=== PATIENT | female | born 1955 | race Caucasian/White ===

== ENCOUNTER 2016-10-16 10:01 | Inpatient (IN) | payer BC ==
[~2016-10-16] VITALS: Ht 162.6 cm; Wt 141.5 kg
[~2016-10-16 10:01] MED LIST changes: -ALBU2.5V4 NEB; -CARV25TA PO; -FENO145T20 PO; -LEVO150T6 PO; -LORA10TA7 PO; -MONT10TA24 PO; -ONDN4T PO; -PANT40TA3 PO; -PIOG1TAB34 PO; -RT-ALBUINH INH; -TIOT18CA2 INH; -VALS160T28 PO
[2016-10-16] MEDS ORDERED: ONDANSETRON 4 MG/2 ML (SDV) Z0FRAN IVP PRN (10:45)
[2016-10-16] MEDS ORDERED: PATIENT MAY USE OWN MEDS, ALL PO SCH (10:45)
[2016-10-16] MEDS ORDERED: fentaNYL INJECTION 100 MCG/2 ML AMP IVP PRN (11:00)
--- OUTSIDE RECORDS SUMMARY | 2016-10-16 13:06 | XMS REPORT | Continuity of Care Document ---
Author Author [facility] Organization [facility] Address Unknown Phone Unavailable Allergies Active Description Code Type Severity Reaction Onset Reported/Identified Relationship to Patient Clinical Status Yes azithromycin [id number] Drug Allergy Unknown N/A 11/05/2014 Yes Cephalosporins [id number] Drug Allergy Unknown N/A 11/05/2014 Yes codeine [id number] Drug Allergy Unknown N/A 11/05/2014 Medications Problems Date Dx Coded Attending Type Code Diagnosis Diagnosed By 05/14/2011 Ot 562.11 DIVERTICULITIS COLON (W/O MENT OF HEMORR 05/14/2011 Ot 565.0 ANAL FISSURE 05/14/2011 Ot 569.3 RECTAL ANAL HEMORRHAGE 05/14/2011 Ot 578.9 GASTROINTEST HEMORR NOS 06/23/2011 Ot 455.0 INT HEMORRHOID W/O COMPL 06/23/2011 Ot 562.10 DIVERTICULOSIS COLON (W/O MENT OF HEMORR 08/25/2011 Ot 472.1 CHRONIC PHARYNGITIS 08/25/2011 Ot 530.11 REFLUX ESOPHAGITIS 08/25/2011 Ot 535.50 UNSP GASTRITIS GASTRODUODENITIS W/O ME 08/25/2011 Ot 553.3 DIAPHRAGMATIC HERNIA 10/29/2011 Ot 244.9 HYPOTHYROIDISM NOS 10/29/2011 Ot 250.00 DIAB JAYLEN WO COMPL, TYPE II OR UNSPEC TY 10/29/2011 Ot 278.01 MORBID OBESITY 10/29/2011 Ot 401.9 HYPERTENSION NOS 10/29/2011 Ot 493.90 ASTHMA, UNSPECIFIED 10/29/2011 Ot 530.81 ESOPHAGEAL REFLUX 10/29/2011 Ot 733.6 TIETZE'S DISEASE 10/29/2011 Ot V17.49 FAMILY HISTORY OF OTHER CARDIOVASCULAR D 10/29/2011 Ot V58.69 OTH MED,LT,CURRENT USE 10/29/2011 Ot V85.43 BODY MASS INDEX 50.0-59.9, ADULT 12/28/2011 Ot 244.9 HYPOTHYROIDISM NOS 12/28/2011 Ot 250.00 DIAB JAYLEN WO COMPL, TYPE II OR UNSPEC TY 12/28/2011 Ot 272.4 HYPERLIPIDEMIA NEC/NOS 12/28/2011 Ot 278.01 MORBID OBESITY 12/28/2011 Ot 403.90 HYPTNSV CHR KID DIS, UNSPEC, W CHR KD ST 12/28/2011 Ot 493.00 EXTRINSIC ASTHMA, NOS 12/28/2011 Ot 530.81 ESOPHAGEAL REFLUX 12/28/2011 Ot 562.11 DIVERTICULITIS COLON (W/O MENT OF HEMORR 12/28/2011 Ot 585.9 CHRONIC KIDNEY DISEASE, UNSPECIFIED 12/28/2011 Ot 780.52 INSOMNIA, UNSPECIFIED 12/28/2011 Ot 788.1 DYSURIA 12/28/2011 Ot V85.43 BODY MASS INDEX 50.0-59.9, ADULT 01/01/2012 Ot 596.89 OTHER SPECIFIED DISORDERS OF BLADDER 01/01/2012 Ot 789.00 ABDOMINAL PAIN, UNSPECIFIED SITE 01/13/2012 Ot 625.9 FEM GENITAL SYMPTOMS NOS 01/13/2012 Ot 789.00 ABDOMINAL PAIN, UNSPECIFIED SITE 05/24/2013 BROWN ORDONEZ DO Ot 327.23 OBSTRUCTIVE SLEEP APNEA (ADULT) ( PEDIATR 05/24/2013 BROWN ORDONEZ DO Ot 327.51 PERIODIC LIMB MOVEMENT DISORDER 09/30/2014 Ot 429.3 09/30/2014 Ot 786.09 09/30/2014 Ot 715.36 09/30/2014 Ot 625.9 09/30/2014 Ot 789.01 09/30/2014 Ot 789.00 09/30/2014 Ot 789.00 09/30/2014 Ot V12.79 03/28/2016 Ot 715.36 LOC OSTEOARTH NOS-L/LEG 03/28/2016 Ot 625.9 FEM GENITAL SYMPTOMS NOS 03/28/2016 Ot 789.01 ABDOMINAL PAIN, RIGHT UPPER QUADRANT 03/28/2016 Ot 789.00 ABDOMINAL PAIN, UNSPECIFIED SITE 03/28/2016 Ot 789.00 ABDOMINAL PAIN, UNSPECIFIED SITE 03/28/2016 Ot V12.79 PERSONAL HISTORY OTH SPEC DIGESTIVE SYST 03/29/2016 LAURA PERLA RAILCAR BRAKE OPERATOR Ot R06.02 SHORTNESS OF BREATH 03/29/2016 LAURA PERLA APRN Ot R07.89 OTHER CHEST PAIN 03/31/2016 LAURA PERLA RAILCAR BRAKE OPERATOR Ot R06.02 SHORTNESS OF BREATH 04/03/2016 LAURA PERLA RAILCAR BRAKE OPERATOR Ot R00.0 TACHYCARDIA, UNSPECIFIED 04/03/2016 LAURA PERLA RAILCAR BRAKE OPERATOR Ot R06.02 SHORTNESS OF BREATH 04/03/2016 LAURA PERLA RAILCAR BRAKE OPERATOR Ot R53.83 OTHER FATIGUE 04/03/2016 LAURA PERLA Ken RAILCAR BRAKE OPERATOR Ot R60.9 EDEMA, UNSPECIFIED 04/04/2016 LAURA PERLA RAILCAR BRAKE OPERATOR Ot R00.0 TACHYCARDIA, UNSPECIFIED 04/04/2016 LAURA PERLA RAILCAR BRAKE OPERATOR Ot R06.02 SHORTNESS OF BREATH 04/04/2016 LAURA PERLA Ken RAILCAR BRAKE OPERATOR Ot R53.83 OTHER FATIGUE 04/04/2016 LAURA PERLA RAILCAR BRAKE OPERATOR Ot R60.9 EDEMA, UNSPECIFIED 04/06/2016 LAURA PERLA RAILCAR BRAKE OPERATOR Ot R00.0 TACHYCARDIA, UNSPECIFIED 04/06/2016 ALURA PERLA RAILCAR BRAKE OPERATOR Ot R06.02 SHORTNESS OF BREATH 04/06/2016 LAURA PERLA Ken RAILCAR BRAKE OPERATOR Ot R53.83 OTHER FATIGUE 04/06/2016 LAURA PERLA RAILCAR BRAKE OPERATOR Ot R60.9 EDEMA, UNSPECIFIED 04/12/2016 LAURA PERLA RAILCAR BRAKE OPERATOR Ot R06.02 SHORTNESS OF BREATH 04/12/2016 LAURA PERLA RAILCAR BRAKE OPERATOR Ot R07.89 OTHER CHEST PAIN 04/12/2016 LAURA PERLA RAILCAR BRAKE OPERATOR Ot R06.02 SHORTNESS OF BREATH 04/12/2016 LAURA PERLA RAILCAR BRAKE OPERATOR Ot R00.0 TACHYCARDIA, UNSPECIFIED 04/12/2016 LAURA PERLA RAILCAR BRAKE OPERATOR Ot R06.02 SHORTNESS OF BREATH 04/12/2016 LAURA PERLA N RAILCAR BRAKE OPERATOR Ot R53.83 OTHER FATIGUE 04/12/2016 LAURA PERLA RAILCAR BRAKE OPERATOR Ot R60.9 EDEMA, UNSPECIFIED 05/11/2016 RIANA BOYLE, KOFI Samayoa Ot I51.7 CARDIOMEGALY 05/11/2016 KOFI MAYERS MD Ot J45.909 UNSPECIFIED ASTHMA, UNCOMPLICATED 05/11/2016 KOFI MAYERS MD Ot K57.30 DVRTCLOS OF LG INT W/O PERFORATION OR AB 05/11/2016 RIANA BOYLE, KOFI Samayoa Ot R07.9 CHEST PAIN, UNSPECIFIED 05/17/2016 Ot 715.36 LOC OSTEOARTH NOS-L/LEG 05/17/2016 Ot 625.9 FEM GENITAL SYMPTOMS NOS 05/17/2016 Ot 789.01 ABDOMINAL PAIN, RIGHT UPPER QUADRANT 05/17/2016 Ot 789.00 ABDOMINAL PAIN, UNSPECIFIED SITE 05/17/2016 Ot 789.00 ABDOMINAL PAIN, UNSPECIFIED SITE 05/17/2016 Ot V12.79 PERSONAL HISTORY OTH SPEC DIGESTIVE SYST 05/17/2016 LAURA PERLA RAILCAR BRAKE OPERATOR Ot R06.02 SHORTNESS OF BREATH 05/17/2016 LAURA PERLA RAILCAR BRAKE OPERATOR Ot R07.89 OTHER CHEST PAIN 05/17/2016 LAURA PERLA RAILCAR BRAKE OPERATOR Ot R06.02 SHORTNESS OF BREATH 05/17/2016 LAURA PERLA RAILCAR BRAKE OPERATOR Ot R00.0 TACHYCARDIA, UNSPECIFIED 05/17/2016 LAURA PERLA RAILCAR BRAKE OPERATOR Ot R06.02 SHORTNESS OF BREATH 05/17/2016 LAURA PERLA RAILCAR BRAKE OPERATOR Ot R53.83 OTHER FATIGUE 05/17/2016 PAN LAURA N RAILCAR BRAKE OPERATOR Ot R60.9 EDEMA, UNSPECIFIED 05/18/2016 KOFI MAYERS MD Ot I51.7 CARDIOMEGALY 05/18/2016 KOFI MAYERS MD Ot J45.909 UNSPECIFIED ASTHMA, UNCOMPLICATED 05/18/2016 KOFI MAYERS MD Ot K57.30 DVRTCLOS OF LG INT W/O PERFORATION OR AB 05/18/2016 KOFI MAYERS MD Ot R07.9 CHEST PAIN, UNSPECIFIED 05/26/2016 Ot 715.36 LOC OSTEOARTH NOS-L/LEG 05/26/2016 Ot 625.9 FEM GENITAL SYMPTOMS NOS 05/26/2016 Ot 789.01 ABDOMINAL PAIN, RIGHT UPPER QUADRANT 05/26/2016 Ot 789.00 ABDOMINAL PAIN, UNSPECIFIED SITE 05/26/2016 Ot 789.00 ABDOMINAL PAIN, UNSPECIFIED SITE 05/26/2016 Ot V12.79 PERSONAL HISTORY OTH SPEC DIGESTIVE SYST 05/26/2016 PAN LAURA N RAILCAR BRAKE OPERATOR Ot R06.02 SHORTNESS OF BREATH 05/26/2016 LUARA PERLA RAILCAR BRAKE OPERATOR Ot R07.89 OTHER CHEST PAIN 05/26/2016 LAURA PERLA RAILCAR BRAKE OPERATOR Ot R06.02 SHORTNESS OF BREATH 05/26/2016 LAURA PERLA RAILCAR BRAKE OPERATOR Ot R00.0 TACHYCARDIA, UNSPECIFIED 05/26/2016 LAURA PERLA RAILCAR BRAKE OPERATOR Ot R06.02 SHORTNESS OF BREATH 05/26/2016 LAURA PERLA RAILCAR BRAKE OPERATOR Ot R53.83 OTHER FATIGUE 05/26/2016 LAURA PERLA RAILCAR BRAKE OPERATOR Ot R60.9 EDEMA, UNSPECIFIED 05/26/2016 KOFI MAYERS MD Ot E03.9 HYPOTHYROIDISM, UNSPECIFIED 05/26/2016 KOFI MAYERS MD Ot E11.9 TYPE 2 DIABETES MELLITUS WITHOUT COMPLIC 05/26/2016 KOFI MAYERS MD, Ot I10 ESSENTIAL (PRIMARY) HYPERTENSION 05/26/2016 KOFI MAYERS MD Ot I97.610 POSTPROC HEMOR/HEMTOM OF A CIRC SYS ORG 05/26/2016 KOFI MAYERS MD Ot J45.909 UNSPECIFIED ASTHMA, UNCOMPLICATED 05/26/2016 KOFI MAYERS MD Ot K57.30 DVRTCLOS OF LG INT W/O PERFORATION OR AB 05/26/2016 KOFI MAYERS MD Ot R10.31 RIGHT LOWER QUADRANT PAIN 05/26/2016 KOFI MAYERS MD Ot Z79.899 OTHER INTERMEDIATE (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 THERAPY Procedures Results Test Result Range Complete blood count (CBC) with automated white blood cell (WBC) differential - 05/11/16 13:40 Blood leukocytes automated count (number/volume) 6.0 10*3/ uL 4.3-11.0 Blood erythrocytes automated count (number/volume) 3.93 10*6 /uL 4.35-5.85 Venous blood hemoglobin measurement (mass/volume) 10.2 g/dL 11.5-16.0 Blood hematocrit (volume fraction) 32 % 35-52 Automated erythrocyte mean corpuscular volume 82 [foz_us] 80-99 Automated erythrocyte mean corpuscular hemoglobin (mass per erythrocyte) 26 pg 25-34 Automated erythrocyte mean corpuscular hemoglobin concentration measurement ( mass/volume) 32 g/dL 32-36 Automated erythrocyte distribution width ratio 17.5 % 10.0-14.5 Automated blood platelet count (count/volume) 303 10*3/uL 130-400 Automated blood platelet mean volume measurement 10.3 [foz_ us] 7.4-10.4 Automated blood neutrophils/100 leukocytes 57 % 42-75 Automated blood lymphocytes/100 leukocytes 25 % 12-44 Blood monocytes/100 leukocytes 8 % 0-12 Automated blood eosinophils/100 leukocytes 9 % 0-10 Automated blood basophils/100 leukocytes 1 % 0-10 Blood neutrophils automated count (number/volume) 3.4 10*3 1.8-7.8 Blood lymphocytes automated count (number/volume) 1.5 10*3 1.0-4.0 Blood monocytes automated count (number/volume) 0.5 10*3 0.0-1.0 Automated eosinophil count 0.5 10*3/uL 0.0-0.3 Automated blood basophil count (count/volume) 0.1 10*3/uL 0.0-0.1 PT panel in platelet poor plasma by coagulation assay - 05/11/16 13:40 Prothrombin time (PT) in platelet poor plasma by coagulation assay 13.7 s 12.2-14.7 INR in platelet poor plasma or blood by coagulation assay 1.1 0.8-1.4 Activated partial thromboplastin time (aPTT) in platelet poor plasma bycoagulation assay - 05/11/16 13:40 Activated partial thromboplastin time (aPTT) in platelet poor plasma bycoagulation assay 28 s 24-35 Comprehensive metabolic panel - 05/11/16 13:40 Serum or plasma sodium measurement (moles/volume) 140 mmol/ L 135-145 Serum or plasma potassium measurement (moles/volume) 4.5 mmol/L 3.6-5.0 Serum or plasma chloride measurement (moles/volume) 109 mmol /L 98-107 Carbon dioxide 22 mmol/L 21-32 Serum or plasma anion gap determination (moles/volume) 9 mmol/L 5-14 Serum or plasma urea nitrogen measurement (mass/volume) 25 mg/dL 7-18 Serum or plasma creatinine measurement (mass/volume) 1.19 mg /dL 0.60-1.30 Serum or plasma urea nitrogen/creatinine mass ratio 21 NRG Serum or plasma creatinine measurement with calculation of estimated glomerular filtration rate 46 NRG Serum or plasma glucose measurement (mass/volume) 97 mg/dL 70-105 Serum or plasma calcium measurement (mass/volume) 9.2 mg/dL 8.5-10.1 Serum or plasma total bilirubin measurement (mass/volume) 0.4 mg/dL 0.1-1.0 Serum or plasma alkaline phosphatase measurement (enzymatic activity/volume) 68 U/L 40-136 Serum or plasma aspartate aminotransferase measurement (enzymatic activity/ volume) 27 U/L 5-34 Serum or plasma alanine aminotransferase measurement (enzymatic activity/volume ) 20 U/L 0-55 Serum or plasma protein measurement (mass/volume) 7.2 g/dL 6.4-8.2 Serum or plasma albumin measurement (mass/volume) 4.0 g/dL 3.2-4.5 Magnesium - 05/11/16 13:40 Magnesium 2.0 mg/dL 1.8-2.4 Serum or plasma troponin i.cardiac measurement (mass/volume) - 05/11/16 13:40 Serum or plasma troponin i.cardiac measurement (mass/volume) < ng/mL <0.30 Myoglobin, serum - 05/11/16 13:40 Myoglobin, serum 33.9 ng/mL 10.0-92.0 Complete blood count (CBC) with automated white blood cell (WBC) differential - 05/26/16 22:34 Blood leukocytes automated count (number/volume) 8.8 10*3/ uL 4.3-11.0 Blood erythrocytes automated count (number/volume) 3.93 10*6 /uL 4.35-5.85 Venous blood hemoglobin measurement (mass/volume) 10.1 g/dL 11.5-16.0 Blood hematocrit (volume fraction) 33 % 35-52 Automated erythrocyte mean corpuscular volume 83 [foz_us] 80-99 Automated erythrocyte mean corpuscular hemoglobin (mass per erythrocyte) 26 pg 25-34 Automated erythrocyte mean corpuscular hemoglobin concentration measurement ( mass/volume) 31 g/dL 32-36 Automated erythrocyte distribution width ratio 17.9 % 10.0-14.5 Automated blood platelet count (count/volume) 230 10*3/uL 130-400 Automated blood platelet mean volume measurement 10.8 [foz_ us] 7.4-10.4 Automated blood neutrophils/100 leukocytes 62 % 42-75 Automated blood lymphocytes/100 leukocytes 22 % 12-44 Blood monocytes/100 leukocytes 9 % 0-12 Automated blood eosinophils/100 leukocytes 6 % 0-10 Automated blood basophils/100 leukocytes 1 % 0-10 Blood neutrophils automated count (number/volume) 5.4 10*3 1.8-7.8 Blood lymphocytes automated count (number/volume) 2.0 10*3 1.0-4.0 Blood monocytes automated count (number/volume) 0.8 10*3 0.0-1.0 Automated eosinophil count 0.6 10*3/uL 0.0-0.3 Automated blood basophil count (count/volume) 0.1 10*3/uL 0.0-0.1 Encounters ACCT No. Visit Date/Time Discharge Status Pt. Type Provider Facility Loc./Unit Complaint [id number] 05/26/2016 22:15:00 2015 23:05:00 DIS Emergency KOFI MAYERS MD [facility] ER R GROIN SWELLING [id number] 05/11/2016 13:25:00 2015 16:13:00 DIS Emergency KOFI MAYERS MD [facility] ER SOA/CHEST PAIN [id number] 05/23/2013 20:00:00 2012 06:55:00 DIS Outpatient BROWN ORDONEZ DO [facility] SLEEP BERNARDO,SNORING,ABN LIMB MOVEMENT,HTN,ESCESSIVE DAYTIM [id number] 05/02/2013 08:37:00 2012 23:59:59 CLS Outpatient [id number] 03/31/2016 12:28:00 ACT Outpatient LAURA PERLA APRN [facility] CARD ELEVATED BHP,FATIGUE,PEDAL EDEMA,SOB,TACHYCARDIA [id number] 03/30/2016 11:50:00 ACT Outpatient LAURA PERLA APRN [facility] CARD SHORNESS OF BREATH,ELEVATED D-DIMER [id number] 03/28/2016 12:17:00 ACT Outpatient LAURA PERLA APRN [facility] RAD CHEST TIGHTNESS,SOB [id number] 09/30/2014 18:49:00 Document Registration [id number] 09/30/2014 18:49:00 Document Registration [id number] 01/13/2012 18:51:00 Document Registration [id number] 01/01/2012 20:24:00 Document Registration [id number] 12/25/2011 17:50:00 Document Registration [id number] 12/25/2011 08:44:00 Document Registration [id number] 10/27/2011 19:25:00 Document Registration [id number] 08/25/2011 09:24:00 Document Registration [id number] 06/23/2011 08:50:00 Document Registration [id number] 05/14/2011 15:08:00 Document Registration [id number] 05/10/2011 08:50:00 Document Registration [id number] 05/09/2011 14:27:00 Document Registration [id number] 12/19/2010 15:52:00 Document Registration [id number] 12/17/2009 13:26:00 Document Registration
[2016-10-16] MEDS ORDERED: PIOG1TAB34 PO (14:02)
[2016-10-16] MEDS ORDERED: CARV25TA PO (14:02)
[2016-10-16] MEDS ORDERED: FENO145T20 PO (14:02)
[2016-10-16] MEDS ORDERED: PANT40TA3 PO (14:02)
[2016-10-16] MEDS ORDERED: LEVO150T6 PO (14:02)
[2016-10-16] MEDS ORDERED: VALS160T28 PO (14:02)
[2016-10-16] MEDS ORDERED: ALBU2.5V4 NEB (14:02)
[2016-10-16] MEDS ORDERED: RT-ALBUINH INH (14:02)
[2016-10-16] MEDS ORDERED: MONT10TA24 PO (14:02)
[2016-10-16] MEDS ORDERED: FURO40TA4 PO (14:02)
[2016-10-16] MEDS ORDERED: TIOT18CA2 INH (14:10)
[2016-10-16] MEDS ORDERED: LORA10TA7 PO (14:10)
[2016-10-16] MEDS: NS IV 1000 ML 1,000 ML IV SCH ×3 (14:30→22:35)
[2016-10-16 15:38] LABS: BASOPHILS % (AUTO) 1 % (0-10); EOSINOPHILS # (AUTO) 0.3 10^3/uL (0.0-0.3); EOSINOPHILS % (AUTO) 4 % (0-10); LYMPHOCYTES # (AUTO) 1.3 X 10^3 (1.0-4.0); LYMPHOCYTES % (AUTO) 20 % (12-44); MEAN CORPUSCULAR HEMOGLOBIN 26 PG (25-34); MEAN CORPUSCULAR HGB CONC 32 G/DL (32-36); MEAN CORPUSCULAR VOLUME 83 FL (80-99); MEAN PLATELET VOLUME 10.2 FL (7.4-10.4); MONOCYTES # (AUTO) 0.6 X 10^3 (0.0-1.0); MONOCYTES % (AUTO) 9 % (0-12); NEUTROPHILS # (AUTO) 4.3 X 10^3 (1.8-7.8); NEUTROPHILS % (AUTO) 66 % (42-75); PLATELET COUNT 244 10^3/uL (130-400); RED BLOOD COUNT 4.09 10^6/uL (4.35-5.85); RED CELL DISTRIBUTION WIDTH 17.5 % (10.0-14.5); WHITE BLOOD COUNT 6.5 10^3/uL (4.3-11.0)
[2016-10-16 16:03] LABS: ALBUMIN 3.8 G/DL (3.2-4.5); BILIRUBIN,TOTAL 0.9 MG/DL (0.1-1.0); CALCIUM 9.4 MG/DL (8.5-10.1); CREATININE SERUM 0.99 MG/DL (0.60-1.30); POTASSIUM 3.7 MMOL/L (3.6-5.0); hs C REACTIVE PROTEIN 4.73 MG/DL (0.00-0.50)
[2016-10-16 16:55] VITALS: BP 175/92
--- NOTE | 2016-10-16 20:10 | History & Physicial ---
History of Present Illness History of Present Illness Reason for visit/HPI This is a 61 year old female with a history of recurrent UTIs who was having worsening abdominal pain and diarrhea. She had been treated for a urinary tract infection but due to ongoing pain, a CT scan of the abdomen and pelvis was ordered which showed sigmoid diverticulitis with concern for possible fistula to the bladder. It was decided to admit her for IV antibiotics and surgical evaluation. Date of Admission Oct 16, 2016 at 13:00 I consulted on this patient on 10/16/16 20:04 Attending Physician Belkis Araujo DO Admitting Physician Belkis Araujo DO Consult Allergies and Home Medications Allergies Coded Allergies: Cephalosporins (Unverified Allergy, Unknown, 11/05/14) azithromycin (Unverified Allergy, Unknown, 11/05/14) codeine (Unverified Allergy, Unknown, 11/05/14) Home Medications Albuterol Sulfate 8.5 Gm Hfa.aer.ad 2 PUFF INH Q4H PRN PRN SHORTNESS OF BREATH ( Reported) Albuterol Sulfate 2.5 Mg/3 Ml Vial.neb 2.5 MG NEB QID PRN PRN SHORTNESS OF BREATH (Reported) Carvedilol 25 Mg Tablet 25 MG PO BID (Reported) Fenofibrate Nanocrystallized 145 Mg Tablet 145 MG PO HS (Reported) Furosemide 40 Mg Tablet 40 MG PO DAILY PRN PRN SHORTNESS OF BREATH (Reported) Levothyroxine Sodium 150 Mcg Tablet 150 MCG PO DAILY (Reported) Loratadine 10 Mg Tablet 10 MG PO DAILY (Reported) Montelukast Sodium 10 Mg Tablet 10 MG PO HS (Reported) Pantoprazole Sodium 40 Mg Tablet.dr 40 MG PO HS (Reported) Pioglitazone HCl/Metformin HCl 1 Each Tablet 1 TAB PO DAILY (Reported) Tiotropium [place] 1 Inh Aerp 1 CAP INH DAILY (Reported) Valsartan 160 Mg Tablet 160 MG PO BID (Reported) Past Zidqbjg-Oqysvk-Zkqtab Hx Patient Social History Alcohol Use: Denies Use Recreational Drug Use: No Smoking Status: Never a Smoker Physical Abuse Screen: No Sexual Abuse: No Recent Foreign Travel: No Contact w/other who traveled: No Recent Hopitalizations: Yes Recent Infectious Disease Expo: No Immunizations Up To Date Date of Pneumonia Vaccine: Jun 10, 2015 Date of Influenza Vaccine: Jul 11, 2016 Seasonal Allergies Seasonal Allergies: No Surgeries HX Surgeries: Yes (TONSILECTOMY, BACK-DISK REPAIR, X2, GANGLION CYST REMOVED) Respiratory Hx Respiratory Disorders: Yes Cardiovascular Hx Cardiovascular Disorders: Yes (abnormal stress test 06/09/16) Cardiac Disorders: Chronic Edema/Swelling, High Cholesterol, Hypertension Neurological Hx Neurological Disorders: No Reproductive System Hx Reproductive Disorders: No Genitourinary Hx Genitourinary Disorders: Yes (renal insuff) Gastrointestinal Hx Gastrointestinal Disorders: Yes Gastrointestinal Disorders: Gastroesophageal Reflux, Diverticulosis Musculoskeletal Hx Musculoskeletal Disorders: Yes Endocrine Hx Endocrine Disorders: Yes Endocrine Disorders: Hypothyroidsim, Diabetes, Non-Insulin dep HEENT HX ENT Disorders: No Psychosocial Hx Psychiatric Problems: No Blood Transfusions Hx Blood Disorders: No Constitutional: weakness EENTM: No blurred vision, No dental problems, No double vision, No ear discharge, No ear pain, No epistaxis, No eye pain, No hearing loss, No hoarseness, No mouth pain, No mouth swelling, No no symptoms reported, No nose congestion, No nose pain, No other, No see HPI, No tearing, No throat pain, No throat swelling, No vision loss Respiratory: No no symptoms reported, No see HPI, No cough, No dyspnea on exertion, No hemoptysis, No orthopnea, No phlegm, No short of breath, No stridor , No wheezing, No other Cardiovascular: No no symptoms reported, No see HPI, No chest pain, No edema, No Hx of Intervention, No palpitations, No syncope, No vascular heart diseas, No other Gastrointestinal: abdominal pain diarrhea Genitourinary: dysuria frequency Musculoskeletal: No no symptoms reported, No see HPI, No back pain, No gout, No joint pain, No joint swelling, No muscle pain, No muscle stiffness, No muscle cramps, No muscle twitching, No muscle weakness, No neck pain, No other Skin: No no symptoms reported, No see HPI, No change in color, No change in hair/nails, No dryness, No hx of skin cancer, No lesions, No lumps, No pruritus , No rash, No other Psychiatric/Neurological: Weakness Physical Exam Vital Signs Vital Sign - Last 12Hours 10/16/16 10/16/16 13:45 16:55 Temp 99.7 Pulse 71 Resp 22 B/P 175/92 Pulse Ox 95 O2 Delivery Room Air Capillary Refill : General Appearance: No Apparent Distress HEENT: Normal ENT Inspection Neck: Supple Respiratory: Lungs Clear Cardiovascular: Regular Rate, Rhythm Gallop/S3 Gastrointestinal: Normal Bowel Sounds Non Tender Soft Back: No CVA Tenderness Extremity: Non Tender No Calf Tenderness No Pedal Edema Neurologic/Psychiatric: Alert Oriented x3 Skin: Normal Color Warm/Dry Comments Laboratory Tests 10/16/16 15:24: Alanine Aminotransferase (ALT/SGPT) 11, Albumin 3.8, Alkaline Phosphatase 59, Anion Gap 11, Aspartate Amino Transf (AST/SGOT) 17, BUN/Creatinine Ratio 17, Basophils # (Auto) 0.0, Basophils (%) (Auto) 1, Blood Urea Nitrogen 17, C- Reactive Protein High Sensitivity 4.73H, Calcium Level 9.4, Carbon Dioxide Level 24, Chloride Level 104, Creatinine 0.99, Eosinophils # (Auto) 0.3, Eosinophils (%) (Auto) 4, Estimat Glomerular Filtration Rate 57, Glucose Level 79, Hematocrit 34L, Hemoglobin 10.7L, Lymphocytes # (Auto) 1.3, Lymphocytes (%) (Auto) 20, Mean Corpuscular Hemoglobin 26, Mean Corpuscular Hemoglobin Concent 32, Mean Corpuscular Volume 83, Mean Platelet Volume 10.2, Monocytes # (Auto) 0.6, Monocytes (%) (Auto) 9, Neutrophils # (Auto) 4.3, Neutrophils (%) (Auto) 66 , Platelet Count 244, Potassium Level 3.7, Red Blood Count 4.09L, Red Cell Distribution Width 17.5H, Sodium Level 139, Total Bilirubin 0.9, Total Protein 7.0, White Blood Count 6.5 Assessment/Plan Assessment and Plan 1. Acute Sigmoid Diverticulitis--due to patients numerous allergies and concern for possible microperforation or possible bladder fistula will cover with meropenem and consult surgery, keep NPO except for meds with sips of water 2. Hypertension--resume home meds 3. Diabetes mellitus--start accuchecks with SSI 4. BERNARDO--resume home CPAP 5. Asthma--start SVNs prn Clinical Quality Measures DVT/VTE Risk/Contraindication: Risk Factor Score Per Nursin RFS Level Per Nursing on Admit: 3=High BELKIS ARAUJO DO Oct 16, 2016 20:10
[2016-10-16] MEDS ORDERED: RT-ALBUTEROL SULF 2.5 MG/3 ML PRE-MIX VIAL IH PRN (20:15)
[2016-10-16 20:41] VITALS: BP 163/84
[2016-10-16] MEDS: CARVEDILOL 12.5 MG (COREG) TABLET PO SCH (20:50)
[2016-10-16] MEDS: VALSARTAN 80 MG (DIOVAN) TAB PO SCH (20:50)
[2016-10-16] MEDS: inSUlin (REGULAR) HUMAN 1 UNIT/0.01 ML (CHARGE PER UNIT) SC SCH (20:52)
[2016-10-16] MEDS: MEROPENEM 500 MG in NS (IVPB) 100 ML IV SCH ×2 (22:00→22:35)
[2016-10-17 00:15] VITALS: BP 146/83
[2016-10-17 04:28] VITALS: BP 155/72
[2016-10-17] MEDS: LEVOTHYROXINE 150 MCG (LEVOTHROID) TAB PO SCH (05:37)
[2016-10-17] MEDS: MEROPENEM 500 MG in NS (IVPB) 100 ML IV SCH ×4 (05:37→23:23)
[2016-10-17] MEDS: inSUlin (REGULAR) HUMAN 1 UNIT/0.01 ML (CHARGE PER UNIT) SC SCH ×4 (05:39→20:10)
[2016-10-17] MEDS: UMECLIDINIUM BROMIDE (INCRUSE ELLIPTA) 7'S IH SCH (07:47)
[2016-10-17] MEDS: VALSARTAN 80 MG (DIOVAN) TAB PO SCH ×2 (07:55→20:09)
[2016-10-17] MEDS: CARVEDILOL 12.5 MG (COREG) TABLET PO SCH ×2 (07:55→20:09)
[2016-10-17] MEDS: NS IV 1000 ML 1,000 ML IV SCH (08:42)
[2016-10-17] MEDS ORDERED: FUROSEMIDE 40 MG/4 ML INJ (LASIX) IVP ONE (08:45)
[2016-10-17] MEDS ORDERED: KCL 20 MEQ TAB (K-DUR) PO ONE ×2 (08:45→11:51)
[2016-10-17 09:02] VITALS: BP 165/77
[2016-10-17] MEDS ORDERED: CATHETER FLUSH 10 ML SYR IV PRN (09:30)
[2016-10-17] MEDS ORDERED: FUROSEMIDE 40 MG/4 ML INJ (LASIX) ONE (11:51)
[2016-10-17] MEDS: PANTOPRAZOLE 40 MG/10 ML (PROTONIX) VIAL IV SCH (11:55)
[2016-10-17 12:47] VITALS: BP 144/74
--- NOTE | 2016-10-17 13:01 | Progress Note (SOAP) ---
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 Some abdominal discomfort this am but is in upper abdomen. No diarrhea since admit. Objective Exam Vital Signs Date Time Temp Pulse Resp B/P Pulse Ox O2 Delivery O2 Flow Rate FiO2 10/17/16 12:47 98.1 69 20 144/74 95 Nasal Cannula 2.00 2.00 10/17/16 09:02 98.6 77 18 165/77 89 Nasal Cannula 2.00 10/17/16 09:00 NIV/CPAP 10/17/16 07:43 98 10/17/16 04:28 97.6 68 18 155/72 90 NIV/CPAP 10/17/16 00:15 99.5 74 18 146/83 94 Room Air 10/16/16 21:00 NIV/CPAP 10/16/16 20:41 100.1 71 18 163/84 93 Room Air 10/16/16 16:55 99.7 71 22 175/92 95 Room Air 10/16/16 13:45 Room Air I & O 10/17/16 07:00 Intake Total 1200 ml Output Total 450 ml Balance 750 ml Capillary Refill : General Appearance: No Apparent Distress Neck: Supple Respiratory: Lungs Clear Cardiovascular: Regular Rate, Rhythm Gastrointestinal: normal bowel sounds soft tenderness (mild epigastric and LUQ ) Extremity: No Calf Tenderness No Pedal Edema Neurologic/Psychiatric: Alert Oriented x3 Results Lab Laboratory Tests 10/16/16 15:24: Alanine Aminotransferase (ALT/SGPT) 11, Albumin 3.8, Alkaline Phosphatase 59, Anion Gap 11, Aspartate Amino Transf (AST/SGOT) 17, BUN/Creatinine Ratio 17, Basophils # (Auto) 0.0, Basophils (%) (Auto) 1, Blood Urea Nitrogen 17, C- Reactive Protein High Sensitivity 4.73H, Calcium Level 9.4, Carbon Dioxide Level 24, Chloride Level 104, Creatinine 0.99, Eosinophils # (Auto) 0.3, Eosinophils (%) (Auto) 4, Estimat Glomerular Filtration Rate 57, Glucose Level 79, Hematocrit 34L, Hemoglobin 10.7L, Lymphocytes # (Auto) 1.3, Lymphocytes (%) (Auto) 20, Mean Corpuscular Hemoglobin 26, Mean Corpuscular Hemoglobin Concent 32, Mean Corpuscular Volume 83, Mean Platelet Volume 10.2, Monocytes # (Auto) 0.6, Monocytes (%) (Auto) 9, Neutrophils # (Auto) 4.3, Neutrophils (%) (Auto) 66 , Platelet Count 244, Potassium Level 3.7, Red Blood Count 4.09L, Red Cell Distribution Width 17.5H, Sodium Level 139, Total Bilirubin 0.9, Total Protein 7.0, White Blood Count 6.5 10/16/16 20:52: Glucometer 81 10/17/16 05:26: Glucometer 79 10/17/16 11:45: Glucometer 73 Assessment/Plan Assessment/Plan Assess & Plan/Chief Complaint 1. 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 Hypertension--home meds restarted 3. Diabetes mellitus, II--on accuchecks with SSI 4. Asthma--resume home inhalers Diagnosis/Problems: Clinical Quality Measures DVT/VTE Risk/Contraindication: Risk Factor Score Per Nursin RFS Level Per Nursing on Admit: 3=High BROWN ORDONEZ DO Oct 17, 2016 1:01 pm
--- NOTE | 2016-10-17 13:20 | CONSULTATION REPORT ---
DATE OF ADMISSION: 10/16/2016 DATE OF CONSULTATION: 10/17/2016 ATTENDING PHYSICIAN: Belkis Villaseñor. Zhane Matson is a 61-year-old female who we have seen before in the past. We have seen her approximately in June 2011 for pain in the left lower abdominal quadrant. She underwent a colonoscopy and was found to have mild internal and external hemorrhoids as well as mild sigmoid diverticulosis at the time. She reports that she has had an issue with chronic sinusitis and has exacerbation of this on a regular basis and did take antibiotics approximately one month ago. She reports that after taking antibiotics, she has had worsening issues with diarrhea. She also does have irritable bowel syndrome, diarrhea type and states that she has usually loose bowel movements on a daily basis; however, this was much worse. She then reports that yesterday she did develop pain in the left lower abdominal quadrant as well. A CT scan was performed, which did show sigmoid diverticulitis as well as a small bubble of gas in the jen sigmoidal mesentery which may represent a chronic contained perforation. Since being admitted, and placed on meropenem she states that she has felt better. She reports much less pain in the left lower abdominal quadrant. Her vital signs are also stable with no fevers and a normal white count is 6.5 indicating likely more chronic disease. PAST MEDICAL HISTORY: 1. Hypertension. 2. Adult-onset diabetes. 3. Asthma. 4. Chronic sinusitis. 5. Frequent urinary tract infections. 6. IBS-D obstructive sleep apnea. 7. Hypercholesterolemia. 8. Hypothyroid. PAST SURGERIES: 1. section x2. 2. Tubal ligation. 3. Tonsillectomy. 4. Lumbar discectomy. ALLERGIES: 1. SULFA. 2. CELEBREX. 3. ZITHROMAX. 4. CODEINE. MEDICATIONS: 1. Albuterol 2 puffs q.4 hours p.r.n. 2. Carvedilol 25 mg b.i.d. 3. Fenofibrate 145 mg daily. 4. Furosemide 40 mg daily. 5. Levothyroxine 150 mcg daily. 6. Loratadine 10 mg daily. 7. Montelukast 10 mg daily. 8. Protonix 40 mg daily. 9. Pioglitazone/metformin 15/950 mg daily. 10. Spiriva daily. 11. Valsartan 160 mg b.i.d. SOCIAL HISTORY: Negative smoke. Negative alcohol. FAMILY HISTORY: Father diabetes, history of transient ischemic attack., And maternal grandfather severe diverticulitis. VITAL SIGNS: Temperature 98.6, blood pressure 165/77, pulse 77, respirations 18, pulse oximetry 89% on 2 liters nasal cannula. REVIEW OF SYSTEMS: This well nourished female currently in no acute distress. She is not experiencing any shortness of breath or difficulty breathing. No chest pain, palpitations, diaphoresis. No nausea, vomiting, with intermittent episodes of loose stools which is common for her. No red blood per rectum. No dark tarry stools. No fever, chills, no recent inadvertent weight loss. PHYSICAL EXAMINATION: CHEST: Clear. HEART: Regular. EXTREMITIES: +1/3 bilateral lower extremity edema. Negative Homans sign. ABDOMEN: Soft. There is mild left lower and suprapubic pain upon deep palpation. There are no peritoneal signs. ASSESSMENT AND PLAN: 61-year-old female with sigmoid diverticulitis as well as possible chronic contained perforation. She did have colonoscopy by us in 2010. However, she had an EGD and colonoscopy done more recently in the summer of 2015 at [place]. She states that 2 polyps were identified, benign. At this time, we will recommend continued conservative management with bowel rest and IV antibiotics. This appears to be her first complicated episodes of diverticulitis. If she does have continued episodes despite maximal medical therapy, the indication for sigmoid colon resection, may be warranted. At this time she does have an episode of diverticulitis and the recommendations for follow-up colonoscopy in approximately 6 to 8 weeks. However, she did have one recently. We will give her the option of a follow-up colonoscopy in the next 6 months to one year. Job ID: [id number] Dictated Date: 10/17/2016 11:28:29 Aquaculture Director Date: 10/17/2016 13:05:25/susan
[2016-10-17 15:35] VITALS: BP 175/81
[2016-10-17 19:36] VITALS: BP 159/70
[2016-10-18] VITALS (7 sets, daily range): BP systolic 121–170; BP diastolic 69–85
[2016-10-18] MEDS: NS IV 1000 ML 1,000 ML IV SCH (05:01)
[2016-10-18] MEDS: MEROPENEM 500 MG in NS (IVPB) 100 ML IV SCH ×4 (05:01→23:30)
[2016-10-18] MEDS: LEVOTHYROXINE 150 MCG (LEVOTHROID) TAB PO SCH (05:43)
[2016-10-18] MEDS: inSUlin (REGULAR) HUMAN 1 UNIT/0.01 ML (CHARGE PER UNIT) SC SCH ×4 (05:44→20:38)
[2016-10-18] MEDS: UMECLIDINIUM BROMIDE (INCRUSE ELLIPTA) 7'S IH SCH (08:09)
[2016-10-18] MEDS: VALSARTAN 80 MG (DIOVAN) TAB PO SCH ×2 (09:41→20:38)
[2016-10-18] MEDS: CARVEDILOL 12.5 MG (COREG) TABLET PO SCH ×2 (09:41→20:38)
[2016-10-18] MEDS: PANTOPRAZOLE 40 MG/10 ML (PROTONIX) VIAL IV SCH (09:41)
--- NOTE | 2016-10-18 13:20 | Diagnostic Imaging Report ---
INDICATION: Sigmoid diverticulitis. FINDINGS: There is no evidence for bowel obstruction. No extraluminal gas collections or free intraperitoneal air. IMPRESSION: Unremarkable abdominal radiographs. Dictated by: Dictated on workstation # [id number]
--- NOTE | 2016-10-18 13:37 | Progress Note (SOAP) ---
Subjective Subjective/Events-last exam doing better today. minimal abdominal pain. had large loose BM today. tolerating liquids. no fever/chills. Objective Exam Vital Signs Date Time Temp Pulse Resp B/P Pulse Ox O2 Delivery O2 Flow Rate FiO2 10/18/16 08:20 99.4 65 18 170/69 95 Room Air 10/18/16 08:09 97 10/18/16 04:15 99.6 68 18 159/78 92 NIV/CPAP 1.00 10/18/16 00:36 99.8 70 18 122/70 94 NIV/CPAP 1.00 10/17/16 22:06 97 10/17/16 20:10 NIV/CPAP 10/17/16 19:36 99.8 65 20 159/70 93 Room Air 10/17/16 15:35 99.0 67 18 175/81 94 Room Air I & O 10/18/16 07:00 Intake Total 4170 ml Output Total 2900 ml Balance 1270 ml Capillary Refill : General Appearance: No Apparent Distress HEENT: PERRL/EOMI Neck: Full Range of Motion Respiratory: Chest Non Tender Lungs Clear Normal Breath Sounds Cardiovascular: Regular Rate, Rhythm Gastrointestinal: normal bowel sounds non tender soft Extremity: Normal Capillary Refill Neurologic/Psychiatric: Alert Oriented x3 Skin: Normal Color Lymphatic: No Adenopathy Results Lab Laboratory Tests 10/17/16 16:44: Glucometer 87 10/17/16 19:46: Glucometer 80 10/18/16 05:22: Glucometer 75 10/18/16 10:37: Glucometer 76 Assessment/Plan Assessment/Plan Assess & Plan/Chief Complaint sigmoid diverticulitis. advance diet. trial bentyl. check stool for C. diff and O&P. Diagnosis/Problems: Clinical Quality Measures DVT/VTE Risk/Contraindication: Risk Factor Score Per Nursin RFS Level Per Nursing on Admit: 3=High GIBSON DELAROSA MD Oct 18, 2016 1:37 pm
[2016-10-18] MEDS ORDERED: DICYCLOMINE 10 MG (BENTYL) CAP PO SCH (16:00)
[2016-10-18] MEDS ORDERED: DICYCLOMINE 10 MG (BENTYL) CAP PO PRN (18:15)
--- NOTE | 2016-10-18 18:15 | Progress Note (SOAP) ---
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 One episode of diarrhea last night after clear liquids. Minimal abdominal discomfort. Objective Exam Vital Signs Date Time Temp Pulse Resp B/P Pulse Ox O2 Delivery O2 Flow Rate FiO2 10/18/16 16:00 98.6 74 18 121/73 95 Room Air 10/18/16 12:20 98.9 69 18 158/72 96 Room Air 10/18/16 08:20 99.4 65 18 170/69 95 Room Air 10/18/16 08:09 97 10/18/16 04:15 99.6 68 18 159/78 92 NIV/CPAP 1.00 10/18/16 00:36 99.8 70 18 122/70 94 NIV/CPAP 1.00 10/17/16 22:06 97 10/17/16 20:10 NIV/CPAP 10/17/16 19:36 99.8 65 20 159/70 93 Room Air I & O 10/18/16 07:00 Intake Total 4170 ml Output Total 2900 ml Balance 1270 ml Capillary Refill : General Appearance: No Apparent Distress Neck: Supple Respiratory: Lungs Clear Decreased Breath Sounds (bases) Cardiovascular: Regular Rate, Rhythm Gallop/S3 Gastrointestinal: non tender soft abnormal bowel sounds (hyperactive) Extremity: Non Tender No Calf Tenderness No Pedal Edema Neurologic/Psychiatric: Alert Oriented x3 Results Lab Laboratory Tests 10/17/16 19:46: Glucometer 80 10/18/16 05:22: Glucometer 75 10/18/16 10:37: Glucometer 76 10/18/16 16:30: Glucometer 118H Assessment/Plan Assessment/Plan Assess & Plan/Chief Complaint 1. 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 Hypertension--home meds restarted 3. Diabetes mellitus, II--on accuchecks with SSI 4. Asthma--on home inhalers Diagnosis/Problems: Clinical Quality Measures DVT/VTE Risk/Contraindication: Risk Factor Score Per Nursin RFS Level Per Nursing on Admit: 3=High BROWN ORDONEZ DO Oct 18, 2016 18:15
[2016-10-19 04:05] VITALS: BP 145/85
[2016-10-19] MEDS: MEROPENEM 500 MG in NS (IVPB) 100 ML IV SCH (05:23)
[2016-10-19] MEDS: NS IV 1000 ML 1,000 ML IV SCH (05:23)
[2016-10-19] MEDS: LEVOTHYROXINE 150 MCG (LEVOTHROID) TAB PO SCH (05:46)
[2016-10-19] MEDS: inSUlin (REGULAR) HUMAN 1 UNIT/0.01 ML (CHARGE PER UNIT) SC SCH ×4 (06:00→21:00)
[2016-10-19 07:42] LABS: BASOPHILS % (AUTO) 1 % (0-10); EOSINOPHILS # (AUTO) 0.4 10^3/uL (0.0-0.3); EOSINOPHILS % (AUTO) 6 % (0-10); LYMPHOCYTES # (AUTO) 1.2 X 10^3 (1.0-4.0); LYMPHOCYTES % (AUTO) 20 % (12-44); MEAN CORPUSCULAR HEMOGLOBIN 26 PG (25-34); MEAN CORPUSCULAR HGB CONC 32 G/DL (32-36); MEAN CORPUSCULAR VOLUME 82 FL (80-99); MEAN PLATELET VOLUME 10.1 FL (7.4-10.4); MONOCYTES # (AUTO) 0.5 X 10^3 (0.0-1.0); MONOCYTES % (AUTO) 9 % (0-12); NEUTROPHILS # (AUTO) 3.7 X 10^3 (1.8-7.8); NEUTROPHILS % (AUTO) 64 % (42-75); PLATELET COUNT 263 10^3/uL (130-400); RED BLOOD COUNT 3.88 10^6/uL (4.35-5.85); RED CELL DISTRIBUTION WIDTH 17.2 % (10.0-14.5); WHITE BLOOD COUNT 5.9 10^3/uL (4.3-11.0)
[2016-10-19] MEDS: UMECLIDINIUM BROMIDE (INCRUSE ELLIPTA) 7'S IH SCH (07:43)
[2016-10-19 08:02] LABS: ALANINE AMINOTRANSFERASE 15 U/L (0-55); ALBUMIN 3.5 G/DL (3.2-4.5); ANION GAP 10 MMOL/L (5-14); ASPARTATE AMINO TRANSFERASE 19 U/L (5-34); BILIRUBIN,TOTAL 0.7 MG/DL (0.1-1.0); BLOOD UREA NITROGEN 14 MG/DL (7-18); BUN/CREATININE RATIO 17; CARBON DIOXIDE 24 MMOL/L (21-32); CHLORIDE 107 MMOL/L (98-107); CREATININE SERUM 0.83 MG/DL (0.60-1.30); GFR ESTIMATED > 60; GLUCOSE 100 MG/DL (70-105); POTASSIUM 3.3 MMOL/L (3.6-5.0); SODIUM 141 MMOL/L (135-145); TOTAL PROTEIN 6.3 G/DL (6.4-8.2)
[2016-10-19 08:05] VITALS: BP 106/51
[2016-10-19] MEDS: PANTOPRAZOLE 40 MG/10 ML (PROTONIX) VIAL IV SCH (09:50)
[2016-10-19] MEDS: CARVEDILOL 12.5 MG (COREG) TABLET PO SCH ×2 (09:50→20:24)
[2016-10-19] MEDS: VALSARTAN 80 MG (DIOVAN) TAB PO SCH ×2 (09:50→20:24)
[2016-10-19 09:51] VITALS: BP 148/86
[2016-10-19] MEDS: metroNIDAZOLE 500 MG (FLAGYL) TAB PO SCH ×2 (13:36→20:24)
--- NOTE | 2016-10-19 14:54 | Progress Note (SOAP) ---
Subjective Subjective/Events-last exam Patient see with Dr. Chawla. Patient reports that today she doesn't feel quite as good as yesterday. She reports that she is having crampy abdominal pain as well as diarrhea. Denies blood in stool. No N/V. Reports that she felt a little warm this morning like she was running a temp. Tolerating diet. Review of Systems Gastrointestinal: : Abdominal Pain (Crampy): DiarrheaNo: Nausea, Vomiting Objective Exam Vital Signs Date Time Temp Pulse Resp B/P Pulse Ox O2 Delivery O2 Flow Rate FiO2 10/19/16 09:51 99.0 148/86 10/19/16 08:05 100.0 81 20 106/51 Room Air 10/19/16 07:44 96 10/19/16 04:05 98.8 64 18 145/85 94 Room Air 10/18/16 23:55 99.5 72 18 138/69 93 Room Air 10/18/16 20:50 99.3 71 18 156/85 94 Room Air 10/18/16 20:30 Room Air 10/18/16 16:00 98.6 74 18 121/73 95 Room Air I & O 10/19/16 06:59 Intake Total 3060 ml Output Total 1800 ml Balance 1260 ml Capillary Refill : General Appearance: No Apparent Distress WD/WN HEENT: PERRL/EOMI Neck: Full Range of Motion Normal Inspection Supple Respiratory: No Accessory Muscle Use No Respiratory Distress Cardiovascular: Regular Rate, Rhythm Gastrointestinal: normal bowel sounds non tender soft Extremity: Normal Capillary Refill Normal Inspection Normal Range of Motion Neurologic/Psychiatric: Alert Oriented x3 Skin: Normal Color Warm/Dry Results Lab Laboratory Tests 10/18/16 16:30: Glucometer 118H 10/18/16 20:36: Glucometer 114H 10/19/16 06:14: Glucometer 86 10/19/16 07:31: Alanine Aminotransferase (ALT/SGPT) 15, Albumin 3.5, Alkaline Phosphatase 52, Anion Gap 10, Aspartate Amino Transf (AST/SGOT) 19, BUN/Creatinine Ratio 17, Basophils # (Auto) 0.0, Basophils (%) (Auto) 1, Blood Urea Nitrogen 14, C- Reactive Protein High Sensitivity 3.40H, Calcium Level 9.0, Carbon Dioxide Level 24, Chloride Level 107, Creatinine 0.83, Eosinophils # (Auto) 0.4H, Eosinophils (%) (Auto) 6, Estimat Glomerular Filtration Rate > 60, Glucose Level 100, Hematocrit 32L, Hemoglobin 10.1L, Lymphocytes # (Auto) 1.2, Lymphocytes (%) (Auto) 20, Mean Corpuscular Hemoglobin 26, Mean Corpuscular Hemoglobin Concent 32, Mean Corpuscular Volume 82, Mean Platelet Volume 10.1, Monocytes # (Auto) 0.5, Monocytes (%) (Auto) 9, Neutrophils # (Auto) 3.7, Neutrophils (%) (Auto) 64, Platelet Count 263, Potassium Level 3.3L, Red Blood Count 3.88L, Red Cell Distribution Width 17.2H, Sodium Level 141, Total Bilirubin 0.7, Total Protein 6.3L, White Blood Count 5.9 10/19/16 11:29: Glucometer 98 Microbiology 10/18/16 C. difficile DNA Amplification - Final, Complete 10/18/16 C. difficile GDH Antigen & Toxins - Final, Complete Assessment/Plan Assessment/Plan Assess & Plan/Chief Complaint A 61 year old female with Sigmoid Diverticulitis. Labs normal. C-diff positive. IV fluids. Pain and nausea medication. Abx. Diagnosis/Problems: Clinical Quality Measures DVT/VTE Risk/Contraindication: Risk Factor Score Per Nursin RFS Level Per Nursing on Admit: 3=High JESSE HART APRN Oct 19, 2016 2:54 pm
[2016-10-19 16:47] VITALS: BP 157/71
--- NOTE | 2016-10-19 19:18 | Progress Note (SOAP) ---
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 Has advanced diet and only minimal abdominal discomfort and one episode of diarrhea. Objective Exam Vital Signs Date Time Temp Pulse Resp B/P Pulse Ox O2 Delivery O2 Flow Rate FiO2 10/19/16 16:47 98.9 63 18 157/71 95 Room Air 10/19/16 09:51 99.0 148/86 10/19/16 08:05 100.0 81 20 106/51 Room Air 10/19/16 07:44 96 10/19/16 04:05 98.8 64 18 145/85 94 Room Air 10/18/16 23:55 99.5 72 18 138/69 93 Room Air 10/18/16 20:50 99.3 71 18 156/85 94 Room Air 10/18/16 20:30 Room Air I & O 10/19/16 07:00 Intake Total 3060 ml Output Total 1800 ml Balance 1260 ml Capillary Refill : General Appearance: No Apparent Distress Neck: Supple Respiratory: Lungs Clear Cardiovascular: Regular Rate, Rhythm Gastrointestinal: normal bowel sounds soft tenderness (mild epigastric and LLQ ) Results Lab Laboratory Tests 10/18/16 20:36: Glucometer 114H 10/19/16 06:14: Glucometer 86 10/19/16 07:31: Alanine Aminotransferase (ALT/SGPT) 15, Albumin 3.5, Alkaline Phosphatase 52, Anion Gap 10, Aspartate Amino Transf (AST/SGOT) 19, BUN/Creatinine Ratio 17, Basophils # (Auto) 0.0, Basophils (%) (Auto) 1, Blood Urea Nitrogen 14, C- Reactive Protein High Sensitivity 3.40H, Calcium Level 9.0, Carbon Dioxide Level 24, Chloride Level 107, Creatinine 0.83, Eosinophils # (Auto) 0.4H, Eosinophils (%) (Auto) 6, Estimat Glomerular Filtration Rate > 60, Glucose Level 100, Hematocrit 32L, Hemoglobin 10.1L, Lymphocytes # (Auto) 1.2, Lymphocytes (%) (Auto) 20, Mean Corpuscular Hemoglobin 26, Mean Corpuscular Hemoglobin Concent 32, Mean Corpuscular Volume 82, Mean Platelet Volume 10.1, Monocytes # (Auto) 0.5, Monocytes (%) (Auto) 9, Neutrophils # (Auto) 3.7, Neutrophils (%) (Auto) 64, Platelet Count 263, Potassium Level 3.3L, Red Blood Count 3.88L, Red Cell Distribution Width 17.2H, Sodium Level 141, Total Bilirubin 0.7, Total Protein 6.3L, White Blood Count 5.9 10/19/16 11:29: Glucometer 98 10/19/16 16:00: Glucometer 99 Microbiology 10/18/16 C. difficile DNA Amplification - Final, Complete 10/18/16 C. difficile GDH Antigen & Toxins - Final, Complete Assessment/Plan Assessment/Plan Assess & Plan/Chief Complaint 1. 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 Hypertension--home meds restarted 3. Diabetes mellitus, II--on accuchecks with SSI 4. Asthma--on home inhalers Diagnosis/Problems: Clinical Quality Measures DVT/VTE Risk/Contraindication: Risk Factor Score Per Nursin RFS Level Per Nursing on Admit: 3=High BROWN ORDONEZ DO Oct 19, 2016 7:18 pm
[2016-10-19] MEDS ORDERED: METR500T PO (19:20)
[2016-10-19 20:00] VITALS: BP 146/67
[2016-10-20] VITALS: BP 142/74
[2016-10-20] MEDS: NS IV 1000 ML 1,000 ML IV SCH (02:40)
[2016-10-20] MEDS ORDERED: ONDN4T PO (05:45)
--- NOTE | 2016-10-20 05:47 | Discharge Inst-Simple/Standard ---
Discharge Inst-Standard Discharge Medications New, Converted or Re-Newed RX: Transmitted to Pharmacy Patient Instructions/Follow Up Plan of Care/Instructions/FU: Fwup with me Sunday or Activity as Tolerated: Yes Discharge Diet: Soft Diet, Low Residue BROWN ORDONEZ DO Oct 20, 2016 05:47
[2016-10-20] MEDS: inSUlin (REGULAR) HUMAN 1 UNIT/0.01 ML (CHARGE PER UNIT) SC SCH ×2 (05:56→11:00)
[2016-10-20] MEDS: LEVOTHYROXINE 150 MCG (LEVOTHROID) TAB PO SCH (05:56)
[2016-10-20 08:00] VITALS: BP 157/87
[2016-10-20] MEDS: CARVEDILOL 12.5 MG (COREG) TABLET PO SCH (08:57)
[2016-10-20] MEDS: metroNIDAZOLE 500 MG (FLAGYL) TAB PO SCH ×2 (08:58→16:00)
[2016-10-20] MEDS: VALSARTAN 80 MG (DIOVAN) TAB PO SCH (08:58)
[2016-10-20] MEDS: PANTOPRAZOLE 40 MG/10 ML (PROTONIX) VIAL IV SCH (08:58)
[2016-10-20 12:00] VITALS: BP 163/87
[2016-10-20 16:00] VITALS: BP 182/96
[2016-10-20 17:00] VITALS: BP 158/88
[2016-10-21] MEDS ORDERED: PANTOPRAZOLE 40 MG (PROTONIX) TAB PO SCH (07:00)
== END 2016-10-20 17:00 | disposition home or self-care (01) | DRG 392 ==
LOC: 4TH 13:00
PROVIDERS: ADMIT Family Medicine; ATTEND Family Medicine
DX: K57.20 Diverticulitis of large intestine with perforation and abscess without bleeding (principal); N32.2 Vesical fistula, not elsewhere classified; I10 Essential (primary) hypertension; E11.9 Type 2 diabetes mellitus without complications; J45.909 Unspecified asthma, uncomplicated; K21.9 Gastro-esophageal reflux disease without esophagitis; E03.9 Hypothyroidism, unspecified; G47.33 Obstructive sleep apnea (adult) (pediatric); K64.8 Other hemorrhoids; K64.4 Residual hemorrhoidal skin tags
CPT/HCPCS: 36415; 74020; 74176; 76937; 80053; 82962; 85025; 86141; 87177; 87324; 87449; 87493; 94640; 94760

== ENCOUNTER → 2016-10-16 | Outpatient (CLI) | payer BC ==
[~2016-10-16] MED LIST: ALBU2.5V4 NEB; ALBU8.5H2 IH; B-12 PO; CALCIUM PO; CARV25TA PO; CETI1TAB53 PO; CPR500T PO; DIAZ10TA PO; FENO145T2 PO; FENO145T20 PO; FERR-57 PO; FLC100T1 PO; FLUT1DIS26 IH; FURO20TA4 PO; FURO40TA4 PO; HYDR1TAB66 PO; HYOS0.3710 PO; KCL10CCR PO; LEVO125T6 PO; LEVO150T6 PO; LORA10TA7 PO; LOSA100T16 PO; METO100T5 PO; METOPROLOL PO; METR500T PO; MMT17NA NS; MNTL10T PO; MONT10TA24 PO; MULT-608 PO; NAPR220C11 PO; NASONEX 50 MCG; NF-ESOM40C PO; NITR0.4T39 SL; ONDN4T PO; OPTH OP; PANT40TA3 PO; PATANOL 0.1% OP; PHEN200T27 PO; PIOG1TAB PO; PIOG1TAB34 PO; PROBIOTIC1 EACH PO; RT-ALBUINH INH; SITA100T PO; TIOT18CA2 INH; TRM50T PO; VALS160T28 PO; VITA1CAP59 PO; ZLP10T PO; ZOLP5TAB6 PO; [UNRECOGNIZED DRUG - CODE] PO; [UNRECOGNIZED DRUG - OTHER] PO; hycosamine PO
--- NOTE | 2016-10-16 09:39 | Diagnostic Imaging Report ---
PROCEDURE: CT abdomen and pelvis without contrast. TECHNIQUE: Multiple contiguous axial images were obtained through the abdomen and pelvis without the use of intravenous contrast. INDICATION: Pain radiating to the back, diarrhea. COMPARISON: Compared 01/13/2012. FINDINGS: The appendix is visualized and felt to be unremarkable. There is diverticular disease of the sigmoid colon with perisigmoidal and peridiverticular edema at the midline, suspicious for acute diverticulitis. This abuts the thickened urinary bladder wall with small amount of air within the bladder lumen. This could be gas from a fistula or reflect a sequelae of any recent intervention such as catheterization, correlate clinically and with urinalysis. There is mild dilatation of the right ureter and right renal calyces. Ureteral dilatation extends to the level of the pelvic inflammatory changes and below that level appeared nondilated. The lumen contains no identifiable stone. This may be partial obstruction owing to the suspected diverticulitis. Uterus itself appeared unremarkable. On axial image 62, a pocket of gas measuring 1.7 cm in diameter may reflect air within a contained perforation. No drainable fluid collection or abscess. No nonloculated anti-dependent free air beneath the abdominal wall is found. Liver, gallbladder, spleen, adrenals and pancreas unremarkable. The aorta is nonaneurysmal. IMPRESSION: Findings most suggestive of sigmoid diverticulitis. Air within the lumen of the urinary bladder and its wall thickening is such that fistula to that structure could not be excluded, correlate with urinalysis. A bubble of gas 17 mm within the perisigmoidal mesentery is suspicious for small contained perforation. No abscess or drainable fluid collection and no free anti-dependent air deep to the abdominal wall. No bowel obstruction. The appendix is felt normal. Slight right caliectasis and ureteral dilatation to the level of the pelvic inflammatory process, probably partially obstructed. No opaque urinary tract stone. Results discussed with the ordering physician. Dictated by: Dictated on workstation # [id number]
--- NOTE | 2016-10-17 14:25 | Physician Query-Final Dx ---
JAROCHO ALVAREZ 10/17/16 1425: Clinic Account Progress/Dx Physician Query: Please give diagnosis Please specify the location of the patients abd pain (ruq, luq, ect...) thank you Date of Service Oct 16, 2016 at 08:57 BROWN ORDONEZ DO 10/18/16 1817: Clinic Account Progress/Dx DIAGNOSIS: Diagnosis Diffuse/Generalized JAROCHO ALVAREZ Oct 17, 2016 14:25 BROWN ORDONEZ DO Oct 18, 2016 18:17
== END ==
LOC: RAD 08:57
PROVIDERS: ATTEND Family Medicine
DX: R10.84 Generalized abdominal pain (principal)
CPT/HCPCS: 74176

== ENCOUNTER → 2016-11-27 | Outpatient (CLI) | payer BC ==
[~2016-11-27] MED LIST changes: +ALBU2.5V4 NEB; +CARV25TA PO; +FENO145T20 PO; +LEVO150T6 PO; +LORA10TA7 PO; +MONT10TA24 PO; +ONDN4T PO; +PANT40TA3 PO; +PIOG1TAB34 PO; +RT-ALBUINH INH; +RT-ALBUTEROL SULF 2.5 MG/3 ML PRE-MIX VIAL INH ONE; +TIOT18CA2 INH; +VALS160T28 PO
--- OUTSIDE RECORDS SUMMARY | 2016-11-27 12:38 | XMS REPORT | Continuity of Care Document ---
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 Name Role Phone BROWN ORDONEZ DO PCP Insurance Providers Payer Name Policy Number Subscriber Name [id number] Jasmin Matson 16 Self / Same As Patient Advance Directives Directive Response Recorded Date/Time Advance Directives Yes 10/16/16 1:42pm Health Care Power of Car Construction Superintendent Yes 10/16/16 1:42pm Organ Donor No 10/16/16 1:42pm Resuscitation Status Full Code 10/16/16 1:42pm Chief Complaint and Reason for Visit Chief Complaint ACUTE SIGMOID DIVERTICULITIS Reason for Visit Sigmoid diverticulitis Problems Active Problems Medical Problem Onset Date Status Sigmoid diverticulitis Unknown Acute Medications Current Home Medications Medication Dose Units Route Directions Days/Qty Instructions Start Date Pioglitazone Hcl/Metformin Hcl 1 Each 1 Tab Oral Daily 10/16/16 Valsartan 160 Mg 160 Mg Oral Twice A Day 10/16/16 Pantoprazole Sodium 40 Mg 40 Mg Oral Bedtime 10/16/16 Carvedilol 25 Mg 25 Mg Oral Twice A Day 10/16/16 Albuterol Sulfate 8.5 Gm 2 Puff Inhalation Every 4HRS as needed for Shortness Of Breath 10/16/16 Albuterol Sulfate 2.5 Mg/3 Ml 2.5 Mg Nebullizer Four Times Daily as needed for Shortness Of Breath 10/16/16 Levothyroxine Sodium 150 Mcg 150 Mcg Oral Daily 10/16/16 Montelukast Sodium 10 Mg 10 Mg Oral Bedtime 10/16/16 Fenofibrate Nanocrystallized 145 Mg 145 Mg Oral Bedtime 10/16/16 Loratadine 10 Mg 10 Mg Oral Daily 10/16/16 Tiotropium Milo 1 Inh 1 Cap Inhalation Daily 10/16/16 Metronidazole 500 Mg 500 Mg Oral Three Times A Day 30 10/19/16 Ondansetron Hcl 4 Mg 4 Mg Oral Every 4HRS as needed for Nausea 30 06/26 Past Home Medications Medication Directions Ordered Status Albuterol 8.5 Gm Hfa.aer.ad, 8.5 Gm Inhalation Every 4HRS as needed 08/25/11 Discontinued Levothyroxine Sodium (Levothroid) 125 Mcg Tablet, 125 Mcg Oral Daily Discontinued Fenofibrate 145 Mg Tablet, 145 Mg Oral Bedtime 08/25/11 Discontinued Zolpidem Tartrate 5 Mg Tablet, 1 - 2 Tab Oral Bedtime 08/25/11 Discontinued [Cetirizine D 12 Hour] , 1 Tab Oral Twice A Day 08/25/11 Discontinued Sitagliptin Phosphate 100 Mg Tablet, 100 Mg Oral Bedtime 08/25/11 Discontinued Montelukast Sodium 10 Mg Tablet, 10 Mg Oral Bedtime 08/25/11 Discontinued Potassium Chloride 10 Meq Tablet.sa, 10 Meq Oral Daily 08/25/11 Discontinued Esomeprazole Magnesium 40 Mg Capsule.dr, 40 Mg Oral Bedtime 08/25/11 Discontinued Hyoscyamine Sulfate (Levbid) 0.375 Mg Tab.sr.12h, 1 Each Oral Twice A Day 26/07 Discontinued Furosemide (Lasix) 40 Mg Tablet, 2 Tab Oral Daily 08/25/11 Discontinued [Metoprolol Er Suc] , 100 Mg Oral Daily 08/25/11 Discontinued Pioglitazone Hcl/Metformin Hcl 1 Each Tablet, 1 Each Oral Daily 08/25/11 Discontinued [Patanol 0.1% Opth] , 1 Drop Ophthalmic Twice A Day as needed 08/25/11 Discontinued [Nasonex 50 Mcg] , 1 [place] Nasal Twice A Day as needed 08/25/11 Discontinued [Calcium] , 1200 Mg Oral Daily 08/25/11 Discontinued Multivitamins 1 Tab Tablet, 1 Tab Oral Daily 08/25/11 Discontinued Vitamin B Complex 1 Cap Capsule, 1 Cap Oral Daily 08/25/11 Discontinued [B-12] , 1 Cap Oral Daily 08/25/11 Discontinued Ferrous Sulfate 325 Mg Tablet, 325 Mg Oral Daily 08/25/11 Discontinued Metoprolol Succinate 100 Mg Tab.sr.24h, 100 Mg Oral Twice A Day 10/27/11 Discontinued Furosemide (Lasix) 20 Mg Tablet, 20 Mg Oral Daily 10/27/11 Discontinued Cetirizine Hcl/Pseudoephedrine 1 Each Tab.sr.12h, 1 Each Oral Twice A Day 26/08 Discontinued Zolpidem Tartrate 10 Mg Tab, 10 Mg Oral Bedtime 10/27/11 Discontinued [Hycosamine] , 0.375 Mg Oral Twice A Day 10/28/11 Discontinued Salmeterol Xinafoate/Fluticasone 1 Disk Inhp, 1 Puff Inhalation Twice A Day 10/29/11 Discontinued Mometasone Furoate 17 Gm [place], 1 [place] Nasal Daily as needed 12/25/11 Discontinued Naproxen Sodium 220 Mg Capsule, 440 Mg Oral Twice A Day 12/25/11 Discontinued Metronidazole (Flagyl) 500 Mg Tablet, 1 Each Oral Three Times A Day 12/25/11 Discontinued Ciprofloxacin 500 Mg Tablet, 1 Tab Oral Twice A Day 12/25/11 Discontinued Lactobacillus Rhamnosus Gg 1 Each Capsule, 1 Each Oral Twice A Day 12/25/11 Discontinued Tramadol Hcl 50 Mg Tab, 50 Mg Oral Twice A Day 12/26/11 Discontinued Losartan Potassium 100 Mg Tablet, 1 Each Oral Daily 12/28/11 Discontinued Fluconazole 100 Mg Tablet, 200 Mg Oral Daily 12/28/11 Discontinued Phenazopyridine Hcl 200 Mg Tablet, 1 Each Oral Three Times A Day 12/28/11 Discontinued Tramadol Hcl 50 Mg Tablet, 50 Mg Oral Twice A Day 01/01/12 Discontinued Phenazopyridine Hcl 200 Mg Tablet, 1 Each Oral Three Times A Day And Prn 01/09 Discontinued Flavoxate Hcl 100 Mg Tablet, 1 Tab Oral Three Times A Day 01/01/12 Discontinued Diazepam 10 Mg Tablet, 10 Mg Oral Four Times Daily 01/13/12 Discontinued Hydrocodone Bit/Acetaminophen 1 Each Tablet, 5 - 500 Mg Oral As Needed Discontinued Nitroglycerin 0.4 Mg Tab.subl, 0.4 Mg Sublingual As Needed for Chest Pain 09/25 Discontinued Furosemide 40 Mg Tablet, 40 Mg Oral Daily as needed for Shortness Of Breath 10/16/16 Discontinued Social History Social History Problem Response Recorded Date/Time Alcohol Use Denies Use 10/16/2016 1:42pm Recreational Drug Use No 10/16/2016 1:42pm Recent Foreign Travel No 10/16/2016 3:22pm Recent Infectious Disease Exposure No 10/16/2016 3:22pm Hospitalization with Isolation Denies 10/20/2016 6:43pm Smoking Status Never a Smoker 10/16/2016 1:42pm Recent Hopitalizations Yes 10/16/2016 1:42pm Hospitalization with Isolation Denies 10/20/2016 6:43pm Query Response Start Date Stop Date Smoking Status Never a Smoker Hospital Discharge Instructions Patient Instructions Physician Instructions New, Converted or Re-Newed RX: Transmitted to Pharmacy Plan of Care/Instructions/FU: Fwup with me Sunday or Activity as Tolerated: Yes Discharge Diet: Soft Diet, Low Residue Care Plan Patient Instructions:: Fwup with me Sunday or Plan of Care Discharge Date 10/20/16 5:00pm Disposition 01 HOME, SELF-CARE Instructions/Education Provided Diverticulitis Clostridium difficile (DC) Prescriptions See Medication Section Care Plan and Goals See Discharge Instructions Section Functional Status Query Response Date Recorded Patient Orientation Person Place Time Situation October 20, 2016 6:43pm Comprehension Ability Understands Concepts October 19, 2016 9:00am Allergies, Adverse Reactions, Alerts Allergen Type Severity Reaction Status Last Updated Cephalosporins ([id number]) Allergy Unknown Active 11/05/14 Codeine Allergy Unknown Active 11/05/14 azithromycin ([id number]) Allergy Unknown Active 11/05/14 Immunizations No immunization records. Vital Signs Acute Vital Signs Vital Response Date/Time Temperature (Fahrenheit) 99.2 degrees F (97.6 - 99.5) 10/20/2016 5:00pm Temperature (Calculated Celsius) 37.23803 degrees C (36.4 - 37.5) 10/20/2016 4:00pm Temperature Source Tympanic 10/20/2016 5:00pm Pulse Rate (adult) 68 bpm (60 - 90) 10/20/2016 5:00pm Respiratory Rate 20 bpm (12 - 24) 10/20/2016 5:00pm O2 Sat by Pulse Oximetry 94 % (88 - 100) 10/20/2016 5:00pm Blood Pressure 158/88 mm Hg 10/20/2016 5:00pm Blood Pressure Mean 124 mm Hg 10/20/2016 4:00pm Pain Numeric Pain Scale 0-No Pain 10/20/2016 5:00pm Height (Feet) 5 feet 10/16/2016 3:21pm Height (Inches) 4.00 inches 10/16/2016 3:21pm Height (Calculated Centimeters) 162.305940 cm 10/16/2016 3:21pm Weight (Pounds) 312 pounds 10/20/2016 5:56am Weight (Ounces) 0.0 oz 10/20/2016 5:56am Weight (Calculated Grams) 879670.821 gm 10/20/2016 5:56am Weight (Calculated Kilograms) 141.922153 kilograms 10/20/2016 5:56am Calculated BMI 46.3 10/16/2016 3:21pm Results Pending Laboratory Results Test Name Collection Date/Time Procedures No known history of procedures. Encounters Encounter Location Arrival/Admit Date Discharge/Depart Date Attending Provider Discharged Inpatient [facility] 10/16/16 1:00pm 5:00pm BROWN ORDONEZ DO Registered Clinic [facility] 10/16/16 8:57am BROWN ORDONEZ DO Recent Diagnosis Sigmoid diverticulitis
== END ==
LOC: RT 12:35
PROVIDERS: ATTEND Family Medicine
DX: J45.909 Unspecified asthma, uncomplicated (principal); R06.00 Dyspnea, unspecified
CPT/HCPCS: 94060; 94640; 94726; 94729

== ENCOUNTER → 2016-12-26 | Outpatient (CLI) | payer BC ==
[~2016-12-26] MED LIST changes: -RT-ALBUTEROL SULF 2.5 MG/3 ML PRE-MIX VIAL INH ONE
--- NOTE | 2016-12-26 12:08 | Diagnostic Imaging Report ---
PROCEDURE: CT abdomen and pelvis without contrast. TECHNIQUE: Multiple contiguous axial images were obtained through the abdomen and pelvis without the use of intravenous contrast. INDICATION: Followup diverticulitis. FINDINGS: The lung bases demonstrate minimal left basilar atelectasis. The liver, the gallbladder, the spleen, and the adrenals and the pancreas appear unremarkable. The kidneys demonstrate no hydronephrosis and no stones. The abdominal aorta is normal in caliber. No para-aortic significantly enlarged lymph node is seen. When compared to 10/16/2016 exam, there is still an extraluminal air pocket seen above the sigmoid colon with surrounding fatty stranding that could relate to inflammatory changes or scarring and without significant fluid collection or mature abscess formation. This is perhaps related to chronic sinus tract complicating prior diverticulitis. There is no definitive active diverticulitis seen at this time. No significant free fluid. There is tiny amount of air seen within the urinary bladder and the sigmoid colon is inseparable from the superior left side aspect of the urinary bladder concerning for a fistula. The uterus and adnexa appear grossly unremarkable. The left adnexa is adjacent to the above-mentioned suggested sinus tract. There is diastasis of the recti with no discrete hernia. Advanced degenerative changes in the lumbar spine are noted. 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 No definite evidence of active diverticulitis at this time. No abscess. Followup study with intravesical contrast (CT cystogram) would be helpful. Dictated by: Dictated on workstation # [id number]
== END ==
LOC: RAD 08:37
PROVIDERS: ATTEND Family Medicine
DX: N32.1 Vesicointestinal fistula (principal); M47.816 Spondylosis without myelopathy or radiculopathy, lumbar region; K57.30 Diverticulosis of large intestine without perforation or abscess without bleeding
CPT/HCPCS: 74176

== ENCOUNTER → 2016-12-26 | Outpatient (CLI) | payer BC ==
[~2016-12-26] MED LIST changes: +CATHETER FLUSH 10 ML SYR IV PRN; +IOHEXOL 350 MG/ML 100 ML (OMNIPAQUE 350) VIAL IV ONE; +NS 100 ML (IVPB) BAG IV ONE
[2016-12-26 09:15] LABS: CREATININE SERUM 1.27 MG/DL (0.60-1.30)
--- NOTE | 2016-12-26 13:52 | Diagnostic Imaging Report ---
PROCEDURE: CT chest with contrast only. TECHNIQUE: Multiple contiguous axial images were obtained through the chest after administration of intravenous contrast. INDICATION: Asthma. 6 mL of Omnipaque 350 is administered intravenously. FINDINGS: The lungs demonstrate no significant consolidation or mass. No suspicious nodule. There is mild atelectasis or scarring in the left lung base. The heart size is mildly enlarged. No pericardial effusion. No pleural effusion. The thoracic aorta is normal in caliber. No significantly enlarged mediastinal or hilar lymph node mass. Moderate degenerative changes of the thoracic spine seen. IMPRESSION: Subsegmental scarring and atelectasis in the left lung base. Cardiomegaly. Dictated by: Dictated on workstation # [id number]
== END ==
LOC: RAD 08:32
PROVIDERS: ATTEND Nurse Practitioner Family
DX: J98.11 Atelectasis (principal); I51.7 Cardiomegaly; M47.814 Spondylosis without myelopathy or radiculopathy, thoracic region; J45.909 Unspecified asthma, uncomplicated
CPT/HCPCS: 36415; 71260; 82565; 84520

== ENCOUNTER → 2017-01-01 | Outpatient (CLI) | payer BC ==
[~2017-01-01] MED LIST changes: -CATHETER FLUSH 10 ML SYR IV PRN
--- NOTE | 2017-01-01 19:10 | Diagnostic Imaging Report ---
PROCEDURE: CT pelvis with and without intravesical contrast. TECHNIQUE: After oral contrast administration, imaging was obtained from the iliac crest to the lesser trochanters. Repeat imaging was performed after intravesical contrast administration. INDICATION: Suggestion of colovesical fistula based on CT of 12/26/16. 75 mL of Omnipaque 300 is administered into the urinary bladder via a Lay catheter introduced during the exam. FINDINGS: The initial CT scan before introducing the Lay catheter into the bladder, air is seen in the bladder lumen and abutting the bladder wall on the left side suggestive of an underlying fistula. The contrast administered into the urinary bladder demonstrates moderate distention with no extravasation seen into the adjacent bowel loops. The adjacent sigmoid colon demonstrates multiple diverticula with suggestion of a sinus tract. The sigmoid colon has a portion that is inseparable from the urinary bladder and the fistula is not entirely excluded. There is no discrete free fluid or fluid collection in the pelvis. IMPRESSION: There is suspicion for a colovesical fistula. There is, however, no filling of the fistula seen on this exam which could be related to the small fistula size or a one-way valve mechanism in the communication preventing reflux from the urinary bladder. There is also suggestion of a sinus tract from the sigmoid colon into the adjacent upper abdominal and mesenteric fat. Dictated by: Dictated on workstation # [id number]
== END ==
LOC: RAD 12:52
PROVIDERS: ATTEND Family Medicine
DX: N32.1 Vesicointestinal fistula (principal)
CPT/HCPCS: 72194

== ENCOUNTER 2017-03-01 14:30 | Outpatient (RCR) | payer BC ==
[~2017-03-01 14:30] MED LIST changes: -IOHEXOL 350 MG/ML 100 ML (OMNIPAQUE 350) VIAL IV ONE; -NS 100 ML (IVPB) BAG IV ONE
== END 2017-03-04 | disposition home or self-care (01) ==
LOC: PULM 14:30
PROVIDERS: ATTEND Nurse Practitioner Family
DX: J45.909 Unspecified asthma, uncomplicated (principal); R06.00 Dyspnea, unspecified
CPT/HCPCS: 99211

== ENCOUNTER 2017-03-08 15:00 | Outpatient (RCR) | payer BC | END 2017-06-04 | disposition home or self-care (01) | LOC: PULM 15:00 | PROVIDERS: ATTEND Nurse Practitioner Family | DX: J45.909 Unspecified asthma, uncomplicated (principal); R06.00 Dyspnea, unspecified ==

== ENCOUNTER → 2017-04-24 | Outpatient (CLI) | payer BC ==
--- NOTE | 2017-04-24 15:02 | Diagnostic Imaging Report ---
EXAMINATION: PA and lateral chest at 02:43 p.m. INDICATION: Shortness of breath. FINDINGS: The cardiomegaly noted on the prior exam of 05/11/2016 is again evident and does not seem to have changed significantly. The lungs are generally clear. There is no sign of failure, pneumonia or pleural effusion to suggest an acute abnormality. The mediastinum is not widened. The osseous structures are intact. There is mild anterior wedging of two of the lower thoracic vertebrae. IMPRESSION: There is cardiomegaly, but there is no evidence for an acute cardiopulmonary abnormality. Dictated by: Dictated on workstation # [id number]
== END ==
LOC: RAD 14:16
PROVIDERS: ATTEND Nurse Practitioner Family
DX: I51.7 Cardiomegaly (principal); R06.00 Dyspnea, unspecified; J45.909 Unspecified asthma, uncomplicated
CPT/HCPCS: 71020

== ENCOUNTER → 2017-05-30 | Outpatient (CLI) | payer BC ==
--- NOTE | 2017-05-30 17:16 | Diagnostic Imaging Report ---
EXAMINATION: CT cystogram performed without and with intravenous contrast. TECHNIQUE: After initial scanning without contrast, and utilizing a Lay catheter in the urinary bladder, 225 mL of diluted contrast is administered into the bladder. INDICATION: Bladder injury. FINDINGS: There is contrast filling the urinary bladder without evidence of filling of a fistula tract. Surgical sutures are seen along the sigmoid colon region. Adjacent to the sigmoid, there is a curvilinear structure seen with air bubbles along the left side of the sigmoid colon and extending superiorly into the right side suggestive of a sinus tract from the sigmoid colon which appears to originate near the area of the anastomosis. There is stranding in the vicinity of this region probably secondary to chronic inflammation and element of scarring. No significant change in the appearance compared to 01/01/2017. The uterus and adnexa appear grossly unremarkable. IMPRESSION: 1. Normal opacification and distention of the urinary bladder with no evidence of a colovesical fistula. 2. Curvilinear abnormality around the sigmoid colon is suggestive of a sinus tract unchanged from December 2016. No significant free fluid or evidence of abscess seen. Dictated by: Dictated on workstation # [id number]
== END ==
LOC: RAD 12:38
PROVIDERS: ATTEND Colon & Rectal Surgery
DX: Z96.0 Presence of urogenital implants; K63.9 Disease of intestine, unspecified; Z98.890 Other specified postprocedural states
CPT/HCPCS: 72192

== ENCOUNTER 2017-08-09 12:13 | Outpatient (CLI) | payer BC ==
[2017-08-09] VITALS (7 sets, daily range): BP systolic 115–147; BP diastolic 55–69
[~2017-08-09] VITALS: Ht 162.6 cm; Wt 141.5 kg
[2017-08-09] MEDS ORDERED: ACETAMINOPHEN 325 MG TABLET/CAPLET (TYLENOL) PO NR (12:42)
[2017-08-09] MEDS ORDERED: diphenhydrAMINE 50 MG/ML INJ (BENADRYL) IV NR (12:42)
[2017-08-09] MEDS ORDERED: NS IV 1000 ML 1,000 ML IV SCH (12:45)
[2017-08-09] MEDS: FUROSEMIDE 40 MG/4 ML INJ (LASIX) IV SCH ×2 (15:37→18:27)
== END 2017-08-09 18:35 | disposition home or self-care (01) ==
LOC: SDC 12:13 → 4TH 16:54 → SDC 18:35
PROVIDERS: ATTEND Family Medicine
DX: D64.9 Anemia, unspecified (principal)
CPT/HCPCS: 36430; 86850; 86900; 86901; 86920; 96375; 96376

== ENCOUNTER → 2017-08-16 | Outpatient (CLI) | payer BC ==
[2017-08-16 09:44] LABS: BASOPHILS % (AUTO) 1 % (0-10); EOSINOPHILS # (AUTO) 0.3 10^3/uL (0.0-0.3); EOSINOPHILS % (AUTO) 6 % (0-10); LYMPHOCYTES # (AUTO) 1.4 X 10^3 (1.0-4.0); LYMPHOCYTES % (AUTO) 25 % (12-44); MEAN CORPUSCULAR HEMOGLOBIN 24 PG (25-34); MEAN CORPUSCULAR HGB CONC 30 G/DL (32-36); MEAN CORPUSCULAR VOLUME 81 FL (80-99); MEAN PLATELET VOLUME 9.6 FL (7.4-10.4); MONOCYTES # (AUTO) 0.4 X 10^3 (0.0-1.0); MONOCYTES % (AUTO) 8 % (0-12); NEUTROPHILS # (AUTO) 3.4 X 10^3 (1.8-7.8); NEUTROPHILS % (AUTO) 61 % (42-75); PLATELET COUNT 283 10^3/uL (130-400); RED CELL DISTRIBUTION WIDTH 18.7 % (10.0-14.5); WHITE BLOOD COUNT 5.6 10^3/uL (4.3-11.0)
== END ==
LOC: LAB 09:21
PROVIDERS: ATTEND Family Medicine
DX: D64.9 Anemia, unspecified (principal)
CPT/HCPCS: 36415; 82607; 82728; 83540; 85025

== ENCOUNTER → 2018-01-21 | Outpatient (CLI) | payer BC ==
[~2018-01-21] MED LIST changes: -FENO145T20 PO; +FENO145T37 PO; +LACT1CAP74 PO; +LEVO500T2 PO; +METR500T21 PO
--- NOTE | 2018-01-21 10:58 | Diagnostic Imaging Report ---
PROCEDURE: CT abdomen and pelvis without contrast. TECHNIQUE: Multiple contiguous axial images were obtained through the abdomen and pelvis without the use of intravenous contrast. INDICATION: Epigastric pain and nausea. COMPARISON: Comparison is made with prior CT from 12/26/2016. FINDINGS: The lung bases are clear. The liver and gallbladder are unremarkable. Pancreas and spleen are unremarkable. No adrenal mass is identified. The left kidney is unremarkable. There appears to be hydroureteronephrosis of the right kidney. The dilated right ureter is traced into the pelvis to the proximal mid right pelvis where there is soft tissue density which may represent patient's ovary. There are postsurgical changes that have occurred since prior CT. There is now an ostomy in the left lower quadrant with parastomal hernia present. No bowel obstruction is seen. There appears to be a suture line at the rectosigmoid junction. Bladder is decompressed. No gas within the bladder is seen on today's study. Uterus is grossly unremarkable. There is no ascites or loculated fluid collection. IMPRESSION: 1. Postsurgical changes, now with left lower quadrant ostomy present with parastomal hernia. No bowel obstruction is seen. 2. Development of moderate right hydroureteronephrosis. Dilated right ureter is traced to the pelvis. Definite cause for the dilatation cannot be determined. Dilated ureter is traced to approximately the level of the surgery near the rectosigmoid junction. No other significant abnormality is detected. Dictated by: Dictated on workstation # [id number]
== END ==
LOC: RAD 08:11
PROVIDERS: ATTEND Family Medicine
DX: K43.5 Parastomal hernia without obstruction or gangrene (principal); N13.30 Unspecified hydronephrosis; Z98.890 Other specified postprocedural states; Z87.448 Personal history of other diseases of urinary system
CPT/HCPCS: 74176

== ENCOUNTER 2018-02-22 15:20 | Emergency (ER) | payer BC ==
[~2018-02-22] VITALS: Ht 165.1 cm; Wt 147.4 kg
[~2018-02-22 15:20] MED LIST changes: -LACT1CAP74 PO; -LEVO500T2 PO; -METR500T21 PO
--- OUTSIDE RECORDS SUMMARY | 2018-02-22 15:40 | XMS REPORT | Continuity of Care Document ---
Author Author [facility] Organization [facility] Address Unknown Phone Unavailable Allergies Active Description Code Type Severity Reaction Onset Reported/Identified Relationship to Patient Clinical Status Yes azithromycin [id number] Drug Allergy Unknown N/A 11/05/2014 Yes Cephalosporins [id number] Drug Allergy Unknown N/A 11/05/2014 Yes codeine [id number] Drug Allergy Unknown N/A 11/05/2014 Medications There is no data. Problems Date Dx Coded Attending Type Code [...] OTHER CARDIOVASCULAR D 10/29/2011 Ot V58.69 OTH MED,LT, CURRENT USE 10/29/2011 Ot V85.43 BODY MASS INDEX [...] Ot 789.00 ABDOMINAL PAIN, UNSPECIFIED SITE 05/24/2013 BELKIS ARAUJO DO Ot 327.23 OBSTRUCTIVE SLEEP APNEA (ADULT) (PEDIATR 05/24/2013 BELKIS ARAUJO DO Ot 327.51 PERIODIC LIMB MOVEMENT DISORDER [...] OTH SPEC DIGESTIVE SYST 03/29/2016 LAURA PERLA HEAD NECK SURGEON Ot R06.02 SHORTNESS OF BREATH 03/29/2016 LAURA PERLA HEAD NECK SURGEON Ot R07.89 OTHER CHEST PAIN 03/31/2016 LAURA PERLA HEAD NECK SURGEON Ot R06.02 SHORTNESS OF BREATH 04/03/2016 LAURA PERLA HEAD NECK SURGEON Ot R00.0 TACHYCARDIA, UNSPECIFIED 04/03/2016 LAURA PERLA HEAD NECK SURGEON Ot R06.02 SHORTNESS OF BREATH 04/03/2016 LAURA PERLA HEAD NECK SURGEON Ot R53.83 OTHER FATIGUE 04/03/2016 LAURA PERLA HEAD NECK SURGEON Ot R60.9 EDEMA, UNSPECIFIED 04/04/2016 LAURA PERLA HEAD NECK SURGEON Ot R00.0 TACHYCARDIA, UNSPECIFIED 04/04/2016 LAURA PERLA HEAD NECK SURGEON Ot R06.02 SHORTNESS OF BREATH 04/04/2016 LAURA PERLA Ken HEAD NECK SURGEON Ot R53.83 OTHER FATIGUE 04/04/2016 LAURA PERLA HEAD NECK SURGEON Ot R60.9 EDEMA, UNSPECIFIED 04/06/2016 LAURA PERLA HEAD NECK SURGEON Ot R00.0 TACHYCARDIA, UNSPECIFIED 04/06/2016 LAURA PERLA HEAD NECK SURGEON Ot R06.02 SHORTNESS OF BREATH 04/06/2016 LAURA PERLA N HEAD NECK SURGEON Ot R53.83 OTHER FATIGUE 04/06/2016 LAURA PERLA HEAD NECK SURGEON Ot R60.9 EDEMA, UNSPECIFIED 04/12/2016 LAURA PERLA HEAD NECK SURGEON Ot R06.02 SHORTNESS OF BREATH 04/12/2016 LAURA PERLA HEAD NECK SURGEON Ot R07.89 OTHER CHEST PAIN 04/12/2016 LAURA PERLA HEAD NECK SURGEON Ot R06.02 SHORTNESS OF BREATH 04/12/2016 LAURA PERLA HEAD NECK SURGEON Ot R00.0 TACHYCARDIA, UNSPECIFIED 04/12/2016 LAURA PERLA N HEAD NECK SURGEON Ot R06.02 SHORTNESS OF BREATH 04/12/2016 LAURA PERLA N HEAD NECK SURGEON Ot R53.83 OTHER FATIGUE 04/12/2016 LAURA PERLA N HEAD NECK SURGEON Ot R60.9 EDEMA, UNSPECIFIED 05/11/2016 KOFI MAYERS MD Ot I51.7 CARDIOMEGALY 05/11/2016 KOFI MAYERS MD Ot J45.909 UNSPECIFIED ASTHMA, UNCOMPLICATED 05/11/2016 KOFI MAYERS MD Ot K57.30 DVRTCLOS OF LG INT W/O PERFORATION OR AB 05/11/2016 KOFI MAYERS MD Ot R07.9 CHEST PAIN, UNSPECIFIED 05/17/2016 Ot 715.36 LOC OSTEOARTH NOS-L/LEG 05/17/2016 Ot 625.9 FEM GENITAL SYMPTOMS NOS 05/17/2016 Ot 789.01 ABDOMINAL PAIN, RIGHT UPPER QUADRANT 05/17/2016 Ot 789.00 ABDOMINAL PAIN, UNSPECIFIED SITE 05/17/2016 Ot 789.00 ABDOMINAL PAIN, UNSPECIFIED SITE 05/17/2016 Ot V12.79 PERSONAL HISTORY OTH SPEC DIGESTIVE SYST 05/17/2016 LAURA PERLA HEAD NECK SURGEON Ot R06.02 SHORTNESS OF BREATH 05/17/2016 LAURA PERLA HEAD NECK SURGEON Ot R07.89 OTHER CHEST PAIN 05/17/2016 LAURA PERLA HEAD NECK SURGEON Ot R06.02 SHORTNESS OF BREATH 05/17/2016 LAURA PERLA HEAD NECK SURGEON Ot R00.0 TACHYCARDIA, UNSPECIFIED 05/17/2016 LAURA PERLA HEAD NECK SURGEON Ot R06.02 SHORTNESS OF BREATH 05/17/2016 LAURA PERLA HEAD NECK SURGEON Ot R53.83 OTHER FATIGUE 05/17/2016 LAURA PERLA HEAD NECK SURGEON Ot R60.9 EDEMA, UNSPECIFIED 05/18/2016 KOFI MAYERS [...] PERSONAL HISTORY OTH SPEC DIGESTIVE SYST 05/26/2016 LAURA PERLA HEAD NECK SURGEON Ot R06.02 SHORTNESS OF BREATH 05/26/2016 LAURA PERLA HEAD NECK SURGEON Ot R07.89 OTHER CHEST PAIN 05/26/2016 LAURA PERLA HEAD NECK SURGEON Ot R06.02 SHORTNESS OF BREATH 05/26/2016 LAURA PERLA HEAD NECK SURGEON Ot R00.0 TACHYCARDIA, UNSPECIFIED 05/26/2016 LAURA PERLA HEAD NECK SURGEON Ot R06.02 SHORTNESS OF BREATH 05/26/2016 LAURA PERLA HEAD NECK SURGEON Ot R53.83 OTHER FATIGUE 05/26/2016 LAURA PERLA HEAD NECK SURGEON Ot R60.9 EDEMA, UNSPECIFIED 05/26/2016 KOFI MAYERS MD Ot E03.9 HYPOTHYROIDISM, UNSPECIFIED 05/26/2016 KOFI MAYERS MD Ot E11.9 TYPE 2 DIABETES MELLITUS WITHOUT COMPLIC 05/26/2016 KOFI MAYERS MD Ot I10 ESSENTIAL (PRIMARY) HYPERTENSION 05/26/2016 KOFI MAYERS MD Ot I97.610 POSTPROC HEMOR/HEMTOM OF A CIRC SYS ORG 05/26/2016 KOFI MAYERS MD Ot J45.909 UNSPECIFIED ASTHMA, UNCOMPLICATED 05/26/2016 KOFI MAYERS MD Ot K57.30 DVRTCLOS OF LG INT W/O PERFORATION OR AB 05/26/2016 KOFI MAYERS MD Ot R10.31 RIGHT LOWER QUADRANT PAIN 05/26/2016 KOFI MAYERS MD Ot Z79.899 OTHER PRISON (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 THERAPY 10/20/2016 STEPHENNDMANASA KENDRICK, BELKIS S Ot E03.9 HYPOTHYROIDISM, UNSPECIFIED 10/20/2016 STEPHENNDMANASA KENDRICK, BELKIS S Ot E11.9 TYPE 2 DIABETES MELLITUS WITHOUT COMPLIC 10/20/2016 STEPHENNDER , BELKIS S Ot G47.33 OBSTRUCTIVE SLEEP APNEA (ADULT) (PEDIATR 10/20/2016 ORENDER DO, BELKIS S Ot I10 ESSENTIAL (PRIMARY) HYPERTENSION 10/20/2016 STEPHENNDER , BELKIS S Ot J45.909 UNSPECIFIED ASTHMA, UNCOMPLICATED 10/20/2016 STEPHENNDER DO, BELKIS S Ot K21.9 GASTRO-ESOPHAGEAL REFLUX DISEASE WITHOUT 10/20/2016 ORENDER DO, BELKIS S Ot 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 10/20/2016 STEPHENNDER DO, BELKIS S Ot K64.4 RESIDUAL HEMORRHOIDAL SKIN TAGS 10/20/2016 STEPHENNDER DO, BELKIS S Ot K64.8 OTHER HEMORRHOIDS 10/20/2016 STEPHENNDER DO, BELKIS S Ot N32.2 VESICAL FISTULA, NOT ELSEWHERE CLASSIFIE 10/20/2016 STEPHENNDER DO, BELKIS S Ot E03.9 HYPOTHYROIDISM, UNSPECIFIED 10/20/2016 STEPHENNDER DO, BELKIS S Ot E11.9 TYPE 2 DIABETES MELLITUS WITHOUT COMPLIC 10/20/2016 STEPHENNDER DO, BELKIS S Ot G47.33 OBSTRUCTIVE SLEEP APNEA (ADULT) (PEDIATR 10/20/2016 STEPHENNDER DO, BELKIS S Ot I10 ESSENTIAL (PRIMARY) HYPERTENSION 10/20/2016 STEPHENNDER DO, BLEKIS S Ot J45.909 UNSPECIFIED ASTHMA, UNCOMPLICATED 10/20/2016 STEPHENNDER DO, BELKIS S Ot K21.9 GASTRO-ESOPHAGEAL REFLUX DISEASE WITHOUT 10/20/2016 ORENDER DO, BELKIS S Ot 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 10/20/2016 STEPHENNDER DO, BELKIS S Ot K64.4 RESIDUAL HEMORRHOIDAL SKIN TAGS 10/20/2016 STEPHENNDER DO, BELKIS S Ot K64.8 OTHER HEMORRHOIDS 10/20/2016 STEPHENNDER DO, BELKIS S Ot N32.2 VESICAL FISTULA, NOT ELSEWHERE CLASSIFIE 11/02/2016 STEPHENNDER DO, BELKIS S Ot R10.84 GENERALIZED ABDOMINAL PAIN 11/18/2016 STEPHENNDER DO, BELKIS S Ot R10.84 GENERALIZED ABDOMINAL PAIN 11/29/2016 STEPHENNDER DO, BELKIS S Ot J45.909 UNSPECIFIED ASTHMA, UNCOMPLICATED 11/29/2016 STEPHENNDER , BELKIS S Ot R06.00 DYSPNEA, UNSPECIFIED 12/05/2016 MAIKEL RAM APRN Ot J45.909 UNSPECIFIED ASTHMA, UNCOMPLICATED 12/05/2016 MAIKEL RAM APRN Ot R06.00 DYSPNEA, UNSPECIFIED 12/06/2016 STEPHENNDER , BELKIS S Ot J45.909 UNSPECIFIED ASTHMA, UNCOMPLICATED 12/06/2016 STEPHENNDER DO, BELKIS S Ot R06.00 DYSPNEA, UNSPECIFIED 12/29/2016 MAIKEL RAM HEAD NECK SURGEON Ot J45.909 UNSPECIFIED ASTHMA, UNCOMPLICATED 12/29/2016 MAIKEL RAM HEAD NECK SURGEON Ot R06.00 DYSPNEA, UNSPECIFIED 01/07/2017 STEPHENNDER , BELKIS S Ot 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 01/10/2017 MERY KENDRICK, BELKIS S Ot 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 01/17/2017 MAIKEL RAM HEAD NECK SURGEON Ot I51.7 CARDIOMEGALY 01/17/2017 MAIKEL RAM HEAD NECK SURGEON Ot J45.909 UNSPECIFIED ASTHMA, UNCOMPLICATED 01/17/2017 MAIKEL RAM HEAD NECK SURGEON Ot J98.11 ATELECTASIS 01/17/2017 MAIKEL RAM HEAD NECK SURGEON Ot M47.814 SPONDYLOSIS W/O MYELOPATHY OR RADICULOPA 01/17/2017 MERY KENDRICK BELKIS S Ot K57.30 DVRTCLOS OF LG INT W/O PERFORATION OR AB 01/17/2017 STEPHENNDER DO BELKIS S Ot M47.816 SPONDYLOSIS W/O MYELOPATHY OR RADICULOPA 01/17/2017 ANNER , BELKIS S Ot 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 03/04/2017 MAIKEL RAM HEAD NECK SURGEON Ot J45.909 UNSPECIFIED ASTHMA, UNCOMPLICATED 03/04/2017 MAIKEL RAM HEAD NECK SURGEON Ot R06.00 DYSPNEA, UNSPECIFIED 03/06/2017 MAIKEL RAM HEAD NECK SURGEON Ot J45.909 UNSPECIFIED ASTHMA, UNCOMPLICATED 03/06/2017 MAIKEL RAM HEAD NECK SURGEON Ot R06.00 DYSPNEA, UNSPECIFIED 03/07/2017 MAIKEL RAM HEAD NECK SURGEON Ot J45.909 UNSPECIFIED ASTHMA, UNCOMPLICATED 03/07/2017 MAIKEL RAM HEAD NECK SURGEON Ot R06.00 DYSPNEA, UNSPECIFIED 03/07/2017 MAIKEL RAM HEAD NECK SURGEON Ot J45.909 UNSPECIFIED ASTHMA, UNCOMPLICATED 03/07/2017 MAIKEL RAM HEAD NECK SURGEON Ot R06.00 DYSPNEA, UNSPECIFIED 03/23/2017 MAIKEL RAM HEAD NECK SURGEON Ot J45.909 UNSPECIFIED ASTHMA, UNCOMPLICATED 03/23/2017 MAIKEL RAM HEAD NECK SURGEON Ot R06.00 DYSPNEA, UNSPECIFIED 05/07/2017 MAIKEL RAM HEAD NECK SURGEON Ot I51.7 CARDIOMEGALY 05/07/2017 YOMAIKEL HEAD NECK SURGEON Ot J45.909 UNSPECIFIED ASTHMA, UNCOMPLICATED 05/07/2017 MAIKEL RAM HEAD NECK SURGEON Ot R06.00 DYSPNEA, UNSPECIFIED 06/04/2017 MAIKEL RAM HEAD NECK SURGEON Ot J45.909 UNSPECIFIED ASTHMA, UNCOMPLICATED 06/04/2017 YO MAIKEL Sunny HEAD NECK SURGEON Ot R06.00 DYSPNEA, UNSPECIFIED 06/13/2017 BIRGIT BOYLE, RUDY Lopez Ot K63.9 DISEASE OF INTESTINE, UNSPECIFIED 06/13/2017 BIRGIT BOYLE, RUDY Lopez Ot Z96.0 PRESENCE OF UROGENITAL IMPLANTS 06/13/2017 BIRGIT BOYLE, RUDY Lopez Ot Z98.890 OTHER SPECIFIED POSTPROCEDURAL STATES 08/09/2017 ORENDER DO, BELKIS S Ot D64.9 ANEMIA, UNSPECIFIED 08/29/2017 ORENDER DO, BELKIS S Ot D64.9 ANEMIA, UNSPECIFIED 01/22/2018 ORENDER DO, BELKIS S Ot K43.5 PARASTOMAL HERNIA WITHOUT OBSTRUCTION OR 01/22/2018 ORENDER DO, BELKIS S Ot N13.30 UNSPECIFIED HYDRONEPHROSIS 01/22/2018 ORENDER DO, BELKIS S Ot Z87.448 PERSONAL HISTORY OF OTHER DISEASES OF UR 01/22/2018 ORENDER DO, BELKIS S Ot Z98.890 OTHER SPECIFIED POSTPROCEDURAL STATES 01/22/2018 ORENDER DO, BELKIS S Ot K43.5 PARASTOMAL HERNIA WITHOUT OBSTRUCTION OR 01/22/2018 ORENDER DO, BELKIS S Ot N13.30 UNSPECIFIED HYDRONEPHROSIS 01/22/2018 ORENDER DO, BELKIS S Ot Z87.448 PERSONAL HISTORY OF OTHER DISEASES OF UR 01/22/2018 ORENDER DO, BELKIS S Ot Z98.890 OTHER SPECIFIED POSTPROCEDURAL STATES Procedures There is no data. Results Test Result Range Complete blood count (CBC) with automated white blood cell (WBC) differential - 05/11/16 13:40 Blood leukocytes automated count (number/volume) 6.0 10*3/uL 4.3-11.0 Blood erythrocytes automated count (number/volume) 3.93 10*6/uL 4.35-5.85 Venous blood hemoglobin measurement (mass/volume) 10.2 [...] Automated blood platelet mean volume measurement 10.3 [foz_us] 7.4-10.4 Automated blood neutrophils/100 leukocytes 57 % [...] Serum or plasma sodium measurement (moles/volume) 140 mmol/L 135-145 Serum or plasma potassium measurement (moles/volume) 4.5 mmol/L 3.6-5.0 Serum or plasma chloride measurement (moles/volume) 109 mmol/L 98-107 Carbon dioxide 22 mmol/L 21-32 Serum or plasma anion gap determination (moles/volume) 9 mmol/L 5-14 Serum or plasma urea nitrogen measurement (mass/volume) 25 mg/dL 7-18 Serum or plasma creatinine measurement (mass/volume) 1.19 mg/dL 0.60-1.30 Serum or plasma urea nitrogen/creatinine mass [...] or plasma troponin i.cardiac measurement (mass/volume) < ng/ mL <0.30 Myoglobin, serum - 05/11/16 13:40 Myoglobin, serum 33.9 ng/mL 10.0-92.0 Complete blood count (CBC) with automated white blood cell (WBC) differential - 05/26/16 22:34 Blood leukocytes automated count (number/volume) 8.8 10*3/uL 4.3-11.0 Blood erythrocytes automated count (number/volume) 3.93 10*6/uL 4.35-5.85 Venous blood hemoglobin measurement (mass/volume) 10.1 [...] Automated blood platelet mean volume measurement 10.8 [foz_us] 7.4-10.4 Automated blood neutrophils/100 leukocytes 62 % [...] blood basophil count (count/volume) 0.1 10*3/uL 0.0-0.1 Complete blood count (CBC) with automated white blood cell (WBC) differential - 10/16/16 15:24 Blood leukocytes automated count (number/volume) 6.5 10*3/uL 4.3-11.0 Blood erythrocytes automated count (number/volume) 4.09 10*6/uL 4.35-5.85 Venous blood hemoglobin measurement (mass/volume) 10.7 g/dL 11.5-16.0 Blood hematocrit (volume fraction) 34 % 35-52 Automated erythrocyte mean corpuscular volume 83 [foz_us] 80-99 Automated erythrocyte mean corpuscular hemoglobin (mass per erythrocyte) 26 pg 25-34 Automated erythrocyte mean corpuscular hemoglobin concentration measurement ( mass/volume) 32 g/dL 32-36 Automated erythrocyte distribution width ratio 17.5 % 10.0-14.5 Automated blood platelet count (count/volume) 244 10*3/uL 130-400 Automated blood platelet mean volume measurement 10.2 [foz_us] 7.4-10.4 Automated blood neutrophils/100 leukocytes 66 % 42-75 Automated blood lymphocytes/100 leukocytes 20 % 12-44 Blood monocytes/100 leukocytes 9 % 0-12 Automated blood eosinophils/100 leukocytes 4 % 0-10 Automated blood basophils/100 leukocytes 1 % 0-10 Blood neutrophils automated count (number/volume) 4.3 10*3 1.8-7.8 Blood lymphocytes automated count (number/volume) 1.3 10*3 1.0-4.0 Blood monocytes automated count (number/volume) 0.6 10*3 0.0-1.0 Automated eosinophil count 0.3 10*3/uL 0.0-0.3 Automated blood basophil count (count/volume) 0.0 10*3/uL 0.0-0.1 Comprehensive metabolic panel - 10/16/16 15:24 Serum or plasma sodium measurement (moles/volume) 139 mmol/L 135-145 Serum or plasma potassium measurement (moles/volume) 3.7 mmol/L 3.6-5.0 Serum or plasma chloride measurement (moles/volume) 104 mmol/L 98-107 Carbon dioxide 24 mmol/L 21-32 Serum or plasma anion gap determination (moles/volume) 11 mmol/L 5-14 Serum or plasma urea nitrogen measurement (mass/volume) 17 mg/dL 7-18 Serum or plasma creatinine measurement (mass/volume) 0.99 mg/dL 0.60-1.30 Serum or plasma urea nitrogen/creatinine mass ratio 17 NRG Serum or plasma creatinine measurement with calculation of estimated glomerular filtration rate 57 NRG Serum or plasma glucose measurement (mass/volume) 79 mg/dL 70-105 Serum or plasma calcium measurement (mass/volume) 9.4 mg/dL 8.5-10.1 Serum or plasma total bilirubin measurement (mass/volume) 0.9 mg/dL 0.1-1.0 Serum or plasma alkaline phosphatase measurement (enzymatic activity/volume) 59 U/L 40-136 Serum or plasma aspartate aminotransferase measurement (enzymatic activity/ volume) 17 U/L 5-34 Serum or plasma alanine aminotransferase measurement (enzymatic activity/volume ) 11 U/L 0-55 Serum or plasma protein measurement (mass/volume) 7.0 g/dL 6.4-8.2 Serum or plasma albumin measurement (mass/volume) 3.8 g/dL 3.2-4.5 Serum or plasma C reactive protein measurement (mass/volume) - 10/16/16 15:24 Serum or plasma C reactive protein measurement (mass/volume) 4.73 mg /dL 0.00-0.50 Capillary blood glucose measurement by glucometer (mass/volume) - 10/16/16 20: 52 Capillary blood glucose measurement by glucometer (mass/volume) 81 mg/dL 70-110 Capillary blood glucose measurement by glucometer (mass/volume) - 10/17/16 05: 26 Capillary blood glucose measurement by glucometer (mass/volume) 79 mg/dL 70-110 Capillary blood glucose measurement by glucometer (mass/volume) - 10/17/16 11: 45 Capillary blood glucose measurement by glucometer (mass/volume) 73 mg/dL 70-110 Capillary blood glucose measurement by glucometer (mass/volume) - 10/17/16 16: 44 Capillary blood glucose measurement by glucometer (mass/volume) 87 mg/dL 70-110 Capillary blood glucose measurement by glucometer (mass/volume) - 10/17/16 19: 46 Capillary blood glucose measurement by glucometer (mass/volume) 80 mg/dL 70-110 Capillary blood glucose measurement by glucometer (mass/volume) - 10/18/16 05: 22 Capillary blood glucose measurement by glucometer (mass/volume) 75 mg/dL 70-110 Capillary blood glucose measurement by glucometer (mass/volume) - 10/18/16 10: 37 Capillary blood glucose measurement by glucometer (mass/volume) 76 mg/dL 70-110 Capillary blood glucose measurement by glucometer (mass/volume) - 10/18/16 16: 30 Capillary blood glucose measurement by glucometer (mass/volume) 118 mg/dL 70-110 Clostridium difficile detection - 10/18/16 19:45 C DIFF MOLECULAR RESULT Positive for toxigenic C diff by DNA amplification [facility] CALL POSITIVES (F1 HELP) CALLED TO EDI/NURSE AT 1117, 10/19/16/KD [facility] C DIFFICILE AG + TOXIN A/B. - 10/18/16 19:45 RESULTS INDETERMINANT; MOLECULAR TEST TO FOLLOW [facility] Ova and parasites - 10/18/16 19:45 DATE OF REF LAB REPORT 10/24/[address] [facility] OTP NEGATIVE RESULT PARASITES NOT FOUND [facility] Capillary blood glucose measurement by glucometer (mass/volume) - 10/18/16 20: 36 Capillary blood glucose measurement by glucometer (mass/volume) 114 mg/dL 70-110 Capillary blood glucose measurement by glucometer (mass/volume) - 10/19/16 06: 14 Capillary blood glucose measurement by glucometer (mass/volume) 86 mg/dL 70-110 Complete blood count (CBC) with automated white blood cell (WBC) differential - 10/19/16 07:31 Blood leukocytes automated count (number/volume) 5.9 10*3/uL 4.3-11.0 Blood erythrocytes automated count (number/volume) 3.88 10*6/uL 4.35-5.85 Venous blood hemoglobin measurement (mass/volume) 10.1 g/dL 11.5-16.0 Blood hematocrit (volume fraction) 32 % 35-52 Automated erythrocyte mean corpuscular volume 82 [foz_us] 80-99 Automated erythrocyte mean corpuscular hemoglobin (mass per erythrocyte) 26 pg 25-34 Automated erythrocyte mean corpuscular hemoglobin concentration measurement ( mass/volume) 32 g/dL 32-36 Automated erythrocyte distribution width ratio 17.2 % 10.0-14.5 Automated blood platelet count (count/volume) 263 10*3/uL 130-400 Automated blood platelet mean volume measurement 10.1 [foz_us] 7.4-10.4 Automated blood neutrophils/100 leukocytes 64 % 42-75 Automated blood lymphocytes/100 leukocytes 20 % 12-44 Blood monocytes/100 leukocytes 9 % 0-12 Automated blood eosinophils/100 leukocytes 6 % 0-10 Automated blood basophils/100 leukocytes 1 % 0-10 Blood neutrophils automated count (number/volume) 3.7 10*3 1.8-7.8 Blood lymphocytes automated count (number/volume) 1.2 10*3 1.0-4.0 Blood monocytes automated count (number/volume) 0.5 10*3 0.0-1.0 Automated eosinophil count 0.4 10*3/uL 0.0-0.3 Automated blood basophil count (count/volume) 0.0 10*3/uL 0.0-0.1 Comprehensive metabolic panel - 10/19/16 07:31 Serum or plasma sodium measurement (moles/volume) 141 mmol/L 135-145 Serum or plasma potassium measurement (moles/volume) 3.3 mmol/L 3.6-5.0 Serum or plasma chloride measurement (moles/volume) 107 mmol/L 98-107 Carbon dioxide 24 mmol/L 21-32 Serum or plasma anion gap determination (moles/volume) 10 mmol/L 5-14 Serum or plasma urea nitrogen measurement (mass/volume) 14 mg/dL 7-18 Serum or plasma creatinine measurement (mass/volume) 0.83 mg/dL 0.60-1.30 Serum or plasma urea nitrogen/creatinine mass ratio 17 NRG Serum or plasma creatinine measurement with calculation of estimated glomerular filtration rate > NRG Serum or plasma glucose measurement (mass/volume) 100 mg/dL 70-105 Serum or plasma calcium measurement (mass/volume) 9.0 mg/dL 8.5-10.1 Serum or plasma total bilirubin measurement (mass/volume) 0.7 mg/dL 0.1-1.0 Serum or plasma alkaline phosphatase measurement (enzymatic activity/volume) 52 U/L 40-136 Serum or plasma aspartate aminotransferase measurement (enzymatic activity/ volume) 19 U/L 5-34 Serum or plasma alanine aminotransferase measurement (enzymatic activity/volume ) 15 U/L 0-55 Serum or plasma protein measurement (mass/volume) 6.3 g/dL 6.4-8.2 Serum or plasma albumin measurement (mass/volume) 3.5 g/dL 3.2-4.5 Serum or plasma C reactive protein measurement (mass/volume) - 10/19/16 07:31 Serum or plasma C reactive protein measurement (mass/volume) 3.40 mg /dL 0.00-0.50 Capillary blood glucose measurement by glucometer (mass/volume) - 10/19/16 11: 29 Capillary blood glucose measurement by glucometer (mass/volume) 98 mg/dL 70-110 Capillary blood glucose measurement by glucometer (mass/volume) - 10/19/16 16: 00 Capillary blood glucose measurement by glucometer (mass/volume) 99 mg/dL 70-110 Capillary blood glucose measurement by glucometer (mass/volume) - 10/19/16 20: 55 Capillary blood glucose measurement by glucometer (mass/volume) 140 mg/dL 70-110 Capillary blood glucose measurement by glucometer (mass/volume) - 10/20/16 05: 54 Capillary blood glucose measurement by glucometer (mass/volume) 92 mg/dL 70-110 Capillary blood glucose measurement by glucometer (mass/volume) - 10/20/16 11: 28 Capillary blood glucose measurement by glucometer (mass/volume) 98 mg/dL 70-110 RED CELLS LEUKO REDUCED AS1 - 08/09/17 12:40 RED CELLS LEUKO REDUCED AS1 TRANSFUSED 08/09/17 1542 NR Blood type T Indirect antibody screen panel - 08/09/17 12:40 ABO+Rh group OP NRG Transfusion band number [id number] NRG Blood group antibody screen NEGATIVE NRG Complete blood count (CBC) with automated white blood cell (WBC) differential - 08/16/17 09:34 Blood leukocytes automated count (number/volume) 5.6 10*3/uL 4.3-11.0 Blood erythrocytes automated count (number/volume) 3.90 10*6/uL 4.35-5.85 Venous blood hemoglobin measurement (mass/volume) 9.4 g/dL 11.5-16.0 Blood hematocrit (volume fraction) 32 % 35-52 Automated erythrocyte mean corpuscular volume 81 [foz_us] 80-99 Automated erythrocyte mean corpuscular hemoglobin (mass per erythrocyte) 24 pg 25-34 Automated erythrocyte mean corpuscular hemoglobin concentration measurement ( mass/volume) 30 g/dL 32-36 Automated erythrocyte distribution width ratio 18.7 % 10.0-14.5 Automated blood platelet count (count/volume) 283 10*3/uL 130-400 Automated blood platelet mean volume measurement 9.6 [foz_us] 7.4-10.4 Automated blood neutrophils/100 leukocytes 61 % 42-75 Automated blood lymphocytes/100 leukocytes 25 % 12-44 Blood monocytes/100 leukocytes 8 % 0-12 Automated blood eosinophils/100 leukocytes 6 % 0-10 Automated blood basophils/100 leukocytes 1 % 0-10 Blood neutrophils automated count (number/volume) 3.4 10*3 1.8-7.8 Blood lymphocytes automated count (number/volume) 1.4 10*3 1.0-4.0 Blood monocytes automated count (number/volume) 0.4 10*3 0.0-1.0 Automated eosinophil count 0.3 10*3/uL 0.0-0.3 Automated blood basophil count (count/volume) 0.0 10*3/uL 0.0-0.1 Serum iron and total iron binding capacity panel - 08/16/17 09:34 Serum or plasma iron measurement (mass/volume) 28 % 35- 180 Total iron binding capacity and transferrin saturation measurement 6 % 15-50 Iron binding capacity [mass/volume] in serum or plasma 444 % 280-380 UIBC (unsaturated iron binding capacity) 416 % 55-450 Serum or plasma ferritin measurement (mass/volume) 30.0 % 15.0-150.0 Cyanocobalamin measurement - 08/16/17 09:34 Vitamin B12 488 pg/mL 200-1000 Encounters ACCT No. Visit Date/Time Discharge Status Pt. Type Provider Facility Loc./Unit Complaint [id number] 01/21/2018 08:11:00 01/21/2018 23:59:59 CLS Outpatient BELKIS ARAUJO DO [facility] RAD EPIGASTRIC PAIN [id number] 08/16/2017 09:21:00 08/16/2017 23:59:59 CLS Outpatient BELKIS ARAUJO DO [facility] LAB ANEMIA-ACUTE,ON CHRONIC [id number] 08/09/2017 12:13:00 08/09/2017 18:35:00 DIS Outpatient BELKIS ARAUJO DO [facility] SDC ACUTE ON CHRONIC ANEMIA [id number] 06/05/2017 13:00:00 06/05/2017 23:59:59 CLS Preadmit MAIKEL RAM APRN [facility] PULM ASTHMA [id number] 03/08/2017 15:00:00 06/04/2017 00:01:00 DIS Outpatient MAIKEL RAM HEAD NECK SURGEON [facility] PULM ASTHMA [id number] 05/30/2017 12:38:00 05/30/2017 23:59:59 CLS Outpatient RUDY GENAO MD [facility] RAD BLACKWOOD IN PLACE POST BLADDER REPAIR [id number] 04/24/2017 14:16:00 04/24/2017 23:59:59 CLS Outpatient MAIKEL RAM APRN [facility] RAD J45.909,R06.00 [id number] 03/01/2017 14:30:00 03/04/2017 00:01:00 DIS Outpatient MAIKEL RAM HEAD NECK SURGEON [facility] PULM ASTHMA [id number] 01/01/2017 12:52:00 01/01/2017 23:59:59 CLS Outpatient ABRAHAM ARAUJO DOLINE S [facility] RAD N32.1 [id number] 12/26/2016 08:37:00 12/26/2016 23:59:59 CLS Outpatient ABRAHAM ARAUJO DOLINE S [facility] RAD SIGMOID DIVERTICULITIS W/MICROPERFORATION [id number] 12/26/2016 08:32:00 12/26/2016 23:59:59 CLS Outpatient MAIKEL RAM HEAD NECK SURGEON [facility] RAD ASTHMA [id number] 11/27/2016 12:35:00 11/27/2016 23:59:59 CLS Outpatient BELKIS ARAUJO DO S [facility] RT ASTHMA,DYSPNEA [id number] 10/16/2016 13:00:00 10/20/2016 17:00:00 DIS Inpatient ABRAHAM ARAUJO DOLINE S [facility] 4TH ACUTE SIGMOID DIVERTICULITIS [id number] 10/16/2016 08:57:00 10/16/2016 23:59:59 CLS Outpatient ABRAHAM ARAUJO DOLINE S [facility] RAD ABD PAIN [id number] 05/26/2016 22:15:00 05/26/2016 23:05:00 DIS Emergency KOFI MAYERS MD [facility] ER R GROIN SWELLING [id number] 05/11/2016 13:25:00 05/11/2016 16:13:00 DIS Emergency KOFI MAYERS MD [facility] ER SOA/CHEST PAIN [id number] 03/31/2016 12:28:00 03/31/2016 23:59:59 CLS Outpatient LAURA PERLA HEAD NECK SURGEON [facility] CARD ELEVATED BHP,FATIGUE ,PEDAL EDEMA,SOB,TACHYCARDIA [id number] 03/30/2016 11:50:00 03/30/2016 23:59:59 CLS Outpatient LAURA PERLA HEAD NECK SURGEON [facility] CARD SHORNESS OF BREATH, ELEVATED D-DIMER [id number] 03/28/2016 12:17:00 03/28/2016 23:59:59 CLS Outpatient LAURA PERLA HEAD NECK SURGEON [facility] RAD CHEST TIGHTNESS,SOB [id number] 05/23/2013 20:00:00 05/24/2013 06:55:00 DIS Outpatient BELKIS ARAUJO DO [facility] SLEEP BERNARDO,SNORING,ABN LIMB MOVEMENT,HTN,ESCESSIVE DAYTIM [id number] 05/02/2013 08:37:00 05/02/2013 23:59:59 CLS Outpatient [id number] 09/30/2014 18:49:00 Document Registration [id number] 09/30/2014 18:49:00 Document Registration [id number] 01/13/2012 18:51:00 Document Registration [id number] 01/01/2012 20:24:00 Document Registration [id number] 12/25/2011 17:50:00 Document Registration [id number] 12/25/2011 08:44:00 Document Registration [id number] 10/27/2011 19:25:00 Document Registration [id number] 08/25/2011 09:24:00 Document Registration [id number] 06/23/2011 08:50:00 Document Registration [id number] 05/14/2011 15:08:00 Document Registration [id number] 05/10/2011 08:50:00 Document Registration [id number] 05/09/2011 14:27:00 Document Registration [id number] 12/19/2010 15:52:00 Document Registration [id number] 12/17/2009 13:26:00 Document Registration 11/201701/15/2018 16:20:35 01/15/2018 23:59:59 CLS Outpatient Belkis Araujo
--- NOTE | 2018-02-22 15:43 | ED Respiratory ---
General Chief Complaint: Respiratory Problems Stated Complaint: POSSIBLE PNEUMONIA Source: patient, family Exam Limitations: no limitations (YASMANY PICHARDO STUDENT) History of Present Illness Date Seen by Provider: Feb 22, 2018 Time Seen by Provider: 15:38 Initial Comments Patient is a 62-year-old female who presented to the emergency room with reports of pneumonia. She states that she had a CT of her abdomen today at [facility] and they said that she had pneumonia in her lung bases. She drove straight from the urology clinic to Dr. Araujo's office but her office was closed she came to the emergency room. Associated Symptoms: denies symptoms (YASMANY PICHARDO STUDENT) Allergies and Home Medications Allergies Coded Allergies: Cephalosporins (Unverified Allergy, Unknown, 11/05/14) azithromycin (Unverified Allergy, Unknown, 11/05/14) codeine (Unverified Allergy, Unknown, 11/05/14) Home Medications Albuterol Sulfate 8.5 Gm Hfa.aer.ad, 2 PUFF INH Q4H PRN for SHORTNESS OF BREATH, (Reported) Albuterol Sulfate 2.5 Mg/3 Ml Vial.neb, 2.5 MG NEB QID PRN for SHORTNESS OF BREATH, (Reported) Carvedilol 25 Mg Tablet, 25 MG PO BID, (Reported) Fenofibrate Nanocrystallized 145 Mg Tablet, 145 MG PO HS, (Reported) Lactobacillus Combination No.4 1 Each Capsule, 1 EACH PO TID Prescribed by: SHEA YUSUF on 02/22/18 172 Levofloxacin 500 Mg Tablet, 500 MG PO DAILY Prescribed by: SHEA YUSUF on 02/22/18 172 Levothyroxine Sodium 150 Mcg Tablet, 150 MCG PO DAILY, (Reported) Loratadine 10 Mg Tablet, 10 MG PO DAILY, (Reported) Metronidazole 500 Mg Tablet, 500 MG PO TID Prescribed by: BROWN ARAUJO on 10/19/16 192 Metronidazole 500 Mg Tablet, 500 MG PO TID Prescribed by: SHEA YUSUF on 02/22/18 172 Montelukast Sodium 10 Mg Tablet, 10 MG PO HS, (Reported) Ondansetron HCl 4 Mg Tab, 4 MG PO Q4H PRN for NAUSEA Prescribed by: BROWN ARAUJO on 10/20/16 0545 Pantoprazole Sodium 40 Mg Tablet.dr, 40 MG PO HS, (Reported) Pioglitazone HCl/Metformin HCl 1 Each Tablet, 1 TAB PO DAILY, (Reported) Tiotropium Anthon 1 Inh Aerp, 1 CAP INH DAILY, (Reported) Valsartan 160 Mg Tablet, 160 MG PO BID, (Reported) Patient Home Medication List Home Medication List Reviewed: Yes (YASMANY PICHARDO) Review of Systems Constitutional: see HPI; No chills, No diaphoresis, No fever EENTM: see HPI; No ear discharge, No hearing loss Respiratory: see HPI; No cough, No dyspnea on exertion, No hemoptysis Cardiovascular: see HPI; No chest pain Gastrointestinal: see HPI; No abdominal pain Genitourinary: see HPI; No decreased output Musculoskeletal: see HPI; No back pain Skin: see HPI; No change in color Psychiatric/Neurological: See HPI; Denies Anxiety Hematologic/Lymphatic: See HPI; Denies Anemia Immunological/Allergic: see HPI; denies food allergy (YASMANY PICHARDO) All Other Systems Reviewed Negative Unless Noted: Yes (YASMANY PICHARDO) Past Yxiynyv-Syjuvs-Ghwwur Hx Past Med/Social Hx: Reviewed Nursing Past Med/Soc Hx (YASMANY PICHARDO) Patient Social History Recent Foreign Travel: No Contact w/Someone Who Travel: No Recent Hopitalizations: Yes (YASMANY PICHARDO) Immunizations Up To Date Date of Pneumonia Vaccine: Jun 10, 2015 Date of Influenza Vaccine: Jul 11, 2016 (YASMANY PICHARDO) Seasonal Allergies Seasonal Allergies: No (YASMANY PICHARDO) Past Medical History Surgeries: Yes (TONSILECTOMY, BACK-DISK REPAIR, X2, GANGLION CYST REMOVED) Respiratory: Yes Asthma Cardiac: Yes (abnormal stress test 06/09/16) Chronic Edema/Swelling, High Cholesterol, Hypertension Neurological: No Reproductive Disorders: No Gastrointestinal: Yes Gastroesophageal Reflux, Diverticulosis Musculoskeletal: Yes (DISK REPAIR ) Endocrine: Yes Hypothyroidsim, Diabetes, Non-Insulin dep Psychosocial: No Blood Disorders: No (YASMANY PICHARDO) Family Medical History Reviewed Nursing Family Hx (YASMANY PICHARDO) Physical Exam Vital Signs Vital Signs - First Documented 02/22/18 15:29 Temp 97.4 Pulse 69 Resp 18 B/P (MAP) 138/90 (106) Pulse Ox 94 (SHEA YUSUF APRN) Vital Signs Capillary Refill : (YASMANY PICHARDO STUDENT) General Appearance: WD/WN, no apparent distress HEENT: normal ENT inspection, TMs normal Neck: non-tender, full range of motion Respiratory: chest non-tender, lungs clear, normal breath sounds, no respiratory distress, no accessory muscle use Cardiovascular: regular rate, rhythm, no edema, no gallop Gastrointestinal: normal bowel sounds, non tender, soft, other (patient does have a him him him colostomy) Extremities: normal range of motion, non-tender, normal inspection, no pedal edema Neurologic/Psychiatric: alert, normal mood/affect, oriented x 3 Skin: normal color, warm/dry Lymphatic: no adenopathy (YASMANY PICHARDO STUDENT) Focused Exam Lactate Level 02/22/18 16:00: Lactic Acid Level 1.04 (SHEA YUSUF APRN) Lactic Acid Level Laboratory Tests Test 02/22/18 16:00 Lactic Acid Level 1.04 MMOL/L (0.50-2.00) (SHEA YUSUF APRN) Progress/Results/Core Measures Suspected Sepsis SIRS Temperature: Pulse: Respiratory Rate: Laboratory Tests 02/22/18 16:00: White Blood Count 13.5H Blood Pressure / Mean: 02/22/18 16:00: Lactic Acid Level 1.04 Laboratory Tests 02/22/18 16:00: Creatinine 1.37H, INR Comment 1.4, Platelet Count 261, Total Bilirubin 1.0 (YASMANY PICHARDO STUDENT) Results/Orders Lab Results Laboratory Tests Test 02/22/18 16:00 Range/Units White Blood Count 13.5 H 4.3-11.0 10^3/uL Red Blood Count 3.76 L 4.35-5.85 10^6/uL Hemoglobin 10.0 L 11.5-16.0 G/DL Hematocrit 31 L 35-52 % Mean Corpuscular Volume 83 80-99 FL Mean Corpuscular Hemoglobin 27 25-34 PG Mean Corpuscular Hemoglobin Concent 32 32-36 G/DL Red Cell Distribution Width 16.6 H 10.0-14.5 % Platelet Count 261 130-400 10^3/uL Mean Platelet Volume 10.1 7.4-10.4 FL Neutrophils (%) (Auto) 83 H 42-75 % Lymphocytes (%) (Auto) 8 L 12-44 % Monocytes (%) (Auto) 7 0-12 % Eosinophils (%) (Auto) 2 0-10 % Basophils (%) (Auto) 0 0-10 % Neutrophils # (Auto) 11.1 H 1.8-7.8 X 10^3 Lymphocytes # (Auto) 1.1 1.0-4.0 X 10^3 Monocytes # (Auto) 0.9 0.0-1.0 X 10^3 Eosinophils # (Auto) 0.3 0.0-0.3 10^3/uL Basophils # (Auto) 0.0 0.0-0.1 10^3/uL Prothrombin Time 17.2 H 12.2-14.7 SEC INR Comment 1.4 0.8-1.4 Activated Partial Thromboplast Time 36 H 24-35 SEC Sodium Level 140 135-145 MMOL/L Potassium Level 4.0 3.6-5.0 MMOL/L Chloride Level 108 H 98-107 MMOL/L Carbon Dioxide Level 23 21-32 MMOL/L Anion Gap 9 5-14 MMOL/L Blood Urea Nitrogen 30 H 7-18 MG/DL Creatinine 1.37 H 0.60-1.30 MG/DL Estimat Glomerular Filtration Rate 39 BUN/Creatinine Ratio 22 Glucose Level 139 H 70-105 MG/DL Lactic Acid Level 1.04 0.50-2.00 MMOL/L Calcium Level 9.2 8.5-10.1 MG/DL Total Bilirubin 1.0 0.1-1.0 MG/DL Aspartate Amino Transf (AST/SGOT) 28 5-34 U/L Alanine Aminotransferase (ALT/SGPT) 17 0-55 U/L Alkaline Phosphatase 87 40-136 U/L Total Protein 6.2 L 6.4-8.2 GM/DL Albumin 3.2 3.2-4.5 GM/DL (SHEA YUSUF APRN) Vital Signs/I&O 02/22/18 15:29 Temp 97.4 Pulse 69 Resp 18 B/P (MAP) 138/90 (106) Pulse Ox 94 (SHEA YUSUF APRN) Vital Signs/I&O Capillary Refill : (YASMANY PICHARDO STUDENT) Progress Note : Time: 16:50 Progress Note The patients CURB65 score was a 1 and the patient agrees with the plan of outpatient antibiotic therapy. Antibiotic choices were discussed with the pharmacist and he agrees with Levaquin with the patient's history and comorbidities, the patient agrees with the antibiotic Levaquin as well. The patient was also given a prescription for Flagyl and a probiotic with her history of C. difficile to use if needed. The patient is leaving for a trip to [place] tomorrow so this was taken into account for a antibiotic choices and the use of Flagyl and a probiotic for history of C-Diff. Plans for discharge were discussed and the patient. (YASMANY PICHARDO STUDENT) Progress Note : Time: 17:40 Progress Note I evaluated the patient in the emergency department. Her history was consistent with a pneumonia that was discovered while seen her urologist at [facility] today. The patient's lungs demonstrated some diminished breath sounds. The heart demonstrated regular rhythm. Laboratory evaluation was consistent with pneumonia. Treatment course consisted of Levaquin after consultation with the pharmacy. Patient received a gram of Rocephin prior to discharge. With her history of C. difficile the patient was given a course of Flagyl and asked use probiotics. She was asked follow up with her primary care physician upon returning from [place]. Yayo Espinal M.D. (YAYO ESPINAL MD) Departure Impression Primary Impression: Community acquired pneumonia Qualified Codes: J18.9 - Pneumonia, unspecified organism Disposition: HOME, SELF-CARE Condition: Stable/Unchanged Departure-Patient Inst. Decision time for Depature: 17:23 (YASMANY PICHARDO STUDENT) Referrals: BROWN ARAUJO DO (PCP/Family) Primary Care Physician Patient Instructions: Pneumonia, Adult (DC) Add. Discharge Instructions: Take medications as directed. If you start to have symptoms of C-Diff start the Flagyl antibiotic. Return to the nearest emergency room if your should have worsening symptoms such as shortness of breath, fever, body aches, or any other concerns as needed on you trip. All discharge instructions reviewed with patient and/or family. Voiced understanding. Scripts Lactobacillus Combination No.4 (Probiotic) 1 Each Capsule 1 EACH PO TID, #30 CAP Prov: SHEA YUSUF APRN 02/22/18 Metronidazole (Metronidazole) 500 Mg Tablet 500 MG PO TID, #30 TAB Prov: SHEA YUSUF APRN 02/22/18 Levofloxacin (Levaquin) 500 Mg Tablet 500 MG PO DAILY, #10 TAB Prov: SHEA YUSUF APRN 02/22/18 YASMANY PICHARDO STUDENT Feb 22, 2018 15:43 SHEA YUSUF APRN Feb 22, 2018 17:29 YAYO ESPINAL MD Feb 22, 2018 17:43
[2018-02-22 16:17] LABS: BASOPHILS % (AUTO) 0 % (0-10); EOSINOPHILS # (AUTO) 0.3 10^3/uL (0.0-0.3); EOSINOPHILS % (AUTO) 2 % (0-10); HEMATOCRIT 31 % (35-52); LYMPHOCYTES # (AUTO) 1.1 X 10^3 (1.0-4.0); LYMPHOCYTES % (AUTO) 8 % (12-44); MEAN CORPUSCULAR HEMOGLOBIN 27 PG (25-34); MEAN CORPUSCULAR HGB CONC 32 G/DL (32-36); MEAN CORPUSCULAR VOLUME 83 FL (80-99); MEAN PLATELET VOLUME 10.1 FL (7.4-10.4); MONOCYTES # (AUTO) 0.9 X 10^3 (0.0-1.0); MONOCYTES % (AUTO) 7 % (0-12); NEUTROPHILS # (AUTO) 11.1 X 10^3 (1.8-7.8); NEUTROPHILS % (AUTO) 83 % (42-75); PLATELET COUNT 261 10^3/uL (130-400); RED BLOOD COUNT 3.76 10^6/uL (4.35-5.85); RED CELL DISTRIBUTION WIDTH 16.6 % (10.0-14.5); WHITE BLOOD COUNT 13.5 10^3/uL (4.3-11.0)
[2018-02-22 16:28] LABS: INR 1.4 (0.8-1.4); PROTHROMBIN TIME PATIENT 17.2 SEC (12.2-14.7)
--- NOTE | 2018-02-22 16:34 | Diagnostic Imaging Report ---
INDICATION: Cough and congestion. TECHNIQUE: PA and lateral views of the chest were obtained at 4:45 PM. COMPARISON: 04/24/2017. FINDINGS: There is cardiomegaly with central vascular congestion again noted. There are new alveolar infiltrates in both lung bases, suspicious for pneumonia. There is no pneumothorax or pleural fluid. IMPRESSION: Cardiomegaly. New bibasilar alveolar infiltrate, suspicious for pneumonia. Followup is recommended. Dictated by: Dictated on workstation # [id number]
[2018-02-22 16:36] LABS: ALBUMIN 3.2 GM/DL (3.2-4.5); CALCIUM 9.2 MG/DL (8.5-10.1); CREATININE SERUM 1.37 MG/DL (0.60-1.30); TOTAL PROTEIN 6.2 GM/DL (6.4-8.2)
[2018-02-22] MEDS ORDERED: LACT1CAP74 PO (17:29)
[2018-02-22] MEDS ORDERED: LEVO500T2 PO (17:29)
[2018-02-22] MEDS ORDERED: METR500T21 PO (17:29)
[2018-02-22 17:40] VITALS: BP 138/90
== END 2018-02-22 17:40 | disposition home or self-care (01) ==
LOC: EDUNIT# 15:20 → ER 15:22
DX: J18.9 Pneumonia, unspecified organism (principal); J45.909 Unspecified asthma, uncomplicated; E78.00 Pure hypercholesterolemia, unspecified; I10 Essential (primary) hypertension; K21.9 Gastro-esophageal reflux disease without esophagitis; E03.9 Hypothyroidism, unspecified; E11.9 Type 2 diabetes mellitus without complications; Z90.89 Acquired absence of other organs; Z87.59 Personal history of other complications of pregnancy, childbirth and the puerperium; Z98.890 Other specified postprocedural states; Z88.1 Allergy status to other antibiotic agents; Z88.6 Allergy status to analgesic agent
CPT/HCPCS: 36415; 71046; 80053; 83605; 85025; 85610; 85730; 87040

== ENCOUNTER 2018-06-24 12:12 | Outpatient (CLI) | payer BC ==
[~2018-06-24] VITALS: Ht 165.1 cm; Wt 136.1 kg
[~2018-06-24 12:12] MED LIST changes: +LACT1CAP74 PO; +LEVO500T2 PO; +METR500T21 PO; +PIOG1TAB18 PO; -PIOG1TAB34 PO; -VALS160T28 PO; +VALS160T29 PO
[2018-06-24] MEDS ORDERED: OLME40TA18 PO (12:24)
[2018-06-24] MEDS ORDERED: MMT17NA NS (12:24)
[2018-06-24] MEDS ORDERED: MULT-39 PO (12:24)
[2018-06-24] MEDS ORDERED: FLUT1BLS IH (12:24)
[2018-06-24] MEDS ORDERED: LOPE-134 PO (12:24)
== END 2018-06-24 12:25 | disposition home or self-care (01) ==
LOC: PREOP 12:12
PROVIDERS: ATTEND Surgery
DX: Z01.818 Encounter for other preprocedural examination (principal)

== ENCOUNTER 2018-06-26 09:56 | Day surgery (SDC) | payer BC, MEDICARE ==
[~2018-06-26] VITALS: Ht 165.1 cm; Wt 136.1 kg
[~2018-06-26 09:56] MED LIST changes: +FLUT1BLS IH; +LOPE-134 PO; +MULT-39 PO; +OLME40TA18 PO
--- NOTE | 2018-06-26 10:15 | Conscious Sedation/ASA ---
Conscious Sedation Pre-Proced Time 10:00 ASA Score 2 For ASA 3 and 4: Consider anesthesia and medical clearance. Also, for patients with a history of failed moderate sedation consider anesthesia. Airway Lungs Heart ASA score ASA 1: a normal healthy patient ASA 2: a patient with a mild systemic disease (mid diabetes, controlled hypertension, obesity ASA 3: a patient with a severe systemic disease that limits activity (angina , COPD, prior Myocardial infarction) ASA 4: a patient with an incapacitating disease that is a constant threat to life (CHF, renal failure) ASA 5: a moribund patient not expected to survive 24 hrs. (ruptured aneurysm) ASA 6: a declared brain patient whose organs are being harvested. For emergent operations, add the letter E after the classification Mallampati Classification Grade 2 Sedation Plan Analgesia, Amnesia, Plan communicated to team members, Discussed options with patient/fam, Discussed risks with patient/fam The patient is an appropriate candidate to undergo the planned procedure, sedation, and anesthesia. The patient immediately re-assessed prior to indication. GIBSON DELAROSA MD Jun 26, 2018 10:15 am
--- NOTE | 2018-06-26 10:16 | Progress Note-Pre Operative ---
Pre-Operative Progress Note H&P Reviewed The H&P was reviewed, patient examined and no changes noted. Date Seen by Provider: Jun 26, 2018 Time Seen by Provider: 10:00 Date H&P Reviewed: Jun 26, 2018 Time H&P Reviewed: 10:00 Pre-Operative Diagnosis: nausea/vomiting GIBSON DELAROSA MD Jun 26, 2018 10:16 am
[2018-06-26] MEDS ORDERED: NS IV 500 ML 500 ML ONE (10:17)
[2018-06-26] MEDS ORDERED: ACETAMINOPHEN 325 MG TABLET PO PRN (10:30)
[2018-06-26] MEDS ORDERED: morphine INJ 10 MG/ML 1ML (SYR OR VIAL) IV PRN (10:30)
[2018-06-26] MEDS ORDERED: ONDANSETRON 4 MG/2 ML (SDV) Z0FRAN IV PRN (10:30)
[2018-06-26] MEDS ORDERED: HYDROcodone/APAP 5 MG/325 MG (LORTAB) TAB PO PRN (10:30)
[2018-06-26] MEDS ORDERED: NS IV 500 ML 500 ML IV PRN (10:33)
[2018-06-26 10:43] VITALS: BP 135/76
[2018-06-26] MEDS ORDERED: LIDOCAINE JELLY 2% 6 ML SYRINGE MM PRN (10:45)
[2018-06-26] MEDS ORDERED: HURRICAINE EXT TUBE (BENZOCAINE) XX PRN (10:45)
[2018-06-26] MEDS ORDERED: FLUMAZENIL (ROMAZICON) 0.1 MG/ML 5 ML VIAL INJ PRN (10:45)
[2018-06-26] MEDS ORDERED: MIDAZOLAM 2 MG/2 ML (VERSED) VIAL IVP ONE (10:45)
[2018-06-26] MEDS ORDERED: NALOXONE 0.4 MG/ML 1 ML (NARCAN) VIAL IVP PRN (10:45)
[2018-06-26] MEDS ORDERED: fentaNYL INJECTION 100 MCG/2 ML AMP IVP ONE (10:45)
--- OUTSIDE RECORDS SUMMARY | 2018-06-26 10:52 | XMS REPORT | Continuity of Care Document ---
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 Family History History Response Recorded Date/Time Hx Family Cancer N 12/25/11 5:55pm Hx Family Cardiac Disorders Y 12/25/11 5: 55pm Hx Family Hypertension Y pathernal grandmother 12/25/11 5:55pm Allergies, Adverse Reactions, Alerts Allergen Type Severity Reaction Last Updated Cephalosporins Allergy 05/14/11 Codeine Allergy 05/14/11 azithromycin Allergy 05/14/11 Medications Medication Dose Units Route Sig Qty Days Hydrocodone Bit/Acetaminophen (Hydrocodon-Acetaminophen 5-500) 5 - 500 Mg PO NEEDED Diazepam (Valium) 10 Mg PO QID Flavoxate HCl (Urispas) 1 Tab PO TID 15 Phenazopyridine HCl (Pyridium) 1 Each PO TID PRN 10 Tramadol HCl (Ultram) 50 Mg PO BID Phenazopyridine HCl (Pyridium) 1 Each PO TID 9 Fluconazole (Diflucan 100 Mg) 200 Mg PO DAILY Losartan Potassium (Cozaar) 1 Each PO DAILY Tramadol HCl (Ultram) 50 Mg PO BID 15 Lactobacillus Rhamnosus Gg (Probiotic) 1 Each PO BID Ciprofloxacin (Cipro) 1 Tab PO BID Metronidazole (Metronidazole 500 Mg) 1 Each PO TID Mometasone Furoate (Nasonex) 1 [place] NS DAILY PRN 1 Salmeterol Xinafoate/Fluticasone (Advair 250 Mcg/50 Mcg 60's) 1 Puff IH BID Zolpidem Tartrate (Ambien 10 Mg) 10 Mg PO HS Metoprolol Succinate 100 Mg PO BID Multivitamins (Multiple Vitamin) 1 Tab PO DAILY Pioglitazone Hcl/Metformin Hcl (Actoplus Met 15 Mg-850 Mg Tab) 1 Each PO DAILY Esomeprazole Magnesium (Nexium) 40 Mg PO HS 30 Montelukast Sodium (Singulair 10 Mg) 10 Mg PO HS 30 Sitagliptin Phosphate (Januvia) 100 Mg PO HS Fenofibrate (Tricor) 145 Mg PO HS Levothyroxine Sodium (Levothyroxine 125 Mcg Tab) 125 Mcg PO DAILY Albuterol (Proair Hfa) 8.5 Gm IH Q4H PRN Naproxen Sodium (Aleve) 440 Mg PO BID [hycosamine] 0.375 Mg PO BID Cetirizine Hcl/Pseudoephedrine (Aller-Kika D 5-120 Mg Tablet) 1 Each PO BID Furosemide 20 Mg PO DAILY Potassium Chloride (Klor-Con 10) 10 Meq PO DAILY Ferrous Sulfate 325 Mg PO DAILY [B-12] 1 Cap PO DAILY Vitamin B Complex (B Complex) 1 Cap PO DAILY [Calcium] 1200 Mg PO DAILY [Nasonex 50 Mcg] 1 [place] NA BID PRN [Patanol 0.1% Opth] 1 Drop OP BID PRN [Metoprolol Er Suc] 100 Mg PO DAILY Hyoscyamine Sulfate (Hyoscyamine Er 0.375 Mg) 1 Each PO BID [Cetirizine D 12 Hour] 1 Tab PO BID Immunizations Name Given Type Date of Influenza Vaccine 06/29/11 H Response Recorded Date/Time Status not known Unknown Results Test Date Result Interp. Ref. Range Activated Partial Thromboplast Time October 29, 2011 5: 50am 28 SEC N 24-35 Alanine Aminotransferase (ALT/SGPT) January 13, 2012 8:38pm 36 U/L N 30-65 Albumin January 13, 2012 8:38pm 3.4 G/DL N 3.4-5.0 Alkaline Phosphatase January 13, 2012 8:38pm 88 U/L N 50-136 Amylase Level January 01, 2012 9:45pm 38 U /L N 25-115 Aspartate Amino Transf (AST/SGOT) January 13, 2012 8:38pm 23 U/L N 15-37 BUN/Creatinine Ratio January 13, 2012 8:38pm 15 - Basophils # (Auto) January 13, 2012 8:38pm 0.0 10^3/uL N 0.0-0.1 Basophils (%) (Auto) January 13, 2012 8:38pm 1 % N 0-10 Blood Urea Nitrogen January 13, 2012 8:38pm 19 MG/DL H 7-18 C-Reactive Protein January 01, 2012 9:45pm 1.4 MG/DL H 0.2-0.9 Calcium Level January 13, 2012 8:38pm 9.4 MG /DL N 8.5-10.1 Carbon Dioxide Level January 13, 2012 8:38pm 31 MMOL/L N 21-32 Chloride Level January 13, 2012 8:38pm 103 MMOL/L N 101-110 Cholesterol Level October 28, 2011 5:50am 132 MG/DL N -200 Creatinine January 13, 2012 8:38pm 1.3 MG/ DL N 0.6-1.3 Cytomegalovirus IgG Antibody December 17, 2009 1:50pm 8.84 H INDEX - Cytomegalovirus IgM Antibody December 17, 2009 1:50pm 0.57 INDEX - Eosinophils # (Auto) January 13, 2012 8:38pm 0.3 10^3/uL N 0.0-0.3 Eosinophils (%) (Auto) January 13, 2012 8:38pm 5 % N 0-10 Marcella-Hinson Virus DNA (PCR) December 17, 2009 1:50pm <200 COPIE/ML - Erythrocyte Sedimentation Rate December 25, 2011 9:04am 37 MM/HR H 0-30 Free Thyroxine December 25, 2011 9:04am 1.10 NG/DL N 0.59-1.17 Glucose Level January 13, 2012 8:38pm 112 MG /DL H 74-106 HDL Cholesterol October 28, 2011 5:50am 34 MG/DL L 35-60 Hematocrit January 13, 2012 8:38pm 36 % N 35-52 Hemoglobin January 13, 2012 8:38pm 11.5 G/ DL N 11.5-16.0 Hemoglobin A1c October 28, 2011 5:50am 6.2 % N 4.5-6.2 LDL Cholesterol October 28, 2011 5:50am 80 MG/DL N 0-129 Lipase January 01, 2012 9:45pm 105 U/L N 73-393 Lymphocytes # (Auto) January 13, 2012 8:38pm 1.3 X 10^3 N 1.0-4.0 Lymphocytes (%) (Auto) January 13, 2012 8:38pm 20 % N 12-44 Magnesium Level October 27, 2011 5:20pm 1.8 MG/DL N 1.8-2.4 Mean Corpuscular Hemoglobin January 13, 2012 8:38pm 27 PG N 25-34 Mean Corpuscular Hemoglobin Concent January 13, 2012 8:38pm 32 G/DL N 32-36 Mean Corpuscular Volume January 13, 2012 8:38pm 83 FL N 80-99 Mean Platelet Volume January 13, 2012 8:38pm 9.4 FL N 7.4-10.4 Monocytes # (Auto) January 13, 2012 8:38pm 0.7 X 10^3 N 0.0-1.0 Monocytes (%) (Auto) January 13, 2012 8:38pm 10 % N 0-12 Myoglobin October 27, 2011 5:20pm 45 UG /L N 10-92 Neutrophils # (Auto) January 13, 2012 8:38pm 4.1 X 10^3 N 1.8-7.8 Neutrophils (%) (Auto) January 13, 2012 8:38pm 64 % N 42-75 Platelet Count January 13, 2012 8:38pm 352 10^3/uL N 130-400 Potassium Level January 13, 2012 8:38pm 4.4 MMOL/L N 3.6-5.0 Prothromb Time International Ratio October 29, 2011 5:50am 1.0 N 0.8-1.4 Prothrombin Time October 29, 2011 5:50am 13.6 SEC N 12.2-14.7 Red Blood Count January 13, 2012 8:38pm 4.29 10^6/uL L 4.35-5.85 Red Cell Distribution Width January 13, 2012 8:38pm 16.4 % H 10.0-14.5 Sodium Level January 13, 2012 8:38pm 138 MMOL/L N 135-145 Thyroid Stimulating Hormone (TSH) December 25, 2011 9:04am 2.52 UIU/ML N 0.34-5.60 Total Bilirubin January 13, 2012 8:38pm 0.3 MG/DL N 0.0-1.0 Total Protein January 13, 2012 8:38pm 8.0 G/ DL N 6.4-8.2 Triglycerides Level October 28, 2011 5:50am 89 MG/DL N 30.0-150.0 Troponin I October 28, 2011 5:50am < 0.10 MG/ML 0.00-0.10 Urine Bacteria January 13, 2012 8:30pm NEGATIVE - Urine Bilirubin January 13, 2012 8:30pm NEGATIVE - Urine Casts January 13, 2012 8:30pm NONE - Urine Clarity January 13, 2012 8:30pm CLEAR - Urine Color January 13, 2012 8:30pm YELLOW - Urine Crystals January 13, 2012 8:30pm NONE - Urine Culture Indicated January 13, 2012 8:30pm NO - Urine Glucose (UA) January 13, 2012 8:30pm NEGATIVE - Urine Ketones January 13, 2012 8:30pm NEGATIVE - Urine Leukocyte Esterase January 13, 2012 8:30pm NEGATIVE - Urine Mucus January 13, 2012 8:30pm NEGATIVE - Urine Nitrite January 13, 2012 8:30pm NEGATIVE - Urine Protein January 13, 2012 8:30pm NEGATIVE - Urine RBC January 13, 2012 8:30pm NONE /HPF - Urine Specific [place] January 13, 2012 8:30pm 1.020 - Urine Squamous Epithelial Cells January 13, 2012 8:30pm 0-2 - Urine Urobilinogen January 13, 2012 8:30pm NORMAL MG/DL - Urine WBC January 13, 2012 8:30pm RARE /HPF - Urine pH January 13, 2012 8:30pm 6.5 - VLDL Cholesterol October 28, 2011 5:50am 18 MG/DL N 5-40 White Blood Count January 13, 2012 8:38pm 6.5 10^3/uL N 4.3-11.0 Glucometer December 28, 2011 10:48am 106 MG /DL N 70-110 Lab Scanned Report October 27, 2011 7:25pm LAB Reports [id number] - Estimat Glomerular Filtration Rate January 13, 2012 8:38pm 42 - Creatine Kinase October 28, 2011 5:50am 49 U/L N 1-159 Cardiac Panel Pathologist Review October 27, 2011 5:20pm SEE CARDIAC PATH REV - Urine RBC (Auto) January 13, 2012 8:30pm NEGATIVE - Procedures Procedure Code Date DIAGNOSTIC COLONOSCOPY [id number] 06/23/11 UPPER GI ENDOSCOPY BIOPSY [id number] 12/16/11 Blood Culture 12/17/09 Urine Culture 01/01/12 Encounters Encounter Location Date/Time Departed Emergency Room [facility] 01/19 6:51pm Discharged Inpatient [facility] 5:50pm
--- OUTSIDE RECORDS SUMMARY | 2018-06-26 10:53 | XMS REPORT | Continuity of Care Document ---
Author Author [facility] Organization [facility] Address Unknown Phone Unavailable Allergies Active Description Code Type Severity Reaction Onset Reported/Identified Relationship to Patient Clinical Status Yes azithromycin [id number] Drug Allergy Unknown N/A 11/05/2014 Yes Cephalosporins [id number] Drug Allergy Unknown N/A 11/05/2014 Yes codeine [id number] Drug Allergy Unknown N/A 11/05/2014 Medications There [...] PERSONAL HISTORY OTH SPEC DIGESTIVE SYST 03/29/2016 LUARA PERLA BIRTH ATTENDANT Ot R06.02 SHORTNESS OF BREATH 03/29/2016 LAURA PERLA BIRTH ATTENDANT Ot R07.89 OTHER CHEST PAIN 03/31/2016 LAURA PERLA BIRTH ATTENDANT Ot R06.02 SHORTNESS OF BREATH 04/03/2016 LAURA PERLA BIRTH ATTENDANT Ot R00.0 TACHYCARDIA, UNSPECIFIED 04/03/2016 LAURA PERLA BIRTH ATTENDANT Ot R06.02 SHORTNESS OF BREATH 04/03/2016 LAURA PERLA BIRTH ATTENDANT Ot R53.83 OTHER FATIGUE 04/03/2016 LAURA PERLA BIRTH ATTENDANT Ot R60.9 EDEMA, UNSPECIFIED 04/04/2016 LAURA PERLA BIRTH ATTENDANT Ot R00.0 TACHYCARDIA, UNSPECIFIED 04/04/2016 LAURA PERLA BIRTH ATTENDANT Ot R06.02 SHORTNESS OF BREATH 04/04/2016 LAURA PERLA Ken BIRTH ATTENDANT Ot R53.83 OTHER FATIGUE 04/04/2016 LAURA PERLA BIRTH ATTENDANT Ot R60.9 EDEMA, UNSPECIFIED 04/06/2016 LAURA PERLA BIRTH ATTENDANT Ot R00.0 TACHYCARDIA, UNSPECIFIED 04/06/2016 LAURA PERLA BIRTH ATTENDANT Ot R06.02 SHORTNESS OF BREATH 04/06/2016 LAURA PERLA N BIRTH ATTENDANT Ot R53.83 OTHER FATIGUE 04/06/2016 LAURA PERLA BIRTH ATTENDANT Ot R60.9 EDEMA, UNSPECIFIED 04/12/2016 LAURA PERLA BIRTH ATTENDANT Ot R06.02 SHORTNESS OF BREATH 04/12/2016 LAURA PERLA BIRTH ATTENDANT Ot R07.89 OTHER CHEST PAIN 04/12/2016 LAURA PERLA BIRTH ATTENDANT Ot R06.02 SHORTNESS OF BREATH 04/12/2016 LAURA PERLA BIRTH ATTENDANT Ot R00.0 TACHYCARDIA, UNSPECIFIED 04/12/2016 LAURA PERLA N BIRTH ATTENDANT Ot R06.02 SHORTNESS OF BREATH 04/12/2016 LAURA PERLA N BIRTH ATTENDANT Ot R53.83 OTHER FATIGUE 04/12/2016 LAURA PERLA N BIRTH ATTENDANT Ot R60.9 EDEMA, UNSPECIFIED 05/11/2016 KOFI MAYERS [...] OTH SPEC DIGESTIVE SYST 05/17/2016 LAURA PERLA BIRTH ATTENDANT Ot R06.02 SHORTNESS OF BREATH 05/17/2016 LAURA PERLA BIRTH ATTENDANT Ot R07.89 OTHER CHEST PAIN 05/17/2016 LAURA PERLA BIRTH ATTENDANT Ot R06.02 SHORTNESS OF BREATH 05/17/2016 LAURA PERLA BIRTH ATTENDANT Ot R00.0 TACHYCARDIA, UNSPECIFIED 05/17/2016 LAURA PERLA BIRTH ATTENDANT Ot R06.02 SHORTNESS OF BREATH 05/17/2016 LAURA PERLA BIRTH ATTENDANT Ot R53.83 OTHER FATIGUE 05/17/2016 LAURA PERLA BIRTH ATTENDANT Ot R60.9 EDEMA, UNSPECIFIED 05/18/2016 KOFI MAYERS [...] OTH SPEC DIGESTIVE SYST 05/26/2016 LAURA PERLA BIRTH ATTENDANT Ot R06.02 SHORTNESS OF BREATH 05/26/2016 LAURA PERLA BIRTH ATTENDANT Ot R07.89 OTHER CHEST PAIN 05/26/2016 LAURA PERLA BIRTH ATTENDANT Ot R06.02 SHORTNESS OF BREATH 05/26/2016 LAURA PERLA BIRTH ATTENDANT Ot R00.0 TACHYCARDIA, UNSPECIFIED 05/26/2016 LAURA PERLA BIRTH ATTENDANT Ot R06.02 SHORTNESS OF BREATH 05/26/2016 LAURA PERLA BIRTH ATTENDANT Ot R53.83 OTHER FATIGUE 05/26/2016 LAURA PERLA BIRTH ATTENDANT Ot R60.9 EDEMA, UNSPECIFIED 05/26/2016 KOFI MAYERS [...] 05/26/2016 KOFI MAYERS MD Ot Z79.899 OTHER [facility] (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 THERAPY 10/20/2016 STEPHENNDMANASA KENDRICK, BELKIS [...] I10 ESSENTIAL (PRIMARY) HYPERTENSION 10/20/2016 STEPHENNDER DO, BELKIS S Ot J45.909 UNSPECIFIED [...] Ot R06.00 DYSPNEA, UNSPECIFIED 12/29/2016 MAIKEL RAM BIRTH ATTENDANT Ot J45.909 UNSPECIFIED ASTHMA, UNCOMPLICATED 12/29/2016 MAIKEL RAM BIRTH ATTENDANT Ot R06.00 DYSPNEA, UNSPECIFIED 01/07/2017 STEPHENNDER , BELKIS S Ot 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 01/10/2017 MERY KENDRICK, BELKIS S Ot 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 01/17/2017 MAIKEL RAM BIRTH ATTENDANT Ot I51.7 CARDIOMEGALY 01/17/2017 MAIKEL RAM BIRTH ATTENDANT Ot J45.909 UNSPECIFIED ASTHMA, UNCOMPLICATED 01/17/2017 MAIKEL RAM BIRTH ATTENDANT Ot J98.11 ATELECTASIS 01/17/2017 MAIKEL RAM BIRTH ATTENDANT Ot M47.814 SPONDYLOSIS W/O MYELOPATHY OR RADICULOPA 01/17/2017 MERY KENDRICK BELKIS S Ot K57.30 DVRTCLOS OF LG INT W/O PERFORATION OR AB 01/17/2017 STEPHENNDER DO BELKIS S Ot M47.816 SPONDYLOSIS W/O MYELOPATHY OR RADICULOPA 01/17/2017 ANNER , BELKIS S Ot 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 03/04/2017 MAIKEL RAM BIRTH ATTENDANT Ot J45.909 UNSPECIFIED ASTHMA, UNCOMPLICATED 03/04/2017 MAIKEL RAM BIRTH ATTENDANT Ot R06.00 DYSPNEA, UNSPECIFIED 03/06/2017 MAIKEL RAM BIRTH ATTENDANT Ot J45.909 UNSPECIFIED ASTHMA, UNCOMPLICATED 03/06/2017 MAIKEL RAM BIRTH ATTENDANT Ot R06.00 DYSPNEA, UNSPECIFIED 03/07/2017 MAIKEL RAM BIRTH ATTENDANT Ot J45.909 UNSPECIFIED ASTHMA, UNCOMPLICATED 03/07/2017 MAIKEL RAM BIRTH ATTENDANT Ot R06.00 DYSPNEA, UNSPECIFIED 03/07/2017 MAIKEL RAM BIRTH ATTENDANT Ot J45.909 UNSPECIFIED ASTHMA, UNCOMPLICATED 03/07/2017 MAIKEL RAM BIRTH ATTENDANT Ot R06.00 DYSPNEA, UNSPECIFIED 03/23/2017 MAIKEL RAM BIRTH ATTENDANT Ot J45.909 UNSPECIFIED ASTHMA, UNCOMPLICATED 03/23/2017 MAIKEL RAM BIRTH ATTENDANT Ot R06.00 DYSPNEA, UNSPECIFIED 05/07/2017 MAIKEL RAM BIRTH ATTENDANT Ot I51.7 CARDIOMEGALY 05/07/2017 YOMAIKEL BIRTH ATTENDANT Ot J45.909 UNSPECIFIED ASTHMA, UNCOMPLICATED 05/07/2017 MAIKEL RAM E BIRTH ATTENDANT Ot R06.00 DYSPNEA, UNSPECIFIED 06/04/2017 MAIKEL RAM BIRTH ATTENDANT Ot J45.909 UNSPECIFIED ASTHMA, UNCOMPLICATED 06/04/2017 YOMAIKEL GOEL BIRTH ATTENDANT Ot R06.00 DYSPNEA, UNSPECIFIED 06/13/2017 BIRGIT BOYLE, [...] S Ot Z98.890 OTHER SPECIFIED POSTPROCEDURAL STATES 02/22/2018 ILDA BOYLE, YAYO Mccarthy Ot E03.9 HYPOTHYROIDISM, UNSPECIFIED 02/22/2018 ILDA BOYLE, YAYO Mccarthy Ot E11.9 TYPE 2 DIABETES MELLITUS WITHOUT COMPLIC 02/22/2018 ILDA BOYLE, YAYO Mccarthy Ot E78.00 PURE HYPERCHOLESTEROLEMIA, UNSPECIFIED 02/22/2018 ILDA BOYLE, YAYO Mccarthy Ot I10 ESSENTIAL (PRIMARY) HYPERTENSION 02/22/2018 ILDA BOYLE, YAYO Mccarthy Ot J18.9 PNEUMONIA, UNSPECIFIED ORGANISM 02/22/2018 ILDA BOYLE, YAYO Mccarthy Ot J45.909 UNSPECIFIED ASTHMA, UNCOMPLICATED 02/22/2018 ILDA BOYLE, YAYO Mccarthy Ot K21.9 GASTRO-ESOPHAGEAL REFLUX DISEASE WITHOUT 02/22/2018 ILDA BOYLE, YAYO Mccarthy Ot Z87.59 PERSONAL HISTORY OF COMP OF PREG, CHLDBR 02/22/2018 YAYO GONSALES MD Ot Z88.1 ALLERGY STATUS TO OTHER ANTIBIOTIC AGENT 02/22/2018 YAYO GONSLAES MD Ot Z88.6 ALLERGY STATUS TO ANALGESIC AGENT STATUS 02/22/2018 ILDA BOYLE, YAYO Mccarthy Ot Z90.89 ACQUIRED ABSENCE OF OTHER ORGANS 02/22/2018 YYAO GONSALES MD Ot Z98.890 OTHER SPECIFIED POSTPROCEDURAL STATES 02/25/2018 YAYO GONSALES MD Ot E03.9 HYPOTHYROIDISM, UNSPECIFIED 02/25/2018 ILDA BOYLE, YAYO Mccarthy Ot E11.9 TYPE 2 DIABETES MELLITUS WITHOUT COMPLIC 02/25/2018 ILDA BOYLE, YAYO Mccarthy Ot E78.00 PURE HYPERCHOLESTEROLEMIA, UNSPECIFIED 02/25/2018 ILDA BOYLE, YAYO Mccarthy Ot I10 ESSENTIAL (PRIMARY) HYPERTENSION 02/25/2018 YAYO GONSALES MD Ot J18.9 PNEUMONIA, UNSPECIFIED ORGANISM 02/25/2018 ILDA BOYLE, YAYO Mccarthy Ot J45.909 UNSPECIFIED ASTHMA, UNCOMPLICATED 02/25/2018 ILDA BOYLE, YAYO Mccarthy Ot K21.9 GASTRO-ESOPHAGEAL REFLUX DISEASE WITHOUT 02/25/2018 ILDA BOYLE, YAYO Mccarthy Ot Z87.59 PERSONAL HISTORY OF COMP OF PREG, CHLDBR 02/25/2018 YAYO GONSALES MD Ot Z88.1 ALLERGY STATUS TO OTHER ANTIBIOTIC AGENT 02/25/2018 YAYO GONSALES MD Ot Z88.6 ALLERGY STATUS TO ANALGESIC AGENT STATUS 02/25/2018 YAYO GONSALES MD Ot Z90.89 ACQUIRED ABSENCE OF OTHER ORGANS 02/25/2018 YAYO GONSALES MD Ot Z98.890 OTHER SPECIFIED POSTPROCEDURAL STATES 02/27/2018 ABRAHAM ARAUJO DOLINE S Ot K43.5 PARASTOMAL HERNIA WITHOUT OBSTRUCTION OR 02/27/2018 ABRAHAM ARAUJO DOLINE S Ot N13.30 UNSPECIFIED HYDRONEPHROSIS 02/27/2018 ABRAHAM ARAUJO DOLINE S Ot Z87.448 PERSONAL HISTORY OF OTHER DISEASES OF UR 02/27/2018 ABRAHAM ARAUJO DOLINE S Ot Z98.890 OTHER SPECIFIED POSTPROCEDURAL STATES 06/21/2018 ISAURA BOYLE, GIBSON Ot Z01.818 ENCOUNTER FOR OTHER PREPROCEDURAL EXAMIN 06/21/2018 LAURA PERLA BIRTH ATTENDANT Ot R06.02 SHORTNESS OF BREATH 06/21/2018 PAN LAURA N BIRTH ATTENDANT Ot R07.89 OTHER CHEST PAIN 06/21/2018 PAN LAURA N BIRTH ATTENDANT Ot R06.02 SHORTNESS OF BREATH 06/21/2018 PAN LAURA N BIRTH ATTENDANT Ot R00.0 TACHYCARDIA, UNSPECIFIED 06/21/2018 PAN LAURA N BIRTH ATTENDANT Ot R06.02 SHORTNESS OF BREATH 06/21/2018 PAN LAURA Ken BIRTH ATTENDANT Ot R53.83 OTHER FATIGUE 06/21/2018 PAN LAURA Ken BIRTH ATTENDANT Ot R60.9 EDEMA, UNSPECIFIED 06/21/2018 MERY KENDRICK BELKIS S Ot R10.84 GENERALIZED ABDOMINAL PAIN 06/21/2018 MERY KENDRICK BELKIS S Ot J45.909 UNSPECIFIED ASTHMA, UNCOMPLICATED 06/21/2018 MERY KENDRICK BELKIS S Ot R06.00 DYSPNEA, UNSPECIFIED 06/21/2018 MAIKEL RAM APRN Ot I51.7 CARDIOMEGALY 06/21/2018 MAIKEL RAM APRN Ot J45.909 UNSPECIFIED ASTHMA, UNCOMPLICATED 06/21/2018 MAIKEL RAM APRN Ot J98.11 ATELECTASIS 06/21/2018 MAIKEL RAM APRN Ot M47.814 SPONDYLOSIS W/O MYELOPATHY OR RADICULOPA 06/21/2018 ANNMANASA DO BELKIS S Ot K57.30 DVRTCLOS OF LG INT W/O PERFORATION OR AB 06/21/2018 SABA ARAUJO DOQUELINE S Ot M47.816 SPONDYLOSIS W/O MYELOPATHY OR RADICULOPA 06/21/2018 STEPHENNDER DO BELKIS S Ot 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 06/21/2018 STEPHENNDER DO, BELKIS S Ot 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 06/21/2018 MAIKEL RAM APRN Ot I51.7 CARDIOMEGALY 06/21/2018 MAIKEL RAM APRN Ot J45.909 UNSPECIFIED ASTHMA, UNCOMPLICATED 06/21/2018 MAIKEL RAM APRN Ot R06.00 DYSPNEA, UNSPECIFIED 06/21/2018 BIRGIT BOYLE, RUDY Lopez Ot K63.9 DISEASE OF INTESTINE, UNSPECIFIED 06/21/2018 BIRGIT BOYLE, RUDY Lopez Ot Z96.0 PRESENCE OF UROGENITAL IMPLANTS 06/21/2018 BIRGIT BOYLE, RUDY Lopez Ot Z98.890 OTHER SPECIFIED POSTPROCEDURAL STATES 06/21/2018 MAIKEL RAM APRN Ot J45.909 UNSPECIFIED ASTHMA, UNCOMPLICATED 06/21/2018 MAIKEL RAM APRN Ot R06.00 DYSPNEA, UNSPECIFIED 06/21/2018 STEPHENNDER DO, BELKIS S Ot D64.9 ANEMIA, UNSPECIFIED 06/21/2018 STEPHENNDER DO, BELKIS S Ot K43.5 PARASTOMAL HERNIA WITHOUT OBSTRUCTION OR 06/21/2018 STEPHENNDER DO, BELKIS S Ot N13.30 UNSPECIFIED HYDRONEPHROSIS 06/21/2018 STEPHENNDER DO BELKIS S Ot Z87.448 PERSONAL HISTORY OF OTHER DISEASES OF UR 06/21/2018 STEPHENNDER DO BELKIS S Ot Z98.890 OTHER SPECIFIED POSTPROCEDURAL STATES 06/21/2018 GIBSON DELAROSA MD Ot Z01.818 ENCOUNTER FOR OTHER PREPROCEDURAL EXAMIN 06/24/2018 GIBSON DELAROSA MD Ot Z01.818 ENCOUNTER FOR OTHER PREPROCEDURAL EXAMIN 06/24/2018 GIBSON DELAROSA MD Ot Z01.818 ENCOUNTER FOR OTHER PREPROCEDURAL EXAMIN Procedures There is no data. Results Test [...] for toxigenic C diff by DNA amplification [facility] CALL POSITIVES (F1 HELP) CALLED TO EDI/NURSE AT 1117, 10/19/16/KD [facility] C DIFFICILE AG + TOXIN A/B. - 10/18/16 19:45 RESULTS INDETERMINANT; MOLECULAR TEST TO FOLLOW [facility] Ova and parasites - 10/18/16 19:45 DATE OF REF LAB REPORT 10/24/16 [facility] OTP NEGATIVE RESULT PARASITES NOT FOUND [facility] Capillary blood glucose measurement by glucometer (mass/volume) [...] CELLS LEUKO REDUCED AS1 TRANSFUSED 08/09/17 1542 [facility] Blood type T Indirect antibody screen panel - 08/09/17 12:40 ABO+Rh group OP NRG Transfusion band number [id number] Blood group antibody screen NEGATIVE NRG Complete [...] 08/16/17 09:34 Vitamin B12 488 pg/mL 200-1000 Complete blood count (CBC) with automated white blood cell (WBC) differential - 02/22/18 16:00 Blood leukocytes automated count (number/volume) 13.5 10*3/uL 4.3-11.0 Blood erythrocytes automated count (number/volume) 3.76 10*6/uL 4.35-5.85 Venous blood hemoglobin measurement (mass/volume) 10.0 g/dL 11.5-16.0 Blood hematocrit (volume fraction) 31 % 35-52 Automated erythrocyte mean corpuscular volume 83 [foz_us] 80-99 Automated erythrocyte mean corpuscular hemoglobin (mass per erythrocyte) 27 pg 25-34 Automated erythrocyte mean corpuscular hemoglobin concentration measurement ( mass/volume) 32 g/dL 32-36 Automated erythrocyte distribution width ratio 16.6 % 10.0-14.5 Automated blood platelet count (count/volume) 261 10*3/uL 130-400 Automated blood platelet mean volume measurement 10.1 [foz_us] 7.4-10.4 Automated blood neutrophils/100 leukocytes 83 % 42-75 Automated blood lymphocytes/100 leukocytes 8 % 12-44 Blood monocytes/100 leukocytes 7 % 0-12 Automated blood eosinophils/100 leukocytes 2 % 0-10 Automated blood basophils/100 leukocytes 0 % 0-10 Blood neutrophils automated count (number/volume) 11.1 10*3 1.8-7.8 Blood lymphocytes automated count (number/volume) 1.1 10*3 1.0-4.0 Blood monocytes automated count (number/volume) 0.9 10*3 0.0-1.0 Automated eosinophil count 0.3 10*3/uL 0.0-0.3 Automated blood basophil count (count/volume) 0.0 10*3/uL 0.0-0.1 PT panel in platelet poor plasma by coagulation assay - 02/22/18 16:00 Prothrombin time (PT) in platelet poor plasma by coagulation assay 17.2 s 12.2-14.7 INR in platelet poor plasma or blood by coagulation assay 1.4 0.8-1.4 Activated partial thromboplastin time (aPTT) in platelet poor plasma bycoagulation assay - 02/22/18 16:00 Activated partial thromboplastin time (aPTT) in platelet poor plasma bycoagulation assay 36 s 24-35 Blood lactic acid measurement (moles/volume) - 02/22/18 16:00 Blood lactic acid measurement (moles/volume) 1.04 mmol/L 0.50-2.00 Comprehensive metabolic panel - 02/22/18 16:00 Serum or plasma sodium measurement (moles/volume) 140 mmol/L 135-145 Serum or plasma potassium measurement (moles/volume) 4.0 mmol/L 3.6-5.0 Serum or plasma chloride measurement (moles/volume) 108 mmol/L 98-107 Carbon dioxide 23 mmol/L 21-32 Serum or plasma anion gap determination (moles/volume) 9 mmol/L 5-14 Serum or plasma urea nitrogen measurement (mass/volume) 30 mg/dL 7-18 Serum or plasma creatinine measurement (mass/volume) 1.37 mg/dL 0.60-1.30 Serum or plasma urea nitrogen/creatinine mass ratio 22 NRG Serum or plasma creatinine measurement with calculation of estimated glomerular filtration rate 39 NRG Serum or plasma glucose measurement (mass/volume) 139 mg/dL 70-105 Serum or plasma calcium measurement (mass/volume) 9.2 mg/dL 8.5-10.1 Serum or plasma total bilirubin measurement (mass/volume) 1.0 mg/dL 0.1-1.0 Serum or plasma alkaline phosphatase measurement (enzymatic activity/volume) 87 U/L 40-136 Serum or plasma aspartate aminotransferase measurement (enzymatic activity/ volume) 28 U/L 5-34 Serum or plasma alanine aminotransferase measurement (enzymatic activity/volume ) 17 U/L 0-55 Serum or plasma protein measurement (mass/volume) 6.2 g/dL 6.4-8.2 Serum or plasma albumin measurement (mass/volume) 3.2 g/dL 3.2-4.5 Bacterial blood culture - 02/22/18 16:00 Bacterial blood culture NG NRG Bacterial blood culture - 02/22/18 16:08 Bacterial blood culture NG NRG Encounters ACCT No. Visit Date/Time Discharge Status Pt. Type Provider Facility Loc./Unit Complaint [id number] 06/24/2018 12:12:00 06/24/2018 12:25:00 DIS Outpatient GIBSON DELAROSA MD [facility] PREOP EGD [id number] 06/11/2018 16:50:00 06/11/2018 23:59:59 CLS Preadmit BELKIS ARAUJO DO S [facility] RAD SCREENING [id number] 02/22/2018 15:22:00 02/22/2018 17:40:00 DIS Emergency ILDA BOYLE, YAYO Mccarthy [facility] ER POSSIBLE PNEUMONIA [id number] 01/21/2018 08:11:00 01/21/2018 23:59:59 CLS Outpatient BELKIS ARAUJO DO S [facility] RAD EPIGASTRIC PAIN [id number] 08/16/2017 09:21:00 08/16/2017 23:59:59 CLS Outpatient BELKIS ARAUJO DO S [facility] LAB ANEMIA-ACUTE,ON CHRONIC [id number] 08/09/2017 12:13:00 08/09/2017 18:35:00 DIS Outpatient [facility]EMIA [id number] 06/05/2017 13:00:00 06/05/2017 23:59:59 CLS Preadmit MAIKEL RAM BIRTH ATTENDANT [facility] PULM ASTHMA [id number] 03/08/2017 15:00:00 06/04/2017 00:01:00 DIS Outpatient MAIKEL RAM BIRTH ATTENDANT [facility] PULM ASTHMA [id number] 05/30/2017 12:38:00 05/30/2017 23:59:59 CLS Outpatient BIRGIT BOYLE, RUDY Lopez [facility] RAD BLACKWOOD IN PLACE POST BLADDER REPAIR [id number] 04/24/2017 14:16:00 04/24/2017 23:59:59 CLS Outpatient MAIKEL RAM BIRTH ATTENDANT [facility] RAD J45.909,R06.00 [id number] 03/01/2017 14:30:00 03/04/2017 00:01:00 DIS Outpatient MAIKEL RAM BIRTH ATTENDANT [facility] PULM ASTHMA [id number] 01/01/2017 12:52:00 01/01/2017 23:59:59 CLS Outpatient ORENDER DO, BELKIS S [facility] RAD N32.1 [id number] 12/26/2016 08:37:00 12/26/2016 23:59:59 CLS Outpatient ORENDER DO, BELKIS S [facility] RAD SIGMOID DIVERTICULITIS W/MICROPERFORATION [id number] 12/26/2016 08:32:00 12/26/2016 23:59:59 CLS Outpatient MAIKEL RAM BIRTH ATTENDANT [facility] RAD ASTHMA [id number] 11/27/2016 12:35:00 11/27/2016 23:59:59 CLS Outpatient ORENDER DO BELKIS S [facility] RT ASTHMA,DYSPNEA [id number] 10/16/2016 13:00:00 10/20/2016 17:00:00 DIS Inpatient ORENDER DO, BELKIS S [facility] 4TH ACUTE SIGMOID DIVERTICULITIS [id number] 10/16/2016 08:57:00 10/16/2016 23:59:59 CLS Outpatient ORENDER DO, BELKIS S [facility] RAD ABD PAIN [id number] 05/26/2016 22:15:00 05/26/2016 23:05:00 DIS Emergency KOFI MAYERS MD [facility] ER R GROIN SWELLING [id number] 05/11/2016 13:25:00 05/11/2016 16:13:00 DIS Emergency KOFI MAYERS MD [facility] ER SOA/CHEST PAIN [id number] 03/31/2016 12:28:00 03/31/2016 23:59:59 CLS Outpatient LAURA PERLA BIRTH ATTENDANT [facility] CARD ELEVATED BHP,FATIGUE ,PEDAL EDEMA,SOB,TACHYCARDIA [id number] 03/30/2016 11:50:00 03/30/2016 23:59:59 CLS Outpatient LAURA PERLA BIRTH ATTENDANT [facility] CARD SHORNESS OF BREATH, ELEVATED D-DIMER [id number] 03/28/2016 12:17:00 03/28/2016 23:59:59 CLS Outpatient LAURA PERLA BIRTH ATTENDANT [facility] RAD CHEST TIGHTNESS,SOB [id number] 05/23/2013 20:00:00 05/24/2013 06:55:00 DIS Outpatient BELKIS ARAUJO DO [facility] SLEEP BERNARDO,SNORING,ABN LIMB MOVEMENT,HTN,ESCESSIVE DAYTIM [id number] 05/02/2013 08:37:00 05/02/2013 23:59:59 CLS Outpatient [id number] 07/11/2018 16:25:00 PEN Preadmit BERTIN PEDERSEN [facility] ONC [id number] 06/26/2018 11:15:00 PEN Preadmit GIBSON DELAROSA MD [facility] ENDO ABD PAIN/NAUSEA [id number] 09/30/2014 18:49:00 Document Registration [id number] 09/30/2014 18:49:00 Document Registration [id number] 01/13/2012 18:51:00 Document Registration [id number] 01/01/2012 20:24:00 Document Registration [id number] 12/25/2011 17:50:00 Document Registration [id number] 12/25/2011 08:44:00 Document Registration [id number] 10/27/2011 19:25:00 Document Registration [id number] 08/25/2011 09:24:00 Document Registration [id number] 06/23/2011 08:50:00 Document Registration [id number] 05/14/2011 15:08:00 Document Registration [id number] 05/10/2011 08:50:00 Document Registration [id number] 05/09/2011 14:27:00 Document Registration [id number] 12/19/2010 15:52:00 Document Registration [id number] 12/17/2009 13:26:00 Document Registration 11/201706/18/2018 11:17:30 06/18/2018 23:59:59 CLS Outpatient Belkis Araujo
[2018-06-26] MEDS ORDERED: LIDOCAINE JELLY 2% 6 ML SYRINGE ONE (11:43)
[2018-06-26] MEDS ORDERED: fentaNYL INJECTION 100 MCG/2 ML AMP ONE (11:43)
[2018-06-26] MEDS ORDERED: MIDAZOLAM 2 MG/2 ML (VERSED) VIAL ONE ×3 (11:44)
[2018-06-26] MEDS ORDERED: HURRICAINE EXT TUBE (BENZOCAINE) ONE (11:44)
--- NOTE | 2018-06-26 12:38 | Progress Note-Post Operative ---
Post-Operative Progess Note Surgeon (s)/Phlebotomy Tech (s) Surgeon GIBSON DELAROSA MD Phlebotomy Tech: none Pre-Operative Diagnosis nausea/vomiting Post-Operative Diagnosis reflux esophagitis(stage 2), no HH, moderate gastritis. Procedure & Operative Findings Date of Procedure 06/26/18 Procedure Performed/Findings EGD with bx. Anesthesia Type CS Estimated Blood Loss Estimated blood loss (mL): minimal Specimens/Packing Specimens Removed GE jxn, antrum GIBSON DELAROSA MD Jun 26, 2018 12:38 pm
--- NOTE | 2018-06-26 12:40 | Discharge Inst-Surgical ---
D/C Lap Instructions-ISAURA Follow Up Appt in 2 weeks Activity as tolerated will schedule OP u/s and possible HIDA High Fiber Diet 25g or more per day Avoid Alcohol, Caffeine, Spicy [place] and Acid foods. Drink 64 fluid oz or more of fluids per day. Symptoms to Report: Fever over 101 degree F, Nausea/Vomiting If any problems/questions: Contact your physician or go to Emergency Room GIBSON DELAROSA MD Jun 26, 2018 12:40 pm
[2018-06-26 13:00] VITALS: BP 124/62
[2018-06-26 13:05] VITALS: BP 124/63
[2018-06-26 13:30] VITALS: BP 135/64
[2018-06-26 13:48] VITALS: BP 135/64
--- NOTE | 2018-06-26 19:35 | OPERATIVE REPORT ---
DATE OF SERVICE: 06/26/2018 ATTENDING PRIMARY CARE PHYSICIAN: Dr. Araujo. PREOPERATIVE DIAGNOSES: Gastroesophageal reflux disease. Intermittent nausea and vomiting. POSTOPERATIVE DIAGNOSES: Reflux esophagitis stage II. No hiatal hernia, moderate gastritis more focused towards the stomach antrum with no formal ulcerations. Pylorus and duodenum appeared normal. PROCEDURE: EGD with biopsy. SURGEON: Gibson Delarosa MD ANESTHESIA: Conscious sedation. ESTIMATED BLOOD LOSS: Minimal. FINDINGS: Reflux esophagitis stage II with no ulcerations or strictures. No significant hiatal hernia was identified. There was a moderate severity gastritis, which was more focused towards the stomach antrum. There were no formal ulcerations, polyps or any neoplasms. Pylorus and duodenum appeared normal and no distal obstructions. DISPOSITION: The patient tolerated the procedure well. INDICATIONS: The patient is a 63-year-old female who we have seen before in the past. We have done a colonoscopy on her in 2010 and found to have external hemorrhoids as well as a mild sigmoid diverticulosis. She also underwent an EGD and found to have a class 2 reflux esophagitis and gastritis; however, no other abnormalities. In 10/2016, she did have left lower quadrant abdominal pain and a CT scan was performed, which showed sigmoid diverticulitis as well as a small contained perforation. 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 She reports in the past three to four months she has had worsening episodes of nausea as well as reflux and regurgitation usually after eating. DESCRIPTION OF PROCEDURE: The patient was brought to the endoscopy suite, laid in the left lateral decubitus position. After adequate IV pain and sedating medications and conscious sedation anesthesia, the mouthpiece was applied. The endoscope was then placed into the mouth visualizing the pharynx and hypopharyngeal region. Vocal cords, epiglottis and vallecula were identified and appeared to be normal. The endoscope was then gently intubated at the esophageal opening and esophagus insufflated. The endoscope was then advanced through the first, second and third portions of the esophagus at the level of the GE junction. A reflux esophagitis stage II identified. There were no ulcers or strictures identified in this region. A biopsy was taken of the GE junction with forceps with visualization of good hemostasis. There was a moderate severity gastritis focused more towards the stomach antrum. There were no ulcerations, polyps or any neoplasms identified. A biopsy was taken of the stomach antrum. A biopsy was taken of the antrum with forceps for H. pylori with visualization of good hemostasis. The endoscope was then advanced to the pylorus and the first and second portion of the duodenum, which appeared normal with no distal obstructions. The endoscope was then slowly withdrawn while taking a second look and suctioning of residual air with no additional findings. The patient tolerated the procedure well. We will recommend continued medical management with small more frequent meals, avoidance of eating at night as well as head elevation while lying supine. She also needs to avoid caffeinated beverages, spicy, greasy and acidic foods as well as proceed with some form of exercise and diet regimen. We also do feel that her symptoms may be due to a gallbladder etiology. Based on her symptomatology, we will proceed with scheduling her for an outpatient ultrasound and if this is negative, then a HIDA scan to look for biliary dyskinesia. Job ID: [id number] DocumentID: [id number] Dictated Date: 06/26/2018 12:38:30 Mononitrotoluene Operator Date: 06/26/2018 19:34:32 Dictated By: GIBSON DELAROSA MD
== END 2018-06-26 13:50 | disposition home or self-care (01) ==
LOC: ENDO 09:56
PROVIDERS: ATTEND Surgery
DX: K21.0 Gastro-esophageal reflux disease with esophagitis (principal); K29.70 Gastritis, unspecified, without bleeding; I10 Essential (primary) hypertension; E11.9 Type 2 diabetes mellitus without complications; J44.9 Chronic obstructive pulmonary disease, unspecified; J45.909 Unspecified asthma, uncomplicated; E66.01 Morbid (severe) obesity due to excess calories; Z68.42 Body mass index [BMI] 45.0-49.9, adult; Z79.899 Other long term (current) drug therapy
CPT/HCPCS: 88305; 88342

== ENCOUNTER → 2018-07-10 | Outpatient (CLI) | payer MEDICARE ==
[~2018-07-10] MED LIST changes: +METR-197 PO; -METR500T21 PO
--- NOTE | 2018-07-10 11:13 | Diagnostic Imaging Report ---
PROCEDURE: US Gallbladder. TECHNIQUE: Multiple real-time grayscale images were obtained over the right upper quadrant in various projections. INDICATION: Nausea and vomiting. FINDINGS: Liver is upper limits of normal in size at 18 cm. There is increased echogenicity consistent with hepatic steatosis. No discrete liver mass is identified. The main portal vein is patent and shows normal direction of flow. Gallbladder is without stones or sludge. No wall thickening or biliary ductal dilatation is seen. The visualized pancreas is unremarkable. There does appear to be moderate right-sided hydronephrosis. No calculi are seen. No ascites. IMPRESSION: 1. Hepatic steatosis. 2. No evidence of cholelithiasis or acute cholecystitis. 3. Moderate right hydronephrosis. Dictated by: Dictated on workstation # [id number]
== END ==
LOC: RAD 07:49
PROVIDERS: ATTEND Surgery
DX: K76.0 Fatty (change of) liver, not elsewhere classified (principal); N13.30 Unspecified hydronephrosis
CPT/HCPCS: 76705

== ENCOUNTER → 2018-07-19 | Outpatient (CLI) | payer MEDICARE, BC ==
[~2018-07-19] MED LIST changes: +CATHETER FLUSH 10 ML SYR IV PRN
--- NOTE | 2018-07-19 15:01 | Diagnostic Imaging Report ---
INDICATION: Right upper quadrant pain. TECHNIQUE: The patient was administered 4.8 mCi of technetium 99m Choletec intravenously and imaging over the abdomen was performed. At 1 hour, the patient ingested 8 ounces of Ensure and a gallbladder ejection fraction was calculated. FINDINGS: There is homogeneous uptake of activity by the liver with prompt excretion of activity into the common duct and gallbladder. Normal passage of activity into the small bowel is seen. The gallbladder ejection fraction is normal at 45%. IMPRESSION: Normal HIDA scan and gallbladder ejection fraction. Dictated by: Dictated on workstation # [id number]
== END ==
LOC: CARD 11:06
PROVIDERS: ATTEND Surgery
DX: R10.11 Right upper quadrant pain (principal)
CPT/HCPCS: 78227

== ENCOUNTER 2018-08-12 14:22 | Outpatient (RCR) | payer MEDICARE, BC ==
[2018-07-11 14:46] LABS: ABSOLUTE RETIC # 52 10e9/L (24-90); BASOPHILS # (AUTO) 0.1 10^3/uL (0.0-0.1); BASOPHILS % (AUTO) 1 % (0-10); EOSINOPHILS # (AUTO) 0.4 10^3/uL (0.0-0.3); EOSINOPHILS % (AUTO) 6 % (0-10); HEMATOCRIT 37 % (35-52); HEMOGLOBIN 11.5 G/DL (11.5-16.0); LYMPHOCYTES # (AUTO) 1.5 X 10^3 (1.0-4.0); LYMPHOCYTES % (AUTO) 21 % (12-44); MEAN CORPUSCULAR HEMOGLOBIN 27 PG (25-34); MEAN CORPUSCULAR HGB CONC 31 G/DL (32-36); MEAN CORPUSCULAR VOLUME 87 FL (80-99); MEAN PLATELET VOLUME 9.8 FL (7.4-10.4); MONOCYTES # (AUTO) 0.5 X 10^3 (0.0-1.0); MONOCYTES % (AUTO) 8 % (0-12); NEUTROPHILS # (AUTO) 4.6 X 10^3 (1.8-7.8); NEUTROPHILS % (AUTO) 65 % (42-75); PLATELET COUNT 268 10^3/uL (130-400); RED CELL DISTRIBUTION WIDTH 17.1 % (10.0-14.5); RETICULOCYTE % 1.22 % (0.50-2.40); WHITE BLOOD COUNT 7.1 10^3/uL (4.3-11.0)
[2018-07-11 15:09] LABS: ALBUMIN 4.2 GM/DL (3.2-4.5); BILIRUBIN,TOTAL 0.5 MG/DL (0.1-1.0); CALCIUM 10.1 MG/DL (8.5-10.1); CREATININE SERUM 1.53 MG/DL (0.60-1.30); TOTAL PROTEIN 7.4 GM/DL (6.4-8.2)
[~2018-08-12 14:22] MED LIST changes: -CATHETER FLUSH 10 ML SYR IV PRN; +METR-145 PO; -METR-197 PO
[2018-08-12 14:48] LABS: BASOPHILS % (AUTO) 0 % (0-10); EOSINOPHILS # (AUTO) 0.4 10^3/uL (0.0-0.3); EOSINOPHILS % (AUTO) 6 % (0-10); HEMATOCRIT 35 % (35-52); HEMOGLOBIN 10.7 G/DL (11.5-16.0); LYMPHOCYTES # (AUTO) 1.5 X 10^3 (1.0-4.0); LYMPHOCYTES % (AUTO) 21 % (12-44); MEAN CORPUSCULAR HEMOGLOBIN 27 PG (25-34); MEAN CORPUSCULAR HGB CONC 31 G/DL (32-36); MEAN CORPUSCULAR VOLUME 89 FL (80-99); MEAN PLATELET VOLUME 9.9 FL (7.4-10.4); MONOCYTES # (AUTO) 0.6 X 10^3 (0.0-1.0); MONOCYTES % (AUTO) 8 % (0-12); NEUTROPHILS # (AUTO) 4.5 X 10^3 (1.8-7.8); NEUTROPHILS % (AUTO) 65 % (42-75); PLATELET COUNT 234 10^3/uL (130-400); RED CELL DISTRIBUTION WIDTH 17.1 % (10.0-14.5)
[2018-08-12 15:09] LABS: ALBUMIN 3.8 GM/DL (3.2-4.5); BILIRUBIN,TOTAL 0.5 MG/DL (0.1-1.0); CALCIUM 9.9 MG/DL (8.5-10.1); CREATININE SERUM 1.48 MG/DL (0.60-1.30); POTASSIUM 4.4 MMOL/L (3.6-5.0); TOTAL PROTEIN 6.8 GM/DL (6.4-8.2)
== END 2018-10-09 | disposition home or self-care (01) ==
LOC: ONC 14:22
PROVIDERS: ATTEND Internal Medicine Hematology & Oncology
DX: D63.8 Anemia in other chronic diseases classified elsewhere (principal); N18.3 Chronic kidney disease, stage 3 (moderate); K29.70 Gastritis, unspecified, without bleeding; Z87.19 Personal history of other diseases of the digestive system; J44.9 Chronic obstructive pulmonary disease, unspecified; Z79.899 Other long term (current) drug therapy
CPT/HCPCS: 36415; 80053; 82728; 82784; 83540; 83883; 84155; 84165; 85025; 85045; 99213; 99214

== ENCOUNTER → 2018-08-22 | Outpatient (CLI) | payer MEDICARE ==
[~2018-08-22] MED LIST changes: +CATHETER FLUSH 10 ML SYR IV PRN; +FUROSEMIDE 40 MG/4 ML INJ (LASIX) IVP ONE; -METR-145 PO; +METR-197 PO
--- NOTE | 2018-08-22 17:40 | Diagnostic Imaging Report ---
RENAL SCAN WITH LASIX TECHNIQUE: Posterior scintigraphic imaging of the abdomen and pelvis was performed after the intravenous administration of 5.48 mCi of technetium 99m MAG3. 20 minutes after radiopharmaceutical was administered, 40 mg of furosemide was administered intravenously. INDICATION: Right-sided hydronephrosis. COMPARISON: CT abdomen and pelvis from 01/21/2018. FINDINGS: Right side: There is normal flow to the right kidney. Normal renal cortical concentration is present. Mild asymmetrically delayed cortical clearance of the right kidney with excretion into mildly dilated renal pelvis and ureter. Radiotracer activity is seen with fairly abrupt truncation in the distal one-third of the ureter at the site of prior obstruction seen on CT. The T1/2 diuretic time on the right is 42 minutes. Split renal function activity on the right is 35%. Left side: There is normal flow to the left kidney. Normal renal cortical concentration is present. There is normal excretion of radiotracer activity into the renal collecting system. The T1/2 diuretic time on the left is 4 minutes. Split renal function activity on the left is 65%. IMPRESSION: 1. High-grade mechanical obstruction of the [id number] right ureter corresponding to the site of obstruction seen on CT from 01/18/2018. 2. Normal left renal function. Dictated by: Dictated on workstation # [id number]
== END ==
LOC: CARD 08:41
PROVIDERS: ATTEND Family Medicine
DX: N13.30 Unspecified hydronephrosis (principal); N28.9 Disorder of kidney and ureter, unspecified
CPT/HCPCS: 78708

== ENCOUNTER → 2018-10-25 | Outpatient (CLI) | payer MEDICARE ==
[~2018-10-25] MED LIST changes: -CATHETER FLUSH 10 ML SYR IV PRN; -FUROSEMIDE 40 MG/4 ML INJ (LASIX) IVP ONE; +METR-145 PO; -METR-197 PO
--- NOTE | 2018-10-25 13:39 | Diagnostic Imaging Report ---
INDICATION: Left knee pain. TIME OF EXAM: 01:07 p.m. FINDINGS: Three views of left knee demonstrate patellofemoral and medial compartmental degenerative change with joint space narrowing and marginal spurring. Left lateral compartment is fairly well-maintained, although there is marginal spurring present. No fracture, dislocation or effusion is seen. IMPRESSION: Moderate degenerative changes. No acute bony abnormality is detected. Dictated by: Dictated on workstation # [id number]
== END ==
LOC: RAD 12:46
PROVIDERS: ATTEND Family Medicine
DX: M17.12 Unilateral primary osteoarthritis, left knee (principal)
CPT/HCPCS: 73562

== ENCOUNTER 2018-11-12 12:48 | Outpatient (RCR) | payer MEDICARE ==
[2018-11-04 14:36] LABS: BASOPHILS % (AUTO) 0 % (0-10); EOSINOPHILS # (AUTO) 0.3 10^3/uL (0.0-0.3); EOSINOPHILS % (AUTO) 4 % (0-10); HEMATOCRIT 31 % (35-52); HEMOGLOBIN 9.8 G/DL (11.5-16.0); LYMPHOCYTES % (AUTO) 17 % (12-44); MEAN CORPUSCULAR HEMOGLOBIN 27 PG (25-34); MEAN CORPUSCULAR HGB CONC 31 G/DL (32-36); MEAN CORPUSCULAR VOLUME 87 FL (80-99); MEAN PLATELET VOLUME 9.5 FL (7.4-10.4); MONOCYTES # (AUTO) 0.5 X 10^3 (0.0-1.0); MONOCYTES % (AUTO) 7 % (0-12); NEUTROPHILS # (AUTO) 4.3 X 10^3 (1.8-7.8); NEUTROPHILS % (AUTO) 72 % (42-75); PLATELET COUNT 227 10^3/uL (130-400); RED CELL DISTRIBUTION WIDTH 16.9 % (10.0-14.5); WHITE BLOOD COUNT 6.1 10^3/uL (4.3-11.0)
[2018-11-04 14:58] LABS: ALBUMIN 3.5 GM/DL (3.2-4.5); BILIRUBIN,TOTAL 0.5 MG/DL (0.1-1.0); CALCIUM 9.7 MG/DL (8.5-10.1); CREATININE SERUM 1.42 MG/DL (0.60-1.30); POTASSIUM 4.4 MMOL/L (3.6-5.0); TOTAL PROTEIN 6.4 GM/DL (6.4-8.2)
== END 2019-02-02 | disposition home or self-care (01) ==
LOC: ONC 12:48
PROVIDERS: ATTEND Internal Medicine Hematology & Oncology
DX: D63.8 Anemia in other chronic diseases classified elsewhere (principal); N18.3 Chronic kidney disease, stage 3 (moderate); K29.70 Gastritis, unspecified, without bleeding; Z87.19 Personal history of other diseases of the digestive system; J44.9 Chronic obstructive pulmonary disease, unspecified; Z79.899 Other long term (current) drug therapy
CPT/HCPCS: 36415; 80053; 82728; 85025; 99213

== ENCOUNTER → 2018-11-19 | Outpatient (CLI) | payer MEDICARE ==
[~2018-11-19] MED LIST changes: +CATHETER FLUSH 10 ML SYR IV PRN; +FUROSEMIDE 40 MG/4 ML INJ (LASIX) ONE
--- NOTE | 2018-11-19 18:37 | Diagnostic Imaging Report ---
INDICATION: Hydronephrosis. TECHNIQUE: Patient was administered 5.3 mCi technetium-99m MAG3 intravenously and imaging of the abdomen was performed. 40 mg of Lasix was administered at the midpoint of the exam. COMPARISON: Correlation is made with prior MAG3 renal scan from 08/22/2018. FINDINGS: There appears to be fairly symmetric perfusion to both kidneys. There is a normal cortical uptake of radiotracer bilaterally. There appears to be prompt excretion of activity into the left renal collecting system and left ureter. There is some uptake in the left renal collecting system with some delayed excretion into the left ureter. Renogram curve on the left is normal. There continues to be some flattening of the renogram curve on the right. T-1/2 diuretic time for the right kidney is 27 minutes compared with 42 minutes. T-1/2 diuretic time for left kidney is 6 minutes compared with 4 minutes. Overall differential renal function is 62% for the left and 38% for the right. IMPRESSION: There continued to be obstructive signs involving the right kidney with some delayed excretion on the right; however, this does appear to be improved when compared with prior study from 08/22/2018. Dictated by: Dictated on workstation # [id number]
== END ==
LOC: CARD 08:39
PROVIDERS: ATTEND Urology
DX: N13.39 Other hydronephrosis (principal)
CPT/HCPCS: 78708

== ENCOUNTER 2018-12-19 14:10 | Outpatient (RCR) | payer MEDICARE ==
[~2018-12-19 14:10] MED LIST changes: -CATHETER FLUSH 10 ML SYR IV PRN; -FUROSEMIDE 40 MG/4 ML INJ (LASIX) ONE
== END 2018-12-19 14:45 | disposition home or self-care (01) ==
PROVIDERS: ATTEND Family Medicine
DX: M25.562 Pain in left knee (principal); M25.362 Other instability, left knee

== ENCOUNTER → 2019-01-21 | Outpatient (CLI) | payer MEDICARE ==
--- NOTE | 2019-01-21 14:15 | Diagnostic Imaging Report ---
PROCEDURE: CT chest without contrast. TECHNIQUE: Multiple contiguous axial images were obtained through the chest without the use of intravenous contrast. Auto Exposure Controls were utilized during the CT exam to meet ALARA standards for radiation dose reduction. INDICATION: Dyspnea, shortness of air, bronchitis, asthma. COMPARISON: 12/26/2016 FINDINGS: There is no significant mediastinal, axillary and/or hilar lymphadenopathy demonstrated on noncontrast imaging. The heart size remains mildly enlarged. Thoracic aorta normal in contour. The lung carter are clear of infiltrate. Very small 2-3 mm nodule basilar aspect of the right upper lobe along the fissure plane unchanged favoring benign process. Minimal atelectasis and/or scarring in the left lung base. No consolidating infiltrate. Small hiatal hernia. Gallbladder is slightly distended but otherwise unremarkable. Advanced degenerative changes of the thoracic spine. IMPRESSION: Generally stable appearing chest demonstrates no acute abnormality. Borderline cardiac enlargement. Dictated by: Dictated on workstation # [id number]
== END ==
LOC: RAD 11:18
PROVIDERS: ATTEND Nurse Practitioner Family
DX: J45.909 Unspecified asthma, uncomplicated (principal); I51.7 Cardiomegaly; G47.30 Sleep apnea, unspecified; Z78.9 Other specified health status
CPT/HCPCS: 71250

== ENCOUNTER → 2019-02-05 | Outpatient (CLI) | payer MEDICARE ==
[2019-02-05 11:14] LABS: BILIRUBIN,TOTAL 0.4 MG/DL (0.1-1.0); CREATININE SERUM 1.74 MG/DL (0.60-1.30)
[2019-02-05 11:35] LABS: FREE T4 (FREE THYROXINE) 1.57 NG/DL (0.70-1.48)
== END ==
LOC: LAB 10:40
PROVIDERS: ATTEND Family Medicine
DX: E11.9 Type 2 diabetes mellitus without complications (principal); E03.9 Hypothyroidism, unspecified
CPT/HCPCS: 80053; 83036; 84439; 84443

== ENCOUNTER 2019-02-11 12:26 | Outpatient (RCR) | payer MEDICARE ==
[2019-02-05 10:53] LABS: BASOPHILS % (AUTO) 1 % (0-10); EOSINOPHILS # (AUTO) 0.2 10^3/uL (0.0-0.3); EOSINOPHILS % (AUTO) 3 % (0-10); HEMATOCRIT 32 % (35-52); LYMPHOCYTES # (AUTO) 1.3 X 10^3 (1.0-4.0); LYMPHOCYTES % (AUTO) 22 % (12-44); MEAN CORPUSCULAR HEMOGLOBIN 26 PG (25-34); MEAN CORPUSCULAR HGB CONC 31 G/DL (32-36); MEAN CORPUSCULAR VOLUME 84 FL (80-99); MEAN PLATELET VOLUME 9.6 FL (7.4-10.4); MONOCYTES # (AUTO) 0.5 X 10^3 (0.0-1.0); MONOCYTES % (AUTO) 9 % (0-12); NEUTROPHILS # (AUTO) 3.8 X 10^3 (1.8-7.8); NEUTROPHILS % (AUTO) 66 % (42-75); PLATELET COUNT 246 10^3/uL (130-400); RED CELL DISTRIBUTION WIDTH 16.9 % (10.0-14.5); WHITE BLOOD COUNT 5.8 10^3/uL (4.3-11.0)
[2019-02-05 11:12] LABS: BILIRUBIN,TOTAL 0.4 MG/DL (0.1-1.0); CREATININE SERUM 1.75 MG/DL (0.60-1.30)
[~2019-02-11 12:26] MED LIST changes: -PIOG1TAB18 PO; +PIOG1TAB30 PO
[2019-03-06] MEDS ORDERED: AMOX500C2 PO (19:34)
[2019-03-06] MEDS ORDERED: LEVO750T9 PO (19:34)
[2019-03-06] MEDS ORDERED: METR-145 PO (19:40)
== END 2019-05-06 | disposition home or self-care (01) ==
LOC: ONC 12:26
PROVIDERS: ATTEND Internal Medicine Hematology & Oncology
DX: D63.8 Anemia in other chronic diseases classified elsewhere (principal); N18.3 Chronic kidney disease, stage 3 (moderate); Z87.19 Personal history of other diseases of the digestive system; J44.9 Chronic obstructive pulmonary disease, unspecified; Z79.899 Other long term (current) drug therapy
CPT/HCPCS: 36415; 80053; 82728; 85025; 99213

== ENCOUNTER 2019-03-06 17:34 | Emergency (ER) | payer MEDICARE ==
[~2019-03-06] VITALS: Ht 165.1 cm; Wt 136.1 kg
[~2019-03-06 17:34] MED LIST changes: +PIOG1TAB18 PO; -PIOG1TAB30 PO
--- OUTSIDE RECORDS SUMMARY | 2019-03-06 17:43 | XMS REPORT | Continuity of Care Document ---
Author Organization Unknown Address Unknown Allergies Active Description Code Type Severity Reaction Onset Reported/Identified Relationship to Patient Clinical Status Yes azithromycin [id number] Drug Allergy Unknown N/A 06/26/2018 Yes Cephalosporins [id number] Drug Allergy Unknown N/A 06/26/2018 Yes codeine [id number] Drug Allergy Unknown N/A 06/26/2018 Medications There is no data. Problems Date Dx Coded Attending Type Code Diagnosis Diagnosed By 08/09/1444 BELKIS ARAUJO DO Ot M25.362 OTHER INSTABILITY, LEFT KNEE 08/09/1444 BELKIS ARAUJO DO Ot M25.562 PAIN IN LEFT KNEE 05/14/2011 Ot 562.11 DIVERTICULITIS COLON (W/O MENT [...] OTH SPEC DIGESTIVE SYST 03/29/2016 LAURA PERLA SENIOR TELECOMMUNICATIONS ENGINEER Ot R06.02 SHORTNESS OF BREATH 03/29/2016 LAURA PERLA Ken SENIOR TELECOMMUNICATIONS ENGINEER Ot R07.89 OTHER CHEST PAIN 03/31/2016 LAURA PERLA SENIOR TELECOMMUNICATIONS ENGINEER Ot R06.02 SHORTNESS OF BREATH 04/03/2016 LAURA PERLA SENIOR TELECOMMUNICATIONS ENGINEER Ot R00.0 TACHYCARDIA, UNSPECIFIED 04/03/2016 LAURA PERLA Ken SENIOR TELECOMMUNICATIONS ENGINEER Ot R06.02 SHORTNESS OF BREATH 04/03/2016 LAURA PERLA Ken SENIOR TELECOMMUNICATIONS ENGINEER Ot R53.83 OTHER FATIGUE 04/03/2016 LAURA PERLA Ken SENIOR TELECOMMUNICATIONS ENGINEER Ot R60.9 EDEMA, UNSPECIFIED 04/04/2016 LAURA PERLA Ken SENIOR TELECOMMUNICATIONS ENGINEER Ot R00.0 TACHYCARDIA, UNSPECIFIED 04/04/2016 LAURA PERLA Ken SENIOR TELECOMMUNICATIONS ENGINEER Ot R06.02 SHORTNESS OF BREATH 04/04/2016 LAURA PERLA Ken SENIOR TELECOMMUNICATIONS ENGINEER Ot R53.83 OTHER FATIGUE 04/04/2016 LAURA PRELA Ken SENIOR TELECOMMUNICATIONS ENGINEER Ot R60.9 EDEMA, UNSPECIFIED 04/06/2016 LAURA PERLA SENIOR TELECOMMUNICATIONS ENGINEER Ot R00.0 TACHYCARDIA, UNSPECIFIED 04/06/2016 LAURA PERLA Ken SENIOR TELECOMMUNICATIONS ENGINEER Ot R06.02 SHORTNESS OF BREATH 04/06/2016 LAURA PERLA Ken SENIOR TELECOMMUNICATIONS ENGINEER Ot R53.83 OTHER FATIGUE 04/06/2016 LAURA PERLA SENIOR TELECOMMUNICATIONS ENGINEER Ot R60.9 EDEMA, UNSPECIFIED 04/12/2016 LAURA PERLA SENIOR TELECOMMUNICATIONS ENGINEER Ot R06.02 SHORTNESS OF BREATH 04/12/2016 LAURA PERLA Ken SENIOR TELECOMMUNICATIONS ENGINEER Ot R07.89 OTHER CHEST PAIN 04/12/2016 LAURA PERLA SENIOR TELECOMMUNICATIONS ENGINEER Ot R06.02 SHORTNESS OF BREATH 04/12/2016 LAURA PERLA Ken SENIOR TELECOMMUNICATIONS ENGINEER Ot R00.0 TACHYCARDIA, UNSPECIFIED 04/12/2016 LAURA PERLA Ken SENIOR TELECOMMUNICATIONS ENGINEER Ot R06.02 SHORTNESS OF BREATH 04/12/2016 LAURA PERLA Ken SENIOR TELECOMMUNICATIONS ENGINEER Ot R53.83 OTHER FATIGUE 04/12/2016 LAURA PERLA Ken SENIOR TELECOMMUNICATIONS ENGINEER Ot R60.9 EDEMA, UNSPECIFIED 05/11/2016 RIANA BOYLE, [...] OTH SPEC DIGESTIVE SYST 05/17/2016 LAURA PERLA SENIOR TELECOMMUNICATIONS ENGINEER Ot R06.02 SHORTNESS OF BREATH 05/17/2016 LAURA PERLA SENIOR TELECOMMUNICATIONS ENGINEER Ot R07.89 OTHER CHEST PAIN 05/17/2016 LAURA PERLA SENIOR TELECOMMUNICATIONS ENGINEER Ot R06.02 SHORTNESS OF BREATH 05/17/2016 LAURA PERLA SENIOR TELECOMMUNICATIONS ENGINEER Ot R00.0 TACHYCARDIA, UNSPECIFIED 05/17/2016 LAURA PERLA SENIOR TELECOMMUNICATIONS ENGINEER Ot R06.02 SHORTNESS OF BREATH 05/17/2016 LAURA PERLA SENIOR TELECOMMUNICATIONS ENGINEER Ot R53.83 OTHER FATIGUE 05/17/2016 LAURA PERLA SENIOR TELECOMMUNICATIONS ENGINEER Ot R60.9 EDEMA, UNSPECIFIED 05/18/2016 KOFI MAYERS [...] OTH SPEC DIGESTIVE SYST 05/26/2016 LAURA PERLA SENIOR TELECOMMUNICATIONS ENGINEER Ot R06.02 SHORTNESS OF BREATH 05/26/2016 LAURA PERLA SENIOR TELECOMMUNICATIONS ENGINEER Ot R07.89 OTHER CHEST PAIN 05/26/2016 LAURA PERLA SENIOR TELECOMMUNICATIONS ENGINEER Ot R06.02 SHORTNESS OF BREATH 05/26/2016 LAURA PERLA SENIOR TELECOMMUNICATIONS ENGINEER Ot R00.0 TACHYCARDIA, UNSPECIFIED 05/26/2016 LAURA PERLA SENIOR TELECOMMUNICATIONS ENGINEER Ot R06.02 SHORTNESS OF BREATH 05/26/2016 LAURA PERLA SENIOR TELECOMMUNICATIONS ENGINEER Ot R53.83 OTHER FATIGUE 05/26/2016 LAURA PERLA SENIOR TELECOMMUNICATIONS ENGINEER Ot R60.9 EDEMA, UNSPECIFIED 05/26/2016 KOFI MAYERS [...] 05/26/2016 KOFI MAYERS MD Ot 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 10/20/2016 SABA ARAUJO DOQUELINE S Ot E03.9 HYPOTHYROIDISM, UNSPECIFIED 10/20/2016 STEPHENNDMANASA KENDRICK BELKIS S Ot E11.9 TYPE 2 DIABETES MELLITUS WITHOUT COMPLIC 10/20/2016 STEPHENNDSABA GOEL DOQUELINE S Ot G47.33 OBSTRUCTIVE SLEEP APNEA (ADULT) (PEDIATR 10/20/2016 STEPHENNDER DO BELKIS S Ot I10 ESSENTIAL (PRIMARY) HYPERTENSION 10/20/2016 STEPHENNDER DO BELKIS S Ot J45.909 UNSPECIFIED ASTHMA, UNCOMPLICATED 10/20/2016 STEPHENNDER SABA KENDRICKBELKIS S Ot K21.9 GASTRO-ESOPHAGEAL REFLUX DISEASE WITHOUT 10/20/2016 ORENDER DO, BELKIS S Ot 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 10/20/2016 ORENDER DO, BELKIS S Ot K64.4 RESIDUAL HEMORRHOIDAL SKIN TAGS 10/20/2016 ORENDER DO, BELKIS S Ot K64.8 OTHER HEMORRHOIDS 10/20/2016 ORENDER DO, BELKIS S Ot N32.2 VESICAL FISTULA, NOT ELSEWHERE CLASSIFIE 10/20/2016 ORENDER DO, BELKIS S Ot E03.9 HYPOTHYROIDISM, UNSPECIFIED 10/20/2016 ORENDER DO, BELKIS S Ot E11.9 TYPE 2 DIABETES MELLITUS WITHOUT COMPLIC 10/20/2016 ORENDER DO, BELKIS S Ot G47.33 OBSTRUCTIVE SLEEP APNEA (ADULT) (PEDIATR 10/20/2016 ORENDER DO, BELKIS S Ot I10 ESSENTIAL (PRIMARY) HYPERTENSION 10/20/2016 ORENDER DO, BELKIS S Ot J45.909 UNSPECIFIED ASTHMA, UNCOMPLICATED 10/20/2016 ORENDER DO, BELKIS S Ot K21.9 GASTRO-ESOPHAGEAL REFLUX DISEASE WITHOUT 10/20/2016 ORENDER DO, BELKIS S Ot 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 10/20/2016 ORENDER DO, BELKIS S Ot K64.4 RESIDUAL HEMORRHOIDAL SKIN TAGS 10/20/2016 ORENDER DO, BELKIS S Ot K64.8 OTHER HEMORRHOIDS 10/20/2016 ORENDER DO, BELKIS S Ot N32.2 VESICAL FISTULA, NOT ELSEWHERE CLASSIFIE 11/02/2016 ORENDER DO, BELKIS S Ot R10.84 GENERALIZED ABDOMINAL PAIN 11/18/2016 ORENDER DO, BELKIS S Ot R10.84 GENERALIZED ABDOMINAL PAIN 11/29/2016 ORENDER DO, BELKIS S Ot J45.909 UNSPECIFIED ASTHMA, UNCOMPLICATED 11/29/2016 ORENDER DO, BELKIS S Ot R06.00 DYSPNEA, UNSPECIFIED 12/05/2016 MAIKEL RAM APRN Ot J45.909 UNSPECIFIED ASTHMA, UNCOMPLICATED 12/05/2016 MAIKEL RAM APRN Ot R06.00 DYSPNEA, UNSPECIFIED 12/06/2016 ORENDER DO, BELKIS S Ot J45.909 UNSPECIFIED ASTHMA, UNCOMPLICATED 12/06/2016 ABRAHAM ARAUJO DOLINE S Ot R06.00 DYSPNEA, UNSPECIFIED 12/29/2016 MAIKEL RAM SENIOR TELECOMMUNICATIONS ENGINEER Ot J45.909 UNSPECIFIED ASTHMA, UNCOMPLICATED 12/29/2016 MAIKEL RAM SENIOR TELECOMMUNICATIONS ENGINEER Ot R06.00 DYSPNEA, UNSPECIFIED 01/07/2017 MERY KENDRICK BELKIS S Ot 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 01/10/2017 SABA ARAUJO DOQUELINE S Ot 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 01/17/2017 MAIKEL RAM SENIOR TELECOMMUNICATIONS ENGINEER Ot I51.7 CARDIOMEGALY 01/17/2017 MAIKEL RAM SENIOR TELECOMMUNICATIONS ENGINEER Ot J45.909 UNSPECIFIED ASTHMA, UNCOMPLICATED 01/17/2017 MAIKEL RAM SENIOR TELECOMMUNICATIONS ENGINEER Ot J98.11 ATELECTASIS 01/17/2017 MAIKEL RAM SENIOR TELECOMMUNICATIONS ENGINEER Ot M47.814 SPONDYLOSIS W/O MYELOPATHY OR RADICULOPA 01/17/2017 MERY KENDRICK BELKIS S Ot K57.30 DVRTCLOS OF LG INT W/O PERFORATION OR AB 01/17/2017 MERY KENDRICK BELKIS S Ot M47.816 SPONDYLOSIS W/O MYELOPATHY OR RADICULOPA 01/17/2017 MERY KENDRICK BELKIS S Ot 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 03/04/2017 MAIKEL RAM SENIOR TELECOMMUNICATIONS ENGINEER Ot J45.909 UNSPECIFIED ASTHMA, UNCOMPLICATED 03/04/2017 MAIKEL RAM SENIOR TELECOMMUNICATIONS ENGINEER Ot R06.00 DYSPNEA, UNSPECIFIED 03/06/2017 MAIKEL RAM SENIOR TELECOMMUNICATIONS ENGINEER Ot J45.909 UNSPECIFIED ASTHMA, UNCOMPLICATED 03/06/2017 MAIKEL RAM SENIOR TELECOMMUNICATIONS ENGINEER Ot R06.00 DYSPNEA, UNSPECIFIED 03/07/2017 MAIKEL RAM SENIOR TELECOMMUNICATIONS ENGINEER Ot J45.909 UNSPECIFIED ASTHMA, UNCOMPLICATED 03/07/2017 MAIKEL RAM SENIOR TELECOMMUNICATIONS ENGINEER Ot R06.00 DYSPNEA, UNSPECIFIED 03/07/2017 MAIKEL RAM SENIOR TELECOMMUNICATIONS ENGINEER Ot J45.909 UNSPECIFIED ASTHMA, UNCOMPLICATED 03/07/2017 MAIKEL RAM SENIOR TELECOMMUNICATIONS ENGINEER Ot R06.00 DYSPNEA, UNSPECIFIED 03/23/2017 MAIKEL RAM SENIOR TELECOMMUNICATIONS ENGINEER Ot J45.909 UNSPECIFIED ASTHMA, UNCOMPLICATED 03/23/2017 MAIKEL RAM SENIOR TELECOMMUNICATIONS ENGINEER Ot R06.00 DYSPNEA, UNSPECIFIED 05/07/2017 VANIA RAMINE Sunny SENIOR TELECOMMUNICATIONS ENGINEER Ot I51.7 CARDIOMEGALY 05/07/2017 MAIKEL RAM SENIOR TELECOMMUNICATIONS ENGINEER Ot J45.909 UNSPECIFIED ASTHMA, UNCOMPLICATED 05/07/2017 VANIA RAMINE Sunny SENIOR TELECOMMUNICATIONS ENGINEER Ot R06.00 DYSPNEA, UNSPECIFIED 06/04/2017 VANIA RAMINE Sunny SENIOR TELECOMMUNICATIONS ENGINEER Ot J45.909 UNSPECIFIED ASTHMA, UNCOMPLICATED 06/04/2017 VANIA RAMINE Sunny SENIOR TELECOMMUNICATIONS ENGINEER Ot R06.00 DYSPNEA, UNSPECIFIED 06/13/2017 BIRGIT BOYLE, [...] Mccarthy Ot I10 ESSENTIAL (PRIMARY) HYPERTENSION 02/22/2018 YAYO GONSALES MD Ot J18.9 PNEUMONIA, UNSPECIFIED ORGANISM 02/22/2018 ILDA BOYLE, YAYO Mccarthy Ot J45.909 UNSPECIFIED ASTHMA, UNCOMPLICATED 02/22/2018 YAYO GONSALES MD Ot K21.9 GASTRO-ESOPHAGEAL REFLUX DISEASE WITHOUT 02/22/2018 YAYO GONSALES MD Ot Z87.59 PERSONAL HISTORY OF COMP OF PREG, CHLDBR 02/22/2018 YAYO GONSALES MD Ot Z88.1 ALLERGY STATUS TO OTHER ANTIBIOTIC AGENT 02/22/2018 YAYO GONSALES MD Ot Z88.6 ALLERGY STATUS TO ANALGESIC AGENT STATUS 02/22/2018 YAYO GONSALES MD Ot Z90.89 ACQUIRED ABSENCE OF OTHER ORGANS 02/22/2018 YAYO GONSALES MD Ot Z98.890 OTHER SPECIFIED POSTPROCEDURAL STATES 02/25/2018 YAYO GONSALES MD Ot E03.9 HYPOTHYROIDISM, UNSPECIFIED 02/25/2018 YAYO GONSALES MD Ot E11.9 TYPE 2 DIABETES MELLITUS WITHOUT COMPLIC 02/25/2018 YAYO GONSALES MD Ot E78.00 PURE HYPERCHOLESTEROLEMIA, UNSPECIFIED 02/25/2018 YAYO GONSALES MD Ot I10 ESSENTIAL (PRIMARY) HYPERTENSION 02/25/2018 YAYO GONSALES MD Ot J18.9 PNEUMONIA, UNSPECIFIED ORGANISM 02/25/2018 YAYO GONSALES MD Ot J45.909 UNSPECIFIED ASTHMA, UNCOMPLICATED 02/25/2018 YAYO GONSALES MD Ot K21.9 GASTRO-ESOPHAGEAL REFLUX DISEASE WITHOUT 02/25/2018 YAYO GONSALES MD Ot Z87.59 PERSONAL HISTORY OF COMP OF PREG, CHLDBR 02/25/2018 YAYO GONSALES MD Ot Z88.1 ALLERGY STATUS TO OTHER ANTIBIOTIC AGENT 02/25/2018 YAYO GONSALES MD Ot Z88.6 ALLERGY STATUS TO ANALGESIC AGENT STATUS 02/25/2018 YAYO GONSALES MD Ot Z90.89 ACQUIRED ABSENCE OF OTHER ORGANS 02/25/2018 ILDA BOYLE, YAYO Mccarthy Ot Z98.890 OTHER SPECIFIED POSTPROCEDURAL STATES 02/27/2018 ORENDER DO, BELKIS S Ot K43.5 PARASTOMAL HERNIA WITHOUT OBSTRUCTION OR 02/27/2018 ORENDER DO, BELKIS S Ot N13.30 UNSPECIFIED HYDRONEPHROSIS 02/27/2018 ORENDER DO, BELKIS S Ot Z87.448 PERSONAL HISTORY OF OTHER DISEASES OF UR 02/27/2018 ORENDER DO, BELKIS S Ot Z98.890 OTHER SPECIFIED POSTPROCEDURAL STATES 06/21/2018 ISAURA BOYLE, GIBSON Ot Z01.818 ENCOUNTER FOR OTHER PREPROCEDURAL EXAMIN 06/21/2018 LAURA PERLA SENIOR TELECOMMUNICATIONS ENGINEER Ot R06.02 SHORTNESS OF BREATH 06/21/2018 LAURA PERLA SENIOR TELECOMMUNICATIONS ENGINEER Ot R07.89 OTHER CHEST PAIN 06/21/2018 LAURA PERLA SENIOR TELECOMMUNICATIONS ENGINEER Ot R06.02 SHORTNESS OF BREATH 06/21/2018 LAURA PERLA SENIOR TELECOMMUNICATIONS ENGINEER Ot R00.0 TACHYCARDIA, UNSPECIFIED 06/21/2018 LAURA PERLA SENIOR TELECOMMUNICATIONS ENGINEER Ot R06.02 SHORTNESS OF BREATH 06/21/2018 LAURA PERLA SENIOR TELECOMMUNICATIONS ENGINEER Ot R53.83 OTHER FATIGUE 06/21/2018 LAURA PERLA SENIOR TELECOMMUNICATIONS ENGINEER Ot R60.9 EDEMA, UNSPECIFIED 06/21/2018 STEPHENNDER DO, BELKIS S Ot R10.84 GENERALIZED ABDOMINAL PAIN 06/21/2018 STEPHENNDER DO, BELKIS S Ot J45.909 UNSPECIFIED ASTHMA, UNCOMPLICATED 06/21/2018 STEPHENNDER DO, BELKIS S Ot R06.00 DYSPNEA, UNSPECIFIED 06/21/2018 MAIKEL RAM SENIOR TELECOMMUNICATIONS ENGINEER Ot I51.7 CARDIOMEGALY 06/21/2018 MAIKEL RAM SENIOR TELECOMMUNICATIONS ENGINEER Ot J45.909 UNSPECIFIED ASTHMA, UNCOMPLICATED 06/21/2018 MAIKEL RAM SENIOR TELECOMMUNICATIONS ENGINEER Ot J98.11 ATELECTASIS 06/21/2018 MAIKEL RAM SENIOR TELECOMMUNICATIONS ENGINEER Ot M47.814 SPONDYLOSIS W/O MYELOPATHY OR RADICULOPA 06/21/2018 STEPHENNDER DO, BELKIS S Ot K57.30 DVRTCLOS OF LG INT W/O PERFORATION OR AB 06/21/2018 STEPHENNDER SABA KENDRICKBELKIS S Ot M47.816 SPONDYLOSIS W/O MYELOPATHY OR RADICULOPA 06/21/2018 STEPHENNDER DO BELKIS S Ot 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 06/21/2018 STEPHENNDER DO BELKIS S Ot 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 06/21/2018 MAIKEL RAM SENIOR TELECOMMUNICATIONS ENGINEER Ot I51.7 CARDIOMEGALY 06/21/2018 MAIKEL RAM SENIOR TELECOMMUNICATIONS ENGINEER Ot J45.909 UNSPECIFIED ASTHMA, UNCOMPLICATED 06/21/2018 MAIKEL RAM SENIOR TELECOMMUNICATIONS ENGINEER Ot R06.00 DYSPNEA, UNSPECIFIED 06/21/2018 BIRGIT BOYLE, RUDY Lopez Ot K63.9 DISEASE OF INTESTINE, UNSPECIFIED 06/21/2018 BIRGIT BOYLE, RUDY Lopez Ot Z96.0 PRESENCE OF UROGENITAL IMPLANTS 06/21/2018 BIRGIT BOYLE, RUDY Lopez Ot Z98.890 OTHER SPECIFIED POSTPROCEDURAL STATES 06/21/2018 MAIKEL RAM SENIOR TELECOMMUNICATIONS ENGINEER Ot J45.909 UNSPECIFIED ASTHMA, UNCOMPLICATED 06/21/2018 MAIKEL RAM SENIOR TELECOMMUNICATIONS ENGINEER Ot R06.00 DYSPNEA, UNSPECIFIED 06/21/2018 STEPHENNDER DO BELKIS S Ot D64.9 ANEMIA, UNSPECIFIED 06/21/2018 STEPHENNDER SABA KENDRICKBELKIS S Ot K43.5 PARASTOMAL HERNIA WITHOUT OBSTRUCTION OR 06/21/2018 ANNER SABA KENDRCIKBELKIS S Ot N13.30 UNSPECIFIED HYDRONEPHROSIS 06/21/2018 STEPHENNDER DO BELKIS S Ot Z87.448 PERSONAL HISTORY OF OTHER DISEASES OF UR 06/21/2018 STEPHENNDER DO, BELKIS S Ot Z98.890 OTHER SPECIFIED POSTPROCEDURAL STATES 06/21/2018 GIBSON DELAROSA MD Ot Z01.818 ENCOUNTER FOR OTHER PREPROCEDURAL EXAMIN 06/24/2018 GIBSON DELAROSA MD Ot Z01.818 ENCOUNTER FOR OTHER PREPROCEDURAL EXAMIN 06/24/2018 GIBSON DELAROSA MD Ot Z01.818 ENCOUNTER FOR OTHER PREPROCEDURAL EXAMIN 06/26/2018 LAURA PERLA SENIOR TELECOMMUNICATIONS ENGINEER Ot R06.02 SHORTNESS OF BREATH 06/26/2018 LAURA PERLA SENIOR TELECOMMUNICATIONS ENGINEER Ot R07.89 OTHER CHEST PAIN 06/26/2018 LAURA PERLA SENIOR TELECOMMUNICATIONS ENGINEER Ot R06.02 SHORTNESS OF BREATH 06/26/2018 LAURA PERLA SENIOR TELECOMMUNICATIONS ENGINEER Ot R00.0 TACHYCARDIA, UNSPECIFIED 06/26/2018 LAURA PERLA SENIOR TELECOMMUNICATIONS ENGINEER Ot R06.02 SHORTNESS OF BREATH 06/26/2018 LAURA PERLA SENIOR TELECOMMUNICATIONS ENGINEER Ot R53.83 OTHER FATIGUE 06/26/2018 LAURA PERLA SENIOR TELECOMMUNICATIONS ENGINEER Ot R60.9 EDEMA, UNSPECIFIED 06/26/2018 ANNER SABA KENDRICKBELKIS S Ot R10.84 GENERALIZED ABDOMINAL PAIN 06/26/2018 SABA ARAUJO DOQUELINE S Ot J45.909 UNSPECIFIED ASTHMA, UNCOMPLICATED 06/26/2018 SABA ARAUJO DOQUELINE S Ot R06.00 DYSPNEA, UNSPECIFIED 06/26/2018 MAIKEL RAM APRN Ot I51.7 CARDIOMEGALY 06/26/2018 MAIKEL RAM SENIOR TELECOMMUNICATIONS ENGINEER Ot J45.909 UNSPECIFIED ASTHMA, UNCOMPLICATED 06/26/2018 MAIKEL RAM APRN Ot J98.11 ATELECTASIS 06/26/2018 MAIKEL RAM APRN Ot M47.814 SPONDYLOSIS W/O MYELOPATHY OR RADICULOPA 06/26/2018 SABA ARAUJO DOQUELINE S Ot K57.30 DVRTCLOS OF LG INT W/O PERFORATION OR AB 06/26/2018 MERY KENDRICK BELKIS S Ot M47.816 SPONDYLOSIS W/O MYELOPATHY OR RADICULOPA 06/26/2018 SABA ARAUJO DOQUELINE S Ot 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 06/26/2018 SABA ARAUJO DOQUELINE S Ot 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 06/26/2018 MAIKEL RAM SENIOR TELECOMMUNICATIONS ENGINEER Ot I51.7 CARDIOMEGALY 06/26/2018 MAIKEL RAM APRN Ot J45.909 UNSPECIFIED ASTHMA, UNCOMPLICATED 06/26/2018 MAIKEL RAM APRN Ot R06.00 DYSPNEA, UNSPECIFIED 06/26/2018 BIRGIT BOLYE, RUDY Lopez Ot K63.9 DISEASE OF INTESTINE, UNSPECIFIED 06/26/2018 BIRGIT BOYLE, RUDY Lopez Ot Z96.0 PRESENCE OF UROGENITAL IMPLANTS 06/26/2018 BIRGIT BOYLE, RUDY Lopez Ot Z98.890 OTHER SPECIFIED POSTPROCEDURAL STATES 06/26/2018 MAIKEL RAM APRN Ot J45.909 UNSPECIFIED ASTHMA, UNCOMPLICATED 06/26/2018 MAIKEL RAM SENIOR TELECOMMUNICATIONS ENGINEER Ot R06.00 DYSPNEA, UNSPECIFIED 06/26/2018 ORENDER DO, BELKIS S Ot D64.9 ANEMIA, UNSPECIFIED 06/26/2018 ORENDER DO, BELKIS S Ot K43.5 PARASTOMAL HERNIA WITHOUT OBSTRUCTION OR 06/26/2018 ORENDER DO, BELKIS S Ot N13.30 UNSPECIFIED HYDRONEPHROSIS 06/26/2018 ORENDER DO, BELKIS S Ot Z87.448 PERSONAL HISTORY OF OTHER DISEASES OF UR 06/26/2018 ORENDER DO, BELKIS S Ot Z98.890 OTHER SPECIFIED POSTPROCEDURAL STATES 06/26/2018 MAIKEL RAM APRN Ot J45.909 UNSPECIFIED ASTHMA, UNCOMPLICATED 06/26/2018 MAIKEL RAM APRN Ot R06.00 DYSPNEA, UNSPECIFIED 06/26/2018 GIBSON DELAROSA MD Ot E11.9 TYPE 2 DIABETES MELLITUS WITHOUT COMPLIC 06/26/2018 GIBSON DELAROSA MD Ot E66.01 MORBID (SEVERE) OBESITY DUE TO EXCESS CA 06/26/2018 GIBSON DELAROSA MD Ot I10 ESSENTIAL (PRIMARY) HYPERTENSION 06/26/2018 GIBSON DELAROSA MD Ot J44.9 CHRONIC OBSTRUCTIVE PULMONARY DISEASE, U 06/26/2018 GIBSON DELAROSA MD, Ot J45.909 UNSPECIFIED ASTHMA, UNCOMPLICATED 06/26/2018 GIBSON DELAROSA MD Ot K21.0 GASTRO-ESOPHAGEAL REFLUX DISEASE WITH ES 06/26/2018 GIBSON DELAROSA MD, Ot K29.70 GASTRITIS, UNSPECIFIED, WITHOUT BLEEDING 06/26/2018 GIBSON DELAROSA MD, Ot Z68.42 BODY MASS INDEX (BMI) 45.0-49.9, ADULT 06/26/2018 GIBSON DELAROSA MD, Ot 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 07/01/2018 GIBSON DELAROSA MD Ot E11.9 TYPE 2 DIABETES MELLITUS WITHOUT COMPLIC 07/01/2018 GIBSON DELAROSA MD Ot E66.01 MORBID (SEVERE) OBESITY DUE TO EXCESS CA 07/01/2018 GIBSON DELAROSA MD Ot I10 ESSENTIAL (PRIMARY) HYPERTENSION 07/01/2018 GIBSON DELAROSA MD Ot J44.9 CHRONIC OBSTRUCTIVE PULMONARY DISEASE, U 07/01/2018 GIBSON DELAROSA MD, Ot J45.909 UNSPECIFIED ASTHMA, UNCOMPLICATED 07/01/2018 GIBSON DELAROSA MD Ot K21.0 GASTRO-ESOPHAGEAL REFLUX DISEASE WITH ES 07/01/2018 GIBSON DELAROSA MD, Ot K29.70 GASTRITIS, UNSPECIFIED, WITHOUT BLEEDING 07/01/2018 GIBSON DELAROSA MD, Ot Z68.42 BODY MASS INDEX (BMI) 45.0-49.9, ADULT 07/01/2018 GIBSON DELAROSA MD, Ot 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 07/03/2018 LAURA PERLA SENIOR TELECOMMUNICATIONS ENGINEER Ot R06.02 SHORTNESS OF BREATH 07/03/2018 LAURA PERLA SENIOR TELECOMMUNICATIONS ENGINEER Ot R07.89 OTHER CHEST PAIN 07/03/2018 LAURA PERLA SENIOR TELECOMMUNICATIONS ENGINEER Ot R06.02 SHORTNESS OF BREATH 07/03/2018 LAURA PERLA SENIOR TELECOMMUNICATIONS ENGINEER Ot R00.0 TACHYCARDIA, UNSPECIFIED 07/03/2018 LAURA PERLA SENIOR TELECOMMUNICATIONS ENGINEER Ot R06.02 SHORTNESS OF BREATH 07/03/2018 LAURA PERLA SENIOR TELECOMMUNICATIONS ENGINEER Ot R53.83 OTHER FATIGUE 07/03/2018 LAURA PERLA SENIOR TELECOMMUNICATIONS ENGINEER Ot R60.9 EDEMA, UNSPECIFIED 07/03/2018 ABRAHAM ARAUJO DOLINE S Ot R10.84 GENERALIZED ABDOMINAL PAIN 07/03/2018 SABA ARAUJO DOQUELINE S Ot J45.909 UNSPECIFIED ASTHMA, UNCOMPLICATED 07/03/2018 SABA ARAUJO DOQUELINE S Ot R06.00 DYSPNEA, UNSPECIFIED 07/03/2018 MAIKEL RAM APRN Ot I51.7 CARDIOMEGALY 07/03/2018 MAIKEL RAM APRN Ot J45.909 UNSPECIFIED ASTHMA, UNCOMPLICATED 07/03/2018 MAIKEL RAM APRN Ot J98.11 ATELECTASIS 07/03/2018 MAIKEL RAM APRN Ot M47.814 SPONDYLOSIS W/O MYELOPATHY OR RADICULOPA 07/03/2018 STEPHENNDER DO, BELKIS S Ot K57.30 DVRTCLOS OF LG INT W/O PERFORATION OR AB 07/03/2018 STEPHENNDER DO BELKIS S Ot M47.816 SPONDYLOSIS W/O MYELOPATHY OR RADICULOPA 07/03/2018 ORENDER DO, BELKIS S Ot 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 07/03/2018 STEPHENNDER DO, BELKIS S Ot 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 07/03/2018 MAIKEL RAM APRN Ot I51.7 CARDIOMEGALY 07/03/2018 MAIKEL RAM APRN Ot J45.909 UNSPECIFIED ASTHMA, UNCOMPLICATED 07/03/2018 MAIKEL RAM APRN Ot R06.00 DYSPNEA, UNSPECIFIED 07/03/2018 BIRGIT BOYLE, RUDY Lopez Ot K63.9 DISEASE OF INTESTINE, UNSPECIFIED 07/03/2018 BIRGIT BOYLE, RUDY Lopez Ot Z96.0 PRESENCE OF UROGENITAL IMPLANTS 07/03/2018 BIRGIT BOYLE, RUDY Lopez Ot Z98.890 OTHER SPECIFIED POSTPROCEDURAL STATES 07/03/2018 MAIKEL RMA APRN Ot J45.909 UNSPECIFIED ASTHMA, UNCOMPLICATED 07/03/2018 MAIKEL RAM APRN Ot R06.00 DYSPNEA, UNSPECIFIED 07/03/2018 ORENDER DO, BELKIS S Ot D64.9 ANEMIA, UNSPECIFIED 07/03/2018 ORENDER DO, BELKIS S Ot K43.5 PARASTOMAL HERNIA WITHOUT OBSTRUCTION OR 07/03/2018 ORENDER DO, BELKIS S Ot N13.30 UNSPECIFIED HYDRONEPHROSIS 07/03/2018 STEPHENNDER DO, BELKIS S Ot Z87.448 PERSONAL HISTORY OF OTHER DISEASES OF UR 07/03/2018 STEPHENNDER DO, BELKIS S Ot Z98.890 OTHER SPECIFIED POSTPROCEDURAL STATES 07/10/2018 LAURA PERLA SENIOR TELECOMMUNICATIONS ENGINEER Ot R06.02 SHORTNESS OF BREATH 07/10/2018 PAN, LAURA N SENIOR TELECOMMUNICATIONS ENGINEER Ot R07.89 OTHER CHEST PAIN 07/10/2018 LAURA PERLA SENIOR TELECOMMUNICATIONS ENGINEER Ot R06.02 SHORTNESS OF BREATH 07/10/2018 LAURA PERLA SENIOR TELECOMMUNICATIONS ENGINEER Ot R00.0 TACHYCARDIA, UNSPECIFIED 07/10/2018 LAURA PERLA SENIOR TELECOMMUNICATIONS ENGINEER Ot R06.02 SHORTNESS OF BREATH 07/10/2018 LAURA PERLA SENIOR TELECOMMUNICATIONS ENGINEER Ot R53.83 OTHER FATIGUE 07/10/2018 LAURA PERLA SENIOR TELECOMMUNICATIONS ENGINEER Ot R60.9 EDEMA, UNSPECIFIED 07/10/2018 ABRAHAM ARAUJO DOLINE S Ot R10.84 GENERALIZED ABDOMINAL PAIN 07/10/2018 SABA ARAUJO DOQUELINE S Ot J45.909 UNSPECIFIED ASTHMA, UNCOMPLICATED 07/10/2018 ABRAHAM ARAUJO DOLINE S Ot R06.00 DYSPNEA, UNSPECIFIED 07/10/2018 MAIKEL RAM SENIOR TELECOMMUNICATIONS ENGINEER Ot I51.7 CARDIOMEGALY 07/10/2018 MAIKEL RAM SENIOR TELECOMMUNICATIONS ENGINEER Ot J45.909 UNSPECIFIED ASTHMA, UNCOMPLICATED 07/10/2018 MAIKEL RAM SENIOR TELECOMMUNICATIONS ENGINEER Ot J98.11 ATELECTASIS 07/10/2018 MAIKEL RAM SENIOR TELECOMMUNICATIONS ENGINEER Ot M47.814 SPONDYLOSIS W/O MYELOPATHY OR RADICULOPA 07/10/2018 ABRAHAM ARAUJO DOLINE S Ot K57.30 DVRTCLOS OF LG INT W/O PERFORATION OR AB 07/10/2018 SABA ARAUJO DOQUELINE S Ot M47.816 SPONDYLOSIS W/O MYELOPATHY OR RADICULOPA 07/10/2018 ABRAHAM ARAUJO DOLINE S Ot 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 07/10/2018 SABA ARAUJO DOQUELINE S Ot 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 07/10/2018 MAKIEL RAM SENIOR TELECOMMUNICATIONS ENGINEER Ot I51.7 CARDIOMEGALY 07/10/2018 MAIKEL RAM SENIOR TELECOMMUNICATIONS ENGINEER Ot J45.909 UNSPECIFIED ASTHMA, UNCOMPLICATED 07/10/2018 MAIKEL RAM SENIOR TELECOMMUNICATIONS ENGINEER Ot R06.00 DYSPNEA, UNSPECIFIED 07/10/2018 BIRGIT BOYLE, RUDY Lopez Ot K63.9 DISEASE OF INTESTINE, UNSPECIFIED 07/10/2018 BIRGIT BOYLE, RUDY Lopez Ot Z96.0 PRESENCE OF UROGENITAL IMPLANTS 07/10/2018 BIRGIT BOYLE, RUDY Lopez Ot Z98.890 OTHER SPECIFIED POSTPROCEDURAL STATES 07/10/2018 MAIKEL RAM APRN Ot J45.909 UNSPECIFIED ASTHMA, UNCOMPLICATED 07/10/2018 MAIKEL RAM APRN Ot R06.00 DYSPNEA, UNSPECIFIED 07/10/2018 ORENDER DO, BELKIS S Ot D64.9 ANEMIA, UNSPECIFIED 07/10/2018 ORENDER DO, BELKIS S Ot K43.5 PARASTOMAL HERNIA WITHOUT OBSTRUCTION OR 07/10/2018 ORENDER DO, BELKIS S Ot N13.30 UNSPECIFIED HYDRONEPHROSIS 07/10/2018 ORENDER DO, BELKIS S Ot Z87.448 PERSONAL HISTORY OF OTHER DISEASES OF UR 07/10/2018 ORENDER DO, BELKIS S Ot Z98.890 OTHER SPECIFIED POSTPROCEDURAL STATES 07/11/2018 GIBSON DELAROSA MD Ot K76.0 FATTY (CHANGE OF) LIVER, NOT ELSEWHERE C 07/11/2018 GIBSON DELAROSA MD Ot N13.30 UNSPECIFIED HYDRONEPHROSIS 07/23/2018 GIBSON DELAROSA MD Ot R10.11 RIGHT UPPER QUADRANT PAIN 07/31/2018 GIBSON DELAROSA MD Ot K76.0 FATTY (CHANGE OF) LIVER, NOT ELSEWHERE C 07/31/2018 GIBSON DELAROSA MD Ot N13.30 UNSPECIFIED HYDRONEPHROSIS 09/06/2018 BERTIN PEDERSEN Ot D63.8 ANEMIA IN OTHER CHRONIC DISEASES CLASSIF 09/06/2018 BERTIN PEDERSEN Ot J44.9 CHRONIC OBSTRUCTIVE PULMONARY DISEASE, U 09/06/2018 BERTIN PEDERSEN Ot K29.70 GASTRITIS, UNSPECIFIED, WITHOUT BLEEDING 09/06/2018 BERTIN PEDERSEN Ot N18.3 CHRONIC KIDNEY DISEASE, STAGE 3 (MODERAT 09/06/2018 BERTIN PEDERSEN Ot Z79.899 OTHER DETENTION (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 THERAPY 09/06/2018 BERTIN PEDERSEN Ot Z87.19 PERSONAL HISTORY OF OTHER DISEASES OF TH 09/12/2018 ORENDER DO, BELKIS S Ot N13.30 UNSPECIFIED HYDRONEPHROSIS 09/12/2018 BELKIS ARAUJO DO S Ot N28.9 DISORDER OF KIDNEY AND URETER, UNSPECIFI 10/09/2018 SLAVA, BOBAN N Ot D63.8 ANEMIA IN OTHER CHRONIC DISEASES CLASSIF 10/09/2018 SLAVA, BOBAN N Ot J44.9 CHRONIC OBSTRUCTIVE PULMONARY DISEASE, U 10/09/2018 SLAVA, BOBAN N Ot K29.70 GASTRITIS, UNSPECIFIED, WITHOUT BLEEDING 10/09/2018 SLAVA, BOBAN N Ot N18.3 CHRONIC KIDNEY DISEASE, STAGE 3 (MODERAT 10/09/2018 SLAVA, BOBAN N Ot 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 10/09/2018 SLAVA, BOBAN N Ot Z87.19 PERSONAL HISTORY OF OTHER DISEASES OF TH 10/09/2018 SLAVA BOBAN N Ot D63.8 ANEMIA IN OTHER CHRONIC DISEASES CLASSIF 10/09/2018 SLAVA BOBAN N Ot J44.9 CHRONIC OBSTRUCTIVE PULMONARY DISEASE, U 10/09/2018 SLAVA, BOBAN N Ot K29.70 GASTRITIS, UNSPECIFIED, WITHOUT BLEEDING 10/09/2018 SLAVA, BOBAN N Ot N18.3 CHRONIC KIDNEY DISEASE, STAGE 3 (MODERAT 10/09/2018 SLAVA, BOBAN N Ot 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 10/09/2018 SLAVA, BOBAN N Ot Z87.19 PERSONAL HISTORY OF OTHER DISEASES OF TH 10/10/2018 SLAVAKAIDENAN N Ot D63.8 ANEMIA IN OTHER CHRONIC DISEASES CLASSIF 10/10/2018 SLAVA BOBAN N Ot J44.9 CHRONIC OBSTRUCTIVE PULMONARY DISEASE, U 10/10/2018 SLAVA, BOBAN N Ot K29.70 GASTRITIS, UNSPECIFIED, WITHOUT BLEEDING 10/10/2018 SLAVA, BOBAN N Ot N18.3 CHRONIC KIDNEY DISEASE, STAGE 3 (MODERAT 10/10/2018 SLAVA, BOBAN N Ot Z79.899 OTHER DETENTION (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 THERAPY 10/10/2018 SLAVA, BOBAN N Ot Z87.19 PERSONAL HISTORY OF OTHER DISEASES OF 10/31/2018 ABRAHAM ARAUJO DOLINE S Ot M17.12 UNILATERAL PRIMARY OSTEOARTHRITIS, LEFT 11/12/2018 SLAVA, BOBAN N Ot D63.8 ANEMIA IN OTHER CHRONIC DISEASES CLASSIF 11/12/2018 SLAVA, KAIDENAN N Ot J44.9 CHRONIC OBSTRUCTIVE PULMONARY DISEASE, U 11/12/2018 SLAVABERTIN N Ot K29.70 GASTRITIS, UNSPECIFIED, WITHOUT BLEEDING 11/12/2018 SLAVA, BOBAN N Ot N18.3 CHRONIC KIDNEY DISEASE, STAGE 3 (MODERAT 11/12/2018 SLAVA, BOBAN N Ot Z79.899 OTHER DETENTION (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 THERAPY 11/12/2018 SLAVA, BOBAN N Ot Z87.19 PERSONAL HISTORY OF OTHER DISEASES OF TH 11/13/2018 SLAVA, BOBAN N Ot D63.8 ANEMIA IN OTHER CHRONIC DISEASES CLASSIF 11/13/2018 SLAVA, BOBAN N Ot J44.9 CHRONIC OBSTRUCTIVE PULMONARY DISEASE, U 11/13/2018 SLAVA, BOBAN N Ot K29.70 GASTRITIS, UNSPECIFIED, WITHOUT BLEEDING 11/13/2018 SLAVA BOBAN N Ot N18.3 CHRONIC KIDNEY DISEASE, STAGE 3 (MODERAT 11/13/2018 SLAVA, BOBAN N Ot 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 11/13/2018 SLAVA, BOBAN N Ot Z87.19 PERSONAL HISTORY OF OTHER DISEASES OF TH 11/14/2018 ORENDER DO, BELKIS S Ot N13.30 UNSPECIFIED HYDRONEPHROSIS 11/14/2018 ORENDER DO, BELKIS S Ot N28.9 DISORDER OF KIDNEY AND URETER, UNSPECIFI 11/19/2018 ORENDER DO, BELKIS S Ot M17.12 UNILATERAL PRIMARY OSTEOARTHRITIS, LEFT 11/20/2018 ORENDER DO, BELKIS S Ot M25.362 OTHER INSTABILITY, LEFT KNEE 11/20/2018 ORENDER DO, BELKIS S Ot M25.562 PAIN IN LEFT KNEE 11/21/2018 RUSS BOYLE, ULISSES Kang Ot N13.39 OTHER HYDRONEPHROSIS 11/22/2018 ORENDER DO, BELKIS S Ot M17.12 UNILATERAL PRIMARY OSTEOARTHRITIS, LEFT 11/27/2018 ISAURA BOYLE, GIBSON Ot R10.11 RIGHT UPPER QUADRANT PAIN 11/29/2018 SLAVA, BOBAN N Ot D63.8 ANEMIA IN OTHER CHRONIC DISEASES CLASSIF 11/29/2018 SLAVA, BOBAN N Ot J44.9 CHRONIC OBSTRUCTIVE PULMONARY DISEASE, U 11/29/2018 BERTIN PEDERSEN N Ot K29.70 GASTRITIS, UNSPECIFIED, WITHOUT BLEEDING 11/29/2018 SLAVABERTIN LAYNE N Ot N18.3 CHRONIC KIDNEY DISEASE, STAGE 3 (MODERAT 11/29/2018 SLAVAKAIDEN LAYNEAN N Ot 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 11/29/2018 BERTIN PEDERSEN N Ot Z87.19 PERSONAL HISTORY OF OTHER DISEASES OF TH 12/10/2018 RUSS BOYLE, ULISSES Kang Ot N13.39 OTHER HYDRONEPHROSIS 12/20/2018 RUSS BOYLE, ULISSES Kang Ot N13.39 OTHER HYDRONEPHROSIS 01/01/2019 STEPHENNDER DO, BELKIS S Ot M25.362 OTHER INSTABILITY, LEFT KNEE 01/01/2019 STEPHENNDER DO, BELKIS S Ot M25.562 PAIN IN LEFT KNEE 01/01/2019 KAIDEN PEDERSENAN N Ot D63.8 ANEMIA IN OTHER CHRONIC DISEASES CLASSIF 01/01/2019 SLAVA BOBAN N Ot J44.9 CHRONIC OBSTRUCTIVE PULMONARY DISEASE, U 01/01/2019 SLAVA BOBAN N Ot K29.70 GASTRITIS, UNSPECIFIED, WITHOUT BLEEDING 01/01/2019 SLAVA, BOBAN N Ot N18.3 CHRONIC KIDNEY DISEASE, STAGE 3 (MODERAT 01/01/2019 SLAVAKAIDEN LAYNEAN N Ot Z79.899 OTHER DETENTION (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 THERAPY 01/01/2019 KAIDEN PEDERSENAN N Ot Z87.19 PERSONAL HISTORY OF OTHER DISEASES OF TH 01/01/2019 STEPHENNDER DO, BELKIS S Ot M25.362 OTHER INSTABILITY, LEFT KNEE 01/01/2019 STEPHENNDER DO, BELKIS S Ot M25.562 PAIN IN LEFT KNEE 01/22/2019 MAIKEL RAM SENIOR TELECOMMUNICATIONS ENGINEER Ot G47.30 SLEEP APNEA, UNSPECIFIED 01/22/2019 MAIKEL RAM SENIOR TELECOMMUNICATIONS ENGINEER Ot I51.7 CARDIOMEGALY 01/22/2019 MAIKEL RAM SENIOR TELECOMMUNICATIONS ENGINEER Ot J45.909 UNSPECIFIED ASTHMA, UNCOMPLICATED 01/22/2019 MAIKEL RAM SENIOR TELECOMMUNICATIONS ENGINEER Ot Z78.9 OTHER SPECIFIED HEALTH STATUS 02/02/2019 SLAVA BOBAN N Ot D63.8 ANEMIA IN OTHER CHRONIC DISEASES CLASSIF 02/02/2019 SLAVA BOBAN N Ot J44.9 CHRONIC OBSTRUCTIVE PULMONARY DISEASE, U 02/02/2019 BERTIN PEDERSEN N Ot K29.70 GASTRITIS, UNSPECIFIED, WITHOUT BLEEDING 02/02/2019 SLAVA, BOBBRISA N Ot N18.3 CHRONIC KIDNEY DISEASE, STAGE 3 (MODERAT 02/02/2019 SLAVAKAIDEN LAYNEAN N Ot 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 02/02/2019 BERTIN PEDERSEN N Ot Z87.19 PERSONAL HISTORY OF OTHER DISEASES OF TH 02/04/2019 SLAVA BOBAN N Ot D63.8 ANEMIA IN OTHER CHRONIC DISEASES CLASSIF 02/04/2019 SLAVA BOBAN N Ot J44.9 CHRONIC OBSTRUCTIVE PULMONARY DISEASE, U 02/04/2019 SLAVABERTIN LAYNE N Ot K29.70 GASTRITIS, UNSPECIFIED, WITHOUT BLEEDING 02/04/2019 BERTIN PEDERSEN N Ot N18.3 CHRONIC KIDNEY DISEASE, STAGE 3 (MODERAT 02/04/2019 SLAVA, BOBAN N Ot 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 02/04/2019 BERTIN PEDERSEN N Ot Z87.19 PERSONAL HISTORY OF OTHER DISEASES OF 02/11/2019 YO, MAIKEL E SENIOR TELECOMMUNICATIONS ENGINEER Ot G47.30 SLEEP APNEA, UNSPECIFIED 02/11/2019 YO, MAIKEL E SENIOR TELECOMMUNICATIONS ENGINEER Ot I51.7 CARDIOMEGALY 02/11/2019 YO MAIKEL E SENIOR TELECOMMUNICATIONS ENGINEER Ot J45.909 UNSPECIFIED ASTHMA, UNCOMPLICATED 02/11/2019 YO MAIKEL E SENIOR TELECOMMUNICATIONS ENGINEER Ot Z78.9 OTHER SPECIFIED HEALTH STATUS 02/19/2019 YO MAIKEL E SENIOR TELECOMMUNICATIONS ENGINEER Ot G47.30 SLEEP APNEA, UNSPECIFIED 02/19/2019 YO, MAIKEL E SENIOR TELECOMMUNICATIONS ENGINEER Ot I51.7 CARDIOMEGALY 02/19/2019 YO, MAIKEL E SENIOR TELECOMMUNICATIONS ENGINEER Ot J45.909 UNSPECIFIED ASTHMA, UNCOMPLICATED 02/19/2019 YO, MAIKEL E SENIOR TELECOMMUNICATIONS ENGINEER Ot Z78.9 OTHER SPECIFIED HEALTH STATUS 02/27/2019 ABRAHAM ARAUJO DOLINE S Ot E03.9 HYPOTHYROIDISM, UNSPECIFIED 02/27/2019 ABRAHAM ARAUJO DOLINE S Ot E11.9 TYPE 2 DIABETES MELLITUS WITHOUT COMPLIC 02/28/2019 BERTIN PEDERSEN N Ot D63.8 ANEMIA IN OTHER CHRONIC DISEASES CLASSIF 02/28/2019 BERTIN PEDERSEN Ot J44.9 CHRONIC OBSTRUCTIVE PULMONARY DISEASE, U 02/28/2019 BERTIN PEDERSEN Ot N18.3 CHRONIC KIDNEY DISEASE, STAGE 3 (MODERAT 02/28/2019 BERTIN PEDERSEN Ot 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 02/28/2019 BERTIN PEDERSEN Ot Z87.19 PERSONAL HISTORY OF OTHER DISEASES OF TH Procedures There is no data. Results Test [...] Automated erythrocyte mean corpuscular hemoglobin concentration measurement (mass/volume) 32 g/dL 32-36 Automated erythrocyte distribution width ratio 17.5 % 10.0- 14.5 Automated blood platelet count (count/volume) 303 10*3/uL [...] Blood monocytes automated count (number/volume) 0.5 10*3 0.0- 1.0 Automated eosinophil count 0.5 10*3/uL 0.0-0.3 Automated [...] Serum or plasma aspartate aminotransferase measurement (enzymatic activity/volume) 27 U/L 5-34 Serum or plasma alanine aminotransferase measurement (enzymatic activity/volume) 20 U/L 0-55 Serum or plasma protein [...] Automated erythrocyte mean corpuscular hemoglobin concentration measurement (mass/volume) 31 g/dL 32-36 Automated erythrocyte distribution width ratio 17.9 % 10.0- 14.5 Automated blood platelet count (count/volume) 230 10*3/uL [...] Blood monocytes automated count (number/volume) 0.8 10*3 0.0- 1.0 Automated eosinophil count 0.6 10*3/uL 0.0-0.3 Automated [...] Automated erythrocyte mean corpuscular hemoglobin concentration measurement (mass/volume) 32 g/dL 32-36 Automated erythrocyte distribution width ratio 17.5 % 10.0- 14.5 Automated blood platelet count (count/volume) 244 10*3/uL [...] Blood monocytes automated count (number/volume) 0.6 10*3 0.0- 1.0 Automated eosinophil count 0.3 10*3/uL 0.0-0.3 Automated [...] Serum or plasma aspartate aminotransferase measurement (enzymatic activity/volume) 17 U/L 5-34 Serum or plasma alanine aminotransferase measurement (enzymatic activity/volume) 11 U/L 0-55 Serum or plasma protein measurement (mass/volume) 7.0 g/dL 6.4-8.2 Serum or plasma albumin measurement (mass/volume) 3.8 g/dL 3.2-4.5 Serum or plasma C reactive protein measurement (mass/volume) - 10/16/16 15:24 Serum or plasma C reactive protein measurement (mass/volume) 4.73 mg/dL 0.00-0.50 Capillary blood glucose measurement by glucometer (mass/volume) - 10/16/16 20:52 Capillary blood glucose measurement by glucometer (mass/volume) 81 mg/dL 70-110 Capillary blood glucose measurement by glucometer (mass/volume) - 10/17/16 05:26 Capillary blood glucose measurement by glucometer (mass/volume) 79 mg/dL 70-110 Capillary blood glucose measurement by glucometer (mass/volume) - 10/17/16 11:45 Capillary blood glucose measurement by glucometer (mass/volume) 73 mg/dL 70-110 Capillary blood glucose measurement by glucometer (mass/volume) - 10/17/16 16:44 Capillary blood glucose measurement by glucometer (mass/volume) 87 mg/dL 70-110 Capillary blood glucose measurement by glucometer (mass/volume) - 10/17/16 19:46 Capillary blood glucose measurement by glucometer (mass/volume) 80 mg/dL 70-110 Capillary blood glucose measurement by glucometer (mass/volume) - 10/18/16 05:22 Capillary blood glucose measurement by glucometer (mass/volume) 75 mg/dL 70-110 Capillary blood glucose measurement by glucometer (mass/volume) - 10/18/16 10:37 Capillary blood glucose measurement by glucometer (mass/volume) 76 mg/dL 70-110 Capillary blood glucose measurement by glucometer (mass/volume) - 10/18/16 16:30 Capillary blood glucose measurement by glucometer (mass/volume) 118 mg/dL 70-110 Clostridium difficile detection - 10/18/16 19:45 C DIFF MOLECULAR RESULT Positive for toxigenic C diff by DNA amplification NRG CALL POSITIVES (F1 HELP) CALLED TO EDI/NURSE AT 1117, 10/19/16/KD NRG C DIFFICILE AG + TOXIN A/B. - 10/18/16 19:45 RESULTS INDETERMINANT; MOLECULAR TEST TO FOLLOW NRG Ova and parasites - 10/18/16 19:45 DATE OF REF LAB REPORT 10/24/16 NRG OTP NEGATIVE RESULT PARASITES NOT FOUND NRG Capillary blood glucose measurement by glucometer (mass/volume) - 10/18/16 20:36 Capillary blood glucose measurement by glucometer (mass/volume) 114 mg/dL 70-110 Capillary blood glucose measurement by glucometer (mass/volume) - 10/19/16 06:14 Capillary blood glucose measurement by glucometer (mass/volume) [...] Automated erythrocyte mean corpuscular hemoglobin concentration measurement (mass/volume) 32 g/dL 32-36 Automated erythrocyte distribution width ratio 17.2 % 10.0- 14.5 Automated blood platelet count (count/volume) 263 10*3/uL [...] Blood monocytes automated count (number/volume) 0.5 10*3 0.0- 1.0 Automated eosinophil count 0.4 10*3/uL 0.0-0.3 Automated [...] Serum or plasma aspartate aminotransferase measurement (enzymatic activity/volume) 19 U/L 5-34 Serum or plasma alanine aminotransferase measurement (enzymatic activity/volume) 15 U/L 0-55 Serum or plasma protein measurement (mass/volume) 6.3 g/dL 6.4-8.2 Serum or plasma albumin measurement (mass/volume) 3.5 g/dL 3.2-4.5 Serum or plasma C reactive protein measurement (mass/volume) - 10/19/16 07:31 Serum or plasma C reactive protein measurement (mass/volume) 3.40 mg/dL 0.00-0.50 Capillary blood glucose measurement by glucometer (mass/volume) - 10/19/16 11:29 Capillary blood glucose measurement by glucometer (mass/volume) 98 mg/dL 70-110 Capillary blood glucose measurement by glucometer (mass/volume) - 10/19/16 16:00 Capillary blood glucose measurement by glucometer (mass/volume) 99 mg/dL 70-110 Capillary blood glucose measurement by glucometer (mass/volume) - 10/19/16 20:55 Capillary blood glucose measurement by glucometer (mass/volume) 140 mg/dL 70-110 Capillary blood glucose measurement by glucometer (mass/volume) - 10/20/16 05:54 Capillary blood glucose measurement by glucometer (mass/volume) 92 mg/dL 70-110 Capillary blood glucose measurement by glucometer (mass/volume) - 10/20/16 11:28 Capillary blood glucose measurement by glucometer (mass/volume) 98 mg/dL 70-110 RED CELLS LEUKO REDUCED AS1 - 08/09/17 12:40 RED CELLS LEUKO REDUCED AS1 TRANSFUSED 08/09/17 1542 NRG Blood type T Indirect antibody screen panel - 08/09/17 12:40 ABO+Rh group OP NRG Transfusion band number [id number] NRG Blood group antibody screen NEGATIVE NRG [...] Automated erythrocyte mean corpuscular hemoglobin concentration measurement (mass/volume) 30 g/dL 32-36 Automated erythrocyte distribution width ratio 18.7 % 10.0- 14.5 Automated blood platelet count (count/volume) 283 10*3/uL [...] Blood monocytes automated count (number/volume) 0.4 10*3 0.0- 1.0 Automated eosinophil count 0.3 10*3/uL 0.0-0.3 Automated blood basophil count (count/volume) 0.0 10*3/uL 0.0-0.1 Serum iron and total iron binding capacity panel - 08/16/17 09:34 Serum or plasma iron measurement (mass/volume) 28 % 35-180 Total iron binding capacity and transferrin saturation [...] Automated erythrocyte mean corpuscular hemoglobin concentration measurement (mass/volume) 32 g/dL 32-36 Automated erythrocyte distribution width ratio 16.6 % 10.0- 14.5 Automated blood platelet count (count/volume) 261 10*3/uL [...] Blood monocytes automated count (number/volume) 0.9 10*3 0.0- 1.0 Automated eosinophil count 0.3 10*3/uL 0.0-0.3 Automated [...] Blood lactic acid measurement (moles/volume) 1.04 mmol/L 0.50- 2.00 Comprehensive metabolic panel - 02/22/18 16:00 Serum [...] Serum or plasma aspartate aminotransferase measurement (enzymatic activity/volume) 28 U/L 5-34 Serum or plasma alanine aminotransferase measurement (enzymatic activity/volume) 17 U/L 0-55 Serum or plasma protein measurement (mass/volume) 6.2 g/dL 6.4-8.2 Serum or plasma albumin measurement (mass/volume) 3.2 g/dL 3.2-4.5 Bacterial blood culture - 02/22/18 16:00 Bacterial blood culture NG NRG Bacterial blood culture - 02/22/18 16:08 Bacterial blood culture NG NRG Encounters ACCT No. Visit Date/Time Discharge Status Pt. Type Provider Facility Loc./Unit Complaint 11/201702/14/2019 00:14:55 02/14/2019 23:59:59 CLS Outpatient Belkis Araujo. [id number] 02/11/2019 12:26:00 02/11/2019 23:59:59 CLS Outpatient BERTIN PEDERSEN [facility] ONC [id number] 02/05/2019 10:40:00 02/05/2019 23:59:59 CLS Outpatient BELKIS ARAUJO DO S [facility] LAB [id number] 11/12/2018 12:48:00 02/02/2019 00:01:00 DIS Outpatient BERTIN PEDERSEN [facility] ONC [id number] 01/21/2019 11:18:00 01/21/2019 23:59:59 CLS Outpatient MAIKEL RAM APRN [facility] RAD DYSPNEA, UNSPECIFIED [id number] 01/15/2019 16:33:00 01/15/2019 23:59:59 CLS Preadmit MAIKEL RAM SENIOR TELECOMMUNICATIONS ENGINEER [facility] RT DYSPNEA, UNSPECIFIED [id number] 12/19/2018 14:10:00 12/19/2018 14:45:00 DIS Outpatient BELKIS ARAUJO DO S [facility] REHAB L KNEE PAIN/INSTABILITY [id number] 11/19/2018 08:39:00 11/19/2018 23:59:59 CLS Outpatient ULISSES SOLANO MD [facility] CARD N13.39 [id number] 10/25/2018 12:46:00 10/25/2018 23:59:59 CLS Outpatient BELKIS ARAUJO DO S [facility] RAD LEFT KNEE PAIN [id number] 08/12/2018 14:22:00 10/09/2018 00:01:00 DIS Outpatient BERTIN PEDERSEN [facility] ONC [id number] 08/22/2018 08:41:00 08/22/2018 23:59:59 CLS Outpatient BELKIS ARAUOJ DO S [facility] CARD R HYDRONEPHROSIS W/ RENAL INSUFF. [id number] 07/19/2018 11:06:00 07/19/2018 23:59:59 CLS Outpatient GIBSON DELAROSA MD [facility] CARD RUQ PAIN [id number] 07/10/2018 07:49:00 07/10/2018 23:59:59 CLS Outpatient GIBSON DELAROSA MD [facility] RAD NAUSEA AND VOMITING [id number] 06/26/2018 09:56:00 06/26/2018 13:50:00 DIS Outpatient GIBSON DELAROSA MD [facility] ENDO ABD PAIN/NAUSEA [id number] 06/24/2018 12:12:00 06/24/2018 12:25:00 DIS Outpatient GIBSON DELAROSA MD [facility] PREOP EGD [id number] 06/11/2018 16:50:00 06/11/2018 23:59:59 CLS Preadmit BELKIS ARAUJO DO S [facility] RAD SCREENING [id number] 02/22/2018 15:22:00 02/22/2018 17:40:00 DIS Emergency ILDA BOYLE, YAYO Mccarthy [facility] ER POSSIBLE PNEUMONIA [id number] 01/21/2018 08:11:00 01/21/2018 23:59:59 CLS Outpatient BELKIS ARAUJO DO S [facility] RAD EPIGASTRIC PAIN [id number] 08/16/2017 09:21:00 08/16/2017 23:59:59 CLS Outpatient ORENDER SABA KENDRICKBELKIS S [facility] LAB ANEMIA-ACUTE,ON CHRONIC [id number] 08/09/2017 12:13:00 08/09/2017 18:35:00 DIS Outpatient ORENDSABA GOEL DOQUELINE S [facility] ACUTE ON CHRONIC ANEMIA [id number] 06/05/2017 13:00:00 06/05/2017 23:59:59 CLS Preadmit MAIKEL RAM E SENIOR TELECOMMUNICATIONS ENGINEER [facility] PULM ASTHMA [id number] 03/08/2017 15:00:00 06/04/2017 00:01:00 DIS Outpatient MAIKEL RAM SENIOR TELECOMMUNICATIONS ENGINEER [facility] PULM ASTHMA [id number] 05/30/2017 12:38:00 05/30/2017 23:59:59 CLS Outpatient BIRGIT BOYLE, RUYD Lopez [facility] RAD BLACKWOOD IN PLACE POST BLADDER REPAIR [id number] 04/24/2017 14:16:00 04/24/2017 23:59:59 CLS Outpatient MAIKEL RAM E SENIOR TELECOMMUNICATIONS ENGINEER [facility] RAD J45.909,R06.00 [id number] 03/01/2017 14:30:00 03/04/2017 00:01:00 DIS Outpatient MAIKEL RAM E SENIOR TELECOMMUNICATIONS ENGINEER [facility] PULM ASTHMA [id number] 01/01/2017 12:52:00 01/01/2017 23:59:59 CLS Outpatient STEPHENNDSABA GOEL DOQUELINE S [facility] RAD N32.1 [id number] 12/26/2016 08:37:00 12/26/2016 23:59:59 CLS Outpatient STEPHENNDMANASA KENDRICK BELKIS S [facility] RAD SIGMOID DIVERTICULITIS W/MICROPERFORATION [id number] 12/26/2016 08:32:00 12/26/2016 23:59:59 CLS Outpatient VANIA RAMINE E SENIOR TELECOMMUNICATIONS ENGINEER [facility] RAD ASTHMA [id number] 11/27/2016 12:35:00 11/27/2016 23:59:59 CLS Outpatient STEPHENNDMANASA KENDRICK BELKIS S [facility] RT ASTHMA,DYSPNEA [id number] 10/16/2016 13:00:00 10/20/2016 17:00:00 DIS Inpatient MERY BELKIS KENDRICK Fabio [facility] 4TH ACUTE SIGMOID DIVERTICULITIS [id number] 10/16/2016 08:57:00 10/16/2016 23:59:59 CLS Outpatient BELKIS ARAUJO DO [facility] RAD ABD PAIN [id number] 05/26/2016 22:15:00 05/26/2016 23:05:00 DIS Emergency KOFI MAYERS MD [facility] ER R GROIN SWELLING [id number] 05/11/2016 13:25:00 05/11/2016 16:13:00 DIS Emergency KOFI MAYERS MD [facility] ER SOA/CHEST PAIN [id number] 03/31/2016 12:28:00 03/31/2016 23:59:59 CLS Outpatient LAURA PERLA APRN [facility] CARD ELEVATED BHP,FATIGUE,PEDAL EDEMA,SOB,TACHYCARDIA [id number] 03/30/2016 11:50:00 03/30/2016 23:59:59 CLS Outpatient LAURA PERLA APRN [facility] CARD SHORNESS OF BREATH,ELEVATED D-DIMER [id number] 03/28/2016 12:17:00 03/28/2016 23:59:59 CLS Outpatient LAURA PERLA APRN [facility] RAD CHEST TIGHTNESS,SOB [id number] 05/23/2013 20:00:00 05/24/2013 06:55:00 DIS Outpatient BELKIS ARAUJO DO [facility] SLEEP BERNARDO,SNORING,ABN LIMB MOVEMENT,HTN,ESCESSIVE DAYTIM [id number] 05/02/2013 08:37:00 05/02/2013 23:59:59 CLS Outpatient [id number] 09/30/2014 18:49:00 Document Registration [id number] 09/30/2014 18:49:00 Document Registration [id number] 01/13/2012 18:51:00 Document Registration [id number] 01/01/2012 20:24:00 Document Registration [id number] 12/25/2011 17:50:00 Document Registration [id number] 12/25/2011 08:44:00 Document Registration [id number] 10/27/2011 19:25:00 Document Registration [id number] 08/25/2011 09:24:00 Document Registration [id number] 06/23/2011 08:50:00 Document Registration [id number] 05/14/2011 15:08:00 Document Registration [id number] 05/10/2011 08:50:00 Document Registration [id number] 05/09/2011 14:27:00 Document Registration [id number] 12/19/2010 15:52:00 Document Registration [id number] 12/17/2009 13:26:00 Document Registration
[2019-03-06] MEDS ORDERED: KETOROLAC 30 MG/ML VIAL IVP ONE (18:00)
[2019-03-06 18:03] LABS: BASOPHILS % (AUTO) 0 % (0-10); EOSINOPHILS # (AUTO) 0.2 10^3/uL (0.0-0.3); EOSINOPHILS % (AUTO) 2 % (0-10); HEMATOCRIT 32 % (35-52); HEMOGLOBIN 10.2 G/DL (11.5-16.0); LYMPHOCYTES # (AUTO) 1.1 X 10^3 (1.0-4.0); LYMPHOCYTES % (AUTO) 13 % (12-44); MEAN CORPUSCULAR HEMOGLOBIN 27 PG (25-34); MEAN CORPUSCULAR HGB CONC 32 G/DL (32-36); MEAN CORPUSCULAR VOLUME 86 FL (80-99); MEAN PLATELET VOLUME 9.7 FL (7.4-10.4); MONOCYTES # (AUTO) 0.8 X 10^3 (0.0-1.0); MONOCYTES % (AUTO) 9 % (0-12); NEUTROPHILS # (AUTO) 6.7 X 10^3 (1.8-7.8); NEUTROPHILS % (AUTO) 77 % (42-75); PLATELET COUNT 255 10^3/uL (130-400); WHITE BLOOD COUNT 8.8 10^3/uL (4.3-11.0)
--- NOTE | 2019-03-06 18:07 | ED GU-Female ---
General Chief Complaint: Abdominal/GI Problems Stated Complaint: ABD PAIN Nursing Triage Note: PT PRESENTS TO THE ER VIA WHEELCHAIR TO RM 6. PT COMPLAINS OF FLANK PAIN THAT HAS WORSENED THIS EVENING. Nursing Sepsis Screen: No Definite Risk Source: patient Exam Limitations: no limitations History of Present Illness Date Seen by Provider: Mar 06, 2019 Time Seen by Provider: 18:04 Initial Comments To ER with reports of right flank pain that is worse than usual starting last night and progressing throughout the day today. She's been nauseated as well but no vomiting. She has chronic urinary frequency from overactive bladder. She has a known obstruction with hydronephrosis of the right ureter believed to be from "inflammation from diverticulitis surgery" she states. She follows with urologist in [place] for this. No fevers. She's had this problem for about 9 months that became much worse overnight and throughout the day today. Timing/Duration: just prior to arrival Severity/Quality: moderate Location: right flank Radiation: right flank Activities at Onset: none Prior Genitourinary Problems: none Allergies and Home Medications Allergies Coded Allergies: Cephalosporins (Verified Allergy, Unknown, 06/26/18) azithromycin (Verified Allergy, Unknown, 06/26/18) codeine (Verified Allergy, Unknown, 06/26/18) Home Medications Albuterol Sulfate 8.5 Gm Hfa.aer.ad, 2 PUFF INH Q4H PRN for SHORTNESS OF BREATH, (Reported) Albuterol Sulfate 2.5 Mg/3 Ml Vial.neb, 2.5 MG NEB QID PRN for SHORTNESS OF BREATH, (Reported) Amoxicillin 500 Mg Capsule, 500 MG PO BID Prescribed by: SHEA YUSUF on 03/06/191933 Carvedilol 25 Mg Tablet, 25 MG PO BID, (Reported) Fenofibrate Nanocrystallized 145 Mg Tablet, 145 MG PO HS, (Reported) Fluticasone/Vilanterol 1 Each Blst.w.dev, 1 EACH IH DAILY, (Reported) Levofloxacin 750 Mg Tablet, 750 MG PO every other day Prescribed by: SHEA YUSUF on 03/06/191933 Levothyroxine Sodium 150 Mcg Tablet, 150 MCG PO DAILY, (Reported) Loperamide HCl 2 Mg Tablet, 6 MG PO BID, (Reported) take 3 (2mg) tabs Loratadine 10 Mg Tablet, 10 MG PO DAILY, (Reported) Metronidazole 500 Mg Tablet, 500 MG PO BID Prescribed by: SHEA YUSUF on 03/06/191939 Mometasone Furoate 17 Gm Naspr, 1 GM NS DAILY, (Reported) Montelukast Sodium 10 Mg Tablet, 10 MG PO HS, (Reported) Multivitamins with Iron 1 Each Tab.chew, 1 EACH PO BID, (Reported) Olmesartan Medoxomil 40 Mg Tablet, 40 MG PO DAILY, (Reported) Pantoprazole Sodium 40 Mg Tablet.dr, 40 MG PO BID, (Reported) Tiotropium Bouse 1 Inh Aerp, 1 CAP INH DAILY, (Reported) Patient Home Medication List Home Medication List Reviewed: Yes Review of Systems Review of Systems Constitutional: see HPI; No chills, No fever EENTM: see HPI Respiratory: no symptoms reported Cardiovascular: no symptoms reported Genitourinary: see HPI Musculoskeletal: no symptoms reported Skin: no symptoms reported Past Lbiwpyp-Hzbzxo-Ezrxea Hx Patient Social History Alcohol Use: Denies Use Recreational Drug Use: No 2nd Hand Smoke Exposure: No Recent Foreign Travel: No Contact w/Someone Who Travel: No Recent Infectious Disease Expo: No Recent Hopitalizations: No Immunizations Up To Date Date of Pneumonia Vaccine: Jun 10, 2015 Date of Influenza Vaccine: Jun 19, 2018 Seasonal Allergies Seasonal Allergies: Yes Past Medical History Surgeries: Yes ( BACK-DISK REPAIR, X2, GANGLION CYST REMOVED, TURBT, ) Tonsillectomy Respiratory: Yes Asthma, Sleep Apnea, COPD Currently Using CPAP: Yes Cardiac: Yes (abnormal stress test 06/09/16) Chronic Edema/Swelling, High Cholesterol, Hypertension Neurological: No : No Reproductive Disorders: No UTI-Chronic Gastrointestinal: Yes (COLOSTOMY) Gastroesophageal Reflux, Diverticulosis Musculoskeletal: Yes (DISK REPAIR ) Arthritis Endocrine: Yes Hypothyroidsim, Diabetes, Non-Insulin dep Loss of Vision: Denies Hearing Impairment: Denies Cancer: No Psychosocial: No Integumentary: No Blood Disorders: Yes (ANEMIA) Physical Exam Vital Signs Vital Signs - First Documented 03/06/19 17:37 Pulse 66 Resp 20 B/P (MAP) 119/70 (86) Pulse Ox 99 O2 Delivery Room Air Capillary Refill : Less Than 3 Seconds Height, Weight, BMI Height: 5'5.00" Weight: 300lbs. 0.0oz. [id number]; 49.9 BMI Method:Stated General Appearance: WD/WN, no apparent distress Respiratory: normal breath sounds, no respiratory distress, no accessory muscle use Gastrointestinal: normal bowel sounds, non tender, soft Neurologic/Psychiatric: alert, normal mood/affect, oriented x 3 Skin: normal color, warm/dry Progress/Results/Core Measures Suspected Sepsis Recent Fever Within 48 Hours: No Infection Criteria Present: None New/Unexplained Altered Menta: No Sepsis Screen: No Definite Risk SIRS Temperature: Pulse: 66 Respiratory Rate: 20 Laboratory Tests 03/06/19 17:45: White Blood Count 8.8 Blood Pressure 119 /70 Mean: 86 Laboratory Tests 03/06/19 17:45: Creatinine 1.72H, Platelet Count 255, Total Bilirubin 0.5 Results/Orders Lab Results Laboratory Tests Test 03/06/19 17:45 03/06/19 18:07 Range/Units White Blood Count 8.8 4.3-11.0 10^3/uL Red Blood Count 3.78 L 4.35-5.85 10^6/uL Hemoglobin 10.2 L 11.5-16.0 G/DL Hematocrit 32 L 35-52 % Mean Corpuscular Volume 86 80-99 FL Mean Corpuscular Hemoglobin 27 25-34 PG Mean Corpuscular Hemoglobin Concent 32 32-36 G/DL Red Cell Distribution Width 17.0 H 10.0-14.5 % Platelet Count 255 130-400 10^3/uL Mean Platelet Volume 9.7 7.4-10.4 FL Neutrophils (%) (Auto) 77 H 42-75 % Lymphocytes (%) (Auto) 13 12-44 % Monocytes (%) (Auto) 9 0-12 % Eosinophils (%) (Auto) 2 0-10 % Basophils (%) (Auto) 0 0-10 % Neutrophils # (Auto) 6.7 1.8-7.8 X 10^3 Lymphocytes # (Auto) 1.1 1.0-4.0 X 10^3 Monocytes # (Auto) 0.8 0.0-1.0 X 10^3 Eosinophils # (Auto) 0.2 0.0-0.3 10^3/uL Basophils # (Auto) 0.0 0.0-0.1 10^3/uL Sodium Level 138 135-145 MMOL/L Potassium Level 4.7 3.6-5.0 MMOL/L Chloride Level 105 98-107 MMOL/L Carbon Dioxide Level 23 21-32 MMOL/L Anion Gap 10 5-14 MMOL/L Blood Urea Nitrogen 29 H 7-18 MG/DL Creatinine 1.72 H 0.60-1.30 MG/DL Estimat Glomerular Filtration Rate 30 BUN/Creatinine Ratio 17 Glucose Level 104 70-105 MG/DL Calcium Level 9.6 8.5-10.1 MG/DL Corrected Calcium 9.6 8.5-10.1 MG/DL Total Bilirubin 0.5 0.1-1.0 MG/DL Aspartate Amino Transf (AST/SGOT) 22 5-34 U/L Alanine Aminotransferase (ALT/SGPT) 15 0-55 U/L Alkaline Phosphatase 76 40-136 U/L Total Protein 6.9 6.4-8.2 GM/DL Albumin 4.0 3.2-4.5 GM/DL Urine Color YELLOW Urine Clarity TURBID Urine pH 6.5 5-9 Urine Specific [place] 1.015 L 1.016-1.022 Urine Protein 3+ H NEGATIVE Urine Glucose (UA) NEGATIVE NEGATIVE Urine Ketones NEGATIVE NEGATIVE Urine Nitrite NEGATIVE NEGATIVE Urine Bilirubin NEGATIVE NEGATIVE Urine Urobilinogen 1 NORMAL MG/DL Urine Leukocyte Esterase 3+ H NEGATIVE Urine RBC (Auto) 4+ H NEGATIVE Urine RBC 25-50 H /HPF Urine WBC TNTC H /HPF Urine Squamous Epithelial Cells 10-25 H /HPF Urine Crystals NONE /LPF Urine Bacteria LARGE H /HPF Urine Casts NONE /LPF Urine Mucus NEGATIVE /LPF Urine Culture Indicated YES My Orders Orders - SHEA YUSUF [employer] Cbc With Automated Diff (03/06/19 17:53) Comprehensive Metabolic Panel (03/06/19 17:53) Ua Culture If Indicated (03/06/19 17:53) Ed Iv/Invasive Line Start (03/06/19 17:53) Ketorolac Injection (Toradol Injection) (03/06/19 18:00) Ondansetron Injection (Zofran Injectio (03/06/19 18:15) Ct Abd/Pelvis Wo(Kidney Stone) (03/06/19 18:21) Urine Culture (03/06/19 18:07) Levofloxacin 750 Mg/150 Ml Iv (Levaquin (03/06/19 18:45) Amoxicillin/Clavulanate Tablet (Augmenti (03/06/19 19:45) Rx-Hydrocodone/Apap 5-325 Mg (Rx-Vicodin (03/06/19 19:45) Metronidazole Tablet (Flagyl Tablet) (03/06/19 19:45) Medications Given in ED Current Medications Medications Dose Ordered Sig/Floyd Route Start Time Stop Time Status Last Admin Dose Admin Ketorolac Tromethamine 15 mg ONCE ONCE IVP 03/06/19 18:00 03/06/19 18:01 DC 03/06/19 18:04 15 MG Levofloxacin/ Dextrose 150 ml @ 100 mls/hr ONCE ONCE IV 03/06/19 18:45 03/06/19 20:14 03/06/19 18:45 100 MLS/HR Ondansetron HCl 8 mg ONCE ONCE IVP 03/06/19 18:15 03/06/19 18:16 DC 03/06/19 18:17 8 MG Vital Signs/I&O 03/06/19 17:37 Pulse 66 Resp 20 B/P (MAP) 119/70 (86) Pulse Ox 99 O2 Delivery Room Air Capillary Refill : Less Than 3 Seconds Blood Pressure Mean: 86 Departure Communication (Admissions) Family Conversation NAME: JASMIN TRAVIS [facility] REC#: [id number] PT STATUS: REG ER : 1955 PHYSICIAN: SHEA YUSUF APRN ADMIT DATE: 03/06/19/ER Draft Date of Exam:03/06/19 CT ABD/PELVIS WO(KIDNEY STONE) PROCEDURE: CT urinary tract, rule out kidney stone. TECHNIQUE: Multiple contiguous axial images were obtained through the abdomen and pelvis without the use of intravenous contrast. Auto Exposure Controls were utilized during the CT exam to meet ALARA standards for radiation dose reduction. INDICATION: Right flank pain. History of diverticulitis and fistulas. COMPARISON: 01/21/2018. FINDINGS: The lung bases are clear. The heart is normal in size. There is no pericardial effusion. The liver demonstrates no focal lesions. The spleen appears normal. The pancreas appears normal. The adrenal glands are unremarkable. There is marked right hydronephrosis and hydroureter with periureteral fat stranding. This has increased compared to 01/21/2018. The transition point of the ureter is in the region of the prior postsurgical changes (image 74, series 4). No calculus is seen. The left kidney is unremarkable. There is moderate stool in the colon. There is a left colostomy with a large parastomal hernia containing multiple loops of bowel. No bowel strangulation or obstruction is seen. This has increased in size since the prior exam. No free air or free fluid is seen. There are degenerative changes in the spine. IMPRESSION: 1. Marked right hydroureteronephrosis, increased since the prior study, with transition point in the area of the scar tissue from prior surgery. No calculus is seen. 2. Large left parastomal hernia containing multiple loops of bowel without evidence of obstruction or strangulation. This has increased in size since the prior exam. Dictated on workstation # [id number] Dict: 03/06/19 1846 Trans: 03/06/19 1859 [id number] Interpreted by: GENO GROSS MD Electronically signed by: 1940-Patient follows with Dr. Daniels at [place] [facility]. Spoke with Dr. Chatman here who recommends that she could be seen somewhere that could do a nephrostomy tube as a ureteral stent placement would be difficult unless a nephrostomy tube was placed and then anterograde placement of ureteral stent. I then spoke with Dr. Irby from urology at [place] since the patient is scheduled to establish care with information systems analyst Dr. Daigle. Dr. Irby recommends antibiotics, call her primary urologist tomorrow morning since she is without any sepsis criteria for follow-up. In addition to the Levaquin I will also give metronidazole as she states that she has a history of C. difficile last year. At this time she is pain free and nausea free. Impression Primary Impression: UTI (urinary tract infection) Qualified Codes: N30.01 - Acute cystitis with hematuria Additional Impression: Ureteral obstruction Qualified Codes: N13.5 - Crossing vessel and stricture of ureter without hydronephrosis Disposition: HOME, SELF-CARE Condition: Stable Departure-Patient Inst. Decision time for Depature: 19:30 Referrals: BROWN ORDONEZ DO (PCP/Family) Primary Care Physician Patient Instructions: Urinary Tract Infection, Adult (DC) Add. Discharge Instructions: 1. Return promptly to the emergency room for any fevers, worsening pain or other concerns. Take the antibiotics as directed. Call your urologist tomorrow and notify them of the worsening obstruction on the right with the infection, they may wish to place a ureteral stent. All discharge instructions reviewed with patient and/or family. Voiced understanding. Scripts Metronidazole (Metronidazole) 500 Mg Tablet 500 MG PO BID, #14 TAB 0 Refills Prov: SHEA YUSUF APRN 03/06/19 Levofloxacin (Levaquin) 750 Mg Tablet 750 MG PO every other day, #4 TAB Prov: SHEA YUSUF APRN 03/06/19 Amoxicillin (Amoxicillin) 500 Mg Capsule 500 MG PO BID, #14 CAP 0 Refills Prov: SHEA YUSUF APRN 03/06/19 Copy Copies To 1: BROWN ORDONEZ PETER J APRN Mar 06, 2019 18:07
[2019-03-06] MEDS ORDERED: ONDANSETRON 4 MG/2 ML (SDV) Z0FRAN IVP ONE (18:15)
[2019-03-06 18:17] LABS: BILIRUBIN,TOTAL 0.5 MG/DL (0.1-1.0); CALCIUM 9.6 MG/DL (8.5-10.1); CREATININE SERUM 1.72 MG/DL (0.60-1.30); POTASSIUM 4.7 MMOL/L (3.6-5.0); TOTAL PROTEIN 6.9 GM/DL (6.4-8.2)
[2019-03-06 18:20] LABS: BILIRUBIN,URINE NEGATIVE (NEGATIVE); COLOR,URINE YELLOW; GLUCOSE, URINE (UA) NEGATIVE (NEGATIVE); KETONES,URINE NEGATIVE (NEGATIVE); LEUKOCYTE ESTERASE ,URINE 3+ (NEGATIVE); NITRITE,URINE NEGATIVE (NEGATIVE); PH,URINE 6.5 (5-9); PROTEIN,URINE 3+ (NEGATIVE); UROBILINOGEN,URINE 1 MG/DL (NORMAL)
[2019-03-06 18:34] LABS: RBC,URINE 25-50 /HPF
[2019-03-06 18:35] LABS: BACTERIA,URINE LARGE /HPF; CLARITY,URINE TURBID; WBC,URINE TNTC /HPF
[2019-03-06] MEDS ORDERED: LEVOFLOXACIN 750 MG/150 ML IV 150 ML IV ONE (18:45)
--- NOTE | 2019-03-06 19:00 | Diagnostic Imaging Report ---
PROCEDURE: CT urinary tract, rule out kidney stone. TECHNIQUE: Multiple contiguous axial images were obtained through the abdomen and pelvis without the use of intravenous contrast. Auto Exposure Controls were utilized during the CT exam to meet ALARA standards for radiation dose reduction. INDICATION: Right flank pain. History of diverticulitis and fistulas. COMPARISON: 01/21/2018. FINDINGS: The lung bases are clear. The heart is normal in size. There is no pericardial effusion. The liver demonstrates no focal lesions. The spleen appears normal. The pancreas appears normal. The adrenal glands are unremarkable. There is marked right hydronephrosis and hydroureter with periureteral fat stranding. This has increased compared to 01/21/2018. The transition point of the ureter is in the region of the prior postsurgical changes (image 74, series 4). No calculus is seen. The left kidney is unremarkable. There is moderate stool in the colon. There is a left colostomy with a large parastomal hernia containing multiple loops of bowel. No bowel strangulation or obstruction is seen. This has increased in size since the prior exam. No free air or free fluid is seen. There are degenerative changes in the spine. IMPRESSION: 1. Marked right hydroureteronephrosis, increased since the prior study, with transition point in the area of the scar tissue from prior surgery. No calculus is seen. 2. Large left parastomal hernia containing multiple loops of bowel without evidence of obstruction or strangulation. This has increased in size since the prior exam. Dictated by: Dictated on workstation # [id number]
--- NOTE | 2019-03-06 19:07 | NUR ---
Report given to MARNIE Perry
[2019-03-06] MEDS ORDERED: LEVO750T9 PO (19:34)
[2019-03-06] MEDS ORDERED: AMOX500C2 PO (19:34)
[2019-03-06] MEDS ORDERED: METR-145 PO (19:40)
[2019-03-06] MEDS ORDERED: AUGMENTIN 500 MG TAB (AMOXICILLIN/CLAVULANATE) PO SCH (19:45)
[2019-03-06] MEDS ORDERED: metroNIDAZOLE 500 MG (FLAGYL) TAB PO ONE (19:45)
[2019-03-06] MEDS ORDERED: RX-HYDROCODONE/APAP 5/325 MG #4 TAB PK PO PRN (19:45)
[2019-03-06 20:26] VITALS: BP 118/75
== END 2019-03-06 20:28 | disposition home or self-care (01) ==
LOC: EDUNIT# 17:34 → ER 17:35
DX: N13.1 Hydronephrosis with ureteral stricture, not elsewhere classified (principal); N39.0 Urinary tract infection, site not specified; J44.9 Chronic obstructive pulmonary disease, unspecified; G47.30 Sleep apnea, unspecified; I10 Essential (primary) hypertension; E78.00 Pure hypercholesterolemia, unspecified; K21.9 Gastro-esophageal reflux disease without esophagitis; E03.9 Hypothyroidism, unspecified; E11.9 Type 2 diabetes mellitus without complications; Z93.3 Colostomy status; Z87.19 Personal history of other diseases of the digestive system; Z87.440 Personal history of urinary (tract) infections; Z90.89 Acquired absence of other organs; Z88.1 Allergy status to other antibiotic agents; Z88.5 Allergy status to narcotic agent
CPT/HCPCS: 36415; 74176; 80053; 81000; 85025; 87077; 87088; 87186; 96365; 96375

== ENCOUNTER → 2019-03-19 | Outpatient (CLI) | payer MEDICARE ==
[~2019-03-19] MED LIST changes: +AMOX500C2 PO; +LEVO750T9 PO; +RT-ALBUTEROL SULF 2.5 MG/3 ML PRE-MIX VIAL INH ONE
== END ==
LOC: RT 14:04
PROVIDERS: ATTEND Nurse Practitioner Family
DX: J45.909 Unspecified asthma, uncomplicated (principal); G47.30 Sleep apnea, unspecified; Z78.9 Other specified health status
CPT/HCPCS: 94060; 94726; 94729

== ENCOUNTER → 2019-05-08 | Outpatient (CLI) | payer MEDICARE ==
[~2019-05-08] MED LIST changes: -PIOG1TAB18 PO; +PIOG1TAB30 PO; -RT-ALBUTEROL SULF 2.5 MG/3 ML PRE-MIX VIAL INH ONE
[2019-05-08 12:10] LABS: BASOPHILS % (AUTO) 1 % (0-10); EOSINOPHILS # (AUTO) 0.2 10^3/uL (0.0-0.3); EOSINOPHILS % (AUTO) 4 % (0-10); HEMATOCRIT 36 % (35-52); HEMOGLOBIN 11.1 G/DL (11.5-16.0); LYMPHOCYTES # (AUTO) 1.2 X 10^3 (1.0-4.0); LYMPHOCYTES % (AUTO) 19 % (12-44); MEAN CORPUSCULAR HEMOGLOBIN 27 PG (25-34); MEAN CORPUSCULAR HGB CONC 31 G/DL (32-36); MEAN CORPUSCULAR VOLUME 88 FL (80-99); MEAN PLATELET VOLUME 9.6 FL (7.4-10.4); MONOCYTES # (AUTO) 0.5 X 10^3 (0.0-1.0); MONOCYTES % (AUTO) 8 % (0-12); NEUTROPHILS # (AUTO) 4.2 X 10^3 (1.8-7.8); NEUTROPHILS % (AUTO) 69 % (42-75); PLATELET COUNT 259 10^3/uL (130-400); RED CELL DISTRIBUTION WIDTH 16.3 % (10.0-14.5)
[2019-05-08 12:36] LABS: ERYTHROCYTE SEDIMENTATION RATE 28 MM/HR (0-30)
[2019-05-08 12:46] LABS: ALBUMIN 4.2 GM/DL (3.2-4.5); CALCIUM 9.8 MG/DL (8.5-10.1); CREATININE SERUM 1.56 MG/DL (0.60-1.30); MAGNESIUM 1.6 MG/DL (1.6-2.4); PHOSPHORUS 3.5 MG/DL (2.3-4.7); POTASSIUM 4.8 MMOL/L (3.6-5.0); URIC ACID 5.9 MG/DL (2.6-7.2)
[2019-05-08 13:27] LABS: BILIRUBIN,URINE NEGATIVE (NEGATIVE); CLARITY,URINE SL CLOUDY; COLOR,URINE YELLOW; GLUCOSE, URINE (UA) NEGATIVE (NEGATIVE); KETONES,URINE NEGATIVE (NEGATIVE); LEUKOCYTE ESTERASE ,URINE 3+ (NEGATIVE); NITRITE,URINE NEGATIVE (NEGATIVE); PH,URINE 7 (5-9); PROTEIN,URINE 2+ (NEGATIVE); UROBILINOGEN,URINE 1 MG/DL (NORMAL)
[2019-05-08 13:30] LABS: BACTERIA,URINE FEW /HPF
[2019-05-09 08:08] LABS: HEPATITIS C ANTIBODY C Non-Reactive (Non-Reactive)
== END ==
LOC: LAB 11:34
PROVIDERS: ATTEND Internal Medicine Nephrology
DX: I12.9 Hypertensive chronic kidney disease with stage 1 through stage 4 chronic kidney disease, or unspecified chronic kidney disease (principal); N18.4 Chronic kidney disease, stage 4 (severe); E87.5 Hyperkalemia; D63.1 Anemia in chronic kidney disease
CPT/HCPCS: 36415; 80069; 80074; 81000; 82306; 82570; 83520; 83735; 83970; 84156; 84550; 85025; 85652; 86021; 86038; 86141; 86160; 86225; 86235; 86256; 86335; 87088; 87522

== ENCOUNTER → 2019-05-09 | Outpatient (CLI) | payer MEDICARE ==
[~2019-05-09] MED LIST changes: +CATHETER FLUSH 10 ML SYR IV PRN; +FUROSEMIDE 40 MG/4 ML INJ (LASIX) IVP ONE
--- NOTE | 2019-05-09 12:56 | Diagnostic Imaging Report ---
Renal scan with Lasix. Indication: Hydronephrosis This study was performed following administration of 5.2 mCi of 99M technetium MAG3. 40 mg of Lasix was also administered at the midpoint of the exam (15 minutes). The previous renal nuclear medicine study of 11/19/2018 noted uptake and excretion of the radiotracer by both kidneys. On the previous exam, the renogram curve for the left kidney showed poor excretion until there was administration of Lasix. Then there was fairly good clearing of the urine from the left collecting system. On this exam, there is again clearing of the radiotracer from the left collecting system following administration of Lasix. However the renogram curve of the left kidney is not as steep as on the prior exam and this does indicate that there is less clearing of the radiotracer than noted previously. The excretion curve for the right kidney is virtually no different than on the prior exam. The T1 half time for the left kidney is 11.0, the post is 6.0 on the prior exam. The T1 half for the right kidney is 28.0 as opposed to 27.0 previously. Impression: There is uptake and excretion of the radiotracer by both kidneys. There is no evidence for obstruction of the collecting systems. However the renogram curves of both kidneys do seem flattened indicating that there is slow clearing of the radiotracer from the kidneys consistent with diminished renal function. The function of the left kidney has worsened somewhat since the prior exam while the function of the right kidney is essentially no different. Dictated by: Dictated on workstation # [id number]
== END ==
LOC: CARD 08:37
PROVIDERS: ATTEND Urology
DX: N13.39 Other hydronephrosis (principal)
CPT/HCPCS: 78708

== ENCOUNTER → 2019-05-13 | Outpatient (CLI) | payer MEDICARE ==
[~2019-05-13] MED LIST changes: -CATHETER FLUSH 10 ML SYR IV PRN; -FUROSEMIDE 40 MG/4 ML INJ (LASIX) IVP ONE
== END ==
LOC: LAB 15:34
PROVIDERS: ATTEND Internal Medicine Nephrology
DX: I12.9 Hypertensive chronic kidney disease with stage 1 through stage 4 chronic kidney disease, or unspecified chronic kidney disease (principal); N18.4 Chronic kidney disease, stage 4 (severe); E87.5 Hyperkalemia; D63.1 Anemia in chronic kidney disease
CPT/HCPCS: 36415; 82595

== ENCOUNTER 2019-06-22 18:21 | Emergency (ER) | payer MEDICARE ==
[~2019-06-22] VITALS: Ht 160 cm; Wt 134.0 kg
[2019-06-22] MEDS ORDERED: fentaNYL INJECTION 100 MCG/2 ML AMP IVP STA (18:47)
[2019-06-22] MEDS ORDERED: NS IV 1000 ML 1,000 ML IV ONE (18:47)
[2019-06-22 19:00] LABS: BASOPHILS % (AUTO) 0 % (0-10); EOSINOPHILS # (AUTO) 0.2 10^3/uL (0.0-0.3); EOSINOPHILS % (AUTO) 2 % (0-10); HEMATOCRIT 36 % (35-52); HEMOGLOBIN 11.4 G/DL (11.5-16.0); LYMPHOCYTES # (AUTO) 1.1 X 10^3 (1.0-4.0); LYMPHOCYTES % (AUTO) 11 % (12-44); MEAN CORPUSCULAR HGB CONC 32 G/DL (32-36); MEAN CORPUSCULAR VOLUME 86 FL (80-99); MEAN PLATELET VOLUME 9.6 FL (7.4-10.4); MONOCYTES # (AUTO) 0.6 X 10^3 (0.0-1.0); MONOCYTES % (AUTO) 5 % (0-12); NEUTROPHILS # (AUTO) 8.6 X 10^3 (1.8-7.8); NEUTROPHILS % (AUTO) 82 % (42-75); PLATELET COUNT 271 10^3/uL (130-400); RED CELL DISTRIBUTION WIDTH 16.3 % (10.0-14.5); WHITE BLOOD COUNT 10.6 10^3/uL (4.3-11.0)
[2019-06-22] MEDS ORDERED: ONDANSETRON 4 MG/2 ML (SDV) Z0FRAN IVP ONE (19:00)
[2019-06-22 19:01] LABS: MEAN CORPUSCULAR HEMOGLOBIN 27 PG (25-34)
--- NOTE | 2019-06-22 19:03 | ED Abdominal Pain ---
General Chief Complaint: Back Problems Stated Complaint: R SIDE KIDNEY PAIN Nursing Triage Note: PT TO ROOM 05 VIA W/C WITH C/O RIGHT SIDE FLANK PAIN. PT STATES SHE HAS A PARTIALLY BLOCKED URETER AND IS BEING SEEN BY A UROLOGIST IN AND DR QUENTIN SMITH. PT STATES THAT PAIN STARTED APPROX 1500 TODAY. Sepsis Screen: No Definite Risk Source of Information: Patient History of Present Illness Date Seen by Provider: Jun 22, 2019 Time Seen by Provider: 18:43 Initial Comments PT ARRIVES VIA POV FROM HOME C/O RIGHT LOWER ABDOMINAL PAIN SINCE 1500 TODAY + NAUSEA, NO VOMITING PT HAS COLOSTOMY, BUT NO CHANGE IN STOOL. COLOSTOMY FOR DIVERTICULITIS WITH FISTULA TO BLADDER. HAD RECURRENT UTI'S DUE TO THAT. 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 STATES SHE SAW OCCUPATIONAL HEALTH AND SAFETY ADVISER, DR. VALDEZ WITH [facility], IN [place] FOR THE FIRST TIME. NOT ON DIALYSIS. HER UROLOGIST IS DR. SOLANO IN . NO HISTORY OF KIDNEY STONES. HAS NOT TAKEN ANYTHING FOR PAIN NO PAIN OR OTHER URINARY SYMPTOMS PCP: DR. ORDONEZ OCCUPATIONAL HEALTH AND SAFETY ADVISER: [facility] UROLOGIST: DR. SOLANO, Allergies and Home Medications Allergies Coded Allergies: Cephalosporins (Verified Allergy, Unknown, 06/26/18) Sulfa (Sulfonamide Antibiotics) (Unverified Allergy, Unknown, RASH, 06/22/19) azithromycin (Verified Allergy, Unknown, 06/26/18) codeine (Verified Allergy, Unknown, 06/26/18) Home Medications Albuterol Sulfate 8.5 Gm Hfa.aer.ad, 2 PUFF INH Q4H PRN for SHORTNESS OF BREATH, (Reported) Albuterol Sulfate 2.5 Mg/3 Ml Vial.neb, 2.5 MG NEB QID PRN for SHORTNESS OF BREATH, (Reported) Amoxicillin 500 Mg Capsule, 500 MG PO BID Prescribed by: SHEA YUSUF on 03/06/191933 Carvedilol 25 Mg Tablet, 25 MG PO BID, (Reported) Fenofibrate Nanocrystallized 145 Mg Tablet, 145 MG PO HS, (Reported) Fluticasone/Vilanterol 1 Each Blst.w.dev, 1 EACH IH DAILY, (Reported) Levofloxacin 750 Mg Tablet, 750 MG PO every other day Prescribed by: SHEA YUSUF on 03/06/191933 Levothyroxine Sodium 150 Mcg Tablet, 150 MCG PO DAILY, (Reported) Loperamide HCl 2 Mg Tablet, 6 MG PO BID, (Reported) take 3 (2mg) tabs Loratadine 10 Mg Tablet, 10 MG PO DAILY, (Reported) Metronidazole 500 Mg Tablet, 500 MG PO BID Prescribed by: SHEA YUSUF on 03/06/191939 Mometasone Furoate 17 Gm Naspr, 1 GM NS DAILY, (Reported) Montelukast Sodium 10 Mg Tablet, 10 MG PO HS, (Reported) Multivitamins with Iron 1 Each Tab.chew, 1 EACH PO BID, (Reported) Olmesartan Medoxomil 40 Mg Tablet, 40 MG PO DAILY, (Reported) Pantoprazole Sodium 40 Mg Tablet.dr, 40 MG PO BID, (Reported) Tiotropium [place] 1 Inh Aerp, 1 CAP INH DAILY, (Reported) Review of Systems Review of Systems Constitutional: no symptoms reported; No fever Respiratory: No Symptoms Reported Cardiovascular: No Symptoms Reported Gastrointestinal: See HPI, Abdominal Pain, Nausea; Denies Vomiting Genitourinary: See HPI Musculoskeletal: No back pain Skin: no symptoms reported Psychiatric/Neurological: No Symptoms Reported Endocrine: No Symptoms Reported Past Jelryqb-Fpubnq-Zboljo Hx Past Med/Social Hx: Reviewed and Corrections made Patient Social History Alcohol Use: Denies Use Recreational Drug Use: No Smoking Status: Never a Smoker 2nd Hand Smoke Exposure: No Recent Foreign Travel: No Contact w/Someone Who Travel: No Recent Infectious Disease Expo: No Recent Hopitalizations: No Physical Abuse: No Sexual Abuse: No Mistreated: No Fear: No Immunizations Up To Date Date of Pneumonia Vaccine: Jun 10, 2015 Date of Influenza Vaccine: Jun 19, 2018 Seasonal Allergies Seasonal Allergies: Yes Past Medical History Surgeries: Yes ( BACK-DISK REPAIR, X2, GANGLION CYST REMOVED, TURBT, COLON RESECTION/FISTULA REPAIR TO BLADDER WITH COLOSTOMY FOR DIVERTICULITIS WITH FISTULA TO BLADDER) Abdominal, Bowel Surgery, Orthopedic, Tonsillectomy Respiratory: Yes Asthma, Sleep Apnea, COPD Currently Using CPAP: Yes Cardiac: Yes (abnormal stress test 06/09/16) Chronic Edema/Swelling, High Cholesterol, Hypertension Neurological: No Reproductive Disorders: No Genitourinary: Yes UTI-Chronic Gastrointestinal: Yes (COLON RESCECTION/FISTULA REPAIR AND COLOSTOMY FOR DIVERTICULITIS WITH FISTULA TO BLADDER. ) Gastroesophageal Reflux, Diverticulosis Musculoskeletal: Yes (CHRONIC BACK PAIN) Degenerate Disk Disease, Arthritis, Chronic Back Pain Endocrine: Yes (OBESITY) Hypothyroidsim, Diabetes, Non-Insulin dep Loss of Vision: Denies Hearing Impairment: Denies Cancer: No Psychosocial: No Integumentary: No Blood Disorders: Yes (ANEMIA) Physical Exam Vital Signs Vital Signs - First Documented 06/22/19 18:38 Temp 36.9 Pulse 66 Resp 19 B/P (MAP) 174/92 (119) Pulse Ox 97 O2 Delivery Room Air Capillary Refill : Less Than 3 Seconds Height/Weight/BMI Height: 5'5.00" Weight: 293lbs. 8.0oz. 136.498105pi; 52.00 BMI Method:Stated Progress/Results/Core Measures Results/Orders Lab Results Laboratory Tests Test 06/22/19 18:54 06/22/19 19:02 Range/Units White Blood Count 10.6 4.3-11.0 10^3/uL Red Blood Count 4.15 L 4.35-5.85 10^6/uL Hemoglobin 11.4 L 11.5-16.0 G/DL Hematocrit 36 35-52 % Mean Corpuscular Volume 86 80-99 FL Mean Corpuscular Hemoglobin 27 25-34 PG Mean Corpuscular Hemoglobin Concent 32 32-36 G/DL Red Cell Distribution Width 16.3 H 10.0-14.5 % Platelet Count 271 130-400 10^3/uL Mean Platelet Volume 9.6 7.4-10.4 FL Neutrophils (%) (Auto) 82 H 42-75 % Lymphocytes (%) (Auto) 11 L 12-44 % Monocytes (%) (Auto) 5 0-12 % Eosinophils (%) (Auto) 2 0-10 % Basophils (%) (Auto) 0 0-10 % Neutrophils # (Auto) 8.6 H 1.8-7.8 X 10^3 Lymphocytes # (Auto) 1.1 1.0-4.0 X 10^3 Monocytes # (Auto) 0.6 0.0-1.0 X 10^3 Eosinophils # (Auto) 0.2 0.0-0.3 10^3/uL Basophils # (Auto) 0.0 0.0-0.1 10^3/uL Sodium Level 139 135-145 MMOL/L Potassium Level 4.5 3.6-5.0 MMOL/L Chloride Level 104 98-107 MMOL/L Carbon Dioxide Level 24 21-32 MMOL/L Anion Gap 11 5-14 MMOL/L Blood Urea Nitrogen 30 H 7-18 MG/DL Creatinine 1.64 H 0.60-1.30 MG/DL Estimat Glomerular Filtration Rate 31 BUN/Creatinine Ratio 18 Glucose Level 133 H 70-105 MG/DL Calcium Level 9.8 8.5-10.1 MG/DL Corrected Calcium 9.6 8.5-10.1 MG/DL Magnesium Level 1.9 1.6-2.4 MG/DL Total Bilirubin 0.5 0.1-1.0 MG/DL Aspartate Amino Transf (AST/SGOT) 20 5-34 U/L Alanine Aminotransferase (ALT/SGPT) 15 0-55 U/L Alkaline Phosphatase 102 40-136 U/L Total Protein 7.2 6.4-8.2 GM/DL Albumin 4.3 3.2-4.5 GM/DL Amylase Level 52 25-125 U/L Lipase 14 8-78 U/L Urine Color YELLOW Urine Clarity SLIGHTLY CLOUDY Urine pH 6.5 5-9 Urine Specific [place] 1.010 L 1.016-1.022 Urine Protein 3+ H NEGATIVE Urine Glucose (UA) NEGATIVE NEGATIVE Urine Ketones NEGATIVE NEGATIVE Urine Nitrite NEGATIVE NEGATIVE Urine Bilirubin NEGATIVE NEGATIVE Urine Urobilinogen 1 NORMAL MG/DL Urine Leukocyte Esterase 3+ H NEGATIVE Urine RBC (Auto) 4+ H NEGATIVE Urine RBC 50-100 H /HPF Urine WBC TNTC H /HPF Urine Squamous Epithelial Cells NONE /HPF Urine Crystals NONE /LPF Urine Bacteria MODERATE H /HPF Urine Casts NONE /LPF Urine Mucus NEGATIVE /LPF Urine Culture Indicated YES My Orders Orders - IMANI CARBALLO DO Ed Iv/Invasive Line Start (06/22/19 18:42) Amylase (06/22/19 18:42) Cbc With Automated Diff (06/22/19 18:42) Comprehensive Metabolic Panel (06/22/19 18:42) Lipase (06/22/19 18:42) Magnesium (06/22/19 18:42) Ua Culture If Indicated (06/22/19 18:42) Ed Iv/Invasive Line Start (06/22/19 18:42) Ed Iv/Invasive Line Start (06/22/19 18:47) Ns Iv 1000 Ml (Sodium Chloride 0.9%) (06/22/19 18:47) Ondansetron Injection (Zofran Injectio (06/22/19 19:00) Fentanyl Injection (Sublimaze Injection (06/22/19 18:47) Ct Abd/Pelvis Wo(Kidney Stone) (06/22/19 18:51) Acute Abd Series (06/22/19 18:51) Urine Culture (06/22/19 19:02) Piperacillin Sodium/Tazobactam (Zosyn Vi (06/22/19 19:30) Medications Given in ED Current Medications Medications Dose Ordered Sig/Floyd Route Start Time Stop Time Status Last Admin Dose Admin Ondansetron HCl 4 mg ONCE ONCE IVP 06/22/19 19:00 06/22/19 19:01 DC 06/22/19 19:00 4 MG Sodium Chloride 1,000 ml @ 0 mls/hr Q0M ONCE IV 06/22/19 18:47 06/22/19 18:49 DC 06/22/19 19:01 999 MLS/HR Vital Signs/I&O 06/22/19 18:38 Temp 36.9 Pulse 66 Resp 19 B/P (MAP) 174/92 (119) Pulse Ox 97 O2 Delivery Room Air Blood Pressure Mean: 119 Departure Impression Primary Impression: UTI (urinary tract infection) Additional Impressions: Chronic renal failure Parastomal hernia Disposition: 01 HOME, SELF-CARE Condition: Improved Departure-Patient Inst. Referrals: BROWN ORDONEZ DO (PCP/Family) Primary Care Physician Patient Instructions: Urinary Tract Infection, Adult (DC), Kidney Failure (DC) Add. Discharge Instructions: CONTINUE YOUR MEDICATIONS PRESCRIBED FOLLOW UP WITH [facility] THIS WEEK SCHEDULED FOLLOW UP WITH UROLOGY OR DR. ORDONEZ FOR RECHECK OF URINE THIS WEEK All discharge instructions reviewed with patient and/or family. Voiced understanding. Scripts Hydrocodone Bit/Acetaminophen (Hydrocodone/Acetaminophen 5/325mg Tablet) 1 Tab Tab 1 EACH PO Q4H PRN for PAIN-MODERATE MDD 10 for 3 Days, #10 TAB Prov: IMANI CARBALLO DO 06/22/19 Nitrofurantoin Monohyd/M-Cryst (Macrobid 100 mg Capsule) 100 Mg Capsule 100 MG PO BID, #30 CAP Prov: IMANI CARBALLO DO 06/22/19 IMANI CARBALLO DO Jun 22, 2019 19:03
[2019-06-22 19:06] LABS: BILIRUBIN,URINE NEGATIVE (NEGATIVE); CLARITY,URINE SLIGHTLY CLOUDY; COLOR,URINE YELLOW; GLUCOSE, URINE (UA) NEGATIVE (NEGATIVE); KETONES,URINE NEGATIVE (NEGATIVE); LEUKOCYTE ESTERASE ,URINE 3+ (NEGATIVE); NITRITE,URINE NEGATIVE (NEGATIVE); PH,URINE 6.5 (5-9); PROTEIN,URINE 3+ (NEGATIVE); UROBILINOGEN,URINE 1 MG/DL (NORMAL)
[2019-06-22 19:22] LABS: BACTERIA,URINE MODERATE /HPF; RBC,URINE 50-100 /HPF; WBC,URINE TNTC /HPF
[2019-06-22] MEDS ORDERED: PIPERACILLIN SODIUM/TAZOBACTAM 4.5 GM in NS (IVPB) 100 ML IV ONE (19:30)
[2019-06-22 19:39] LABS: ALBUMIN 4.3 GM/DL (3.2-4.5); BILIRUBIN,TOTAL 0.5 MG/DL (0.1-1.0); CALCIUM 9.8 MG/DL (8.5-10.1); CREATININE SERUM 1.64 MG/DL (0.60-1.30); MAGNESIUM 1.9 MG/DL (1.6-2.4); POTASSIUM 4.5 MMOL/L (3.6-5.0); TOTAL PROTEIN 7.2 GM/DL (6.4-8.2)
--- NOTE | 2019-06-22 19:44 | Diagnostic Imaging Report ---
Acute abdominal series of 7:20. Indication: Abdominal pain. The accompanying erect PA chest shows the heart to be enlarged but stable when compared to 02/22/2018. The lungs are clear. There is no evidence for pneumonia or for pleural effusion. The small area of increased density in the left upper lobe seen previously is again evident and no different. Supine and erect views of the abdomen show gas in both large and small bowel in a nonspecific fashion. This is similar to the assembler mechanical ordnance film from the CT abdomen/pelvis exam performed on 03/06/2019. There is no evidence for a bowel obstruction. There is no mass or organomegaly appreciated. The degenerative disc and bone disease involving the lumbar spine seen previously is again evident and no different. Impression: 1. There is cardiomegaly but there is no evidence for an acute cardiopulmonary abnormality. 2. The bowel gas pattern is nonspecific. There is no acute abnormality identified. Dictated by: Dictated on workstation # [id number]
--- NOTE | 2019-06-22 19:51 | Diagnostic Imaging Report ---
PROCEDURE: CT urinary tract, rule out kidney stone. TECHNIQUE: Multiple contiguous axial images were obtained through the abdomen and pelvis without the use of intravenous contrast. Auto Exposure Controls were utilized during the CT exam to meet ALARA standards for radiation dose reduction. INDICATION: Right flank pain The previous CT abdomen/pelvis exam of 03/06/2019 noted obstruction of the right collecting system due to scar formation. There is no sign of an obstructive calculus. On this exam, the right renal pelvis and right ureter remain abnormally dilated to the level of the scar formation low in the pelvis. There is still no sign of obstructive calculus. There is no evidence for nephrolithiasis or urolithiasis of the left collecting system. The urinary bladder is only partially distended and consequently difficult to assess. The uterus is unremarkable. There is no pelvic mass or free fluid collection evident. As on the prior exam, there is a large defect in the anterior abdominal wall on the left and there are numerous segments of bowel extending through the defect. There is no obstruction of the bowel, however. The liver, spleen, pancreas, adrenals, gallbladder, aorta and inferior vena cava are unremarkable for an acute abnormality. The stomach is filled with particulate matter and consequently difficult to assess. The lung bases are clear. The bone windows show no evidence for a fracture or for a destructive lesion. Fairly severe degenerative disc and bone disease is again seen at L2-L3, L3-L4, L4-L5 and L5-S1. IMPRESSION: 1. There is persistent distention of the right collecting system. This appears to be related to obstruction of the distal ureter due to scar formation in the right lower quadrant. If further evaluation is desired, then a followup CT exam with intravenous contrast would be recommended. 2. The parastomal hernia on the left seen previously is again evident and no different. 3. There is no acute abnormality of the abdomen or pelvis noted otherwise. 4. These results were discussed with Dr. IMANI CARBALLO. Dictated by: Dictated on workstation # [id number]
[2019-06-22] MEDS ORDERED: ACHD5005 PO (20:06)
[2019-06-22] MEDS ORDERED: NITR-65 PO (20:06)
[2019-06-22 20:48] VITALS: BP 161/77
== END 2019-06-22 20:47 | disposition home or self-care (01) ==
LOC: EDUNIT# 18:21 → ER 18:22
DX: N39.0 Urinary tract infection, site not specified (principal); E11.22 Type 2 diabetes mellitus with diabetic chronic kidney disease; I12.9 Hypertensive chronic kidney disease with stage 1 through stage 4 chronic kidney disease, or unspecified chronic kidney disease; N18.9 Chronic kidney disease, unspecified; K43.5 Parastomal hernia without obstruction or gangrene; J44.9 Chronic obstructive pulmonary disease, unspecified; E78.00 Pure hypercholesterolemia, unspecified; K21.9 Gastro-esophageal reflux disease without esophagitis; E03.9 Hypothyroidism, unspecified; E66.9 Obesity, unspecified; D64.9 Anemia, unspecified; Z88.1 Allergy status to other antibiotic agents; Z88.2 Allergy status to sulfonamides; Z68.43 Body mass index [BMI] 50.0-59.9, adult; Z88.5 Allergy status to narcotic agent; Z79.51 Long term (current) use of inhaled steroids; Z90.49 Acquired absence of other specified parts of digestive tract; Z90.89 Acquired absence of other organs
CPT/HCPCS: 36415; 74022; 74176; 80053; 81000; 82150; 83690; 83735; 85025; 87077; 87088; 87186

== ENCOUNTER 2019-07-29 14:30 | Outpatient (RCR) | payer MEDICARE ==
[2019-05-13 14:20] VITALS: BP 130/60
[2019-05-13 15:23] VITALS: BP 130/74
[2019-05-15 14:30] VITALS: BP 120/63
[2019-05-15 15:37] VITALS: BP 130/60
[2019-05-20 14:28] VITALS: BP 140/70
[2019-05-20 15:25] VITALS: BP 148/60
[2019-05-22 14:23] VITALS: BP 118/60
[2019-05-22 15:40] VITALS: BP 138/50
[2019-05-29 14:30] VITALS: BP 127/78
[2019-05-29 15:45] VITALS: BP 169/60
[2019-06-03 14:30] VITALS: BP 131/74
[2019-06-03 15:35] VITALS: BP 122/60
[2019-06-05 14:10] VITALS: BP 160/80
[2019-06-05 15:33] VITALS: BP 140/60
[2019-06-10 14:30] VITALS: BP 136/82
[2019-06-10 15:46] VITALS: BP 116/62
[2019-06-12 14:30] VITALS: BP 136/68
[2019-06-12 15:50] VITALS: BP 122/74
[2019-06-19 14:30] VITALS: BP 139/70
[2019-06-19 15:32] VITALS: BP 110/60
[2019-06-26 14:15] VITALS: BP 160/90
[2019-06-26 15:35] VITALS: BP 120/80
[2019-07-03 14:30] VITALS: BP 140/60
[2019-07-03 15:33] VITALS: BP 140/60
[2019-07-10 14:20] VITALS: BP 142/60
[2019-07-10 15:18] VITALS: BP 128/76
[2019-07-15 14:30] VITALS: BP 134/60
[2019-07-15 15:52] VITALS: BP 122/60
[2019-07-17 14:50] VITALS: BP 160/90
[2019-07-17 15:57] VITALS: BP 140/60
[2019-07-22 14:15] VITALS: BP 140/60
[2019-07-22 14:30] VITALS: BP 146/52
[2019-07-24 14:20] VITALS: BP 128/64
[2019-07-24 15:35] VITALS: BP 124/68
[2019-07-29 14:30] VITALS: BP 140/63
[~2019-07-29 14:30] MED LIST changes: +ACHD5005 PO; +NITR-65 PO
[2019-07-29 15:34] VITALS: BP 130/65
[2019-07-31 14:15] VITALS: BP 130/80
[2019-07-31 15:20] VITALS: BP 130/80
== END 2019-08-05 | disposition home or self-care (01) ==
LOC: PULM 14:30
PROVIDERS: ATTEND Nurse Practitioner Family
DX: J45.909 Unspecified asthma, uncomplicated (principal); R94.2 Abnormal results of pulmonary function studies; G47.30 Sleep apnea, unspecified
CPT/HCPCS: 99211

== ENCOUNTER → 2019-08-05 | Outpatient (CLI) | payer MEDICARE ==
[2019-08-05 12:31] LABS: BASOPHILS % (AUTO) 1 % (0-10); EOSINOPHILS # (AUTO) 0.2 10^3/uL (0.0-0.3); EOSINOPHILS % (AUTO) 4 % (0-10); HEMATOCRIT 37 % (35-52); HEMOGLOBIN 11.7 G/DL (11.5-16.0); LYMPHOCYTES # (AUTO) 1.3 X 10^3 (1.0-4.0); LYMPHOCYTES % (AUTO) 26 % (12-44); MEAN CORPUSCULAR HEMOGLOBIN 29 PG (25-34); MEAN CORPUSCULAR HGB CONC 32 G/DL (32-36); MEAN CORPUSCULAR VOLUME 90 FL (80-99); MEAN PLATELET VOLUME 9.7 FL (7.4-10.4); MONOCYTES # (AUTO) 0.4 X 10^3 (0.0-1.0); MONOCYTES % (AUTO) 8 % (0-12); NEUTROPHILS # (AUTO) 3.1 X 10^3 (1.8-7.8); NEUTROPHILS % (AUTO) 61 % (42-75); PLATELET COUNT 216 10^3/uL (130-400); RED CELL DISTRIBUTION WIDTH 20.4 % (10.0-14.5)
[2019-08-05 12:36] LABS: BILIRUBIN,URINE NEGATIVE (NEGATIVE); CLARITY,URINE CLEAR; COLOR,URINE YELLOW; GLUCOSE, URINE (UA) NEGATIVE (NEGATIVE); KETONES,URINE NEGATIVE (NEGATIVE); LEUKOCYTE ESTERASE ,URINE 2+ (NEGATIVE); NITRITE,URINE NEGATIVE (NEGATIVE); PROTEIN,URINE NEGATIVE (NEGATIVE)
[2019-08-05 12:50] LABS: BACTERIA,URINE FEW /HPF; WBC,URINE 50-100 /HPF
[2019-08-05 12:52] LABS: ALBUMIN 4.3 GM/DL (3.2-4.5); CALCIUM 9.5 MG/DL (8.5-10.1); CREATININE SERUM 1.53 MG/DL (0.60-1.30); MAGNESIUM 1.9 MG/DL (1.6-2.4); PHOSPHORUS 2.3 MG/DL (2.3-4.7); POTASSIUM 4.6 MMOL/L (3.6-5.0)
== END ==
LOC: LAB 12:07
PROVIDERS: ATTEND Internal Medicine Nephrology
DX: I12.9 Hypertensive chronic kidney disease with stage 1 through stage 4 chronic kidney disease, or unspecified chronic kidney disease (principal); N18.4 Chronic kidney disease, stage 4 (severe); E87.5 Hyperkalemia; D63.1 Anemia in chronic kidney disease; E88.9 Metabolic disorder, unspecified; N13.30 Unspecified hydronephrosis; R31.21 Asymptomatic microscopic hematuria
CPT/HCPCS: 36415; 80069; 81000; 82570; 82595; 83735; 84156; 85025; 87088

== ENCOUNTER → 2019-08-05 | Outpatient (CLI) | payer MEDICARE ==
[2019-08-05 13:14] LABS: FREE T4 (FREE THYROXINE) 1.34 NG/DL (0.70-1.48)
== END ==
LOC: LAB 12:12
PROVIDERS: ATTEND Family Medicine
DX: E11.9 Type 2 diabetes mellitus without complications (principal); E78.2 Mixed hyperlipidemia; I10 Essential (primary) hypertension; E03.9 Hypothyroidism, unspecified
CPT/HCPCS: 36415; 80061; 83036; 84439; 84443

== ENCOUNTER 2019-08-22 13:49 | Outpatient (RCR) | payer MEDICARE ==
[2019-07-15 13:59] LABS: ABSOLUTE RETIC # 56 10e9/L (24-90); BASOPHILS % (AUTO) 0 % (0-10); EOSINOPHILS # (AUTO) 0.2 10^3/uL (0.0-0.3); EOSINOPHILS % (AUTO) 3 % (0-10); HEMATOCRIT 37 % (35-52); HEMOGLOBIN 11.5 G/DL (11.5-16.0); LYMPHOCYTES # (AUTO) 1.2 X 10^3 (1.0-4.0); LYMPHOCYTES % (AUTO) 21 % (12-44); MEAN CORPUSCULAR HEMOGLOBIN 27 PG (25-34); MEAN CORPUSCULAR HGB CONC 31 G/DL (32-36); MEAN CORPUSCULAR VOLUME 87 FL (80-99); MEAN PLATELET VOLUME 9.6 FL (7.4-10.4); MONOCYTES # (AUTO) 0.5 X 10^3 (0.0-1.0); MONOCYTES % (AUTO) 9 % (0-12); NEUTROPHILS # (AUTO) 3.7 X 10^3 (1.8-7.8); NEUTROPHILS % (AUTO) 66 % (42-75); PLATELET COUNT 252 10^3/uL (130-400); RED CELL DISTRIBUTION WIDTH 17.2 % (10.0-14.5); RETICULOCYTE % 1.32 % (0.50-2.40); WHITE BLOOD COUNT 5.5 10^3/uL (4.3-11.0)
[2019-07-15 14:22] LABS: ALBUMIN 4.1 GM/DL (3.2-4.5); BILIRUBIN,TOTAL 0.5 MG/DL (0.1-1.0); CALCIUM 9.6 MG/DL (8.5-10.1); CREATININE SERUM 1.47 MG/DL (0.60-1.30); POTASSIUM 4.6 MMOL/L (3.6-5.0)
[~2019-08-22 13:49] MED LIST changes: +FERRIC CARBOXYMALTOSE (CANCER) 750 MG in NS (IVPB) CANCER CENTER 250 ML IV SCH
[2019-09-10] MEDS ORDERED: CIPR500T4 PO ×2 (10:26→10:29)
[2019-09-10] MEDS ORDERED: METR500T PO (11:46)
[2019-10-03] MEDS ORDERED: METR500T PO (14:11)
[2019-10-03] MEDS ORDERED: HYDR-3812 PO (14:11)
[2019-10-03] MEDS ORDERED: AMOX500C2 PO (14:11)
== END 2019-10-13 | disposition home or self-care (01) ==
LOC: ONC 13:49
PROVIDERS: ATTEND Internal Medicine Hematology & Oncology
DX: D63.1 Anemia in chronic kidney disease (principal); N18.3 Chronic kidney disease, stage 3 (moderate); Z87.19 Personal history of other diseases of the digestive system; J44.9 Chronic obstructive pulmonary disease, unspecified; Z79.899 Other long term (current) drug therapy
CPT/HCPCS: 36415; 80053; 82728; 85025; 85045; 96365

== ENCOUNTER 2019-09-10 08:30 | Emergency (ER) | payer MEDICARE ==
[~2019-09-10] VITALS: Ht 160 cm; Wt 133.3 kg
[~2019-09-10 08:30] MED LIST changes: -FERRIC CARBOXYMALTOSE (CANCER) 750 MG in NS (IVPB) CANCER CENTER 250 ML IV SCH
[2019-09-10] MEDS ORDERED: RT-ALBUTEROL/IPRATROPIUM 3 ML (DUONEB) VIAL INH ONE (08:45)
[2019-09-10 08:53] LABS: BILIRUBIN,URINE NEGATIVE (NEGATIVE); CLARITY,URINE SL CLOUDY; COLOR,URINE YELLOW; GLUCOSE, URINE (UA) NEGATIVE (NEGATIVE); KETONES,URINE NEGATIVE (NEGATIVE); LEUKOCYTE ESTERASE ,URINE 2+ (NEGATIVE); NITRITE,URINE POSITIVE (NEGATIVE); PROTEIN,URINE 2+ (NEGATIVE)
[2019-09-10 09:04] LABS: BACTERIA,URINE MODERATE /HPF; SQUAMOUS EPITHELIAL CELL,UR 0-2 /HPF; WBC,URINE >100 /HPF
[2019-09-10] MEDS ORDERED: NS IV 1000 ML 1,000 ML IV ONE (09:20)
[2019-09-10] MEDS ORDERED: CIPROFLOXACIN IV 400MG/200ML 200 ML IV ONE (09:30)
[2019-09-10 09:35] LABS: BASOPHILS % (AUTO) 0 % (0-10); EOSINOPHILS # (AUTO) 0.1 10^3/uL (0.0-0.3); EOSINOPHILS % (AUTO) 1 % (0-10); HEMATOCRIT 38 % (35-52); HEMOGLOBIN 12.1 G/DL (11.5-16.0); LYMPHOCYTES # (AUTO) 1.2 X 10^3 (1.0-4.0); LYMPHOCYTES % (AUTO) 15 % (12-44); MEAN CORPUSCULAR HEMOGLOBIN 30 PG (25-34); MEAN CORPUSCULAR HGB CONC 32 G/DL (32-36); MEAN CORPUSCULAR VOLUME 93 FL (80-99); MEAN PLATELET VOLUME 9.7 FL (7.4-10.4); MONOCYTES # (AUTO) 0.7 X 10^3 (0.0-1.0); MONOCYTES % (AUTO) 8 % (0-12); NEUTROPHILS % (AUTO) 76 % (42-75); PLATELET COUNT 174 10^3/uL (130-400); RED CELL DISTRIBUTION WIDTH 18.2 % (10.0-14.5); WHITE BLOOD COUNT 7.9 10^3/uL (4.3-11.0)
--- NOTE | 2019-09-10 09:40 | Diagnostic Imaging Report ---
EXAMINATION: CHEST (PA AND LATERAL) CLINICAL INDICATION: 64-year-old female, cough and congestion. COMPARISON: February 22, 2018. FINDINGS: Stable overall appearance of the cardiomediastinal silhouette. There is no identified pneumothorax. There is no pleural effusion. There is no identified focal airspace consolidation. IMPRESSION: No identified acute cardiopulmonary abnormality. Dictated by: Dictated on workstation # [id number]
[2019-09-10 10:11] LABS: CALCIUM 8.9 MG/DL (8.5-10.1); CREATININE SERUM 1.09 MG/DL (0.60-1.30); POTASSIUM 3.9 MMOL/L (3.6-5.0)
[2019-09-10] MEDS ORDERED: CIPR500T4 PO ×2 (10:26→10:29)
--- NOTE | 2019-09-10 10:28 | ED General ---
General Chief Complaint: General Problems/Pain Stated Complaint: ABD PAIN Nursing Triage Note: AMB TO ROOM REPORTS SHE MAY HAVE A UTI HAS HX OF HYDRONEPHROSIS AND THIS IS WHERE SHE HAS PAIN. ALSO REPORTS COUGH AND CONGESTION WAS STARTED ON PREDISONE. BY HER DR AND HAS ONLY TAKEN ONE DOSE Nursing Sepsis Screen: No Definite Risk Source of Information: Patient Exam Limitations: No Limitations History of Present Illness Date Seen by Provider: Sep 10, 2019 Allergies and Home Medications Allergies Coded Allergies: Cephalosporins (Verified Allergy, Unknown, 06/26/18) Sulfa (Sulfonamide Antibiotics) (Unverified Allergy, Unknown, RASH, 06/22/19) azithromycin (Verified Allergy, Unknown, 06/26/18) codeine (Verified Allergy, Unknown, 06/26/18) Home Medications Albuterol Sulfate 8.5 Gm Hfa.aer.ad, 2 PUFF INH Q4H PRN for SHORTNESS OF BREATH, (Reported) Albuterol Sulfate 2.5 Mg/3 Ml Vial.neb, 2.5 MG NEB QID PRN for SHORTNESS OF BREATH, (Reported) Amoxicillin 500 Mg Capsule, 500 MG PO BID Prescribed by: SHEA YUSUF on 03/06/191933 Carvedilol 25 Mg Tablet, 25 MG PO BID, (Reported) Ciprofloxacin HCl 500 Mg Tablet, 500 MG PO BID Prescribed by: CHRIS COSME on 09/10/19 1029 Fenofibrate Nanocrystallized 145 Mg Tablet, 145 MG PO HS, (Reported) Fluticasone/Vilanterol 1 Each Blst.w.dev, 1 EACH IH DAILY, (Reported) Hydrocodone Bit/Acetaminophen 1 Tab Tab, 1 EACH PO Q4H PRN for PAIN-MODERATE Prescribed by: IMANI CARBALLO on 06/22/192005 Levofloxacin 750 Mg Tablet, 750 MG PO every other day Prescribed by: SHEA YUSUF on 03/06/191933 Levothyroxine Sodium 150 Mcg Tablet, 150 MCG PO DAILY, (Reported) Loperamide HCl 2 Mg Tablet, 6 MG PO BID, (Reported) take 3 (2mg) tabs Loratadine 10 Mg Tablet, 10 MG PO DAILY, (Reported) Metronidazole 500 Mg Tablet, 500 MG PO BID Prescribed by: SHEA YUSUF on 03/06/191939 Mometasone Furoate 17 Gm Naspr, 1 GM NS DAILY, (Reported) Montelukast Sodium 10 Mg Tablet, 10 MG PO HS, (Reported) Multivitamins with Iron 1 Each Tab.chew, 1 EACH PO BID, (Reported) Nitrofurantoin Monohyd/M-Cryst 100 Mg Capsule, 100 MG PO BID Prescribed by: IMANI CARBALLO on 06/22/192005 Olmesartan Medoxomil 40 Mg Tablet, 40 MG PO DAILY, (Reported) Pantoprazole Sodium 40 Mg Tablet.dr, 40 MG PO BID, (Reported) Tiotropium [place] 1 Inh Aerp, 1 CAP INH DAILY, (Reported) Past Obusfbz-Iibinm-Qwkqjm Hx Patient Social History Alcohol Use: Denies Use Recreational Drug Use: No Smoking Status: Never a Smoker 2nd Hand Smoke Exposure: No Recent Foreign Travel: No Contact w/Someone Who Travel: No Recent Infectious Disease Expo: No Recent Hopitalizations: No Immunizations Up To Date Date of Pneumonia Vaccine: Jun 10, 2015 Date of Influenza Vaccine: Jun 19, 2018 Seasonal Allergies Seasonal Allergies: Yes Past Medical History Surgeries: Yes Abdominal, Bowel Surgery, Orthopedic, Tonsillectomy Respiratory: Yes Asthma, Sleep Apnea, COPD Currently Using CPAP: Yes Cardiac: Yes (abnormal stress test 06/09/16) Chronic Edema/Swelling, High Cholesterol, Hypertension Neurological: No Reproductive Disorders: No Genitourinary: Yes UTI-Chronic Gastrointestinal: Yes Gastroesophageal Reflux, Diverticulosis Musculoskeletal: Yes (CHRONIC BACK PAIN) Degenerate Disk Disease, Arthritis, Chronic Back Pain Endocrine: Yes (OBESITY) Hypothyroidsim, Diabetes, Non-Insulin dep Loss of Vision: Denies Hearing Impairment: Denies Cancer: No Psychosocial: No Integumentary: No Blood Disorders: Yes (ANEMIA) Physical Exam Vital Signs Vital Signs - First Documented 09/10/19 08:32 Temp 36.6 Pulse 79 Resp 18 B/P (MAP) 168/96 (120) Pulse Ox 95 O2 Delivery Room Air Capillary Refill : Less Than 3 Seconds Height, Weight, BMI Height: 5'5.00" Weight: 289lbs. 0.8oz. 136.404044si; 52.00 BMI Method:Stated Progress/Results/Core Measures Suspected Sepsis Recent Fever Within 48 Hours: No Infection Criteria Present: Suspected New Infection New/Unexplained Altered Menta: No Sepsis Screen: No Definite Risk SIRS Temperature: Pulse: 79 Respiratory Rate: 18 Laboratory Tests 09/10/19 09:20: White Blood Count 7.9 Blood Pressure 168 /96 Mean: 120 Laboratory Tests 09/10/19 09:20: Platelet Count 174 09/10/19 09:49: Creatinine 1.09 Results/Orders Lab Results Laboratory Tests Test 09/10/19 08:47 09/10/19 09:20 09/10/19 09:49 Range/Units Urine Color YELLOW Urine Clarity SL CLOUDY Urine pH 6.0 5-9 Urine Specific [place] 1.025 H 1.016-1.022 Urine Protein 2+ H NEGATIVE Urine Glucose (UA) NEGATIVE NEGATIVE Urine Ketones NEGATIVE NEGATIVE Urine Nitrite POSITIVE NEGATIVE Urine Bilirubin NEGATIVE NEGATIVE Urine Urobilinogen 0.2 < = 1.0 MG/DL Urine Leukocyte Esterase 2+ H NEGATIVE Urine RBC (Auto) 3+ H NEGATIVE Urine RBC 10-25 H /HPF Urine WBC >100 H /HPF Urine Squamous Epithelial Cells 0-2 /HPF Urine Crystals NONE /LPF Urine Bacteria MODERATE H /HPF Urine Casts NONE /LPF Urine Mucus NEGATIVE /LPF Urine Culture Indicated YES White Blood Count 7.9 4.3-11.0 10^3/uL Red Blood Count 4.03 L 4.35-5.85 10^6/uL Hemoglobin 12.1 11.5-16.0 G/DL Hematocrit 38 35-52 % Mean Corpuscular Volume 93 80-99 FL Mean Corpuscular Hemoglobin 30 25-34 PG Mean Corpuscular Hemoglobin Concent 32 32-36 G/DL Red Cell Distribution Width 18.2 H 10.0-14.5 % Platelet Count 174 130-400 10^3/uL Mean Platelet Volume 9.7 7.4-10.4 FL Neutrophils (%) (Auto) 76 H 42-75 % Lymphocytes (%) (Auto) 15 12-44 % Monocytes (%) (Auto) 8 0-12 % Eosinophils (%) (Auto) 1 0-10 % Basophils (%) (Auto) 0 0-10 % Neutrophils # (Auto) 6.0 1.8-7.8 X 10^3 Lymphocytes # (Auto) 1.2 1.0-4.0 X 10^3 Monocytes # (Auto) 0.7 0.0-1.0 X 10^3 Eosinophils # (Auto) 0.1 0.0-0.3 10^3/uL Basophils # (Auto) 0.0 0.0-0.1 10^3/uL Sodium Level 140 135-145 MMOL/L Potassium Level 3.9 3.6-5.0 MMOL/L Chloride Level 108 H 98-107 MMOL/L Carbon Dioxide Level 20 L 21-32 MMOL/L Anion Gap 12 5-14 MMOL/L Blood Urea Nitrogen 27 H 7-18 MG/DL Creatinine 1.09 0.60-1.30 MG/DL Estimat Glomerular Filtration Rate 50 BUN/Creatinine Ratio 25 Glucose Level 96 70-105 MG/DL Calcium Level 8.9 8.5-10.1 MG/DL My Orders Orders - CHRIS SUMMERS MD Ua Culture If Indicated (09/10/19 08:44) Chest Pa/Lat (2 View) (09/10/19 08:44) Albuterol/Ipra Inhalation Soln (Duoneb I (09/10/19 08:45) Svn Small Volume Nebulizer (09/10/19 08:44) Urine Culture (09/10/19 08:47) Basic Metabolic Panel (09/10/19 09:20) Cbc With Automated Diff (09/10/19 09:20) Ed Iv/Invasive Line Start (09/10/19 09:20) Ns Iv 1000 Ml (Sodium Chloride 0.9%) (09/10/19 09:20) Ciprofloxacin Iv 400mg/200ml (Cipro Iv S (09/10/19 09:30) Ondansetron Injection (Zofran Injectio (09/10/19 10:45) Hydrocodone/Apap 5/325 Tablet (Lortab 5 (09/10/19 10:45) Medications Given in ED Current Medications Medications Dose Ordered Sig/Floyd Route Start Time Stop Time Status Last Admin Dose Admin Acetaminophen/ Hydrocodone Bitart 1 tab ONCE ONCE PO 09/10/19 10:45 09/10/19 10:46 DC 09/10/19 10:36 1 TAB Albuterol/ Ipratropium 3 ml ONCE ONCE INH 09/10/19 08:45 09/10/19 08:46 DC 09/10/19 08:51 3 ML Ciprofloxacin/ Dextrose 200 ml @ 200 mls/hr ONCE ONCE IV 09/10/19 09:30 09/10/19 10:29 DC 09/10/19 09:37 200 MLS/HR Ondansetron HCl 4 mg ONCE ONCE IVP 09/10/19 10:45 09/10/19 10:46 DC 09/10/19 10:36 4 MG Sodium Chloride 1,000 ml @ 0 mls/hr Q0M ONCE IV 09/10/19 09:20 09/10/19 09:22 DC 09/10/19 09:37 1,000 MLS/HR Vital Signs/I&O 09/10/19 09/10/19 09/10/19 08:32 08:52 11:00 Temp 36.6 Pulse 79 57 Resp 18 57 B/P (MAP) 168/96 (120) 170/108 Pulse Ox 95 95 95 O2 Delivery Room Air Room Air Room Air Capillary Refill : Less Than 3 Seconds Blood Pressure Mean: 120 Departure Impression Primary Impression: Urinary tract infection Qualified Codes: N39.0 - Urinary tract infection, site not specified; R31.9 - Hematuria, unspecified Additional Impression: COPD exacerbation Condition: Improved Departure-Patient Inst. Decision time for Depature: 10:23 Referrals: BROWN ORDONEZ DO (PCP/Family) Primary Care Physician Patient Instructions: Urinary Tract Infection, Adult (DC), COPD Including Emphysema (DC) Add. Discharge Instructions: Complete your antibiotics as prescribed. Drink plenty of clear liquids. Please notify your urologist tomorrow morning then you are being treated for urinary tract infection. Please follow-up with your primary care provider after 48 hours to review your urine culture results. Contact Dr. Dozier's office tomorrow if your breathing symptoms do not improve with the antibiotic therapy. An additional steroids may be necessary. Return to emergency room if you have worsening symptoms. All discharge instructions reviewed with patient and/or family. Voiced understanding. Scripts Metronidazole (Flagyl) 500 Mg Tablet 500 MG PO BID, #14 TAB Prov: CHRIS SUMMERS MD 09/10/19 Ciprofloxacin HCl (Ciprofloxacin HCl) 500 Mg Tablet 500 MG PO BID, #14 TAB Prov: CHRIS SUMMERS MD 09/10/19 CHRIS SUMMERS MD Sep 10, 2019 10:28
[2019-09-10] MEDS ORDERED: HYDROcodone/APAP 5 MG/325 MG (LORTAB) TAB PO ONE (10:45)
[2019-09-10] MEDS ORDERED: ONDANSETRON 4 MG/2 ML (SDV) Z0FRAN IVP ONE (10:45)
[2019-09-10 11:00] VITALS: BP 170/108
[2019-09-10] MEDS ORDERED: METR500T PO (11:46)
== END 2019-09-10 11:00 | disposition home or self-care (01) ==
LOC: EDUNIT# 08:30 → ER 08:32
DX: N39.0 Urinary tract infection, site not specified (principal); J44.1 Chronic obstructive pulmonary disease with (acute) exacerbation; I10 Essential (primary) hypertension; J44.9 Chronic obstructive pulmonary disease, unspecified; K21.9 Gastro-esophageal reflux disease without esophagitis; E78.00 Pure hypercholesterolemia, unspecified; E03.9 Hypothyroidism, unspecified; E11.9 Type 2 diabetes mellitus without complications; E66.9 Obesity, unspecified; D64.9 Anemia, unspecified; Z87.440 Personal history of urinary (tract) infections; Z88.2 Allergy status to sulfonamides; Z88.5 Allergy status to narcotic agent; Z88.1 Allergy status to other antibiotic agents; Z79.51 Long term (current) use of inhaled steroids; Z90.89 Acquired absence of other organs; Z68.43 Body mass index [BMI] 50.0-59.9, adult
CPT/HCPCS: 36415; 71046; 80048; 81000; 85025; 87077; 87088; 87186; 94640; 96361; 96365; 96375

== ENCOUNTER 2019-10-03 13:12 | Emergency (ER) | payer MEDICARE ==
[~2019-10-03] VITALS: Ht 160 cm; Wt 134.0 kg
[~2019-10-03 13:12] MED LIST changes: +CIPR500T4 PO
[2019-10-03 13:36] LABS: BILIRUBIN,URINE NEGATIVE (NEGATIVE); CLARITY,URINE CLOUDY; COLOR,URINE YELLOW; GLUCOSE, URINE (UA) NEGATIVE (NEGATIVE); KETONES,URINE NEGATIVE (NEGATIVE); LEUKOCYTE ESTERASE ,URINE 3+ (NEGATIVE); NITRITE,URINE POSITIVE (NEGATIVE); PH,URINE 6.5 (5-9); PROTEIN,URINE 3+ (NEGATIVE)
[2019-10-03 13:47] LABS: AMORPHOUS SEDIMENT,UR LARGE AMOR URATES /LPF; BACTERIA,URINE MODERATE /HPF; WBC,URINE TNTC /HPF
--- NOTE | 2019-10-03 13:54 | ED GI ---
General Chief Complaint: Abdominal/GI Problems Stated Complaint: RT SIDE FLANK PAIN Nursing Triage Note: PT PRESENTS TO ED FROM HOME WITH COMPLAINTS OF R FLANK PAIN. PT HAS HISTORY OF HYDRNEPHROSIS ON THE R SIDE SINCE January. PT REPORTS SHE HAS RECENTLY BEEN ON TWO ROUNDS OF ANTIBIOTICS FOR A UTI BUT THE PAIN RESUMES AFTER THE ANTIBIOTICS ARE FINISHED. PT REPORTS SHE FINISHED AMOXICILLIN ON 09/29/2019. PT HAS AN APPOITNMENT ON 10/08/2019 AT WITH A UROLOGIST. Sepsis Screen: No Definite Risk Source of Information: Patient Exam Limitations: No Limitations History of Present Illness Date Seen by Provider: Oct 03, 2019 Time Seen by Provider: 13:18 Initial Comments This 64-year-old woman presents to the emergency room with complaints of right flank pain. She has history of right-sided hydronephrosis that appears to be secondary to ureteral scarring. This has caused recurrent problems with urinary tract infection and pyelonephritis. She was recently seen in the ER and treated with Cipro followed by amoxicillin from the clinic. This seemed to resolve her pain. However, she finished her amoxicillin prescription 2 days ago. She is now having more severe pain again. She has an appointment pending next week Sunday with a urologist at [facility]. She reports her pain is now 4/10 after taking hydrocodone at home. Allergies and Home Medications Allergies Coded Allergies: Cephalosporins (Verified Allergy, Unknown, 06/26/18) Sulfa (Sulfonamide Antibiotics) (Unverified Allergy, Unknown, RASH, 06/22/19) azithromycin (Verified Allergy, Unknown, 06/26/18) codeine (Verified Allergy, Unknown, 06/26/18) Home Medications Albuterol Sulfate 8.5 Gm Hfa.aer.ad, 2 PUFF INH Q4H PRN for SHORTNESS OF BREATH, (Reported) Albuterol Sulfate 2.5 Mg/3 Ml Vial.neb, 2.5 MG NEB QID PRN for SHORTNESS OF BREATH, (Reported) Amoxicillin 500 Mg Capsule, 500 MG PO BID Prescribed by: SHEA YUSUF on 03/06/191933 Amoxicillin 500 Mg Capsule, 1,000 MG PO BID Prescribed by: CHRIS COSME on 10/03/19 1411 Carvedilol 25 Mg Tablet, 25 MG PO BID, (Reported) Ciprofloxacin HCl 500 Mg Tablet, 500 MG PO BID Prescribed by: CHRIS COSME on 09/10/19 1029 Fenofibrate Nanocrystallized 145 Mg Tablet, 145 MG PO HS, (Reported) Fluticasone/Vilanterol 1 Each Blst.w.dev, 1 EACH IH DAILY, (Reported) Hydrocodone Bit/Acetaminophen 1 Tab Tab, 1 EACH PO Q4H PRN for PAIN-MODERATE Prescribed by: IMANI CARBALLO on 06/22/192005 Hydrocodone/Acetaminophen 1 Each Tablet, 1 TAB PO Q4-6HR Prescribed by: CHRIS COSME on 10/03/19 1411 Levofloxacin 750 Mg Tablet, 750 MG PO every other day Prescribed by: SHEA YUSUF on 03/06/19 193 Levothyroxine Sodium 150 Mcg Tablet, 150 MCG PO DAILY, (Reported) Loperamide HCl 2 Mg Tablet, 6 MG PO BID, (Reported) take 3 (2mg) tabs Loratadine 10 Mg Tablet, 10 MG PO DAILY, (Reported) Metronidazole 500 Mg Tablet, 500 MG PO BID Prescribed by: SHEA YUSUF on 03/06/19 194 Metronidazole 500 Mg Tablet, 500 MG PO BID Prescribed by: CHRIS COSME on 09/10/19 1146 Metronidazole 500 Mg Tablet, 500 MG PO BID Prescribed by: CHRIS COSME on 10/03/19 1411 Mometasone Furoate 17 Gm Naspr, 1 GM NS DAILY, (Reported) Montelukast Sodium 10 Mg Tablet, 10 MG PO HS, (Reported) Multivitamins with Iron 1 Each Tab.chew, 1 EACH PO BID, (Reported) Nitrofurantoin Monohyd/M-Cryst 100 Mg Capsule, 100 MG PO BID Prescribed by: IMANI CARBALLO on 06/22/192005 Olmesartan Medoxomil 40 Mg Tablet, 40 MG PO DAILY, (Reported) Pantoprazole Sodium 40 Mg Tablet.dr, 40 MG PO BID, (Reported) Tiotropium [place] 1 Inh Aerp, 1 CAP INH DAILY, (Reported) Patient Home Medication List Home Medication List Reviewed: Yes Review of Systems Review of Systems Constitutional: no symptoms reported EENTM: No Symptoms Reported Respiratory: No Symptoms Reported Cardiovascular: No Symptoms Reported Gastrointestinal: No Symptoms Reported Genitourinary: See HPI Musculoskeletal: no symptoms reported Skin: no symptoms reported Psychiatric/Neurological: No Symptoms Reported Endocrine: No Symptoms Reported Hematologic/Lymphatic: No Symptoms Reported Past Dwgppcy-Fyxnaa-Ukqkic Hx Patient Social History Alcohol Use: Denies Use Recreational Drug Use: No Smoking Status: Never a Smoker 2nd Hand Smoke Exposure: No Recent Foreign Travel: No Contact w/Someone Who Travel: No Recent Infectious Disease Expo: No Recent Hopitalizations: No Immunizations Up To Date Date of Pneumonia Vaccine: Jun 10, 2015 Date of Influenza Vaccine: Jun 24, 2019 Seasonal Allergies Seasonal Allergies: Yes Past Medical History Surgeries: Yes (back sx, colostomy) Abdominal, Bowel Surgery, Section, Orthopedic, Tonsillectomy Respiratory: Yes Asthma, Sleep Apnea, COPD Currently Using CPAP: Yes Currently Using BIPAP: Yes Cardiac: Yes (abnormal stress test 06/09/16) Chronic Edema/Swelling, High Cholesterol, Hypertension Neurological: No Reproductive Disorders: No Genitourinary: Yes (hydronephrosis, right ureteral obstruction without ureterolithiasis) UTI-Chronic Gastrointestinal: Yes (fistula repair, colostomy) Gastroesophageal Reflux, Diverticulosis Musculoskeletal: Yes (CHRONIC BACK PAIN) Degenerate Disk Disease, Arthritis, Chronic Back Pain Endocrine: Yes (OBESITY) Hypothyroidsim, Diabetes, Non-Insulin dep Loss of Vision: Denies Hearing Impairment: Denies Cancer: No Psychosocial: No Integumentary: No Blood Disorders: Yes (ANEMIA) Physical Exam Vital Signs Vital Signs - First Documented 10/03/19 13:20 Temp 36.9 Pulse 70 Resp 20 B/P (MAP) 146/71 (96) Pulse Ox 95 Capillary Refill : Less Than 3 Seconds Height/Weight/BMI Height: 5'5.00" Weight: 289lbs. 0.8oz. [id number]; 52.00 BMI Method:Stated General Appearance: WD/WN, no apparent distress, obese HEENT: normal ENT inspection Neck: normal inspection Respiratory: lungs clear, normal breath sounds, no respiratory distress Cardiovascular: regular rate, rhythm, no edema, no murmur Gastrointestinal: normal bowel sounds, non tender, soft Extremities: normal inspection, no pedal edema Back: normal inspection, CVA tenderness (R) Neurologic/Psychiatric: international guest coordinator II-XII nml as tested, no motor/sensory deficits, alert, normal mood/affect, oriented x 3 Skin: normal color, warm/dry Progress/Results/Core Measures Results/Orders Lab Results Laboratory Tests Test 10/03/19 13:31 Range/Units Urine Color YELLOW Urine Clarity CLOUDY Urine pH 6.5 5-9 Urine Specific [place] 1.025 H 1.016-1.022 Urine Protein 3+ H NEGATIVE Urine Glucose (UA) NEGATIVE NEGATIVE Urine Ketones NEGATIVE NEGATIVE Urine Nitrite POSITIVE NEGATIVE Urine Bilirubin NEGATIVE NEGATIVE Urine Urobilinogen 0.2 < = 1.0 MG/DL Urine Leukocyte Esterase 3+ H NEGATIVE Urine RBC (Auto) 3+ H NEGATIVE Urine RBC 5-10 H /HPF Urine WBC TNTC H /HPF Urine Squamous Epithelial Cells NONE /HPF Urine Crystals NONE /LPF Urine Amorphous Sediment LARGE JESUS ALBERTO URATES H /LPF Urine Bacteria MODERATE H /HPF Urine Casts NONE /LPF Urine Mucus NEGATIVE /LPF Urine Culture Indicated YES My Orders Orders - CHRIS SUMMERS MD Ua Culture If Indicated (10/03/19 13:16) Urine Culture (10/03/19 13:31) Amoxicillin Capsule (Polymox Capsule) (10/03/19 14:05) Vital Signs/I&O 10/03/19 13:20 Temp 36.9 Pulse 70 Resp 20 B/P (MAP) 146/71 (96) Pulse Ox 95 Blood Pressure Mean: 96 Progress Progress Note : Progress Note Patient did indeed have urinary tract infection by urinalysis. She did not have signs or symptoms of sepsis. I discussed options with her including antibiotic selection and whether to proceed with imaging. We elected to forego imaging in favor of allowing the talent consultant at [facility] to determine best imaging modality during her consultation next week. I do not believe performing further imaging today would change her course of care. Patient believes she had better results when taking amoxicillin. We will start amoxicillin again today. I am giving her a dose in the emergency room to start treatment promptly. I've advised her to favor hydrocodone for pain control over NSAIDs in favor of preserving renal function. Had an in-depth conversation with the patient about the approach to her care and she is agreeable to this plan. Departure Impression Primary Impression: Hydronephrosis, right Additional Impression: Urinary tract infection Qualified Codes: N39.0 - Urinary tract infection, site not specified Disposition: 01 HOME, SELF-CARE Condition: Stable Departure-Patient Inst. Decision time for Depature: 14:04 Referrals: BROWN ORDONEZ DO (PCP/Family) Primary Care Physician Patient Instructions: Urinary Tract Infections in Adults Add. Discharge Instructions: Drink plenty of clear liquids. Use amoxicillin as prescribed. Keep your appointment at [facility] next week. Return to care if you have worsening symptoms despite treatment, especially if you develop fevers. Use hydrocodone as prescribed for pain. All discharge instructions reviewed with patient and/or family. Voiced understanding. Scripts Metronidazole (Flagyl) 500 Mg Tablet 500 MG PO BID, #20 TAB Prov: CHRIS SUMMERS MD 10/03/19 Hydrocodone/Acetaminophen (Hydrocodone-Acetamin 5-325 mg) 1 Each Tablet 1 TAB PO Q4-6HR for PAIN-MODERATE, #10 TAB Prov: CHRIS SUMMERS MD 10/03/19 Amoxicillin (Amoxicillin) 500 Mg Capsule 1000 MG PO BID, #40 CAP 0 Refills Prov: CHRIS SUMMERS MD 10/03/19 Copy Copies To 1: BROWN ORDONEZ JOSHUA T MD Oct 03, 2019 13:54
[2019-10-03] MEDS ORDERED: AMOXICILLIN 500 MG (POLYMOX) CAP PO STA (14:05)
[2019-10-03] MEDS ORDERED: HYDR-3812 PO (14:11)
[2019-10-03] MEDS ORDERED: AMOX500C2 PO (14:11)
[2019-10-03] MEDS ORDERED: METR500T PO (14:11)
[2019-10-03 14:30] VITALS: BP 146/71
== END 2019-10-03 14:30 | disposition home or self-care (01) ==
LOC: EDUNIT# 13:12 → ER 13:13
DX: N13.30 Unspecified hydronephrosis (principal); N39.0 Urinary tract infection, site not specified; J44.9 Chronic obstructive pulmonary disease, unspecified; I10 Essential (primary) hypertension; E11.9 Type 2 diabetes mellitus without complications; E78.00 Pure hypercholesterolemia, unspecified; G47.30 Sleep apnea, unspecified; K21.9 Gastro-esophageal reflux disease without esophagitis; E03.9 Hypothyroidism, unspecified; D64.9 Anemia, unspecified; Z99.89 Dependence on other enabling machines and devices; Z87.440 Personal history of urinary (tract) infections; Z88.0 Allergy status to penicillin; Z88.2 Allergy status to sulfonamides; Z88.1 Allergy status to other antibiotic agents; Z88.5 Allergy status to narcotic agent; Z79.51 Long term (current) use of inhaled steroids; Z90.89 Acquired absence of other organs
CPT/HCPCS: 81000; 87077; 87088; 87186; 99283

== ENCOUNTER 2019-10-18 11:07 | Emergency (ER) | payer MEDICARE ==
[~2019-10-18] VITALS: Ht 160 cm; Wt 131.8 kg
[~2019-10-18 11:07] MED LIST changes: +HYDR-3812 PO
[2019-10-18] MEDS ORDERED: NS IV 1000 ML 1,000 ML IV SCH (11:28)
[2019-10-18] MEDS ORDERED: fentaNYL INJECTION 100 MCG/2 ML AMP IVP ONE (11:30)
[2019-10-18] MEDS ORDERED: ONDANSETRON 4 MG/2 ML (SDV) Z0FRAN IVP ONE (11:30)
--- NOTE | 2019-10-18 11:36 | ED GU-Female ---
General Stated Complaint: KIDNEY PAIN History of Present Illness Date Seen by Provider: Oct 18, 2019 Time Seen by Provider: 11:15 Initial Comments 64-year-old female with recurrent UTIs presents with right flank pain. She recently saw a lab coordinator at [facility] 2 weeks ago for recurrent UTIs and hydronephrosis right kidney, she had no further imaging at that time but was started on Macrobid. She finished taking this approximately 3 days ago and her symptoms began again this morning with pain, urinary frequency and nausea. She did not eat much for breakfast this morning and denies vomiting. She hasn't taken Tylenol 500 mg for pain today. She denies any other symptoms at this time. She is drinking water, 16 oz every 4 hours while awake and taking cranberry juice. She was also started on a hormonal cream by the lab coordinator for vaginal dryness secondary to menopause. Timing/Duration: this morning Severity/Quality: moderate (04/19) Location: right flank Radiation: none Associated Symptoms: abdominal pain, dysuria; No loss of bladder control, No lower back pain; nausea/vomiting, polyuria, urinary frequency Allergies and Home Medications Allergies Coded Allergies: Cephalosporins (Verified Allergy, Unknown, 06/26/18) Sulfa (Sulfonamide Antibiotics) (Unverified Allergy, Unknown, RASH, 06/22/19) azithromycin (Verified Allergy, Unknown, 06/26/18) codeine (Verified Allergy, Unknown, 06/26/18) Home Medications Albuterol Sulfate 8.5 Gm Hfa.aer.ad, 2 PUFF INH Q4H PRN for SHORTNESS OF BREATH, (Reported) Albuterol Sulfate 2.5 Mg/3 Ml Vial.neb, 2.5 MG NEB QID PRN for SHORTNESS OF BREATH, (Reported) Amoxicillin 500 Mg Capsule, 500 MG PO BID Prescribed by: SHEA YUSUF on 03/06/19 193 Amoxicillin 500 Mg Capsule, 1,000 MG PO BID Prescribed by: CHRIS COSME on 10/03/19 1411 Carvedilol 25 Mg Tablet, 25 MG PO BID, (Reported) Ciprofloxacin HCl 500 Mg Tablet, 500 MG PO BID Prescribed by: CHRIS COSME on 09/10/19 1029 Fenofibrate Nanocrystallized 145 Mg Tablet, 145 MG PO HS, (Reported) Fluticasone/Vilanterol 1 Each Blst.w.dev, 1 EACH IH DAILY, (Reported) Hydrocodone Bit/Acetaminophen 1 Tab Tab, 1 EACH PO Q4H PRN for PAIN-MODERATE Prescribed by: IMANI CARBALLO on 06/22/192005 Hydrocodone Bit/Acetaminophen 1 Tab Tab, 1 EACH PO Q4-6HR PRN for PAIN-MODERATE Prescribed by: JARROD CASTILLO on 10/18/19 1206 Hydrocodone/Acetaminophen 1 Each Tablet, 1 TAB PO Q4-6HR Prescribed by: CHRIS COSME on 10/03/19 141 Levofloxacin 750 Mg Tablet, 750 MG PO every other day Prescribed by: SHEA YUSUF on 03/06/19 193 Levothyroxine Sodium 150 Mcg Tablet, 150 MCG PO DAILY, (Reported) Loperamide HCl 2 Mg Tablet, 6 MG PO BID, (Reported) take 3 (2mg) tabs Loratadine 10 Mg Tablet, 10 MG PO DAILY, (Reported) Metronidazole 500 Mg Tablet, 500 MG PO BID Prescribed by: SHEA YUSUF on 03/06/19 194 Metronidazole 500 Mg Tablet, 500 MG PO BID Prescribed by: CHRIS COSME on 09/10/19 1146 Metronidazole 500 Mg Tablet, 500 MG PO BID Prescribed by: CHRIS COSME on 10/03/19 141 Mometasone Furoate 17 Gm Naspr, 1 GM NS DAILY, (Reported) Montelukast Sodium 10 Mg Tablet, 10 MG PO HS, (Reported) Multivitamins with Iron 1 Each Tab.chew, 1 EACH PO BID, (Reported) Nitrofurantoin Monohyd/M-Cryst 100 Mg Capsule, 100 MG PO BID Prescribed by: IMANI CABRALLO on 06/22/192005 Nitrofurantoin Monohyd/M-Cryst 100 Mg Capsule, 1 TAB PO BID Prescribed by: JARROD CASTILLO on 10/18/19 1218 Olmesartan Medoxomil 40 Mg Tablet, 40 MG PO DAILY, (Reported) Ondansetron 4 Mg Tab.rapdis, 4 MG PO Q6H PRN for NAUSEA/VOMITING Prescribed by: JARROD CASTILLO on 10/18/19 1206 Pantoprazole Sodium 40 Mg Tablet.dr, 40 MG PO BID, (Reported) Tiotropium [place] 1 Inh Aerp, 1 CAP INH DAILY, (Reported) Patient Home Medication List Home Medication List Reviewed: Yes Review of Systems Review of Systems Constitutional: no symptoms reported, see HPI Genitourinary: see HPI, dysuria, frequency, flank pain, pain All Other Systemes Reviewed Negative Unless Noted: Yes Past Hrwzrik-Txrvqg-Prfywb Hx Past Med/Social Hx: Reviewed Nursing Past Med/Soc Hx Patient Social History 2nd Hand Smoke Exposure: No Recent Foreign Travel: No Contact w/Someone Who Travel: No Recent Hopitalizations: No Immunizations Up To Date Date of Pneumonia Vaccine: Jun 10, 2015 Date of Influenza Vaccine: Jun 24, 2019 Seasonal Allergies Seasonal Allergies: Yes Past Medical History Surgeries: Yes (back sx, colostomy) Abdominal, Bowel Surgery, Section, Orthopedic, Tonsillectomy Respiratory: Yes Asthma, Sleep Apnea, COPD Currently Using CPAP: Yes Currently Using BIPAP: Yes Cardiac: Yes (abnormal stress test 06/09/16) Chronic Edema/Swelling, High Cholesterol, Hypertension Neurological: No Reproductive Disorders: No Genitourinary: Yes (hydronephrosis, right ureteral obstruction without ureterolithiasis) UTI-Chronic Gastrointestinal: Yes (fistula repair, colostomy) Gastroesophageal Reflux, Diverticulosis Musculoskeletal: Yes (CHRONIC BACK PAIN) Degenerate Disk Disease, Arthritis, Chronic Back Pain Endocrine: Yes (OBESITY) Hypothyroidsim, Diabetes, Non-Insulin dep Loss of Vision: Denies Hearing Impairment: Denies Cancer: No Psychosocial: No Integumentary: No Blood Disorders: Yes (ANEMIA) Physical Exam Vital Signs Vital Signs - First Documented 10/18/19 11:18 Temp 36.9 Pulse 68 Resp 20 B/P (MAP) 171/93 (119) Pulse Ox 95 O2 Delivery Room Air Capillary Refill : Height, Weight, BMI Height: 5'5.00" Weight: 289lbs. 0.8oz. [id number]; 52.00 BMI Method:Stated General Appearance: WD/WN, mild distress (secondary to pain), obese Cardiovascular: normal peripheral pulses, regular rate, rhythm Respiratory: chest non-tender, lungs clear, normal breath sounds Gastrointestinal: normal bowel sounds, non tender, soft; No guarding; tenderness ( right lower quadrant), other (Colostomy pouch, LLQ, no erythema, warmth or tenderness. No stool present, patient reports passing stool overnight. ) Back: normal inspection, no vertebral tenderness, CVA tenderness (R) Extremities: normal range of motion, non-tender, normal inspection Neurologic/Psychiatric: no motor/sensory deficits, alert, normal mood/affect, oriented x 3 Skin: normal color, warm/dry Progress/Results/Core Measures Suspected Sepsis SIRS Temperature: Pulse: Respiratory Rate: Laboratory Tests 10/18/19 11:30: White Blood Count 7.9 Blood Pressure / Mean: Laboratory Tests 10/18/19 11:30: Creatinine 1.09, Platelet Count 244, Total Bilirubin 0.4 Results/Orders Lab Results Laboratory Tests Test 10/18/19 11:25 10/18/19 11:30 Range/Units Urine Color YELLOW Urine Clarity TURBID Urine pH 6.0 5-9 Urine Specific [place] >=1.030 1.016-1.022 Urine Protein 3+ H NEGATIVE Urine Glucose (UA) NEGATIVE NEGATIVE Urine Ketones NEGATIVE NEGATIVE Urine Nitrite POSITIVE H NEGATIVE Urine Bilirubin NEGATIVE NEGATIVE Urine Urobilinogen 0.2 < = 1.0 MG/DL Urine Leukocyte Esterase 2+ H NEGATIVE Urine RBC (Auto) 3+ H NEGATIVE Urine RBC NONE /HPF Urine WBC TNTC H /HPF Urine Crystals NONE /LPF Urine Bacteria LARGE H /HPF Urine Casts NONE /LPF Urine Mucus MODERATE H /LPF Urine Culture Indicated YES White Blood Count 7.9 4.3-11.0 10^3/uL Red Blood Count 4.15 L 4.35-5.85 10^6/uL Hemoglobin 12.7 11.5-16.0 G/DL Hematocrit 40 35-52 % Mean Corpuscular Volume 96 80-99 FL Mean Corpuscular Hemoglobin 31 25-34 PG Mean Corpuscular Hemoglobin Concent 32 32-36 G/DL Red Cell Distribution Width 15.1 H 10.0-14.5 % Platelet Count 244 130-400 10^3/uL Mean Platelet Volume 10.0 7.4-10.4 FL Neutrophils (%) (Auto) 73 42-75 % Lymphocytes (%) (Auto) 14 12-44 % Monocytes (%) (Auto) 9 0-12 % Eosinophils (%) (Auto) 3 0-10 % Basophils (%) (Auto) 1 0-10 % Neutrophils # (Auto) 5.8 1.8-7.8 X 10^3 Lymphocytes # (Auto) 1.1 1.0-4.0 X 10^3 Monocytes # (Auto) 0.7 0.0-1.0 X 10^3 Eosinophils # (Auto) 0.3 0.0-0.3 10^3/uL Basophils # (Auto) 0.0 0.0-0.1 10^3/uL Sodium Level 139 135-145 MMOL/L Potassium Level 4.4 3.6-5.0 MMOL/L Chloride Level 107 98-107 MMOL/L Carbon Dioxide Level 23 21-32 MMOL/L Anion Gap 9 5-14 MMOL/L Blood Urea Nitrogen 21 H 7-18 MG/DL Creatinine 1.09 0.60-1.30 MG/DL Estimat Glomerular Filtration Rate 50 BUN/Creatinine Ratio 19 Glucose Level 114 H 70-105 MG/DL Calcium Level 9.8 8.5-10.1 MG/DL Corrected Calcium 9.8 8.5-10.1 MG/DL Total Bilirubin 0.4 0.1-1.0 MG/DL Aspartate Amino Transf (AST/SGOT) 13 5-34 U/L Alanine Aminotransferase (ALT/SGPT) 11 0-55 U/L Alkaline Phosphatase 104 40-136 U/L Total Protein 7.0 6.4-8.2 GM/DL Albumin 4.0 3.2-4.5 GM/DL My Orders Orders - JARROD CASTILLO Ua Culture If Indicated (10/18/19 11:09) Cbc With Automated Diff (10/18/19 11:28) Comprehensive Metabolic Panel (10/18/19 11:28) Ed Iv/Invasive Line Start (10/18/19 11:28) Ns Iv 1000 Ml (Sodium Chloride 0.9%) (10/18/19 11:28) Ondansetron Injection (Zofran Injectio (10/18/19 11:30) Fentanyl Injection (Sublimaze Injection (10/18/19 11:30) Urine Culture (10/18/19 11:25) Medications Given in ED Current Medications Medications Dose Ordered Sig/Floyd Route Start Time Stop Time Status Last Admin Dose Admin Fentanyl Citrate 25 mcg ONCE ONCE IVP 10/18/19 11:30 10/18/19 11:31 DC 10/18/19 11:36 25 MCG Ondansetron HCl 8 mg ONCE ONCE IVP 10/18/19 11:30 10/18/19 11:31 DC 10/18/19 11:36 8 MG Vital Signs/I&O 2/8/20 2/8/20 11:18 12:47 Temp 36.9 Pulse 68 86 Resp 20 20 B/P (MAP) 171/93 (119) 152/87 Pulse Ox 95 97 O2 Delivery Room Air Room Air Capillary Refill : Progress Note : Time: 11:20 Progress Note Patient seen and evaluated, does not meet sepsis criteria. We'll give normal saline 1 L per IV, 8 mg of Zofran IV and 25 g of fentanyl IV. We'll obtain labs and reevaluate. Pending lab results will determine if any diagnostic imaging is indicated. 1200 Patient reports pain improved 3/10, no further nausea. WBC 7.9, awaiting CMP and UA results. 1205 UA results reviewed with the patient and her . Discharge instructions, return precautions and follow-up appointment with lab coordinator rev iewed with them. Patient continues to report improvement in her symptoms. Departure Impression Primary Impression: Abdominal pain Qualified Codes: R10.31 - Right lower quadrant pain Additional Impressions: Nausea UTI (urinary tract infection) Qualified Codes: N30.01 - Acute cystitis with hematuria Disposition: HOME, SELF-CARE Condition: Improved Departure-Patient Inst. Decision time for Depature: 12:05 Referrals: BROWN ORDONEZ DO (PCP/Family) Primary Care Physician Patient Instructions: Urinary Tract Infection, Adult (DC) Add. Discharge Instructions: Continue to increase water intake, 16 ounces every 2 hours while awake. Empty bladder every 2 hours while awake. Take showers only, no baths. Use Dial or Lever soap, for perineal bathing. Avoid fragrant soaps and body washes. Take Probiotic daily, as directed on bottle. Eat 1 cup of activita yogurt daily. Take antibiotics as prescribed and continue other routine medications. Call for follow up with Clinical Assessment Manager at [facility]. Alternate Tylenol 650 mg and ibuprofen 600 mg every 4 hours for pain or fever. Take Zofran every 8 hours as needed for nausea or vomiting. Take hydrocodone as prescribed for more severe pain not managed by Tylenol and ibuprofen. Follow-up with your primary care provider early next week if symptoms are not improving or worsen. Return to the emergency department for new, urgent health care needs. Scripts Nitrofurantoin Monohyd/M-Cryst (Macrobid 100 mg Capsule) 100 Mg Capsule 1 TAB PO BID, #20 CAP 0 Refills Prov: JARROD CASTILLO 10/18/19 Hydrocodone Bit/Acetaminophen (Hydrocodone/Acetaminophen 5/325mg Tablet) 1 Tab Tab 1 EACH PO Q4-6HR PRN for PAIN-MODERATE MDD 10 for 3 Days, TAB Prov: JARROD CASTILLO 10/18/19 Ondansetron (Ondansetron Odt) 4 Mg Tab.rapdis 4 MG PO Q6H PRN for NAUSEA/VOMITING, #8 TAB 0 Refills Prov: JARROD CASTILLO 10/18/19 Copy Copies To 1: BROWN ORDONEZ AMY ARNP Oct 18, 2019 11:36
[2019-10-18 11:38] LABS: BASOPHILS % (AUTO) 1 % (0-10); EOSINOPHILS # (AUTO) 0.3 10^3/uL (0.0-0.3); EOSINOPHILS % (AUTO) 3 % (0-10); HEMATOCRIT 40 % (35-52); HEMOGLOBIN 12.7 G/DL (11.5-16.0); LYMPHOCYTES # (AUTO) 1.1 X 10^3 (1.0-4.0); LYMPHOCYTES % (AUTO) 14 % (12-44); MEAN CORPUSCULAR HEMOGLOBIN 31 PG (25-34); MEAN CORPUSCULAR HGB CONC 32 G/DL (32-36); MEAN CORPUSCULAR VOLUME 96 FL (80-99); MONOCYTES # (AUTO) 0.7 X 10^3 (0.0-1.0); MONOCYTES % (AUTO) 9 % (0-12); NEUTROPHILS # (AUTO) 5.8 X 10^3 (1.8-7.8); NEUTROPHILS % (AUTO) 73 % (42-75); PLATELET COUNT 244 10^3/uL (130-400); RED CELL DISTRIBUTION WIDTH 15.1 % (10.0-14.5); WHITE BLOOD COUNT 7.9 10^3/uL (4.3-11.0)
[2019-10-18 11:39] LABS: BILIRUBIN,URINE NEGATIVE (NEGATIVE); CLARITY,URINE TURBID; COLOR,URINE YELLOW; GLUCOSE, URINE (UA) NEGATIVE (NEGATIVE); KETONES,URINE NEGATIVE (NEGATIVE); LEUKOCYTE ESTERASE ,URINE 2+ (NEGATIVE); NITRITE,URINE POSITIVE (NEGATIVE); PROTEIN,URINE 3+ (NEGATIVE)
[2019-10-18 11:54] LABS: BACTERIA,URINE LARGE /HPF; WBC,URINE TNTC /HPF
[2019-10-18 12:00] LABS: BILIRUBIN,TOTAL 0.4 MG/DL (0.1-1.0); CALCIUM 9.8 MG/DL (8.5-10.1); CREATININE SERUM 1.09 MG/DL (0.60-1.30); POTASSIUM 4.4 MMOL/L (3.6-5.0)
[2019-10-18] MEDS ORDERED: ACHD5005 PO (12:06)
[2019-10-18] MEDS ORDERED: ONDA4TAB11 PO (12:06)
[2019-10-18] MEDS ORDERED: NITR-65 PO (12:18)
[2019-10-18 12:47] VITALS: BP 152/87
== END 2019-10-18 12:47 | disposition home or self-care (01) ==
LOC: EDUNIT# 11:07 → ER 11:08
DX: N39.0 Urinary tract infection, site not specified (principal); J44.9 Chronic obstructive pulmonary disease, unspecified; I10 Essential (primary) hypertension; E78.00 Pure hypercholesterolemia, unspecified; E11.9 Type 2 diabetes mellitus without complications; K21.9 Gastro-esophageal reflux disease without esophagitis; E03.9 Hypothyroidism, unspecified; E66.9 Obesity, unspecified; G47.30 Sleep apnea, unspecified; Z99.89 Dependence on other enabling machines and devices; Z88.2 Allergy status to sulfonamides; Z88.5 Allergy status to narcotic agent; Z88.1 Allergy status to other antibiotic agents; Z79.51 Long term (current) use of inhaled steroids; Z68.43 Body mass index [BMI] 50.0-59.9, adult
CPT/HCPCS: 36415; 80053; 81000; 85025; 87077; 87088; 87186; 96374; 96375

== ENCOUNTER 2019-11-03 17:50 | Inpatient (IN) | payer MEDICARE ==
[~2019-11-03] VITALS: Ht 160 cm; Wt 131.0 kg
[~2019-11-03 17:50] MED LIST changes: +FENO145T26 PO; -FENO145T37 PO; +MMT17NA NSEACH; -MONT10TA24 PO; +MONT10TA26 PO; +ONDA4TAB11 PO
[2019-11-03] MEDS ORDERED: PATIENT MAY USE OWN MEDS, ALL PO SCH (18:00)
[2019-11-03] MEDS ORDERED: ONDANSETRON 4 MG/2 ML (SDV) Z0FRAN IV PRN (18:00)
--- NOTE | 2019-11-03 19:00 | NUR ---
JASMIN TRAVIS admitted to room 413-1, with an admitting diagnosis of UTI, on 11/03/[address] ORDONEZ'S OFFICE VIA PERSONAL VEHICLE, accompanied by SIGNIFICANT OTHER.JASMIN TRAVIS introduced to surroundings, call light, bed controls, phone, TV, temperature control, lights, meal times, smoking policy, visitor policy, side rail policy, bathrooms and showers. Patient Rights given to patient in the handbook. JASMIN TRAVIS verbalizes understanding that [facility] is not responsible for the loss or damage to any personal effects or valuables that are kept in the patients posession during their hospitalization. JASMIN TRAVIS verbalizes understanding of Interdisciplinary Patient Education. Patient and/or family were informed about the Rapid Response Team and its purpose.
[2019-11-03 19:52] LABS: BASOPHILS % (AUTO) 1 % (0-10); EOSINOPHILS # (AUTO) 0.3 10^3/uL (0.0-0.3); EOSINOPHILS % (AUTO) 4 % (0-10); HEMATOCRIT 40 % (35-52); HEMOGLOBIN 12.8 G/DL (11.5-16.0); LYMPHOCYTES # (AUTO) 1.5 X 10^3 (1.0-4.0); LYMPHOCYTES % (AUTO) 24 % (12-44); MEAN CORPUSCULAR HEMOGLOBIN 30 PG (25-34); MEAN CORPUSCULAR HGB CONC 32 G/DL (32-36); MEAN CORPUSCULAR VOLUME 96 FL (80-99); MEAN PLATELET VOLUME 9.6 FL (7.4-10.4); MONOCYTES # (AUTO) 0.6 X 10^3 (0.0-1.0); MONOCYTES % (AUTO) 9 % (0-12); NEUTROPHILS # (AUTO) 4.1 X 10^3 (1.8-7.8); NEUTROPHILS % (AUTO) 63 % (42-75); PLATELET COUNT 249 10^3/uL (130-400); RED CELL DISTRIBUTION WIDTH 13.7 % (10.0-14.5); WHITE BLOOD COUNT 6.5 10^3/uL (4.3-11.0)
[2019-11-03 20:12] LABS: BILIRUBIN,TOTAL 0.3 MG/DL (0.1-1.0); CALCIUM 9.9 MG/DL (8.5-10.1); CREATININE SERUM 1.19 MG/DL (0.60-1.30); POTASSIUM 4.3 MMOL/L (3.6-5.0)
[2019-11-03] MEDS: NS IV 1000 ML 1,000 ML IV SCH (20:29)
[2019-11-03] MEDS: MEROPENEM 500 MG in WATER (STERILE) FOR INJECTION 10 ML IV SCH (20:30)
[2019-11-03 20:45] VITALS: BP 135/66
[2019-11-03 21:44] VITALS: BP 136/83
[2019-11-03] MEDS: CARVEDILOL 12.5 MG (COREG) TABLET PO SCH (21:46)
[2019-11-03 23:20] VITALS: BP 132/82
[2019-11-04] VITALS (8 sets, daily range): BP systolic 126–170; BP diastolic 60–93
[2019-11-04] MEDS: MEROPENEM 500 MG in WATER (STERILE) FOR INJECTION 10 ML IV SCH ×5 (01:23→23:22)
[2019-11-04] MEDS ORDERED: L.AC1CAP6 PO (01:47)
[2019-11-04] MEDS ORDERED: MIRA25TA PO (01:47)
[2019-11-04] MEDS ORDERED: BUPR150T7 PO (01:47)
[2019-11-04] MEDS ORDERED: CALC-250 PO (01:47)
[2019-11-04] MEDS ORDERED: AMLO5TAB4 PO (01:47)
[2019-11-04] MEDS ORDERED: D-MA1POW PO (01:47)
[2019-11-04] MEDS ORDERED: ESTR42.511 VG (01:47)
[2019-11-04] MEDS ORDERED: FLUT1DIS26 IH (01:47)
--- NOTE | 2019-11-04 01:47 | NUR ---
THIS RN REVIEWED AND ENTERED MED REC PER LIST THAT PATIENT BROUGHT TO HOSPITAL.
[2019-11-04] MEDS: LEVOTHYROXINE 25 MCG (LEVOTHROID) TAB PO SCH (06:05)
[2019-11-04] MEDS: NS IV 1000 ML 1,000 ML IV SCH (06:05)
[2019-11-04] MEDS: LEVOTHYROXINE 112 MCG (LEVOTHROID) TAB PO SCH (06:05)
[2019-11-04] MEDS: ACETAMINOPHEN 325 MG TABLET PO PRN (06:05)
[2019-11-04] MEDS: PANTOPRAZOLE 40 MG (PROTONIX) TAB PO SCH (08:09)
[2019-11-04] MEDS: amLODIPine 5 MG (NORVASC) TAB PO SCH (08:09)
[2019-11-04] MEDS: CARVEDILOL 12.5 MG (COREG) TABLET PO SCH ×2 (08:09→19:53)
--- NOTE | 2019-11-04 16:21 | NUR ---
Pastoral care visit.
--- NOTE | 2019-11-04 17:12 | History & Physical ---
History of Present Illness History of Present Illness Reason for visit/HPI This is a 64 year old female who has a history of recurrent UTIs who had been treated with several rounds of oral antibiotics recently for a UTI. She was having ongoing symptoms so a repeat urine culture was done which grew out E. coli which was sensitive to several antibiotics but the patient had an allergy to all the oral antibiotics. The only antibiotic the E. coli was sensitive to that the patient was not allergic to was meropenem so it was decided she would be admitted for IV meropenem. Date of Admission Nov 03, 2019 at 18:53 Date Seen by a Provider: Nov 04, 2019 Time Seen by a Provider: 12:35 I consulted on this patient on 11/04/19 16:59 Attending Physician Belkis Ordonez DO Admitting Physician Belkis Ordonez DO Consult Allergies and Home Medications Allergies Coded Allergies: Cephalosporins (Verified Allergy, Unknown, 06/26/18) Sulfa (Sulfonamide Antibiotics) (Unverified Allergy, Unknown, RASH, 06/22/19) azithromycin (Verified Allergy, Unknown, 06/26/18) codeine (Verified Allergy, Unknown, 06/26/18) Home Medications Albuterol Sulfate 8.5 Gm Hfa.aer.ad, 2 PUFF INH Q4H PRN for SHORTNESS OF BREATH, (Reported) Albuterol Sulfate 2.5 Mg/3 Ml Vial.neb, 2.5 MG NEB QID PRN for SHORTNESS OF BREATH, (Reported) Amlodipine Besylate 5 Mg Tablet, 5 MG PO DAILY, (Reported) Bupropion HCl 150 Mg Tab.er.24h, 150 MG PO DAILY, (Reported) Carvedilol 25 Mg Tablet, 12.5 MG PO BID, (Reported) Cholecalciferol (Vitamin D3) 125 Mcg Tablet, 125 MCG PO DAILY, (Reported) D-Mannose 1 Gm Powder, 1,300 MG MC BID, (Reported) Estradiol 42.5 Gm Cream.appl, 0.01 % VG 3 TIMES A WEEK, (Reported) Fenofibrate Nanocrystallized 145 Mg Tablet, 145 MG PO HS, (Reported) Fluticasone/Salmeterol 1 Each Blst.w.dev, 1 EACH IH DAILY, (Reported) L.acidoph & Paracasei,B.lactis 1 Each Capsule, 1 EACH PO DAILY, (Reported) Levothyroxine Sodium 150 Mcg Tablet, 150 MCG PO DAILY, (Reported) Loperamide HCl 2 Mg Tablet, 10 MG PO BID, (Reported) take 3 (2mg) tabs Mirabegron 25 Mg Tab.er.24h, 25 MG PO DAILY, (Reported) Mometasone Furoate 17 Gm Naspr, 1 GM NS DAILY, (Reported) Montelukast Sodium 10 Mg Tablet, 10 MG PO HS, (Reported) Multivitamins with Iron 1 Each Tab.chew, 1 EACH PO BID, (Reported) Ondansetron 4 Mg Tab.rapdis, 4 MG PO Q6H PRN for NAUSEA/VOMITING Prescribed by: JARROD CASTILLO on 10/18/19 1206 Pantoprazole Sodium 40 Mg Tablet.dr, 40 MG PO BID, (Reported) Patient Home Medication List Home Medication List Reviewed: Yes Past Rgfbyxe-Eaelcr-Mbedvq Hx Past Med/Social Hx: Reviewed Nursing Past Med/Soc Hx Patient Social History Marrital Status: Employed/Student: retired Alcohol Use: Denies Use Recreational Drug Use: No 2nd Hand Smoke Exposure: No Physical Abuse Screen: No Sexual Abuse: No Recent Foreign Travel: No Contact w/other who traveled: No Recent Hopitalizations: No Recent Infectious Disease Expo: No Immunizations Up To Date Tetanus Booster (TDap): Unknown Pediatric: Yes Date of Pneumonia Vaccine: Jun 10, 2019 Date of Influenza Vaccine: Jun 10, 2019 Seasonal Allergies Seasonal Allergies: Yes Past Medical History Surgeries: Abdominal, Bowel Surgery, Section, Orthopedic, Tonsillectomy Currently Using CPAP: Yes Currently Using BIPAP: No Cardiac: Chronic Edema/Swelling, High Cholesterol, Hypertension : No Reproductive: No Genitourinary: UTI-Chronic Gastrointestinal: Diverticulosis Musculoskeletal: Degenerate Disk Disease, Arthritis, Chronic Back Pain Endocrine: Hypothyroidsim, Diabetes, Non-Insulin dep Are Your Blood Sugars Over 250: No Loss of Vision: Denies Hearing Impairment: Denies Psychosocial: Depression History of Blood Disorders: No Adverse Reaction to Blood Julio: No Review of Systems Constitutional: No no symptoms reported, No see HPI, No chills, No diaphoresis, No dizziness, No fever, No malaise, No weakness, No weight gain, No weight loss, No other EENTM: No see HPI, No no symptoms reported, No ear discharge, No hearing loss, No ear pain, No blurred vision, No double vision, No eye pain, No tearing, No vision loss, No dental problems, No hoarseness, No mouth pain, No mouth swe lling, No epistaxis, No nose congestion, No nose pain, No throat pain, No throat swelling, No other Respiratory: wheezing Cardiovascular: No no symptoms reported, No see HPI, No chest pain, No edema, No Hx of Intervention, No palpitations, No syncope, No vascular heart diseas, No other Gastrointestinal: abdominal pain Genitourinary: dysuria, frequency, incontinence (urge) Musculoskeletal: back pain Skin: No no symptoms reported, No see HPI, No change in color, No change in hair/nails, No dryness, No hx of skin cancer, No lesions, No lumps, No pruritus, No rash, No other Psychiatric/Neurological: Denies No Symptoms Reported, Denies See HPI, Denies Anxiety, Denies Depressed, Denies Emotional Problems, Denies Headache, Denies Numbness, Denies Paresthesia, Denies Pre-Existing Deficit, Denies Seizure, Denies Tingling, Denies Tremors, Denies Weakness, Denies Other Physical Exam Vital Signs Vital Signs - First Documented 11/03/19 11/03/19 19:00 20:45 Temp 36.8 Pulse 75 Resp 20 B/P (MAP) 135/66 (89) Pulse Ox 96 O2 Delivery Room Air Capillary Refill : Less Than 3 Seconds Height, Weight, BMI Height: 5'5.00" Weight: 289lbs. 0.8oz. [id number]; 50.89 BMI Method:Stated General Appearance: No Apparent Distress HEENT: Normal ENT Inspection Neck: Supple Respiratory: Lungs Clear Cardiovascular: Regular Rate, Rhythm, Gallop/S4 Gastrointestinal: Normal Bowel Sounds, Soft, Tenderness Rectal: Deferred Back: No CVA Tenderness Extremity: Non Tender, No Calf Tenderness, No Pedal Edema Neurologic/Psychiatric: Alert, Oriented x3 Skin: Warm/Dry Lymphatic: No Adenopathy Comments Laboratory Tests 11/03/19 19:32: White Blood Count 6.5, Red Blood Count 4.21L, Hemoglobin 12.8, Hematocrit 40, Mean Corpuscular Volume 96, Mean Corpuscular Hemoglobin 30, Mean Corpuscular Hemoglobin Concent 32, Red Cell Distribution Width 13.7, Platelet Count 249, Mean Platelet Volume 9.6, Neutrophils (%) (Auto) 63, Lymphocytes (%) (Auto) 24, Monocytes (%) (Auto) 9, Eosinophils (%) (Auto) 4, Basophils (%) (Auto) 1, Neutrophils # (Auto) 4.1, Lymphocytes # (Auto) 1.5, Monocytes # (Auto) 0.6, Eosinophils # (Auto) 0.3, Basophils # (Auto) 0.0, Sodium Level 140, Potassium Level 4.3, Chloride Level 105, Carbon Dioxide Level 25, Anion Gap 10, Blood Urea Nitrogen 19H, Creatinine 1.19, Estimat Glomerular Filtration Rate 45, BUN/Creatinine Ratio 16, Glucose Level 112H, Calcium Level 9.9, Corrected Calcium 9.9, Total Bilirubin 0.3, Aspartate Amino Transf (AST/SGOT) 17, Alanine Aminotransferase (ALT/SGPT) 12, Alkaline Phosphatase 94, Total Protein 7.0, Albumin 4.0 11/04/19 16:22: Glucometer 115H Assessment/Plan Assessment and Plan 1. Recurrent UTI with E. coli--failed outpatient treatment and numerous drug allergies--admit for IV meropenem 2. Chronic Renal Insufficiency--stable 3. Hypertension--stable 4. Asthma--resume home inhalers and SVNs 5. BERNARDO--home CPAP Admission Diagnosis Admission Status: Inpatient Order (span 2 midnights) Reason for Inpatient Admission: Will need minimum of 3 days of IV abx Clinical Quality Measures DVT/VTE Risk/Contraindication: Risk Factor Score Per Nursin RFS Level Per Nursing on Admit: 3=High BELKIS ORDONEZ DO Nov 04, 2019 17:12
[2019-11-04] MEDS: ADVAIR 250 MCG/50 MCG (NON-FORMULARY) IH SCH (18:07)
[2019-11-04] MEDS: MYRBETRIQ 25 MG TABLET PO SCH (19:52)
[2019-11-04] MEDS: RT-ALBUTEROL/IPRATROPIUM 3 ML (DUONEB) VIAL INH SCH (21:01)
[2019-11-05] MEDS: ACETAMINOPHEN 325 MG TABLET PO PRN (01:36)
[2019-11-05] MEDS: RT-ALBUTEROL/IPRATROPIUM 3 ML (DUONEB) VIAL INH SCH ×5 (01:36→22:28)
[2019-11-05 04:00] VITALS: BP 164/111
[2019-11-05] MEDS: LEVOTHYROXINE 25 MCG (LEVOTHROID) TAB PO SCH (05:59)
[2019-11-05] MEDS: LEVOTHYROXINE 112 MCG (LEVOTHROID) TAB PO SCH (05:59)
[2019-11-05] MEDS: MEROPENEM 500 MG in WATER (STERILE) FOR INJECTION 10 ML IV SCH ×3 (06:03→18:18)
[2019-11-05] MEDS: ADVAIR 250 MCG/50 MCG (NON-FORMULARY) IH SCH ×2 (06:57→19:34)
[2019-11-05 07:27] VITALS: BP 160/98
--- NOTE | 2019-11-05 07:31 | NUR ---
dr rowland notified of pt blood pressure, ordered to administer pt's 0900 blood pressure medication at this time
[2019-11-05] MEDS: amLODIPine 5 MG (NORVASC) TAB PO SCH (07:33)
[2019-11-05] MEDS: CARVEDILOL 12.5 MG (COREG) TABLET PO SCH ×2 (07:33→20:50)
[2019-11-05] MEDS: PANTOPRAZOLE 40 MG (PROTONIX) TAB PO SCH (08:26)
[2019-11-05] MEDS: FLUTICASONE NASAL SPRAY (FLONASE) 16 GM BTL NS SCH (08:27)
[2019-11-05] MEDS ORDERED: MOMETASONE FUROATE NS SCH (09:00)
[2019-11-05] MEDS ORDERED: MULT-77 PO (14:22)
[2019-11-05] MEDS ORDERED: IPRA3AMP31 NEB (14:34)
[2019-11-05] MEDS ORDERED: D-MANNOSE PO (14:34)
[2019-11-05] MEDS ORDERED: AMOX1TAB11 PO (14:34)
[2019-11-05] MEDS ORDERED: LEVO137T2 PO (14:34)
[2019-11-05] MEDS ORDERED: MULTIVITAMIN W/IRON TD (15:21)
--- NOTE | 2019-11-05 15:22 | NUR ---
SPOKE WITH THE PT (SHE HAD A MED LIST ON HER CHART) WENT THRU THE EXT MED HISTORY TO COMPLETE THE MED REC. RN ENTERED [facility] REC OVERNIGHT, I DID HAVE TO GO BACK AND MAKE CHANGES AFTER LOOKING AT THE EXT MED HISTORY AND SPEAKING WITH THE PT. HER LIST DOES HAVE AN INCORRECT DOSE ON LEVOTHYROXINE BUT THE EXT MED HISTORY SHOULD HAVE BEEN CHECKED. OTC MEDS: MTV W/ IRON PATCH PROBIOTIC VITAMIN D D-MANNOSE IMODIUM
[2019-11-05 16:02] VITALS: BP 137/82
--- NOTE | 2019-11-05 16:51 | Progress Note ---
Subjective Date Seen by a Provider: Nov 05, 2019 Time Seen by a Provider: 12:40 Subjective/Events-last exam Fwup UTI with E. coli and numerous drug allergies, HTN, Chronic Renal I nsufficiency, Asthma. BP has been up but otherwise feeling okay. Objective Exam Vital Signs Date Time Temp Pulse Resp B/P (MAP) Pulse Ox O2 Delivery O2 Flow Rate FiO2 11/05/19 16:02 36.4 74 14 137/82 (100) 95 Room Air 11/05/19 15:12 98 Room Air 11/05/19 12:32 36.6 68 20 93 Room Air 11/05/19 08:00 Room Air 11/05/19 07:27 160/98 (118) 11/05/19 06:58 97 Room Air 11/05/19 04:00 36.4 68 20 164/111 (128) 96 Room Air 11/05/19 01:37 95 Room Air 11/04/19 23:16 36.8 71 20 126/70 (88) 95 NIV CPAP 11/04/19 21:05 142/86 (104) 11/04/19 21:02 95 Room Air 11/04/19 19:55 Room Air 11/04/19 19:53 37.2 74 20 170/87 (114) 95 NIV CPAP 11/04/19 18:07 94 Room Air I & O 11/05/19 07:00 Intake Total 2940 ml Output Total 2850 ml Balance 90 ml Capillary Refill : Less Than 3 SecondsLess Than 3 Seconds General Appearance: No Apparent Distress Respiratory: Lungs Clear Cardiovascular: Regular Rate, Rhythm Gastrointestinal: normal bowel sounds, non tender, soft Extremity: Non Tender, No Calf Tenderness, No Pedal Edema Neurologic/Psychiatric: Alert, Oriented x3 Skin: Warm/Dry Results Lab Laboratory Tests 11/05/19 05:58: Glucometer 93 11/05/19 15:30: Glucometer 122H Assessment/Plan Assessment/Plan Assess & Plan/Chief Complaint 1. UTI with E. coli with numerous drug allergies--discussed with pharmacy and should be able to convert to Ivanz for once daily dosing so will plan this tomorrow 2. Hypertension--increase coreg to 25mg po BID 3. Asthma--home inhalers restarted 4. Chronic Renal Insufficiency--Cr stable 5. Urinary Incontinence--Myrbetriq restarted Clinical Quality Measures Admission Status Admission Dx 1. Recurrent UTI with E. coli--failed outpatient treatment and numerous drug allergies--admit for IV meropenem 2. Chronic Renal Insufficiency--stable 3. Hypertension--stable 4. Asthma--resume home inhalers and SVNs 5. BERNARDO--home CPAP DVT/VTE Risk/Contraindication: Risk Factor Score Per Nursin RFS Level Per Nursing on Admit: 3=High BROWN ORDONEZ DO Nov 05, 2019 16:51
[2019-11-05] MEDS ORDERED: RT-ADVAIR HFA 115/21 MCG PER PUFF IH ONE (18:37)
[2019-11-05 20:42] VITALS: BP 188/90
[2019-11-05] MEDS: MYRBETRIQ 25 MG TABLET PO SCH (20:48)
[2019-11-05 23:30] VITALS: BP 171/84
[2019-11-06] MEDS: MEROPENEM 500 MG in WATER (STERILE) FOR INJECTION 10 ML IV SCH ×3 (01:55→11:24)
[2019-11-06] MEDS: RT-ALBUTEROL/IPRATROPIUM 3 ML (DUONEB) VIAL INH SCH ×3 (03:02→11:35)
[2019-11-06 04:15] VITALS: BP 135/80
[2019-11-06 05:02] VITALS: BP 135/80
[2019-11-06] MEDS: LEVOTHYROXINE 112 MCG (LEVOTHROID) TAB PO SCH (05:25)
[2019-11-06] MEDS: LEVOTHYROXINE 25 MCG (LEVOTHROID) TAB PO SCH (05:25)
[2019-11-06] MEDS: ADVAIR 250 MCG/50 MCG (NON-FORMULARY) IH SCH (07:05)
[2019-11-06 07:34] VITALS: BP 139/80
[2019-11-06] MEDS: amLODIPine 5 MG (NORVASC) TAB PO SCH (08:12)
[2019-11-06] MEDS: PANTOPRAZOLE 40 MG (PROTONIX) TAB PO SCH (08:12)
[2019-11-06] MEDS: FLUTICASONE NASAL SPRAY (FLONASE) 16 GM BTL NS SCH (08:12)
[2019-11-06] MEDS: CARVEDILOL 12.5 MG (COREG) TABLET PO SCH (08:12)
[2019-11-06 12:00] VITALS: BP 146/84
[2019-11-06 13:42] VITALS: BP 146/84
--- NOTE | 2019-11-06 13:42 | NUR ---
JASMIN TRAVIS demonstrates understanding of discharge instructions and accurately returns instructions upon questioning. Copy of Post-Discharge Instructions and Medication Discharge Instructions given to PT . JASMIN TRAVIS is able to manage continuing needs after discharge. Patients belongings returned to PT. Skin dry and intact; no breakdown noted. Patient discharged from 413-1 on at 1342. JASMIN TRAVIS left floor via WC, accompanied by STAFF AND .
--- NOTE | 2019-11-06 17:54 | Discharge Summary ---
Diagnosis/Chief Complaint Date of Admission Nov 03, 2019 at 18:53 Date of Discharge Nov 06, 2019 at 13:42 Discharge Date: Nov 06, 2019 Discharge Diagnosis 1. UTI with E. coli 2. Numerous antibiotic drug allergies 3. Hypertension 4. DMII--diet controlled 5. Chronic Renal Insufficiency--stable 6. Asthma 7. BERNARDO 8. Ostomy status Reason Hospital Visit This is a 64 year old female who has a history of recurrent UTIs who had been treated with several rounds of oral antibiotics recently for a UTI. She was having ongoing symptoms so a repeat urine culture was done which grew out E. coli which was sensitive to several antibiotics but the patient had an allergy to all the oral antibiotics. The only antibiotic the E. coli was sensitive to that the patient was not allergic to was meropenem so it was decided she would be admitted for IV meropenem. Discharge Summary Hospital Course Was the Problem List Reviewed?: Yes Hospital Course This is a 64 year old female who has a history of recurrent UTIs who had been treated with several rounds of oral antibiotics recently for a UTI. She was having ongoing symptoms so a repeat urine culture was done which grew out E. coli which was sensitive to several antibiotics but the patient had an allergy to all the oral antibiotics. The only antibiotic the E. coli was sensitive to that the patient was not allergic to was meropenem so it was decided she would be admitted for IV meropenem. She was admitted to the medical floor and given IV meropenem. She was given IVFs the first 24hrs and was drinking well and urinating frequently so they were discontinued on the second day. Her blood pressure was elevated during her hospital stay so her coreg dose had to be increased. She remained afebrile during her hospital stay and was tolerating the meropenem with no reactions so after discussing options with pharmacy it was decided to discharge the patient to home with orders to do outpatient Ivanz 1gm IM daily for the next 3 days. She will repeat a Urine culture 48hrs after she finishes the Ivanz and will see me in the office in 10 days. Labs Laboratory Tests 11/03/19 19:32: Red Blood Count 4.21L, Blood Urea Nitrogen 19H, Glucose Level 112H 11/04/19 16:22: Glucometer 115H 11/05/19 05:58: 11/05/19 15:30: Glucometer 122H 11/06/19 05:44: Procedures None. Discharge Physical Examination Allergies: Coded Allergies: Cephalosporins (Verified Allergy, Unknown, 06/26/18) Sulfa (Sulfonamide Antibiotics) (Unverified Allergy, Unknown, RASH, ) azithromycin (Verified Allergy, Unknown, 06/26/18) codeine (Verified Allergy, Unknown, 06/26/18) Vitals & I&Os Vital Signs Date Time Temp Pulse Resp B/P (MAP) Pulse Ox O2 Delivery O2 Flow Rate FiO2 11/06/19 13:42 37.0 76 20 146/84 95 NIV CPAP 11/06/19 03:02 21 General Appearance: Alert, Oriented X3, Cooperative, No Acute Distress Respiratory: Clear to Auscultation Cardiovascular: Regular Rate Abdominal: Normal Bowel Sounds, Soft, No Tenderness Psych/Mental Status: Mental Status NL, Mood NL Discharge Home Medications Reviewed and agree with Discharge Medication list on patient's Discharge Instruction sheet Instructions to Patient/Family Please see electronic discharge instructions given to patient. Clinical Quality Measures DVT/VTE Risk/Contraindication: Risk Factor Score Per Nursin RFS Level Per Nursing on Admit: 3=High BROWN ORDONEZ DO Nov 06, 2019 17:54
== END 2019-11-06 13:42 | disposition home or self-care (01) | DRG 690 ==
LOC: 4TH 18:53
PROVIDERS: ADMIT Family Medicine; ATTEND Family Medicine
DX: N39.0 Urinary tract infection, site not specified (principal); B96.20 Unspecified Escherichia coli [E. coli] as the cause of diseases classified elsewhere; N39.41 Urge incontinence; R35.0 Frequency of micturition; I12.9 Hypertensive chronic kidney disease with stage 1 through stage 4 chronic kidney disease, or unspecified chronic kidney disease; N18.9 Chronic kidney disease, unspecified; J45.909 Unspecified asthma, uncomplicated; E11.9 Type 2 diabetes mellitus without complications; E03.9 Hypothyroidism, unspecified; G47.33 Obstructive sleep apnea (adult) (pediatric); E78.00 Pure hypercholesterolemia, unspecified; M54.9 Dorsalgia, unspecified; F32.9 Major depressive disorder, single episode, unspecified; R60.9 Edema, unspecified; K57.90 Diverticulosis of intestine, part unspecified, without perforation or abscess without bleeding; M19.91 Primary osteoarthritis, unspecified site; Z88.1 Allergy status to other antibiotic agents; Z88.2 Allergy status to sulfonamides; Z93.9 Artificial opening status, unspecified
CPT/HCPCS: 36415; 80053; 82962; 85025; 94640; 94760

== ENCOUNTER 2019-11-09 09:18 | Outpatient (RCR) | payer MEDICARE ==
[2019-11-07 13:30] VITALS: BP 132/79
[2019-11-07] MEDS: ERTAPENEM 1000 MG (INVanz) VIAL IM SCH (14:06)
[2019-11-07] MEDS: LIDOCAINE 1% INJ 20 ML 20 ML VIAL IJ SCH (14:09)
[2019-11-08 10:04] VITALS: BP 130/74
[2019-11-08] MEDS: LIDOCAINE 1% INJ 20 ML 20 ML VIAL IJ SCH (10:04)
[2019-11-08] MEDS: ERTAPENEM 1000 MG (INVanz) VIAL IM SCH (10:04)
[~2019-11-09] VITALS: Ht 160 cm; Wt 131.0 kg
[~2019-11-09 09:18] MED LIST changes: +AMLO5TAB4 PO; +AMOX1TAB11 PO; +BUPR150T7 PO; +CALC-250 PO; +D-MA1POW PO; +D-MANNOSE PO; +ESTR42.511 VG; -HYDR-3812 PO; +IPRA3AMP31 NEB; +L.AC1CAP6 PO; +LEVO137T2 PO; +MIRA25TA PO; +MULT-77 PO; +MULTIVITAMIN W/IRON TD
[2019-11-09] MEDS: ERTAPENEM 1000 MG (INVanz) VIAL IM SCH (09:34)
[2019-11-09] MEDS: LIDOCAINE 1% INJ 20 ML 20 ML VIAL IJ SCH (09:35)
[2019-11-09 09:57] VITALS: BP 120/68
== END 2019-11-09 09:25 | disposition home or self-care (01) ==
LOC: SDC 09:18
PROVIDERS: ATTEND Family Medicine
DX: N39.0 Urinary tract infection, site not specified (principal); B96.20 Unspecified Escherichia coli [E. coli] as the cause of diseases classified elsewhere
CPT/HCPCS: 96372

== ENCOUNTER 2019-11-24 10:59 | Outpatient (RCR) | payer MEDICARE ==
[2019-11-20] MEDS: ERTAPENEM 1000 MG (INVanz) VIAL IM SCH (15:12)
[2019-11-20 15:20] VITALS: BP 136/75
[2019-11-21] MEDS: ERTAPENEM 1000 MG (INVanz) VIAL IM SCH (12:00)
[2019-11-21 12:10] VITALS: BP 120/63
[2019-11-22] MEDS: ERTAPENEM 1000 MG (INVanz) VIAL IM SCH (08:09)
[2019-11-22 08:11] VITALS: BP 137/60
[2019-11-23] MEDS: LIDOCAINE 1% INJ 20 ML 20 ML VIAL INJ SCH (08:24)
[2019-11-23] MEDS: ERTAPENEM 1000 MG (INVanz) VIAL IM SCH (08:24)
[2019-11-23 08:27] VITALS: BP 135/78
[~2019-11-24] VITALS: Ht 154.9 cm; Wt 131.0 kg
[~2019-11-24 10:59] MED LIST changes: +LIDOCAINE 1% INJ 20 ML 20 ML VIAL INJ ONE; +LIDOCAINE 1% INJ 20 ML 20 ML VIAL ONE
[2019-11-24] MEDS: ERTAPENEM 1000 MG (INVanz) VIAL IM SCH (11:17)
[2019-11-24] MEDS: LIDOCAINE 1% INJ 20 ML 20 ML VIAL INJ SCH (11:17)
[2019-11-24 11:20] VITALS: BP 126/75
== END 2019-11-24 11:20 | disposition home or self-care (01) ==
LOC: SDC 10:59
PROVIDERS: ATTEND Family Medicine
DX: N39.0 Urinary tract infection, site not specified (principal)
CPT/HCPCS: 96365; 96372

== ENCOUNTER → 2020-02-18 | Outpatient (CLI) | payer MEDICARE ==
[~2020-02-18] MED LIST changes: -LIDOCAINE 1% INJ 20 ML 20 ML VIAL INJ ONE; -LIDOCAINE 1% INJ 20 ML 20 ML VIAL ONE
[2020-02-18 10:42] LABS: BASOPHILS % (AUTO) 1 % (0-10); EOSINOPHILS # (AUTO) 0.2 10^3/uL (0.0-0.3); EOSINOPHILS % (AUTO) 4 % (0-10); HEMATOCRIT 38 % (35-52); HEMOGLOBIN 11.9 G/DL (11.5-16.0); LYMPHOCYTES # (AUTO) 1.7 X 10^3 (1.0-4.0); LYMPHOCYTES % (AUTO) 30 % (12-44); MEAN CORPUSCULAR HEMOGLOBIN 29 PG (25-34); MEAN CORPUSCULAR HGB CONC 31 G/DL (32-36); MEAN CORPUSCULAR VOLUME 93 FL (80-99); MEAN PLATELET VOLUME 9.2 FL (7.4-10.4); MONOCYTES # (AUTO) 0.5 X 10^3 (0.0-1.0); MONOCYTES % (AUTO) 9 % (0-12); NEUTROPHILS # (AUTO) 3.2 X 10^3 (1.8-7.8); NEUTROPHILS % (AUTO) 57 % (42-75); PLATELET COUNT 254 10^3/uL (130-400); RED CELL DISTRIBUTION WIDTH 14.2 % (10.0-14.5); WHITE BLOOD COUNT 5.6 10^3/uL (4.3-11.0)
[2020-02-18 11:04] LABS: BILIRUBIN,TOTAL 0.5 MG/DL (0.1-1.0); CALCIUM 9.8 MG/DL (8.5-10.1); CREATININE SERUM 1.46 MG/DL (0.60-1.30); POTASSIUM 4.5 MMOL/L (3.6-5.0); TOTAL PROTEIN 7.1 GM/DL (6.4-8.2)
[2020-02-18 11:27] LABS: FREE T4 (FREE THYROXINE) 1.31 NG/DL (0.70-1.48)
== END ==
LOC: LAB 10:24
PROVIDERS: ATTEND Family Medicine
DX: E11.65 Type 2 diabetes mellitus with hyperglycemia (principal); I10 Essential (primary) hypertension; E78.2 Mixed hyperlipidemia; E03.9 Hypothyroidism, unspecified
CPT/HCPCS: 36415; 80053; 80061; 84439; 84443; 85025

== ENCOUNTER 2020-02-23 09:55 | Outpatient (RCR) | payer MEDICARE ==
[2020-02-18 10:41] LABS: BASOPHILS % (AUTO) 1 % (0-10); EOSINOPHILS # (AUTO) 0.2 10^3/uL (0.0-0.3); EOSINOPHILS % (AUTO) 4 % (0-10); HEMATOCRIT 38 % (35-52); HEMOGLOBIN 12.1 G/DL (11.5-16.0); LYMPHOCYTES # (AUTO) 1.6 X 10^3 (1.0-4.0); LYMPHOCYTES % (AUTO) 29 % (12-44); MEAN CORPUSCULAR HEMOGLOBIN 30 PG (25-34); MEAN CORPUSCULAR HGB CONC 32 G/DL (32-36); MEAN CORPUSCULAR VOLUME 93 FL (80-99); MONOCYTES # (AUTO) 0.5 X 10^3 (0.0-1.0); MONOCYTES % (AUTO) 9 % (0-12); NEUTROPHILS # (AUTO) 3.1 X 10^3 (1.8-7.8); NEUTROPHILS % (AUTO) 57 % (42-75); PLATELET COUNT 246 10^3/uL (130-400); WHITE BLOOD COUNT 5.4 10^3/uL (4.3-11.0)
[2020-02-18 11:06] LABS: BILIRUBIN,TOTAL 0.5 MG/DL (0.1-1.0); CALCIUM 9.7 MG/DL (8.5-10.1); CREATININE SERUM 1.48 MG/DL (0.60-1.30); POTASSIUM 4.5 MMOL/L (3.6-5.0); TOTAL PROTEIN 7.1 GM/DL (6.4-8.2)
== END 2020-05-18 | disposition home or self-care (01) ==
LOC: ONC 09:55
PROVIDERS: ATTEND Internal Medicine Hematology & Oncology
DX: D50.8 Other iron deficiency anemias (principal); N18.3 Chronic kidney disease, stage 3 (moderate); E11.22 Type 2 diabetes mellitus with diabetic chronic kidney disease; J44.9 Chronic obstructive pulmonary disease, unspecified; D63.1 Anemia in chronic kidney disease; E66.01 Morbid (severe) obesity due to excess calories; Q62.10 Congenital occlusion of ureter, unspecified; Z87.19 Personal history of other diseases of the digestive system; Z79.899 Other long term (current) drug therapy; Z98.84 Bariatric surgery status
CPT/HCPCS: 80053; 82728; 85025; 99213

== ENCOUNTER → 2020-02-24 | Outpatient (CLI) | payer MEDICARE ==
[~2020-02-24] MED LIST changes: +CATHETER FLUSH 10 ML SYR IV PRN; +FUROSEMIDE 40 MG/4 ML INJ (LASIX) INJ ONE; +FUROSEMIDE 40 MG/4 ML INJ (LASIX) ONE
--- NOTE | 2020-02-24 12:09 | Diagnostic Imaging Report ---
Exam: Nuclear medicine MAG3 renal study. Date: February 24, 2020. Indication: 64-year-old female, right-sided hydronephrosis. Evaluation for fixed urinary tract obstruction. Comparison: CT chest January 21, 2019. CT abdomen pelvis June 22, 2019. Findings: 5.49 mCi of technetium labeled MAG3 radiotracer was administered. 40 mg of intravenous Lasix was also administered during the course of exam. There is prompt and symmetric perfusion of both kidneys. There is radiotracer excretion by the left kidney and a delay in excretion of radiotracer by the right kidney. There is radiotracer extension into the right ureter. The half-life for clearance of radiotracer by the right kidney is measured at 23 minutes which is beyond upper limits of normal. The half-life for clearance from the left kidney is 3 minutes. There is right hydronephrosis. Impression: 1. Right hydronephrosis with asymmetric delay in excretion of radiotracer by the right kidney as well as prolonged half-life for clearance. There is radiotracer extension of the right ureter. Findings could potentially relate to a fixed distal right ureteral obstruction. Correlation with current cross-sectional imaging is recommended. 2. Unremarkable nuclear medicine evaluation of the left kidney. Dictated by: Dictated on workstation # [id number]
== END ==
LOC: CARD 08:42
PROVIDERS: ATTEND Family Medicine
DX: N13.30 Unspecified hydronephrosis (principal)
CPT/HCPCS: 78708; A9562

== ENCOUNTER → 2020-06-18 | Outpatient (CLI) | payer MEDICARE ==
[~2020-06-18] MED LIST changes: -CATHETER FLUSH 10 ML SYR IV PRN; -FUROSEMIDE 40 MG/4 ML INJ (LASIX) INJ ONE; -FUROSEMIDE 40 MG/4 ML INJ (LASIX) ONE; -PANT40TA3 PO; +PANT40TA52 PO
== END ==
LOC: LABNPT 08:24
DX: Z11.59 Encounter for screening for other viral diseases (principal)
CPT/HCPCS: 87635

== ENCOUNTER → 2020-07-02 | Outpatient (CLI) | payer MEDICARE | LOC: LABNPT 05:35 | PROVIDERS: ATTEND Family Medicine | DX: J02.9 Acute pharyngitis, unspecified (principal); Z20.828 Contact with and (suspected) exposure to other viral communicable diseases | CPT/HCPCS: 87635 ==

== ENCOUNTER → 2020-09-24 | Outpatient (CLI) | payer MEDICARE ==
[~2020-09-24] MED LIST changes: -MONT10TA26 PO; +MONT10TA97 PO
== END ==
LOC: LABNPT 05:29
PROVIDERS: ATTEND Urology
DX: Z20.822 Contact with and (suspected) exposure to COVID-19 (principal)
CPT/HCPCS: 87635

== ENCOUNTER 2020-10-20 13:38 | Inpatient (IN) | payer MEDICARE ==
[~2020-10-20] VITALS: Ht 160 cm; Wt 142.8 kg
[~2020-10-20 13:38] MED LIST changes: -BUPR150T7 PO; +BUPR150T8 PO; -CIPR500T4 PO; +CIPR500T5 PO; +MONT10TA32 PO; -MONT10TA97 PO
[2020-10-20] MEDS ORDERED: ONDANSETRON 4 MG/2 ML (SDV) Z0FRAN IV PRN (14:00)
[2020-10-20] MEDS ORDERED: PATIENT MAY USE OWN MEDS, ALL PO SCH (14:00)
[2020-10-20] MEDS ORDERED: ENOXAPARIN 30 MG/0.3 ML (LOVENOX) SYR SC SCH (14:00)
[2020-10-20] MEDS ORDERED: ACETAMINOPHEN 325 MG TABLET PO PRN (14:15)
[2020-10-20] MEDS ORDERED: RT-ALBUTEROL INHALER HFA (VENTOLIN HFA) 18 GM IH PRN (14:15)
[2020-10-20] MEDS ORDERED: LEVOTHYROXINE 137 MCG PO SCH (14:15)
[2020-10-20 14:20] VITALS: BP 141/72
[2020-10-20] MEDS ORDERED: CATHETER FLUSH 10 ML SYR IV PRN (15:15)
[2020-10-20] MEDS: NS IV 1000 ML 1,000 ML IV SCH (15:38)
[2020-10-20 15:43] VITALS: BP 143/69
[2020-10-20] MEDS: MEROPENEM 2,000 MG in NS (IVPB) 100 ML IV SCH ×2 (16:03→23:29)
[2020-10-20] MEDS: inSUlin ASPART (NovoLOG) 1 UNIT/0.01 ML (CHARGE PER UNIT) SC SCH ×2 (16:04→20:55)
[2020-10-20] MEDS ORDERED: OXYB5TAB13 PO (16:17)
[2020-10-20] MEDS ORDERED: FOSF3PAC3 PO (16:17)
[2020-10-20] MEDS ORDERED: METH1TAB21 PO (16:17)
[2020-10-20] MEDS ORDERED: CLOB15CR2 TP (16:17)
[2020-10-20] MEDS ORDERED: KETO10DR5 OU (16:17)
[2020-10-20] MEDS ORDERED: HYOS-19 PO (16:17)
[2020-10-20] MEDS ORDERED: TMSL.4C PO (16:17)
[2020-10-20] MEDS ORDERED: PROP10DR2 OU (16:17)
[2020-10-20] MEDS ORDERED: FLUT9.9S NSEACH (16:17)
[2020-10-20] MEDS: LACTOBACILLUS ACIDOPHILUS (PROBIOTIC) CAPSULE PO SCH (17:10)
[2020-10-20] MEDS: ADVAIR HFA 115/21 MCG INHALER 8 GM IH SCH (19:02)
[2020-10-20 19:39] VITALS: BP 146/69
[2020-10-20] MEDS: MONTELUKAST 10 MG (SINGULAIR) TAB PO SCH (20:12)
[2020-10-20] MEDS: PANTOPRAZOLE 40 MG (PROTONIX) TAB PO SCH (20:13)
[2020-10-20] MEDS: CARVEDILOL 12.5 MG (COREG) TABLET PO SCH (20:13)
[2020-10-20] MEDS ORDERED: NON-FORMULARY MEDICATION 1 EA EA (Mirabegron (Myrbetriq) 25 MG) PO SCH (21:00)
[2020-10-20] MEDS: TAMSULOSIN 0.4 MG (FLOMAX) CAP PO SCH (22:08)
[2020-10-21] VITALS (7 sets, daily range): BP systolic 134–175; BP diastolic 65–86
[2020-10-21 04:40] LABS: HEMOGLOBIN 11.4 g/dL (11.5-16.0); MEAN PLATELET VOLUME 9.6 fL (9.0-12.2); WHITE BLOOD COUNT 6.3 10^3/uL (4.3-11.0)
[2020-10-21 04:50] LABS: POTASSIUM 4.1 MMOL/L (3.6-5.0)
[2020-10-21 04:51] LABS: CALCIUM 8.8 MG/DL (8.5-10.1)
[2020-10-21 04:56] LABS: CREATININE SERUM 1.44 MG/DL (0.60-1.30)
[2020-10-21] MEDS: inSUlin ASPART (NovoLOG) 1 UNIT/0.01 ML (CHARGE PER UNIT) SC SCH ×4 (06:02→20:22)
[2020-10-21] MEDS: NS IV 1000 ML 1,000 ML IV SCH ×3 (06:13→14:30)
[2020-10-21] MEDS: MEROPENEM 2,000 MG in NS (IVPB) 100 ML IV SCH ×3 (06:13→23:41)
[2020-10-21] MEDS: LEVOTHYROXINE 25 MCG (LEVOTHROID) TAB PO SCH (06:13)
[2020-10-21] MEDS: LEVOTHYROXINE 112 MCG (LEVOTHROID) TAB PO SCH (06:13)
[2020-10-21] MEDS ORDERED: PATIENT MAY USE OWN MED,SINGLE MED PO SCH (07:45)
[2020-10-21] MEDS: CARVEDILOL 12.5 MG (COREG) TABLET PO SCH ×2 (08:32→20:24)
[2020-10-21] MEDS: buPROPion SR 150 MG (WELLBUTRIN SR) TAB PO SCH (08:32)
[2020-10-21] MEDS: ENOXAPARIN 60 MG/0.6 ML (LOVENOX) SYR SC SCH ×2 (08:32→20:25)
[2020-10-21] MEDS: LACTOBACILLUS ACIDOPHILUS (PROBIOTIC) CAPSULE PO SCH ×3 (08:32→16:47)
[2020-10-21] MEDS: PANTOPRAZOLE 40 MG (PROTONIX) TAB PO SCH ×2 (08:32→20:24)
[2020-10-21] MEDS: HYDROcodone/APAP 5 MG/325 MG (LORTAB) TAB PO PRN ×3 (08:33→20:29)
[2020-10-21] MEDS: amLODIPine 5 MG (NORVASC) TAB PO SCH (08:42)
[2020-10-21] MEDS ORDERED: ACHD5005 PO (08:46)
[2020-10-21] MEDS ORDERED: buPROPion XL 150 MG (WELLBUTRIN XL) NON-FORM PO SCH (09:00)
[2020-10-21] MEDS ORDERED: NON-FORMULARY MEDICATION 1 EA EA (Mirabegron (Myrbetriq) 25 MG) PO SCH (09:00)
[2020-10-21] MEDS: ADVAIR HFA 115/21 MCG INHALER 8 GM IH SCH ×2 (09:59→19:04)
[2020-10-21] MEDS ORDERED: NON-FORMULARY MEDICATION 1 EA EA (Hyoscyamine Sulfate 0.125 MG) PO PRN (13:15)
--- NOTE | 2020-10-21 17:29 | History & Physical ---
History of Present Illness History of Present Illness Reason for visit/HPI This is a 65 year old female with a history of right ureteral stenosis, chronic renal insufficiency and recurrent UTIs who underwent urine culture after a recent completion of antibiotics for an infection. She was found to have ESBL postive E. coli which was only sensitive to meropenem. She did have a recent stent exchange to her right ureter. She was having increased urinary frequency with incontinence and worsening right low back and right leg pain. She will be admitted for at least 3 days of IV meropenem. Date of Admission Oct 20, 2020 at 14:11 Date Seen by a Provider: Oct 21, 2020 Time Seen by a Provider: 12:45 I consulted on this patient on 10/21/20 17:24 Attending Physician Belkis Araujo DO Admitting Physician Belkis Araujo DO Consult Allergies and Home Medications Allergies Coded Allergies: Cephalosporins (Verified Allergy, Unknown, 10/20/20) Sulfa (Sulfonamide Antibiotics) (Unverified Allergy, Unknown, RASH, ) azithromycin (Verified Allergy, Unknown, 10/20/20) codeine (Verified Allergy, Unknown, 10/20/20) Home Medications Albuterol Sulfate 8.5 Gm Hfa.aer.ad, 2 PUFF INH Q4H PRN for SHORTNESS OF BREATH, (Reported) Amlodipine Besylate 5 Mg Tablet, 5 MG PO DAILY, (Reported) Bupropion HCl 150 Mg Tab.er.24h, 150 MG PO DAILY, (Reported) Carvedilol 25 Mg Tablet, 25 MG PO BID, (Reported) Clobetasol Propionate 15 Gm Cream..g., 1 APPLIC TP BID, (Reported) Estradiol 42.5 Gm Cream.appl, 1 APPLIC VG 3 TIMES A WEEK, (Reported) Fenofibrate Nanocrystallized 145 Mg Tablet, 145 MG PO HS, (Reported) Fluticasone Propionate 9.9 Ml [place].susp, 1 SPRAY NSEACH HS, (Reported) 1 SPRAY EACH NARE DAILY Fluticasone/Salmeterol 1 Each Blst.w.dev, 1 EACH IH DAILY, (Reported) Fosfomycin Tromethamine 3 Gm Packet, 1 PACKET PO UD PRN for UTI, (Reported) Hydrocodone/Acetaminophen 1 Each Tablet, 1-2 EA PO Q6H PRN for PAIN-MODERATE (5- 7), (Reported) Hyoscyamine Sulfate 0.125 Mg Tab.subl, 0.125 MG PO TID PRN for GI SPASMS, (R eported) Ketotifen Fumarate 10 Ml Drops, 1-2 DROPS OU BID PRN for ALLERGY EYE SYMPTOMS, (Reported) Levothyroxine Sodium 137 Mcg Tablet, 137 MCG PO DAILY, (Reported) Loperamide HCl 2 Mg Tablet, 4 MG PO BID, (Reported) TAKES 2 (2MG) TABS Methenamine Hippurate 1 Gm Tablet, 1 GM PO BID, (Reported) Mirabegron 25 Mg Tab.er.24h, 25 MG PO DAILY, (Reported) Montelukast Sodium 10 Mg Tablet, 10 MG PO HS, (Reported) Oxybutynin Chloride 5 Mg Tablet, 5 MG PO TID, (Reported) Pantoprazole Sodium 40 Mg Tablet.dr, 40 MG PO BID, (Reported) Propylene Glycol/Peg 400 10 Ml Drops, 1-2 DROPS OU PRN PRN for DRY EYES, (Rep orted) Tamsulosin HCl 0.4 Mg Cap, 0.4 MG PO HS, (Reported) [D-Mannose] , 1,300 MG PO BID, (Reported) Patient Home Medication List Home Medication List Reviewed: Yes Past Fcykruw-Sncphp-Qvzsst Hx Past Med/Social Hx: Reviewed Nursing Past Med/Soc Hx Patient Social History Marrital Status: Employed/Student: unemployed 2nd Hand Smoke Exposure: No Recent Foreign Travel: No Contact w/other who traveled: No Recent Hopitalizations: No Immunizations Up To Date Tetanus Booster (TDap): Unknown Pediatric: Yes Date of Pneumonia Vaccine: Jun 10, 2019 Date of Influenza Vaccine: Jun 19, 2020 Seasonal Allergies Seasonal Allergies: Yes Past Medical History Surgeries: Abdominal, Bowel Surgery, Section, Orthopedic, Tonsillectomy Currently Using CPAP: Yes Currently Using BIPAP: No Cardiac: Chronic Edema/Swelling, High Cholesterol, Hypertension Reproductive: No Genitourinary: UTI-Chronic Gastrointestinal: Diverticulosis Musculoskeletal: Degenerate Disk Disease, Arthritis, Chronic Back Pain Endocrine: Hypothyroidsim, Diabetes, Non-Insulin dep Loss of Vision: Denies Hearing Impairment: Denies Psychosocial: Depression History of Blood Disorders: No Adverse Reaction to Blood Julio: No Review of Systems Constitutional: weakness EENTM: No see HPI, No no symptoms reported, No ear discharge, No hearing loss, No ear pain, No blurred vision, No double vision, No eye pain, No tearing, No vision loss, No dental problems, No hoarseness, No mouth pain, No mouth swelling, No epistaxis, No nose congestion, No nose pain, No throat pain, No throat swelling, No other Respiratory: No no symptoms reported, No see HPI, No cough, No dyspnea on exertion, No hemoptysis, No orthopnea, No phlegm, No short of breath, No stridor, No wheezing, No other Cardiovascular: No no symptoms reported, No see HPI, No chest pain, No edema, No Hx of Intervention, No palpitations, No syncope, No vascular heart diseas, No other Gastrointestinal: abdominal pain (cramping), other (ostomy) Genitourinary: frequency, incontinence, pain Musculoskeletal: back pain, muscle weakness Skin: No no symptoms reported, No see HPI, No change in color, No change in hair/nails, No dryness, No hx of skin cancer, No lesions, No lumps, No pruritus, No rash, No other Psychiatric/Neurological: Weakness Physical Exam Vital Signs Vital Signs - First Documented 10/20/20 14:20 Temp 36.0 Pulse 88 Resp 20 B/P (MAP) 141/72 (95) Pulse Ox 92 O2 Delivery Room Air Capillary Refill : Height, Weight, BMI Height: 5'5.00" Weight: 289lbs. 0.8oz. 136.832017qi; 55.78 BMI Method:Stated General Appearance: Mild Distress Neck: Supple Respiratory: Lungs Clear Cardiovascular: Regular Rate, Rhythm, Gallop/S4 Gastrointestinal: Soft, Hernia (left large paraostomal hernia), Tenderness, Other (ostomy) Rectal: Deferred Back: No CVA Tenderness Extremity: Non Tender, No Calf Tenderness, No Pedal Edema Neurologic/Psychiatric: Alert, Oriented x3 Skin: Warm/Dry Comments Laboratory Tests 10/20/20 20:31: Glucometer 116H 10/21/20 04:30: White Blood Count 6.3, Red Blood Count 3.78L, Hemoglobin 11.4L, Hematocrit 35, Mean Corpuscular Volume 93, Mean Corpuscular Hemoglobin 30, Mean Corpuscular Hemoglobin Concent 33, Red Cell Distribution Width 14.2, Platelet Count 177, Mean Platelet Volume 9.6, Sodium Level 140, Potassium Level 4.1, Chloride Level 107, Carbon Dioxide Level 22, Anion Gap 11, Blood Urea Nitrogen 26H, Creatinine 1.44H, Estimat Glomerular Filtration Rate 36, BUN/Creatinine Ratio 18, Glucose Level 93, Calcium Level 8.8 10/21/20 11:06: Glucometer 115H 10/21/20 15:31: Glucometer 100 Assessment/Plan Assessment and Plan 1. UTI with ESBL positive E. coli--admit for at least 3 days of IV meropenem 2. Chronic Renal Insufficiency with Right Ureteral stenosis and recent right renal stent exchange 3. Hypertension--resume home meds 4. Asthma--resume home inhalers 5. BERNARDO--use home CPAP 6. Diabetes mellitus II--currently diet controlled, will do accuchecks with SSI Admission Diagnosis Admission Status: Inpatient Order (span 2 midnights) Reason for Inpatient Admission: Will need 3 days of IV abx BELKIS De Paz DO Oct 21, 2020 17:29
[2020-10-21] MEDS ORDERED: ENOXAPARIN 30 MG/0.3 ML (LOVENOX) SYR SC SCH (17:45)
[2020-10-21] MEDS: Mirabegron (Myrbetriq) 25 MG) PO SCH (20:23)
[2020-10-21] MEDS: OXYBUTYNIN (DITROPAN) 5 MG TAB PO SCH (20:24)
[2020-10-21] MEDS: MONTELUKAST 10 MG (SINGULAIR) TAB PO SCH (20:24)
[2020-10-21] MEDS: TAMSULOSIN 0.4 MG (FLOMAX) CAP PO SCH (20:24)
[2020-10-21] MEDS: Hyoscyamine Sulfate 0.125 MG PO PRN (20:30)
[2020-10-21] MEDS: ESTRADIOL VAGINAL CREAM 42.5 GM (ESTRACE) VG SCH (20:33)
[2020-10-22] VITALS (7 sets, daily range): BP systolic 131–171; BP diastolic 62–81
[2020-10-22] MEDS: HYDROcodone/APAP 5 MG/325 MG (LORTAB) TAB PO PRN ×5 (00:25→20:50)
[2020-10-22] MEDS: NS IV 1000 ML 1,000 ML IV SCH ×4 (00:25→22:35)
[2020-10-22] MEDS: LEVOTHYROXINE 112 MCG (LEVOTHROID) TAB PO SCH (06:07)
[2020-10-22] MEDS: LEVOTHYROXINE 25 MCG (LEVOTHROID) TAB PO SCH (06:07)
[2020-10-22] MEDS: MEROPENEM 2,000 MG in NS (IVPB) 100 ML IV SCH ×3 (06:07→22:34)
[2020-10-22] MEDS: inSUlin ASPART (NovoLOG) 1 UNIT/0.01 ML (CHARGE PER UNIT) SC SCH ×4 (06:34→20:50)
[2020-10-22] MEDS: ADVAIR HFA 115/21 MCG INHALER 8 GM IH SCH ×2 (06:56→18:14)
[2020-10-22] MEDS: buPROPion SR 150 MG (WELLBUTRIN SR) TAB PO SCH (09:30)
[2020-10-22] MEDS: OXYBUTYNIN (DITROPAN) 5 MG TAB PO SCH ×3 (09:30→20:49)
[2020-10-22] MEDS: amLODIPine 5 MG (NORVASC) TAB PO SCH (09:30)
[2020-10-22] MEDS: PANTOPRAZOLE 40 MG (PROTONIX) TAB PO SCH ×2 (09:30→20:50)
[2020-10-22] MEDS: CARVEDILOL 12.5 MG (COREG) TABLET PO SCH ×2 (09:31→20:50)
[2020-10-22] MEDS: ENOXAPARIN 60 MG/0.6 ML (LOVENOX) SYR SC SCH ×2 (09:31→20:49)
[2020-10-22] MEDS: LACTOBACILLUS ACIDOPHILUS (PROBIOTIC) CAPSULE PO SCH ×3 (09:31→18:27)
[2020-10-22] MEDS: Hyoscyamine Sulfate 0.125 MG PO PRN (09:33)
--- NOTE | 2020-10-22 09:53 | Progress Note ---
Subjective Date Seen by a Provider: Oct 22, 2020 Time Seen by a Provider: 09:46 Subjective/Events-last exam Fwup ESBL+ UTI, right renal colic, HTN, chronic renal insufficiency, recent exchange of right ureteral stent. Still C/O right flank pain and right back pain radiating into right leg. Objective Exam Vital Signs Date Time Temp Pulse Resp B/P (MAP) Pulse Ox O2 Delivery O2 Flow Rate FiO2 10/22/20 07:20 36.5 69 18 131/62 (85) 92 NIV CPAP 10/22/20 06:56 95 Room Air 10/22/20 06:09 169/81 (110) 10/22/20 05:00 36.4 62 20 171/74 (106) 93 NIV CPAP 10/22/20 00:25 66 20 161/73 (102) 93 NIV CPAP 10/21/20 23:39 36.8 10/21/20 20:25 NIV CPAP 10/21/20 19:43 36.6 51 18 136/65 (88) 94 NIV CPAP 10/21/20 19:06 94 NIV CPAP 10/21/20 16:00 36.4 59 18 165/77 (106) 94 Room Air 10/21/20 12:19 62 162/75 (104) 10/21/20 11:46 36.2 70 22 175/86 (115) 94 Room Air 10/21/20 09:59 94 NIV CPAP I & O 10/22/20 07:00 Intake Total 1410 ml Output Total 2000 ml Balance -590 ml Capillary Refill : General Appearance: No Apparent Distress Respiratory: Lungs Clear Cardiovascular: Regular Rate, Rhythm Gastrointestinal: normal bowel sounds, soft, tenderness (RUQ pain) Extremity: Non Tender, No Calf Tenderness, No Pedal Edema Neurologic/Psychiatric: Alert, Oriented x3 Results Lab Laboratory Tests 10/21/20 11:06: Glucometer 115H 10/21/20 15:31: Glucometer 100 10/21/20 20:03: Glucometer 116H 10/22/20 06:10: Glucometer 87 Assessment/Plan Assessment/Plan Assess & Plan/Chief Complaint 1. ESBL + UTI--continue meropenem 2. Right Renal Colic with Recent Right Ureteral Stent Exchange--check renal US, increase flomax dose 3. Hypertension--on coreg/amlodopine, increase flomax dose 4. Chronic Renal Insufficiency--repeat Chemistry in AM Clinical Quality Measures Admission Status Admission Dx 1. UTI with ESBL positive E. coli--admit for at least 3 days of IV meropenem 2. Chronic Renal Insufficiency with Right Ureteral stenosis and recent right renal stent exchange 3. Hypertension--resume home meds 4. Asthma--resume home inhalers 5. BERNARDO--use home CPAP 6. Diabetes mellitus II--currently diet controlled, will do accuchecks with BROWN CLAUDIO DO Oct 22, 2020 09:53
[2020-10-22] MEDS ORDERED: HYOSCYAMINE SULFATE PO SCH (10:00)
[2020-10-22] MEDS: HYOSCYAMINE SULFATE PO SCH ×2 (12:33→20:48)
--- NOTE | 2020-10-22 12:58 | Diagnostic Imaging Report ---
INDICATION: Right flank pain, recent right ureteral stent placement. EXAM: Limited ultrasound of the right kidney and bladder was performed. FINDINGS: The right kidney measured 12.3 x 5.0 x 5.1 cm. There was no hydronephrosis. Right ureteral stent is in place. Distal portion of the stent is visualized in the bladder. IMPRESSION: No significant hydronephrosis with right ureteral stent in place. Urinary bladder shows stent in place but no other abnormal findings. Dictated by: Dictated on workstation # [id number]
[2020-10-22] MEDS: Mirabegron (Myrbetriq) 25 MG) PO SCH (20:48)
[2020-10-22] MEDS: TAMSULOSIN 0.4 MG (FLOMAX) CAP PO SCH (20:49)
[2020-10-22] MEDS: MONTELUKAST 10 MG (SINGULAIR) TAB PO SCH (20:49)
[2020-10-22] MEDS: ESTRADIOL VAGINAL CREAM 42.5 GM (ESTRACE) VG SCH (20:51)
[2020-10-23] VITALS (7 sets, daily range): BP systolic 127–175; BP diastolic 69–92
[2020-10-23] MEDS: HYDROcodone/APAP 5 MG/325 MG (LORTAB) TAB PO PRN ×4 (00:58→23:16)
[2020-10-23 05:15] LABS: HEMOGLOBIN 11.5 g/dL (11.5-16.0); MEAN PLATELET VOLUME 9.6 fL (9.0-12.2)
[2020-10-23 05:37] LABS: CALCIUM 9.1 MG/DL (8.5-10.1)
[2020-10-23 05:41] LABS: CREATININE SERUM 0.98 MG/DL (0.60-1.30)
[2020-10-23] MEDS: inSUlin ASPART (NovoLOG) 1 UNIT/0.01 ML (CHARGE PER UNIT) SC SCH ×4 (05:48→21:23)
[2020-10-23] MEDS: MEROPENEM 2,000 MG in NS (IVPB) 100 ML IV SCH ×3 (06:48→23:16)
[2020-10-23] MEDS: LEVOTHYROXINE 25 MCG (LEVOTHROID) TAB PO SCH (06:48)
[2020-10-23] MEDS: LEVOTHYROXINE 112 MCG (LEVOTHROID) TAB PO SCH (06:48)
--- NOTE | 2020-10-23 08:36 | Progress Note ---
Subjective Date Seen by a Provider: Oct 23, 2020 Time Seen by a Provider: 08:34 Subjective/Events-last exam Fwup ESBL+ UTI, right renal colic, HTN, chronic renal insufficiency, recent exchange of right ureteral stent. Right flank and leg pain improving. Objective Exam Vital Signs Date Time Temp Pulse Resp B/P (MAP) Pulse Ox O2 Delivery O2 Flow Rate FiO2 10/23/20 04:47 36.1 68 20 127/83 (98) 94 NIV CPAP 10/23/20 00:58 36.5 65 18 163/69 (100) 93 NIV CPAP 10/22/20 20:50 NIV CPAP 10/22/20 20:10 37.3 63 18 163/76 (105) 95 NIV CPAP 10/22/20 18:14 95 Room Air 10/22/20 15:26 36.4 64 18 164/74 (104) 95 NIV CPAP 10/22/20 11:24 36.1 66 18 140/66 (90) 94 NIV CPAP 10/22/20 09:00 Room Air I & O 10/23/20 07:00 Intake Total 1605 ml Output Total 2450 ml Balance -845 ml Capillary Refill : General Appearance: No Apparent Distress Respiratory: Lungs Clear Cardiovascular: Regular Rate, Rhythm Gastrointestinal: normal bowel sounds, non tender, soft Extremity: Non Tender, No Calf Tenderness, No Pedal Edema Neurologic/Psychiatric: Alert, Oriented x3 Results Lab Laboratory Tests 10/22/20 10:53: Glucometer 93 10/22/20 16:41: Glucometer 96 10/22/20 20:12: Glucometer 104 10/23/20 05:03: White Blood Count 7.0, Red Blood Count 3.85, Hemoglobin 11.5, Hematocrit 36, Mean Corpuscular Volume 93, Mean Corpuscular Hemoglobin 30, Mean Corpuscular Hemoglobin Concent 32, Red Cell Distribution Width 14.1, Platelet Count 183, Mean Platelet Volume 9.6, Sodium Level 139, Potassium Level 4.0, Chloride Level 106, Carbon Dioxide Level 23, Anion Gap 10, Blood Urea Nitrogen 15, Creatinine 0.98, Estimat Glomerular Filtration Rate 57, BUN/Creatinine Ratio 15, Glucose Level 91, Calcium Level 9.1 Assessment/Plan Assessment/Plan Assess & Plan/Chief Complaint 1. ESBL + UTI--continue meropenem through tomorrow 2. Right Renal Colic with Recent Right Ureteral Stent Exchange--check renal US, increased flomax dose has seemed to help with colic pain 3. Hypertension--on coreg/amlodopine and ncreased flomax dose 4. Chronic Renal Insufficiency--repeat Chemistry shows Cr down to 0.98 Clinical Quality Measures Admission Status Admission Dx 1. UTI with ESBL positive E. coli--admit for at least 3 days of IV meropenem 2. Chronic Renal Insufficiency with Right Ureteral stenosis and recent right renal stent exchange 3. Hypertension--resume home meds 4. Asthma--resume home inhalers 5. BERNARDO--use home CPAP 6. Diabetes mellitus II--currently diet controlled, will do accuchecks with BROWN CLAUDIO DO Oct 23, 2020 08:36
[2020-10-23] MEDS: CARVEDILOL 12.5 MG (COREG) TABLET PO SCH ×2 (09:00→19:57)
[2020-10-23] MEDS: ENOXAPARIN 60 MG/0.6 ML (LOVENOX) SYR SC SCH ×2 (09:01→19:58)
[2020-10-23] MEDS: amLODIPine 5 MG (NORVASC) TAB PO SCH (09:01)
[2020-10-23] MEDS: OXYBUTYNIN (DITROPAN) 5 MG TAB PO SCH ×3 (09:01→19:57)
[2020-10-23] MEDS: LACTOBACILLUS ACIDOPHILUS (PROBIOTIC) CAPSULE PO SCH ×3 (09:01→17:11)
[2020-10-23] MEDS: buPROPion SR 150 MG (WELLBUTRIN SR) TAB PO SCH (09:01)
[2020-10-23] MEDS: PANTOPRAZOLE 40 MG (PROTONIX) TAB PO SCH ×2 (09:01→19:57)
[2020-10-23] MEDS: HYOSCYAMINE SULFATE PO SCH ×3 (09:03→19:56)
[2020-10-23] MEDS: ADVAIR HFA 115/21 MCG INHALER 8 GM IH SCH ×2 (09:53→19:15)
[2020-10-23] MEDS: NS IV 1000 ML 1,000 ML IV SCH (15:08)
[2020-10-23] MEDS: Mirabegron (Myrbetriq) 25 MG) PO SCH (19:55)
[2020-10-23] MEDS: TAMSULOSIN 0.4 MG (FLOMAX) CAP PO SCH (19:56)
[2020-10-23] MEDS: MONTELUKAST 10 MG (SINGULAIR) TAB PO SCH (19:57)
[2020-10-23] MEDS: ESTRADIOL VAGINAL CREAM 42.5 GM (ESTRACE) VG SCH (19:59)
[2020-10-24 03:33] VITALS: BP 172/79
[2020-10-24] MEDS: NS IV 1000 ML 1,000 ML IV SCH (06:12)
[2020-10-24] MEDS: LEVOTHYROXINE 25 MCG (LEVOTHROID) TAB PO SCH (06:13)
[2020-10-24] MEDS: LEVOTHYROXINE 112 MCG (LEVOTHROID) TAB PO SCH (06:13)
[2020-10-24] MEDS: MEROPENEM 2,000 MG in NS (IVPB) 100 ML IV SCH (06:13)
[2020-10-24] MEDS: inSUlin ASPART (NovoLOG) 1 UNIT/0.01 ML (CHARGE PER UNIT) SC SCH (06:23)
[2020-10-24 08:00] VITALS: BP 185/86
[2020-10-24] MEDS: LACTOBACILLUS ACIDOPHILUS (PROBIOTIC) CAPSULE PO SCH (08:08)
[2020-10-24] MEDS: buPROPion SR 150 MG (WELLBUTRIN SR) TAB PO SCH (08:08)
[2020-10-24] MEDS: CARVEDILOL 12.5 MG (COREG) TABLET PO SCH (08:09)
[2020-10-24] MEDS: OXYBUTYNIN (DITROPAN) 5 MG TAB PO SCH (08:09)
[2020-10-24] MEDS: amLODIPine 5 MG (NORVASC) TAB PO SCH (08:09)
[2020-10-24] MEDS: PANTOPRAZOLE 40 MG (PROTONIX) TAB PO SCH (08:09)
[2020-10-24] MEDS: ENOXAPARIN 60 MG/0.6 ML (LOVENOX) SYR SC SCH (08:09)
[2020-10-24] MEDS: HYOSCYAMINE SULFATE PO SCH (08:10)
[2020-10-24] MEDS: ADVAIR HFA 115/21 MCG INHALER 8 GM IH SCH (09:06)
[2020-10-24] MEDS ORDERED: TMSL.4C PO (09:47)
[2020-10-24] MEDS ORDERED: FOSF3PAC3 PO (09:47)
[2020-10-24] MEDS ORDERED: CYCL5TAB PO (09:48)
--- NOTE | 2020-10-24 09:54 | Discharge Summary ---
Discharge Summary Hospital Course Was the Problem List Reviewed?: Yes Hospital Course Date of Admission: Oct 20, 2020 at 14:11 Admission Diagnosis : Family Physician/Provider: Belkis Araujo DO Date of Discharge: 10/24/20 Discharge Diagnosis: [ ] Hospital Course: [ ] Labs and Pending Lab Test: Laboratory Tests 10/23/20 11:03: Glucometer 96 10/23/20 15:42: Glucometer 116H 10/23/20 20:59: Glucometer 100 10/24/20 06:15: Glucometer 94 Home Meds Active Cyclobenzaprine HCl 5 Mg Tablet 5 Mg PO TID PRN Flomax (Tamsulosin HCl) 0.4 Mg Cap 0.8 Mg PO HS Fosfomycin Tromethamine 3 Gm Packet 1 Packet PO UD PRN one packet on 10/25/20 Reported Hydrocodone-Acetamin 5-325 mg (Hydrocodone/Acetaminophen) 1 Each Tablet 1-2 Ea PO Q6H PRN Systane Ultra 0.4-0.3% Eye Drp (Propylene Glycol/Peg 400) 10 Ml Drops 1-2 Drops OU PRN PRN [place]away (Ketotifen Fumarate) 10 Ml Drops 1-2 Drops OU BID PRN Flonase Allergy Relief (Fluticasone Propionate) 9.9 Ml [place].susp 1 [place] NSEACH HS 1 SPRAY EACH NARE DAILY Oxybutynin Chloride 5 Mg Tablet 5 Mg PO TID Hyoscyamine Sulfate 0.125 Mg Tab.subl 0.125 Mg PO TID PRN Methenamine Hippurate 1 Gm Tablet 1 Gm PO BID Clobetasol Propionate 15 Gm Cream..g. 1 Applic TP BID Levothyroxine Sodium 137 Mcg Tablet 137 Mcg PO DAILY [D-Mannose] 1,300 Mg PO BID Estradiol 42.5 Gm Cream.appl 1 Applic VG 3 TIMES A WEEK Bupropion Xl (Bupropion HCl) 150 Mg Tab.er.24h 150 Mg PO DAILY Advair 250-50 Diskus (Fluticasone/Salmeterol) 1 Each Blst.w.dev 1 Each IH DAILY Myrbetriq (Mirabegron) 25 Mg Tab.er.24h 25 Mg PO DAILY Norvasc (Amlodipine Besylate) 5 Mg Tablet 5 Mg PO DAILY Imodium A-D (Loperamide HCl) 2 Mg Tablet 4 Mg PO BID TAKES 2 (2MG) TABS Fenofibrate (Fenofibrate Nanocrystallized) 145 Mg Tablet 145 Mg PO HS Montelukast Sodium 10 Mg Tablet 10 Mg PO HS Proair Hfa (Albuterol Sulfate) 8.5 Gm Hfa.aer.ad 2 Puff INH Q4H PRN Carvedilol 25 Mg Tablet 25 Mg PO BID Pantoprazole Sodium 40 Mg Tablet.dr 40 Mg PO BID Assessment/Pt Instructions 1. UTI with ESBL positive E. coli--symptoms improved, will take dose of monurol tomorrow and then repeat UA in 1 week 2. Chronic Renal Insufficiency with Right Ureteral stenosis and recent right renal stent exchange--Cr down to 0.98 after hydration/UTI treatment 3. Hypertension--some elevation in hospital so will monitor at home 4. Asthma--stable 5. BERNARDO--stable on home CPAP 6. Diabetes mellitus II--currently diet controlled 7. Right Renal Colic--improved after increased dose of flomax so will stay on this at [place] and use Levsin TID routinely 8. Urinary Incontinence--resume oxybutynin, myrbetriq Discharge Instructions Discharge Diet: ADA Diet, Cardiac Diet Activity as Tolerated: Yes Discharge Physical Examination Vital Signs Vital Signs Date Time Temp Pulse Resp B/P (MAP) Pulse Ox O2 Delivery O2 Flow Rate FiO2 10/24/20 09:06 94 NIV CPAP 10/24/20 08:00 36.3 68 20 185/86 (119) General Appearance: No Apparent Distress Respiratory: Lungs Clear Cardiovascular: Regular Rate, Rhythm Gastrointestinal: Normal Bowel Sounds, Hernia (paraostomal), Other (ostomy) Extremity: Non Tender, No Calf Tenderness, No Pedal Edema Skin: Warm/Dry Neurologic/Psychiatric: Alert, Oriented x3 Allergies: Coded Allergies: Cephalosporins (Verified Allergy, Unknown, 10/20/20) Sulfa (Sulfonamide Antibiotics) (Unverified Allergy, Unknown, RASH, 10/20/20) azithromycin (Verified Allergy, Unknown, 10/20/20) codeine (Verified Allergy, Unknown, 10/20/20) Discharge Summary Date of Admission Oct 20, 2020 at 14:11 Date of Discharge BELKIS ARAUJO DO Oct 24, 2020 09:54
[2020-10-24] MEDS ORDERED: CYCLOBENZAPRINE 10 MG (FLEXERIL) TAB PO NR (10:00)
== END 2020-10-24 09:45 | disposition home or self-care (01) | DRG 690 ==
LOC: 4TH 14:11
PROVIDERS: ADMIT Family Medicine; ATTEND Family Medicine
PROC: 5A09457 Assistance with Respiratory Ventilation, 24-96 Consecutive Hours, Continuous Positive Airway Pressure (ICD-10-PCS; principal; 2020-10-20)
DX: N39.0 Urinary tract infection, site not specified (principal); B96.20 Unspecified Escherichia coli [E. coli] as the cause of diseases classified elsewhere; N18.9 Chronic kidney disease, unspecified; I12.9 Hypertensive chronic kidney disease with stage 1 through stage 4 chronic kidney disease, or unspecified chronic kidney disease; J45.909 Unspecified asthma, uncomplicated; G47.33 Obstructive sleep apnea (adult) (pediatric); E11.22 Type 2 diabetes mellitus with diabetic chronic kidney disease; N20.0 Calculus of kidney; R32 Unspecified urinary incontinence; E78.00 Pure hypercholesterolemia, unspecified; M19.90 Unspecified osteoarthritis, unspecified site; G89.29 Other chronic pain; M54.9 Dorsalgia, unspecified; E03.9 Hypothyroidism, unspecified; F32.9 Major depressive disorder, single episode, unspecified; K57.90 Diverticulosis of intestine, part unspecified, without perforation or abscess without bleeding; N35.92 Unspecified urethral stricture, female; Z88.1 Allergy status to other antibiotic agents; Z88.2 Allergy status to sulfonamides; Z88.6 Allergy status to analgesic agent
CPT/HCPCS: 36415; 76775; 76937; 80048; 82962; 85027; 94640; 94760

== ENCOUNTER → 2020-12-31 | Outpatient (CLI) | payer MEDICARE ==
[~2020-12-31] MED LIST changes: +BUPR150T24 PO; -BUPR150T8 PO; +CLOB15CR2 TP; +CYCL5TAB PO; +FLUT9.9S NSEACH; +FOSF3PAC3 PO; +HYOS-19 PO; +KETO10DR5 OU; +METH1TAB21 PO; +OXYB5TAB13 PO; +PROP10DR2 OU; +TMSL.4C PO
== END ==
LOC: LABNPT 08:31
PROVIDERS: ATTEND Urology
DX: Z20.822 Contact with and (suspected) exposure to COVID-19 (principal)
CPT/HCPCS: 87635

== ENCOUNTER 2021-02-24 13:19 | Outpatient (RCR) | payer MEDICARE ==
[2021-02-17 08:45] LABS: BASOPHILS % (AUTO) 1 % (0-10); EOSINOPHILS # (AUTO) 0.3 10^3/uL (0.0-0.3); EOSINOPHILS % (AUTO) 4 % (0-10); HEMATOCRIT 39 % (35-52); HEMOGLOBIN 12.1 g/dL (11.5-16.0); LYMPHOCYTES % (AUTO) 28 % (12-44); MEAN CORPUSCULAR HEMOGLOBIN 29 pg (25-34); MEAN CORPUSCULAR HGB CONC 31 g/dL (32-36); MEAN CORPUSCULAR VOLUME 95 fL (80-99); MEAN PLATELET VOLUME 9.6 fL (9.0-12.2); MONOCYTES # (AUTO) 0.7 10^3/uL (0.0-1.0); MONOCYTES % (AUTO) 9 % (0-12); NEUTROPHILS # (AUTO) 4.1 10^3/uL (1.8-7.8); NEUTROPHILS % (AUTO) 58 % (42-75); PLATELET COUNT 230 10^3/uL (130-400)
[2021-02-17 09:05] LABS: BILIRUBIN,TOTAL 0.5 MG/DL (0.1-1.0); CALCIUM 9.9 MG/DL (8.5-10.1); CREATININE SERUM 1.41 MG/DL (0.60-1.30); POTASSIUM 4.4 MMOL/L (3.6-5.0); TOTAL PROTEIN 7.1 GM/DL (6.4-8.2)
[2021-05-09] MEDS ORDERED: TMSL.4C PO (11:48)
[2021-05-09] MEDS ORDERED: CHOL500050 PO (11:48)
[2021-05-09] MEDS ORDERED: PHEN-640 PO (11:48)
[2021-05-09] MEDS ORDERED: D-MA500C PO (11:48)
[2021-05-09] MEDS ORDERED: ALB0.5V INH (11:48)
[2021-05-09] MEDS ORDERED: AMLO-251 PO (11:48)
[2021-05-09] MEDS ORDERED: CETI10TA17 PO (11:48)
[2021-05-09] MEDS ORDERED: OXYC-473 PO (11:48)
[2021-05-09] MEDS ORDERED: MMT17NA NSEACH (11:48)
[2021-05-09] MEDS ORDERED: MECL-149 PO (11:48)
[2021-05-12] MEDS ORDERED: CARV25TA PO (14:47)
[2021-05-12] MEDS ORDERED: AMLO-250 PO (14:47)
[2021-05-13] MEDS ORDERED: TMSL.4C PO (05:22)
[2021-05-13] MEDS ORDERED: PHEN-826 PO (05:22)
[2021-05-13] MEDS ORDERED: OXYB5TAB13 PO (05:22)
[2021-05-13] MEDS ORDERED: LOSA50TA63 PO (05:22)
== END 2021-05-18 | disposition home or self-care (01) ==
LOC: ONC 13:19
PROVIDERS: ATTEND Internal Medicine Hematology & Oncology
DX: D50.9 Iron deficiency anemia, unspecified (principal); N13.5 Crossing vessel and stricture of ureter without hydronephrosis; E66.01 Morbid (severe) obesity due to excess calories; Z68.43 Body mass index [BMI] 50.0-59.9, adult; E11.22 Type 2 diabetes mellitus with diabetic chronic kidney disease; N18.4 Chronic kidney disease, stage 4 (severe); Z88.2 Allergy status to sulfonamides; Z88.1 Allergy status to other antibiotic agents; Z88.5 Allergy status to narcotic agent; Z88.8 Allergy status to other drugs, medicaments and biological substances; Z79.899 Other long term (current) drug therapy
CPT/HCPCS: 80053; 82728; 85025; 99213

== ENCOUNTER 2021-05-09 10:11 | Inpatient (IN) | payer MEDICARE ==
[~2021-05-09] VITALS: Ht 160 cm; Wt 139.5 kg
[2021-05-09] MEDS ORDERED: ALB0.5V INH (11:48)
[2021-05-09] MEDS ORDERED: AMLO-251 PO (11:48)
[2021-05-09] MEDS ORDERED: TMSL.4C PO (11:48)
[2021-05-09] MEDS ORDERED: D-MA500C PO (11:48)
[2021-05-09] MEDS ORDERED: CETI10TA17 PO (11:48)
[2021-05-09] MEDS ORDERED: CHOL500050 PO (11:48)
[2021-05-09] MEDS ORDERED: MMT17NA NSEACH (11:48)
[2021-05-09] MEDS ORDERED: OXYC-473 PO (11:48)
[2021-05-09] MEDS ORDERED: PHEN-640 PO (11:48)
[2021-05-09] MEDS ORDERED: MECL-149 PO (11:48)
[2021-05-09 16:15] VITALS: BP 160/70
[2021-05-09] MEDS ORDERED: CALCIUM CARBONATE 500 MG (TUMS) TAB.CHEW PO PRN (16:15)
[2021-05-09] MEDS ORDERED: ALPRAZolam 0.25 MG (XANAX) TAB PO PRN (16:15)
[2021-05-09] MEDS ORDERED: ACETAMINOPHEN 500 MG TAB (TYLENOL) PO PRN (16:15)
[2021-05-09] MEDS ORDERED: diphenhydrAMINE 25 MG TAB (BENADRYL) PO PRN (16:15)
[2021-05-09] MEDS ORDERED: BISACODYL 10 MG SUPP (DULCOLAX) PR PRN (16:15)
[2021-05-09] MEDS ORDERED: HYDROcodone/APAP 5 MG/325 MG (LORTAB) TAB PO PRN (16:15)
[2021-05-09] MEDS ORDERED: ONDANSETRON 4 MG (ZOFRAN) ORAL DISSOLVE TAB PO PRN (16:15)
[2021-05-09] MEDS ORDERED: LACTULOSE SYRUP 10GM/15ML (ENULOSE) 30ML UDC PO PRN (16:15)
[2021-05-09] MEDS ORDERED: FLEET ENEMA ADULT 1 EA BTL PR PRN (16:15)
[2021-05-09] MEDS ORDERED: NALOXONE 0.4 MG/ML 1 ML (NARCAN) VIAL IV PRN (16:15)
[2021-05-09] MEDS ORDERED: DOCUSATE SODIUM 100 MG (COLACE) CAP PO PRN (16:15)
[2021-05-09] MEDS ORDERED: MELATONIN 3 MG TABLET PO PRN (16:15)
[2021-05-09] MEDS ORDERED: LOPERAMIDE 2 MG (IMODIUM) TABLET PO PRN (16:15)
[2021-05-09] MEDS ORDERED: RT-ALBUTEROL SULF 2.5 MG/3 ML PRE-MIX VIAL INH PRN ×2 (17:45)
[2021-05-09] MEDS ORDERED: OXYBUTYNIN (DITROPAN) 5 MG TAB PO PRN (17:45)
[2021-05-09] MEDS ORDERED: ESTRADIOL VAGINAL CREAM 42.5 GM (ESTRACE) VG SCH (17:45)
--- NOTE | 2021-05-09 18:15 | Progress Note ---
QUIQUE ANDRES MED STUDENT 05/09/211814: Progress Note CC: Debility HPI: Zhane Matson is a 65 year old white female who was admitted to inpatient rehab at [facility] today by private conveyance after having a right sided ureteral stent exchanged at [facility] on 05-05-21 with discharge from there today. She presented for an outpatient elective right ureteroscopy with stent exchange and botox injection and was found to be bradycardic in preop holding. An EKG was performed showing profound bradycardia and a second degree type 1 block as well as LBBB. EP was consulted and it was deemed safe for her to undergo the procedure anyway. She reports being given a dose of atropine and a MAC for the case. She remained hospitalized until today while she had a bit of a cardiac workup. EP had ordered an echocardiogram on her showing normal EF. Her home coreg had been discontinued as that was thought to be the source or a contributing factor to the bradycardia. EP determined that she would not need a pacemaker now but may need one in the long run. Amlodipine had been increased from 5mg to 10mg daily. She reports having several months of dizziness and lightheadedness without any syncopal episodes. She reports not having been out of bed much at [facility], stating "they didn't really move me around much.'" She was admitted to inpatient rehab here to work with PT and OT with hopes of returning to home with her soon. Currently she denies chest pain, fevers, chills, nausea, diarrhea and headaches. Reports minimal SOB at rest, which is baseline for her. Also reporting worsening urinary frequency, urgency, and incontinence over the last few days s/p ureteral stent exchange. She is tolerating po intake well. Denies pain. PMH: Hypothyroidism, COPD, BERNARDO with CPAP at night, NIDDM, HLP, HTN, Morbid obesity, Asthma, CKD stage 3, Lichen sclerosus of vulva, H/O C diff, H/O diverticulitis, H/O blood transfusions, Arthritis, Recurrent UTI's PSH: EGD, Colonoscopy, Hartmans procedure 2017, x 2, tonsillectomy, tubal ligation, bilateral cataract surgery, Allergies: Cephalosporins, rash. Sulfa antibiotics, rash. Azithromycin, rash. Codeine, rash. Celebrex, rash. Medications: Advair diskus 250-50mcg dose, 1 puff BID. Alaway 0.02% ophthalamic soln, 1 drop both eyes daily. Albuterol inhaler, 2 puff every 6hrs prn, Norvasc 10mg po daily, zyrtec 10mg po at hs. Clobetasol 0.05% topical cream BID to affected area. D-Mannose 500mg po BID. Estradiol vaginal cream, 3 times weekly. Fenofibrate 145mg tablet po daily. Hyoscyamine 0.125mg SL TID. Synthroid 137mcg po daily. Loperamide 2mg capsules, 4mg po BID. Meclizine 25mg at hs daily. Methenamine hippurate 1 GM po BID. Singulair 10mg po daily. Myrbetriq 25mg po daily. Nasonex 50mcg, 2 sprays to each nare daily PRN. Oxybutynin 5mg po TID PRN. Oxycodone 5mg po q6hrs prn. Protonix 40mg po BID. Phenazopyridine 200mg tablet TID PRN. Flomax 0.4mg po daily. Vitamin D3 5000 IU po daily. SH: Retired. Lives at home in [place], [place] with and dog. General diet. No ETOH use. No tobacco product usage. No recreational drug use reported. FH: Mom, HTN, HLP, thyroid disease. Dad, Diabetes, CVA. ROS: General: Denies fevers, chills, night sweats, weight loss. Reports generalized deconditioning and malaise. HEENT: Denies headaches, seizures, sore throat, rhinorrhea, blurry vision, hearing loss. Neck: Denies masses. CV: Denies chest pain, fluttering, palpitations, and edema. Respiratory: Reports SOB at baseline. Denies cough. Denies wheezing. GI: Reports colostomy. Denies nausea, vomiting, and diarrhea. : Reports chronic frequency, urgency, incontinence. Neuro: Denies headaches,seizures, blurry vision, numbness and tingling. Reports several months of dizziness and lightheadedness Physical Exam: General: Elderly appearing female with morbid obesity in no apparent distress. HEENT: Atraumatic, normocephalic. PERRLA. EMOI. Nares patent bilaterally without rhinorrhea. Throat without erythema or exudates. CV: RRR. No murmur or rub. Cap refill <2 seconds bilateral hands. No edema of BLE. Respiratory: Lungs CTAB. Diminished bases bilaterally. No accessory muscle use. No retractions. Abdomen: Abdomen obese. Colostomy present with obvious large incisional hernia associated with colostomy. BS positive x 3 quadrants. Soft and nontender to palpation. Extremities: Without edema bilateral upper and lower extremities. Extrem x 4 warm, pink, and well perfused. Jeremy sign negative bilaterally. Neuro: Alert and oriented x 4. Cranial nerves 2-12 grossly intact. Labs/Images: Ordered for 05-10-21 Assessment: Debility S/P ureteroscopy and right ureteral stent exchange and botox injection 05-05-21 at [facility] Right ureteral stricture requiring regular ureteral stent exchanges New onset bradycardia with 2nd degree type 1 block and LBBB noted at [facility] 05-05 Morbid obesity NIDDM CKD stage 3 Mixed Urinary incontinence HTN HLP BERNARDO, CPAP COPD Asthma Recurrent UTI's Arthritis Lichen sclerosus ov vulva H/O c diff H/O diverticulitis H/O blood transfusions S/P hartmans procedure 2016 PT/OT evaluation and treat Continue Zio Patch heart monitor Telemetry Ok to use home CPAP set at 12 overnight, no 02 bleed in Resume home medications Accuchecks achs, SSI CBC, CMP, UA in AM Contact Isolation, history of MDRO Diabetic diet Up with assist only Urology consult GALILEO WRIGHT DO 05/10/21 0551: Supervisory-Addendum Brief Verification & Attestation Participated in pt care: history, MDM, physical Personally performed: exam, history, MDM, supervision of care Care discussed with: Medical Student Procedures: n/a Results interpretation: Verified all documentation Verification and Attestation of Medical Student E/M Service A medical student performed and documented this service in my presence. I reviewed and verified all information documented by the medical student and made modifications to such information, when appropriate. I personally performed the physical exam and medical decision making. Galileo Wright, May 10, 2021,05:51 QUIQUE ANDRES MED STUDENT May 09, 2021 18:15 GALILEO WRIGHT DO May 10, 2021 05:51
[2021-05-09] MEDS ORDERED: PHENAZOPYRIDINE 100 MG (PYRIDIUM) TABLET PO PRN (19:00)
[2021-05-09] MEDS ORDERED: PATIENT MAY USE OWN MED,SINGLE MED PO SCH (19:30)
[2021-05-09 20:00] VITALS: BP 158/66
[2021-05-09] MEDS: polyethylene glycoL POWDER 17 GM (MIRALAX) PACK PO SCH (20:14)
[2021-05-09] MEDS: SENNA W/DOCUSATE (SENOKOT S) TABLET PO SCH (20:46)
[2021-05-09] MEDS: DOCUSATE SODIUM 100 MG (COLACE) CAP PO SCH (20:46)
[2021-05-09] MEDS: HYOSCYAMINE 0.125 MG (LEVSIN) TAB PO SCH (20:48)
[2021-05-09] MEDS: METHENAMINE HIPP (UREX) 1 GM TABLET PO SCH (20:48)
[2021-05-09] MEDS: MONTELUKAST 10 MG (SINGULAIR) TAB PO SCH (20:48)
[2021-05-09] MEDS: PANTOPRAZOLE 40 MG (PROTONIX) TAB PO SCH (20:48)
[2021-05-09] MEDS: MECLIZINE 25 MG (ANTIVERT) TAB PO SCH (20:48)
[2021-05-09] MEDS: LORATADINE (CLARITIN) 10 MG TAB PO SCH (20:48)
[2021-05-09] MEDS: LOPERAMIDE 2 MG (IMODIUM) TABLET PO SCH (20:48)
[2021-05-09] MEDS: BETAMETHASONE DIPRO (AUGMENTED) 0.05% CREAM 15 GM TOP SCH (20:49)
[2021-05-09] MEDS ORDERED: D MANNOSE 500 MG PO SCH (21:00)
[2021-05-09] MEDS: RT--FLUTICASONE/SALMETEROL 113-14 (AIRDUO RespiCLICK) IH SCH (21:09)
--- NOTE | 2021-05-09 21:15 | PM&R Post Admission Assessment ---
PM&R Date of Visit: May 09, 2021 Time of Visit: 19:30 History of Present Illness Chief complaint: Debility History of present illness: This is a 65-year-old white female of Dr. Araujo who presented to inpatient rehab with severe debility from [facility]. She was admitted on 05/05/2021 who was admitted to for bradycardia prior to urological procedure. Echocardiogram completed and noted junctional idioventricular rhythm. Electrophysiology saw her and had no recommendations. Patient had ureteral stent indwelling on the right side exchanged with Botox injection on 05/05/2021. She had a decline in status due to comorbidities in addition to increased BMI of 54 and she will require aggressive therapy in order to return back to independent living. Note: Encounter Date: 05/09/2021 2:45 PM Name: Zhane Matson Admission Date: 05/05/2021 LOS: 0 days ASSESSMENT AND PLAN 65 yo F with PMH significant for COPD, BERNARDO on CPAP, diabetes type 2, hyperlipidemia, hypertension, morbid obesity (BMI 57), recurrent UTIs, h/o cdiff, h/o diverticulitis s/p Gimenez's in 2017 with end colostomy who is admitted for bradycardia prior to urologic procedure. Bradycardia Chronic dizziness - cardiology EP consulted prior to urologic admission - may utilize Atropine or positive chronotropic agent if still desire to proceed with scheduled procedure - bradycardia as conduction disease in the form of first-degree AVB and Mobitz 2 - type 1, and LBBB on ECG and telemetry. - monitor overnight on telemetry - discontinued LOGISTICS ASSISTANT Coreg 25mg BID - increased LOGISTICS ASSISTANT amlodipine 5mg daily to 10mg daily for blood pressure control in the absence of Coreg -ECHOCardiogram normal wall motion and ejection fraction, no left ventricular inflow E wave due to junctional idioventricular rhythm.Reached out to electrophysiology, no new recommendations, she can be discharged home with compliance monitor Continue to monitor, discontinue beta-blockers. Right hydronephrosis - it has been chronic since 2018 and was worked up by outside urologist and felt to be related to scar tissue from prior abd surgery for diverticulitis RIGHT ureteral stricture managed by indwelling ureteral stent s/p RIGHT ureteral stent exchange and Botox injection (100U) on 05/05/21 - Antibiotic ppx prior to procedure: Rocephin based on prior cultures - CKD stage 3 Recurrent UTIs - Her creatinine was stable at 1.1 but during her most recent blood work has increased to 1.5. - 03/18/2020 Right URS and stent placement, cystogram Description and Findings of Operative Procedure: 1. Small capacity bladder ~180mL without evidence of reflux 2. RIGHT ureter with evidence of distal narrowing on retrograde and RIGHT hydronephrosis 3. RIGHTureter easily passed with pollack catheter and semirigid scope without evidence of stricture which bypassed the narrowing 3. 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 -Continue as needed Levsin and as needed Flomax DM2 - not on any meds LOGISTICS ASSISTANT - thought to be iatrogenic 2/2 steroids treatments used for COPD/chronic bronchitis COPD - stable - continue LOGISTICS ASSISTANT inhalers Hypothyroidism - continue LOGISTICS ASSISTANT synthroid Morbid obesity Physical debility - BMI on admission is 57 Plan PT and OT recommends senior care facility, manager social work requested placement, awaiting placement BERNARDO on CPAP History of diverticulitis s/p Talia's procedure Full code VTE Ppx: Continuous Infusions: CODE STATUS: Full Code Awaiting placement. Discussed with social work and will not be able to have facility acceptance over the weekend. Discharge to long-term care facility today Past Pzncnux-Edwxre-Slflvd Hx Past Med/Social Hx: Reviewed Nursing Past Med/Soc Hx, Reviewed and Corrections made Patient Social History Marrital Status: Employed/Student: retired Alcohol Use: Denies Use Smoking Status: Never a Smoker 2nd Hand Smoke Exposure: No Recent Hopitalizations: No Immunizations Up To Date Tetanus Booster (TDap): Unknown Pediatric: Yes Date of Pneumonia Vaccine: Jun 10, 2019 Date of Influenza Vaccine: Jun 19, 2020 Seasonal Allergies Seasonal Allergies: Yes Past Medical History Surgeries: Abdominal, Bowel Surgery, Section, Orthopedic, Tonsillectomy Currently Using CPAP: Yes Currently Using BIPAP: No Cardiac: Chronic Edema/Swelling, High Cholesterol, Hypertension Reproductive: No Genitourinary: UTI-Chronic Gastrointestinal: Diverticulosis Musculoskeletal: Degenerate Disk Disease, Arthritis, Chronic Back Pain Endocrine: Hypothyroidsim, Diabetes, Non-Insulin dep Loss of Vision: Denies Hearing Impairment: Denies Psychosocial: Depression History of Blood Disorders: No Adverse Reaction to Blood Julio: No PM&R Allergy/Meds/Data Review Allergies Coded Allergies: Cephalosporins (Verified Allergy, Unknown, 10/20/20) Sulfa (Sulfonamide Antibiotics) (Unverified Allergy, Unknown, RASH, 10/20/20) azithromycin (Verified Allergy, Unknown, 10/20/20) codeine (Verified Allergy, Unknown, 10/20/20) Home Medications Scheduled Amlodipine Besylate (Amlodipine Besylate), 10 MG PO DAILY, (Reported) Bupropion HCl (Bupropion Xl), 150 MG PO DAILY, (Reported) Cetirizine HCl (Cetirizine HCl), 10 MG PO HS, (Reported) Cholecalciferol (Vitamin D3) (Vitamin D3), 125 MCG PO DAILY, (Reported) Clobetasol Propionate (Clobetasol Propionate), 1 APPLIC TP BID, (Reported) D-Mannose (Azo D-Mannose), 500 MG PO BID, (Reported) Estradiol (Estradiol), 1 APPLIC VG 3 TIMES A WEEK, (Reported) Fenofibrate Nanocrystallized (Fenofibrate), 145 MG PO DAILY, (Reported) Fluticasone/Salmeterol (Advair 250-50 Diskus), 1 EACH IH BID, (Reported) Hyoscyamine Sulfate (Hyoscyamine Sulfate), 0.125 MG PO TID, (Reported) Ketotifen Fumarate (Alaway), 1 DROPS OU DAILY, (Reported) Levothyroxine Sodium (Levothyroxine Sodium), 137 MCG PO DAILY, (Reported) Loperamide HCl (Imodium A-D), 4 MG PO BID, (Reported) Meclizine HCl (Meclizine HCl), 25 MG PO HS, (Reported) Methenamine Hippurate (Methenamine Hippurate), 1 GM PO BID, (Reported) Mirabegron (Myrbetriq), 25 MG PO DAILY, (Reported) Mometasone Furoate (Nasonex), 2 SPRAYS NSEACH DAILY, (Reported) Montelukast Sodium (Montelukast Sodium), 10 MG PO HS, (Reported) Pantoprazole Sodium (Pantoprazole Sodium), 40 MG PO BID, (Reported) Tamsulosin HCl (Flomax), 0.4 MG PO DAILY, (Reported) Scheduled PRN Albuterol Sulfate (Proair Hfa), 2 PUFF INH Q6H PRN for SHORTNESS OF BREATH, (Reported) Albuterol Sulfate (Albuterol Sulfate), 2.5 MG INH Q6H PRN for SHORTNESS OF BREATH, (Reported) Oxybutynin Chloride (Oxybutynin Chloride), 5 MG PO TID PRN for FREQUENT URINATION, (Reported) Oxycodone HCl (Roxicodone), 5 MG PO Q6H PRN for PAIN-SEVERE (8-10), (Reported) Phenazopyridine HCl (Pyridium), 1 TAB PO TIDPC PRN for PAIN-BREAKTHROUGH, (Reported) Discontinued Medications Amlodipine Besylate (Norvasc), 5 MG PO DAILY, (Reported) Discontinued Reason: Prescription changed Carvedilol (Carvedilol), 25 MG PO BID, (Reported) Discontinued Reason: No Longer Taking Cyclobenzaprine HCl (Cyclobenzaprine HCl), 5 MG PO TID PRN for MUSCLE SPASMS Discontinued Reason: No Longer Taking Hydrocodone/Acetaminophen (Hydrocodone-Acetamin 5-325 mg), 1-2 EA PO Q6H PRN for PAIN-MODERATE (5-7), (Reported) Discontinued Reason: No Longer Taking Propylene Glycol/Peg 400 (Systane Ultra 0.4-0.3% Eye Drp), 1-2 DROPS OU PRN PRN for DRY EYES, (Reported) Discontinued Reason: Referral/FU Appt-Addtl Tamsulosin HCl (Flomax), 0.8 MG PO HS Discontinued Reason: Duplicate Order [D-Mannose], 1,300 MG PO BID, (Reported) Discontinued Reason: Prescription changed Current Medications Current Medications Reviewed Review of Systems Constitutional: see HPI, dizziness, malaise, weakness EENTM: no symptoms reported Respiratory: no symptoms reported Cardiovascular: no symptoms reported Gastrointestinal: no symptoms reported Genitourinary: decreased output Musculoskeletal: no symptoms reported Skin: no symptoms reported Psychiatric/Neurological: No Symptoms Reported All Other Systems Reviewed Negative Unless Noted: Yes Physical Exam Physical Exam Vital Signs Vital Signs - First Documented 05/09/21 16:15 Temp 36.8 Pulse 50 Resp 20 B/P (MAP) 160/70 (100) Pulse Ox 93 O2 Delivery Room Air Capillary Refill : Height, Weight, BMI Height: 5'5.00" Weight: 289lbs. 0.8oz. [id number]; 54.49 BMI Method:Stated General Appearance: No Apparent Distress, WD/WN, Chronically ill, Obese Eyes: Bilateral Eye Normal Inspection, Bilateral Eye PERRL HEENT: PERRL/EOMI, Normal ENT Inspection, Pharynx Normal Neck: Full Range of Motion, Normal Inspection, Non Tender, Supple, Carotid Bruit Respiratory: Chest Non Tender, Lungs Clear, Normal Breath Sounds, No Accessory Muscle Use, No Respiratory Distress Cardiovascular: Regular Rate, Rhythm, No Edema, No Gallop, No JVD, No Murmur, Normal Peripheral Pulses Gastrointestinal: Normal Bowel Sounds, No Organomegaly, No Pulsatile Mass, Non Tender, Soft Back: Normal Inspection, No CVA Tenderness, No Vertebral Tenderness Extremity: Normal Capillary Refill, Normal Inspection, Normal Range of Motion, Non Tender, No Calf Tenderness, No Pedal Edema Neurologic/Psychiatric: Alert, Oriented x3, classification and treatment director II-XII Norm as Tested, Abnormal Gait, Depressed Affect, Motor Weakness (Generalized weakness 4/5) Skin: Normal Color, Warm/Dry Lymphatic: No Adenopathy PM&R Medical Assessment & Plan REHAB/MEDICAL ASSESSMENT AND PLAN: REHAB IMPAIRMENT GROUP: Debility ETIOLOGIC DIAGNOSIS: Debility The comorbidities that impact the patients function and/or functional outcome by: Morbid obesity with increased BMI, bradycardia, urological dysfunction REHAB PLAN: The patient is being admitted to our comprehensive inpatient rehabilitation facility and can tolerate the intensity of service consisting of at least: 180 minutes of therapy a day, 5 out of 7 days a week Rehab treatment will consist of: PT and OT will focus on regaining function with aggressive physical therapy to regain independent ADLs in order to return back to independent living The patient/family has a good understanding of our discharge process and will benefit from an interdisciplinary inpatient rehabilitation program. The patient has potential to make improvement and is in need of at least two of the following multidisciplinary therapies including but not limited to physical, occupational, speech, and prosthetics and orthotics. Additionally the patient will need services from respiratory, nutritional services, wound care, psychology, etc. (Customize this to each patient). Given the patients complex condition and risk of further medical complications, rehabilitation services cannot be safely or effectively provided at a lower level of care such as a senior care facility. BARRIERS TO DISCHARGE: Morbid obesity ESTIMATED LOS: 10 days DISPOSITION: Home RELEVANT CHANGES SINCE PREADMISSION SCREENING: I have compared the patients medical and functional status at the time of the preadmission screening and there are: No changes PROGNOSIS: Fair REHABILITATION GOALS: 1. PT and OT will focus on regaining function with aggressive physical therapy to regain independent ADLs in order to return back to independent living All the above goals were reviewed with the patient and he/she is in agreement. By signing this document, I acknowledge that I have personally performed a full physical examination on this patient within 24 hours of admission to this inpatient rehabilitation facility and have determined the patient to be able to tolerate the above course of treatment at an intensive level for a reasonable p eriod of time. I will be completing a detailed individualized Plan of Care for this patient by day #4 of the patients stay based upon the Preadmission Screen, the Post-Admission Evaluation, and the therapy evaluations. Admission Dx/Comorbidities: (1) Debility ICD Codes: R53.81 - Other malaise (2) Morbid obesity ICD Codes: E66.01 - Morbid (severe) obesity due to excess calories (3) COPD (chronic obstructive pulmonary disease) ICD Codes: J44.9 - Chronic obstructive pulmonary disease, unspecified (4) Arthritis ICD Codes: M19.90 - Unspecified osteoarthritis, unspecified site (5) Incontinence ICD Codes: R32 - Unspecified urinary incontinence (6) History of Clostridium difficile colitis ICD Codes: Z86.19 - Personal history of other infectious and parasitic diseases (7) Chronic kidney disease ICD Codes: N18.9 - Chronic kidney disease, unspecified (8) Obstructive sleep apnea on CPAP ICD Codes: G47.33 - Obstructive sleep apnea (adult) (pediatric); Z99.89 - Dependence on other enabling machines and devices (9) Chronic renal failure Status: Acute ICD Codes: N18.9 - Chronic kidney disease, unspecified (10) Ureteral obstruction Status: Acute ICD Codes: N13.5 - Crossing vessel and stricture of ureter without hydronephrosis Assessment/Plan Assessment and Plan Assess & Plan/Chief Complaint Assessment: Severe debility Bradycardia prior to urological procedure Ureteral stent Kidney stone Bladder incontinence COPD Obstructive sleep apnea on CPAP Diabetes Hypertension Previous diverticulosis status post resection Plan: Aggressive therapy Home meds Monitor closely WRIGHT,GALILEO DO May 09, 2021 21:15
[2021-05-10 06:08] LABS: ALBUMIN 3.8 GM/DL (3.2-4.5); POTASSIUM 4.3 MMOL/L (3.6-5.0)
[2021-05-10 06:10] LABS: CALCIUM 9.8 MG/DL (8.5-10.1)
[2021-05-10 06:11] LABS: BASOPHILS # (AUTO) 0.1 10^3/uL (0.0-0.1); BASOPHILS % (AUTO) 1 % (0-10); EOSINOPHILS # (AUTO) 0.3 10^3/uL (0.0-0.3); EOSINOPHILS % (AUTO) 3 % (0-10); HEMATOCRIT 41 % (35-52); HEMOGLOBIN 12.8 g/dL (11.5-16.0); LYMPHOCYTES # (AUTO) 2.3 10^3/uL (1.0-4.0); LYMPHOCYTES % (AUTO) 26 % (12-44); MEAN CORPUSCULAR HEMOGLOBIN 30 pg (25-34); MEAN CORPUSCULAR HGB CONC 31 g/dL (32-36); MEAN CORPUSCULAR VOLUME 94 fL (80-99); MEAN PLATELET VOLUME 10.1 fL (9.0-12.2); MONOCYTES # (AUTO) 0.8 10^3/uL (0.0-1.0); MONOCYTES % (AUTO) 9 % (0-12); NEUTROPHILS # (AUTO) 5.4 10^3/uL (1.8-7.8); NEUTROPHILS % (AUTO) 61 % (42-75); PLATELET COUNT 220 10^3/uL (130-400); TOTAL PROTEIN 6.7 GM/DL (6.4-8.2); WHITE BLOOD COUNT 8.9 10^3/uL (4.3-11.0)
[2021-05-10 06:13] LABS: BILIRUBIN,TOTAL 0.7 MG/DL (0.1-1.0)
[2021-05-10 06:14] LABS: CREATININE SERUM 1.54 MG/DL (0.60-1.30)
[2021-05-10] MEDS: ENOXAPARIN 60 MG/0.6 ML (LOVENOX) SYR SC SCH ×2 (06:34→18:24)
[2021-05-10] MEDS: RT--FLUTICASONE/SALMETEROL 113-14 (AIRDUO RespiCLICK) IH SCH ×2 (06:52→23:11)
[2021-05-10 07:43] VITALS: BP 108/52
[2021-05-10] MEDS: VITAMIN D3 125 MCG (5,000 UNITS) CAPSULE PO SCH (08:18)
[2021-05-10] MEDS: LEVOTHYROXINE 112 MCG (LEVOTHROID) TAB PO SCH (08:19)
[2021-05-10] MEDS: buPROPion SR 150 MG (WELLBUTRIN SR) TAB PO SCH (08:19)
[2021-05-10] MEDS: LEVOTHYROXINE 25 MCG (LEVOTHROID) TAB PO SCH (08:19)
[2021-05-10] MEDS: FENOFIBRATE 134 MG (LOFIBRA) CAPSULE PO SCH (08:19)
[2021-05-10] MEDS: LOPERAMIDE 2 MG (IMODIUM) TABLET PO SCH ×2 (08:19→21:23)
[2021-05-10] MEDS: METHENAMINE HIPP (UREX) 1 GM TABLET PO SCH ×2 (08:20→21:23)
[2021-05-10] MEDS: SENNA W/DOCUSATE (SENOKOT S) TABLET PO SCH ×2 (08:20→21:29)
[2021-05-10] MEDS: PANTOPRAZOLE 40 MG (PROTONIX) TAB PO SCH ×2 (08:20→21:23)
[2021-05-10] MEDS: HYOSCYAMINE 0.125 MG (LEVSIN) TAB PO SCH ×3 (08:20→21:23)
[2021-05-10] MEDS: polyethylene glycoL POWDER 17 GM (MIRALAX) PACK PO SCH ×2 (08:20→21:29)
[2021-05-10] MEDS: DOCUSATE SODIUM 100 MG (COLACE) CAP PO SCH ×2 (08:20→21:28)
--- NOTE | 2021-05-10 08:43 | PM&R Progress Note ---
Subjective HPI/CC On Admission Date Seen by Provider: May 10, 2021 Time Seen by Provider: 08:45 Subjective/Events-last exam 05/10/2021: Pt doing okay Creatinine of 1.5 which is stable Having some loose stools, she has an ostomy Checked meds and labs She is moving around really well better than expected Review of Systems General: Fatigue, Malaise Objective Exam Vital Signs Vital Signs Date Time Temp Pulse Resp B/P (MAP) Pulse Ox O2 Delivery O2 Flow Rate FiO2 05/11/21 01:00 71 05/10/21 21:26 NIV CPAP 05/10/21 20:00 36.0 18 152/68 (96) 91 Capillary Refill : General Appearance: No Apparent Distress, WD/WN, Chronically ill, Obese HEENT: PERRL/EOMI, Normal ENT Inspection, Pharynx Normal Neck: Full Range of Motion, Normal Inspection, Non Tender, Supple, Carotid Bruit Respiratory: Chest Non Tender, Lungs Clear, Normal Breath Sounds, No Accessory Muscle Use, No Respiratory Distress Cardiovascular: Regular Rate, Rhythm, No Edema, No Gallop, No JVD, No Murmur, Normal Peripheral Pulses Gastrointestinal: Normal Bowel Sounds, No Organomegaly, No Pulsatile Mass, Non Tender, Soft Back: Normal Inspection, No CVA Tenderness, No Vertebral Tenderness Extremity: Normal Capillary Refill, Normal Inspection, Normal Range of Motion, Non Tender, No Calf Tenderness, No Pedal Edema Neurologic/Psychiatric: Alert, Oriented x3, tobacco sieve operator II-XII Norm as Tested, Abnormal Gait, Depressed Affect, Motor Weakness (Generalized weakness 4/5) Skin: Normal Color, Warm/Dry Lymphatic: No Adenopathy Results/Procedures Lab Laboratory Tests 05/10/21 05:45 Patient resulted labs reviewed. [facility] Transfers Therapy Code Descriptions/Definitions Functional [place] Measure: 0=Not Assessed/NA 4=Minimal Assistance 1=Total Assistance 5=Supervision or Setup 2=Maximal Assistance 6=Modified [place] 3=Moderate Assistance 7=Complete IndependenceSCALE: Activities may be completed with or without assistive devices. 1-[id number] completes the activity by him/herself with no assistance from a helper. 5-Set-up or Clean-up Assistance-helper sets up or cleans up; patient completes activity. Anderson assists only prior to or following the activity. 4-Supervision or Touching Assistance-helper provides verbal cues and/or touching/steadying and/or contact guard assistance as patient completes activity. Assistance may be provided throughout the activity or intermittently. 3-Partial/Moderate Assistance-helper does LESS THAN HALF the effort. Anderson lifts, holds or supports trunk or limbs, but provides less than half the effort. 2-Substantial/Maximal Assistance-helper does MORE THAN HALF the effort. Anderson lifts or holds trunk or limbs and provides more than half the effort. 5-[id number] does ALL the effort. Patient does none of the effort to complete the activity. Or, the assistance of 2 or more helpers is required for the patient to complete the activity. If activity was not attempted, code reason: 7-Patient Refused. 9-Not Applicable-not attempted and the patient did not perform the activity before the current illness, exacerbation or injury. 10-Not Attempted due to Environmental Limitations-(lack of equipment, weather restraints, etc.). 88-Not Attempted due to Medical Conditions or Safety Concerns. Assessment/Plan Assessment and Plan Assess & Plan/Chief Complaint Assessment: Severe debility Bradycardia prior to urological procedure Ureteral stent Kidney stone Bladder incontinence COPD Obstructive sleep apnea on CPAP Diabetes Hypertension Previous diverticulosis status post resection and colostomy Plan: Aggressive therapy Home meds Monitor closely 05/10/2021: Supportive care Colostomy care (1) Debility (2) Morbid obesity (3) COPD (chronic obstructive pulmonary disease) (4) Arthritis (5) Incontinence (6) History of Clostridium difficile colitis (7) Chronic kidney disease (8) Obstructive sleep apnea on CPAP (9) Chronic renal failure Status: Acute (10) Ureteral obstruction Status: Acute GALILEO WRIGHT DO May 10, 2021 08:43
--- NOTE | 2021-05-10 08:55 | Physical Therapy Evaluation ---
PT Evaluation-General Medical Diagnosis Admission Date May 09, 2021 at 16:02 Medical Diagnosis: debility Onset Date: May 05, 2021 Therapy Diagnosis Therapy Diagnosis: impaired mobility, strength, endurance Height/Weight Height (Feet): 5 Height (Inches): 5.00 Weight (Pounds): 289 Weight (Ounces): 0.8 Precautions Precautions/Isolations: Contact Isolation, Fall Prevention, Standard Pr ecautions Referral Physician: Chen Welch DO Reason for Referral: Evaluation/Treatment Medical History Additional Medical History PMH: Hypothyroidism, COPD, BERNARDO with CPAP at night, NIDDM, HLP, HTN, Morbid obesity, Asthma, CKD stage 3, Lichen sclerosus of vulva, H/O C diff, H/O diverticulitis, H/O blood transfusions, Arthritis, Recurrent UTI's PSH: EGD, Colonoscopy, Hartmans procedure 2017, x 2, tonsillectomy, tubal ligation, bilateral cataract surgery, Reviewed History: Yes Social History Home: Multilevel (split level home) Current Living Status: Spouse Entry Into Home: Stairs With Railing PT Steps Into Home: 3 7 steps to go up or down after getting into the home, all steps have handrails. Prior Prior Level of Function SCALE: Activities may be completed with or without assistive devices. 2-Xxonhofqup-zsubkmo completes the activity by him/herself with no assistance from a helper. 5-Set-up or Clean-up Assistance-helper sets up or cleans up; patient completes activity. [place] assists only prior to or following the activity. 4-Supervision or Touching Assistance-helper provides verbal cues and/or touching/steadying and/or contact guard assistance as patient completes activity. Assistance may be provided throughout the activity or intermittently. 3-Partial/Moderate Assistance-helper does LESS THAN HALF the effort. [place] lifts, holds or supports trunk or limbs, but provides less than half the effort. 2-Substantial/Maximal Assistance-helper does MORE THAN HALF the effort. [place] lifts or holds trunk or limbs and provides more than half the effort. 2-Tqbmoxvej-uncots does ALL the effort. Patient does none of the effort to complete the activity. Or, the assistance of 2 or more helpers is required for the patient to complete the activity. If activity was not attempted, code reason: 7-Patient Refused. 9-Not Applicable-not attempted and the patient did not perform the activity before the current illness, exacerbation or injury. 10-Not Attempted due to Environmental Limitations-(lack of equipment, weather restraints, etc.). 88-Not Attempted due to Medical Conditions or Safety Concerns. Bed Mobility: 6 Transfers (B,C,W/C): 6 Gait: 6 (short distances) Stairs: 4 Indoor Mobility (Ambulation): Independent Stairs: Needed Some Help Prior Devices Use: Walker PT Evaluation-Current Subjective Patient in bed pre tx, agrees to PT, has no pain at rest but has 3/10 pain in left knee with activity. Pt/Family Goals to be independent at home Objective Patient Orientation: Person, Place, Situation ROM/Strength ROM Lower Extremities limited a little due to obesity Strength Lower Extremities LLE (hip flexion not tested due to pannus impeding the testing, knee flexion 3/5, knee extension 3+/5, dorsiflexion 4+/5), RLE (hip flexion not tested due to pannus impeding the testing, knee flexion 4/5, knee extension 4/5, dorsiflexion 4+/5) Sensory Vision: Functional Hearing: Functional Sensation Right Lower Extremit: Intact Sensation Left Lower Extremity: Intact Transfers Roll Left & Right (QC): 6 Sit to Lying (QC): 6 Lying to Sitting/Side of Bed(Q: 6 Sit to Stand (QC): 4 Chair/Win-xw-Xgfxh Xfer(QC): 4 Toilet Transfer (QC): 4 Car Transfer (QC): 4 Patient performs bed mobility and supine <-> sit with independence, sit <-> sta nd and transfers CGA, car transfer CGA. Patient needs cues for hand placement and safety, will often do sit to stand using both hands on walker. Gait Does the Patient Walk?: Yes Mode of Locomotion: Walk Anticipated Mode of Locomotion: Walk Walk 10 feet (QC): 4 Walk 50 ft with 2 Turns(QC): 4 Walk 150 ft (QC): 88 Walking 10ft/uneven surface-QC: 4 Distance: 120'x2 Gait Assistive Device: FWW Comments/Gait Description Patient can ambulate 120' with a rolling walker with CGA (including 50' with at least 2 turns of 90 degrees and 10' over an uneven surface). Patient has antalgic gait due to left knee pain, has some left knee unsteadiness but no complete buckling, slow speed Wheelchair Training Does the Pt Use a Wheelchair?: No Wheel 50 ft with 2 turns (QC): 8 Wheel 150 ft (QC): 8 Stairs 1 Step (curb) (QC): 88 4 Steps (QC): 88 12 Steps (QC): 88 Stairs not performed due to safety reasons due to left knee instability and pain. Balance Sitting Static: Normal Sitting Dynamic: Normal Standing Static: Good Standing Dynamic: Fair Picking up an Object (QC): 6 (using a solar energy advisor) Treatment BLE seated exercises x20 (AP, LAQ, hip flexion), NuStep level 5 for 15 min. Assessment/Needs Patient has impaired mobility, strength, endurance, left knee pain with activity. Patient sitting EOB post tx with nurse call, phone, tray, all needs met. Patient just CGA with transfers and ambulation. Rehab Potential: Fair PT Short Term Goals Short Term Goals Time Frame: May 17, 2021 Roll Left & Right: 6 Sit to lyin Lying to sitting on side of be: 6 Sit to stand: 4 Chair/ktv-ui-jkbts transfer: 4 Walk 10 feet: 4 Walk 50 feet with two turns: 4 Walk 150 feet: 4 PT Long-Term Goals Funding Coordinator Goals PT Long-Term Goals Time Frame: May 31, 2021 Roll Left & Right (QC): 6 Sit to Lying (QC): 6 Lying-Sitting on Side/Bed(QC): 6 Sit to Stand (QC): 5 Chair/Ich-cy-Yfsim Xfer(QC): 5 Toilet Transfer (QC): 5 Car Transfer (QC): 5 Does the Patient Walk: Yes Walk 10 feet (QC): 5 Walk 50ft with 2 Turns (QC): 5 Walk 150 ft (QC): 5 Walking 10ft on Uneven Surface: 5 1 Step (curb) (QC): 4 4 Steps (QC): 4 12 Steps (QC): 88 Picking up an Object (QC): 6 Wheel 50 feet with 2 turns (QC: 9 Wheel 150 feet: 9 PT Plan Problem List Problem List: Activity Tolerance, Functional Strength, Safety, Balance, Gait, Transfer, Bed Mobility, ROM Treatment/Plan Treatment Plan: Continue Plan of Care Treatment Plan: Bed Mobility, Education, Functional Activity Lalit, Functional Strength, Group Therapy, Gait, Safety, Therapeutic Exercise, Transfers Treatment Duration: May 31, 2021 Frequency: At least 5 of 7 days/Wk (IRF) Estimated Hrs Per Day: 1.5 hours per day Patient and/or Family Agrees t: Yes Safety Risks/Education Patient Education: Gait Training, Transfer Techniques, Correct Positioning, S afety Issues Teaching Recipient: Patient Teaching Methods: Demonstration, Discussion Response to Teaching: Reinforcement Needed Discharge Recommendations Plan Patient will perform bed mobility and transfer training, balance and endurance training, functional strengthening, stair training, gait training, and education, to improve functional mobility and independence at home. Therapy Discharge Recommendati: Scheduled Assistance, Home & Family, Post Acute PT Time/GCodes Time In: 0800 Time Out: 0900 Total Billed Treatment Time: 60 Total Billed Treatment 1 visit EVM 30' EX 20' GT 10' YVONNE CUNNINGHAM PT May 10, 2021 08:55
[2021-05-10] MEDS ORDERED: KETOTIFEN FUMARATE OU SCH (09:00)
[2021-05-10] MEDS ORDERED: amLODIPine 10 MG (NORVASC) TAB PO SCH (09:00)
[2021-05-10] MEDS ORDERED: TAMSULOSIN 0.4 MG (FLOMAX) CAP PO SCH (09:00)
--- NOTE | 2021-05-10 10:25 | Occupational Therapy Eval ---
OT Evaluation-General/PLF Medical Diagnosis Admission Date May 09, 2021 at 16:02 Medical Diagnosis: debility Onset Date: May 05, 2021 Therapy Diagnosis Therapy Diagnosis: weakness, decreased ADL status Height/Weight Height (Feet): 5 Height (Inches): 5.00 Weight (Pounds): 289 Weight (Ounces): 0.8 Precautions Precautions/Isolations: Contact Isolation, Fall Prevention, Standard Precau tions Referral Physician: Chen Welch DO Referral Reason: Evaluation/Treatment Medical History Pertinent Medical History: Arthritis, COPD, DM, HTN Additional Medical History BERNARDO on CPAP, hyperlipidemia, morbid obesity, recurrent UTIs, h/o cdiff, h/o diverticulitis s/p Gimenez's with end colostomy, asthma, bladder incontinence, back surgery Current History 05/05/21 s/p R ureteral stent exchange and botox injection. 05/09/21 transfer to [facility] for continued medication management and skilled therapies. Social History Home: Multilevel (split level home) Current Living Status: Spouse Entry Into Home: Stairs With Railing Steps Into Home: 3 ADL-Prior Level of Function SCALE: Activities may be completed with or without assistive devices. 0-Dkhijozkma-fvyioda completes the activity by him/herself with no assistance from a helper. 5-Set-up or Clean-up Assistance-helper sets up or cleans up; patient completes activity. [place] assists only prior to or following the activity. 4-Supervision or Touching Assistance-helper provides verbal cues and/or touching/steadying and/or contact guard assistance as patient completes activity. Assistance may be provided throughout the activity or intermittently. 3-Partial/Moderate Assistance-helper does LESS THAN HALF the effort. [place] lifts, holds or supports trunk or limbs, but provides less than half the effort. 2-Substantial/Maximal Assistance-helper does MORE THAN HALF the effort. [place] lifts or holds trunk or limbs and provides more than half the effort. 1-Ljvscqagr-eafpgb does ALL the effort. Patient does none of the effort to complete the activity. Or, the assistance of 2 or more helpers is required for the patient to complete the activity. If activity was not attempted, code reason: 7-Patient Refused. 9-Not Applicable-not attempted and the patient did not perform the activity before the current illness, exacerbation or injury. 10-Not Attempted due to Environmental Limitations-(lack of equipment, weather restraints, etc.). 88-Not Attempted due to Medical Conditions or Safety Concerns. ADL PLOF Comments Pt indicates IND with ADLs and functional mobility at OF, using FWW. She has a tub/shower with a SC. She is unable to use a bath bench due to having a smaller bathroom and the door would not be able to if a bench was in place. She is able to step over the tub ledge while holding onto the veliz/door to stabilize herself. Self Care: Independent Functional Cognition: Independent DME/Equipment: Bath Chair DME/Equipment Comments FWW, SC OT Current Status Subjective Pt laying in bed, agreeable to OT tx. Rates pain 1/10 in her back. Mental Status/Objective Patient Orientation: Person, Place, Time, Situation Attachments: Colostomy/Ileostomy Current Glasses/Contacts: Yes Hearing Aids: No Dentures/Partials: No Hand Dominance: Right Upper Extremity ROM WFL Upper Extremity Coordination WFL Upper Extremity Sensation WFL Upper Extremity Strength grossly 3+/5 ADL-Treatment Eating (QC): 6 (IND with breakfast per report) Oral Hygiene (QC): 4 (SBA standing at sink) Shower/Bathe Self (QC): 4 (supervision, pt able to wash/dry all parts.) Upper Body Dressing (QC): 5 (set up) Lower Body Dressing (QC): 4 (SBA with pant hike.) On/Off Footwear (QC): 5 (set up assist) Toileting Hygiene (QC): 4 (supervision in stand for pant hike. Pt able to perform pericare and change her ostomy bag with set up assist) Other Treatments Pt laying in bed, transferred supine to sit EOB independently, then used FWW to perform functional mobility into bathroom and onto toilet with CGA. Pt doffed clothes and removed ostomy bag prior to shower. She completed toileting, then transferred to AL. Pt completed shower with supervision, donned brief, and transferred to chair in bathroom to place ostomy bag. Pt able to change ostomy bag with full body mirror in front of her to aide her in positioning bag. Pt then donned the rest of her clothing. Pt took seated rest break on EOB, then used FWW to perform functional mobility to therapy gym, CGA. In order to inc rease BUE strength and activity tolerance, pt completed arm bike x15 mins, 20 watt resistance. Pt did not require rest breaks with task. Pt used FWW to return to room, CGA, 2 standing rest breaks. Post tx, pt laying in bed, call light in reach and all needs met. Education OT Patient Education: Correct positioning, Energy conservation, Exercise prog maria teresa, Modified ADL techniques, Progress toward Goal/Update tx plan, Purpose of tx/functional activities, Rehab process Teaching Recipient: Patient Teaching Methods: Discussion Response to Teaching: Verbalize Understanding OT Short Term Goals Short Term Goals Time Frame: May 16, 2021 Oral hygiene: 5 Toileting hygiene: 5 Shower/bathe self: 5 Lower body dressin OT Respiratory Services Manager Goals Skilled Nursing Goals Time Frame: May 20, 2021 Eating (QC): 6 Oral Hygiene (QC): 6 Toileting Hygiene (QC): 6 Shower/Bathe Self (QC): 6 Upper Body Dressing (QC): 6 Lower Body Dressing (QC): 6 On/Off Footwear (QC): 6 Additional Goals: 1-Demonstrate ADL Tasks, 2-Verbalize Understanding, 3- ImproveStrength/Lalit 1=Demonstrate adherence to instructed precautions during ADL tasks. 2=Patient will verbalize/demonstrate understanding of assistive devices/modifications for ADL. 3=Patient will improve strength/tolerance for activity to enable patient to perform ADL's. OT Education/Plan Problem List/Assessment Assessment: Decreased Activ Tolerance, Decreased UE Strength, Impaired Funct Balance, Impaired I ADL's, Impaired Self-Care Skills Discharge Recommendations Plan/Recommendations: Continue POC Therapy Discharge Recommendati: Home & Family Equpiment Recommendations-D/C: Other, See Comments (Grab bars in bathtub) Treatment Plan/Plan of Care Patient would benefit from OT for education, treatment and training to promote independence in ADL's, mobility, safety and/or upper extremity function for ADL's. Plan of Care: ADL Retraining, Functional Mobility, Group Exercise/Act as Ind, UE Funct Exercise/Act Treatment Duration: May 20, 2021 Frequency: At least 5 of 7 days/Wk (IRF) Estimated Hrs Per Day: 1.5 hours per day Rehab Potential: Fair Time/GCodes Start Time: 09:30 Stop Time: 11:00 Total Time Billed (hr/min): 90 Billed Treatment Time 1, EVL (10'), ADL 3 (50'), EX (15'), FA (15') JACKIE MORGAN OT May 10, 2021 10:25
[2021-05-10] MEDS: [UNRECOGNIZED DRUG - REMARK] PO SCH (10:53)
[2021-05-10] MEDS: D MANNOSE PO SCH ×2 (10:55→21:24)
[2021-05-10] MEDS: FLUTICASONE NASAL SPRAY (FLONASE) 16 GM BTL NS SCH (10:56)
[2021-05-10] MEDS: BETAMETHASONE DIPRO (AUGMENTED) 0.05% CREAM 15 GM TOP SCH ×2 (10:57→21:30)
--- NOTE | 2021-05-10 13:29 | Physical Therapy Daily Note ---
PT Daily Note-Current Subjective Patient in bed pre tx, agrees to PT, has no complaints of pain. Appearance Patient sitting EOB post tx with nurse call, phone, tray, all needs met. Patient requests to be able to use the restroom on her own using the rolling walker, discussed with nurse and she will be allowed to do this for now. Instructed patient to call nurse for help if she was unsure at all about her ability to get to the restroom, especially at night. Mental Status Patient Orientation: Person, Place, Situation Transfers SCALE: Activities may be completed with or without assistive devices. 6-Hfbbtjgpey-rcplqai completes the activity by him/herself with no assistance from a helper. 5-Set-up or Clean-up Assistance-helper sets up or cleans up; patient completes activity. [place] assists only prior to or following the activity. 4-Supervision or Touching Assistance-helper provides verbal cues and/or touching/steadying and/or contact guard assistance as patient completes activity. Assistance may be provided throughout the activity or intermittently. 3-Partial/Moderate Assistance-helper does LESS THAN HALF the effort. [place] lif ts, holds or supports trunk or limbs, but provides less than half the effort. 2-Substantial/Maximal Assistance-helper does MORE THAN HALF the effort. [place] lifts or holds trunk or limbs and provides more than half the effort. 9-Mvvjuheyt-vskvfi does ALL the effort. Patient does none of the effort to complete the activity. Or, the assistance of 2 or more helpers is required for the patient to complete the activity. If activity was not attempted, code reason: 7-Patient Refused. 9-Not Applicable-not attempted and the patient did not perform the activity before the current illness, exacerbation or injury. 10-Not Attempted due to Environmental Limitations-(lack of equipment, weather restraints, etc.). 88-Not Attempted due to Medical Conditions or Safety Concerns. Roll Left & Right (QC): 6 Lying to Sitting/Side of Bed(Q: 6 Sit to Stand (QC): 4 Chair/Nnn-is-Uclco Xfer(QC): 4 SBA with transfers. Patient needs to use the restroom, ambulates into the restroom with SBA, once she gets to the toilet she can do everything independently. Gait Training Distance: 120'x2 Walk 10 feet (QC): 4 Walk 50 ft with 2 Turns(QC): 4 Gait Persons Needed: 1 Gait Assistive Device: FWW SBA, slow but steady ambulation, occasional standing rest break, pain in left knee Exercises Standing: Hip Abduction (only 10 reps on the right side), Heel/toe raises, Marching (only 10 reps on the right side) Treatments bed mobility and transfers, ambulation, LE strengthening, toileting Assessment Current Status: Fair Progress improving strength and stability PT Short Term Goals Short Term Goals Time Frame: May 17, 2021 Roll Left & Right: 6 Sit to lyin Lying to sitting on side of be: 6 Sit to stand: 4 Chair/jdb-ja-klrsn transfer: 4 Walk 10 feet: 4 Walk 50 feet with two turns: 4 Walk 150 feet: 4 PT Ore Crushing Dust Collector Goals Longterm Goals PT Ore Crushing Dust Collector Goals Time Frame: May 31, 2021 Roll Left & Right (QC): 6 Sit to Lying (QC): 6 Lying-Sitting on Side/Bed(QC): 6 Sit to Stand (QC): 5 Chair/Ond-eu-Osxsi Xfer(QC): 5 Toilet Transfer (QC): 5 Car Transfer (QC): 5 Does the Patient Walk: Yes Walk 10 feet (QC): 5 Walk 50ft with 2 Turns (QC): 5 Walk 150 ft (QC): 5 Walking 10ft on Uneven Surface: 5 1 Step (curb) (QC): 4 4 Steps (QC): 4 12 Steps (QC): 88 Picking up an Object (QC): 6 Wheel 50 feet with 2 turns (QC: 9 Wheel 150 feet: 9 PT Plan Problem List Problem List: Activity Tolerance, Functional Strength, Safety, Balance, Gait, Transfer, Bed Mobility, ROM Treatment/Plan Treatment Plan: Continue Plan of Care Treatment Plan: Bed Mobility, Education, Functional Activity Lalit, Functional Strength, Group Therapy, Gait, Safety, Therapeutic Exercise, Transfers Treatment Duration: May 31, 2021 Frequency: At least 5 of 7 days/Wk (IRF) Estimated Hrs Per Day: 1.5 hours per day Patient and/or Family Agrees t: Yes Safety Risks/Education Patient Education: Gait Training, Transfer Techniques, Correct Positioning, Safety Issues Teaching Recipient: Patient Teaching Methods: Demonstration, Discussion Response to Teaching: Reinforcement Needed Time/GCodes Time In: 1300 Time Out: 1330 Total Billed Treatment Time: 30 Total Billed Treatment 1 visit EX 15' GT 15' YVONNE CUNNINGHAM PT May 10, 2021 13:29
--- NOTE | 2021-05-10 19:12 | Consultation ---
History of Present Illness History of Present Illness Patient Consulted On(anant/time) 05/10/21 19:05 Date Seen by Provider: May 10, 2021 Time Seen by Provider: 12:45 History of Present Illness This is a 65 year old female with a known history of right ureteral stricture with right hydronephrosis and recurrent UTIs. She has a chronic right ureteral stent that is changed out at every 3-6mos. She was at on 05/05/21 for ureteral stent exchange as well as botox to her bladder but was found to be bradycardic prior to the procedure. She was given atropine and the procedure was done under mild sedation and then she was admitted for cardiology consult. Her coreg has been held to see if this is the cause of her bradycardia and she was sent home on a youth nutritional monitor. However, due to worsening fatigue and debility, it was felt that she would benefit from rehab. The patient was transferred to [facility] inpatient rehab for strengthening and further evaluation of her blood pressure and heart rate. Allergies and Home Medications Allergies Coded Allergies: Cephalosporins (Verified Allergy, Unknown, 10/20/20) Sulfa (Sulfonamide Antibiotics) (Unverified Allergy, Unknown, RASH, 10/20/20) azithromycin (Verified Allergy, Unknown, 10/20/20) codeine (Verified Allergy, Unknown, 10/20/20) Home Medications Albuterol Sulfate 8.5 Gm Hfa.aer.ad, 2 PUFF INH Q6H PRN for SHORTNESS OF BREATH, (Reported) Last Action: Continued Albuterol Sulfate 2.5 Mg/0.5 Ml Vial.neb, 2.5 MG INH Q6H PRN for SHORTNESS OF BREATH, (Reported) Last Action: Continued Amlodipine Besylate 10 Mg Tablet, 10 MG PO DAILY, (Reported) Last Action: Continued Bupropion HCl 150 Mg Tab.er.24h, 150 MG PO DAILY, (Reported) Last Action: Converted Cetirizine HCl 10 Mg Tablet, 10 MG PO HS, (Reported) Last Action: Converted Cholecalciferol (Vitamin D3) 125 Mcg Capsule, 125 MCG PO DAILY, (Reported) Last Action: Converted Clobetasol Propionate 15 Gm Cream..g., 1 APPLIC TP BID, (Reported) Last Action: Converted D-Mannose 500 Mg Capsule, 500 MG PO BID, (Reported) Last Action: Converted Estradiol 42.5 Gm Cream.appl, 1 APPLIC VG 3 TIMES A WEEK, (Reported) Last Action: Continued Fenofibrate Nanocrystallized 145 Mg Tablet, 145 MG PO DAILY, (Reported) Last Action: Converted Fluticasone/Salmeterol 1 Each Blst.w.dev, 1 EACH IH BID, (Reported) Last Action: Converted Hyoscyamine Sulfate 0.125 Mg Tab.subl, 0.125 MG PO TID, (Reported) Last Action: Converted Ketotifen Fumarate 10 Ml Drops, 1 DROPS OU DAILY, (Reported) Last Action: Converted Levothyroxine Sodium 137 Mcg Tablet, 137 MCG PO DAILY, (Reported) Last Action: Converted Loperamide HCl 2 Mg Tablet, 4 MG PO BID, (Reported) TAKES 2 (2MG) TABS Last Action: Converted Meclizine HCl 25 Mg Tablet, 25 MG PO HS, (Reported) Last Action: Continued Methenamine Hippurate 1 Gm Tablet, 1 GM PO BID, (Reported) Last Action: Continued Mirabegron 25 Mg Tab.er.24h, 25 MG PO DAILY, (Reported) Last Action: Converted Mometasone Furoate 17 Gm Naspr, 2 SPRAYS NSEACH DAILY, (Reported) Last Action: Converted Montelukast Sodium 10 Mg Tablet, 10 MG PO HS, (Reported) Last Action: Continued Oxybutynin Chloride 5 Mg Tablet, 5 MG PO TID PRN for FREQUENT URINATION, (Reported) Last Action: Continued Oxycodone HCl 5 Mg Tablet, 5 MG PO Q6H PRN for PAIN-SEVERE (8-10), (Reported) Last Action: Continued Pantoprazole Sodium 40 Mg Tablet.dr, 40 MG PO BID, (Reported) Last Action: Continued Phenazopyridine HCl 200 Mg Tablet, 1 TAB PO TIDPC PRN for PAIN-BREAKTHROUGH, (Reported) Last Action: Converted Tamsulosin HCl 0.4 Mg Cap, 0.4 MG PO DAILY, (Reported) TAKE 30 MINUTES AFTER MEAL Last Action: Continued Patient Home Medication List Home Medication List Reviewed: Yes Past Eeiynzi-Oolose-Bjypda Hx Patient Social History Marrital Status: Employed/Student: retired Tobacco Use?: No Smoking Status: Never a Smoker Substance use?: No Alcohol Use?: No Pt feels they are or have been: No Immunizations Up To Date Date of Influenza Vaccine: Jun 19, 2020 First/Initial COVID19 Vaccinat: November Second COVID19 Vaccination Anant: December Tetanus Booster (TDap): Unknown PED Vaccines UTD: Yes Date of Pneumonia Vaccine: Jun 10, 2019 Seasonal Allergies Seasonal Allergies: Yes Current Status Advance Directives: Yes Advance Directive Location: Copy from prev record Communicates: Verbally Primary Language: Setswana Sensory deficits: Vision impairment Implanted or Applied Medical D: CPAP, Stents Past Medical History Surgeries: Abdominal, Bowel Surgery, Section, Orthopedic, Tonsillectomy Asthma, Sleep Apnea, COPD Currently Using CPAP: Yes Currently Using BIPAP: No Chronic Edema/Swelling, High Cholesterol, Hypertension UTI-Chronic Diverticulosis Degenerate Disk Disease, Arthritis, Chronic Back Pain Hypothyroidsim, Diabetes, Non-Insulin dep Loss of Vision: Denies Hearing Impairment: Denies Depression Blood Disorders: No Adverse Reaction/Blood Tranf: No Review of Systems Review of Systems General: Fatigue, Malaise HEENT: No Head Aches, No Visual Changes, No Eye Pain, No Ear Pain, No Dysphasia, No Sinus Congestion, No Post Nasal Drip, No Sore Throat, No Other Pulmonary: No Dyspnea, No Cough, No Pleuritic Chest Pain, No Other Cardiovascular: Other (bradycardia) Gastrointestinal: Other (ostomy) Genitourinary: Retention Musculoskeletal: No: other, neck pain, shoulder pain, arm pain, back pain, hand pain, leg pain, foot pain Neurological: Weakness All Other Systems Reviewed All Other Systems Reviewed: Yes Physical Exam Vital Signs Vital Signs - First Documented 05/09/21 16:15 Temp 36.8 Pulse 50 Resp 20 B/P (MAP) 160/70 (100) Pulse Ox 93 O2 Delivery Room Air Capillary Refill : Height, Weight, BMI Height: 5'5.00" Weight: 289lbs. 0.8oz. [id number]; 54.49 BMI Method:Stated General Appearance: No Apparent Distress Neck: Supple Respiratory: Lungs Clear Cardiovascular: Regular Rate, Rhythm Gastrointestinal: Normal Bowel Sounds, Non Tender, Soft, Other (LLQ ostomy with paraostomal hernia) Rectal: Deferred Back: No CVA Tenderness Extremity: Non Tender, No Calf Tenderness, No Pedal Edema Neurologic/Psychiatric: Alert, Oriented x3 Skin: Warm/Dry Comments Laboratory Tests 05/10/21 05:45: White Blood Count 8.9, Red Blood Count 4.33, Hemoglobin 12.8, Hematocrit 41, Mean Corpuscular Volume 94, Mean Corpuscular Hemoglobin 30, Mean Corpuscular Hemoglobin Concent 31L, Red Cell Distribution Width 14.6H, Platelet Count 220, Mean Platelet Volume 10.1, Immature Granulocyte % (Auto) 1, Neutrophils (%) (Auto) 61, Lymphocytes (%) (Auto) 26, Monocytes (%) (Auto) 9, Eosinophils (%) (Auto) 3, Basophils (%) (Auto) 1, Neutrophils # (Auto) 5.4, Lymphocytes # (Auto) 2.3, Monocytes # (Auto) 0.8, Eosinophils # (Auto) 0.3, Basophils # (Auto) 0.1, Immature Granulocyte # (Auto) 0.1, Sodium Level 139, Potassium Level 4.3, Chloride Level 108H, Carbon Dioxide Level 21, Anion Gap 10, Blood Urea Nitrogen 43H, Creatinine 1.54H, Estimat Glomerular Filtration Rate 34, BUN/Creatinine Ratio 28, Glucose Level 100, Calcium Level 9.8, Corrected Calcium 10.0, Total Bilirubin 0.7, Aspartate Amino Transf (AST/SGOT) 16, Alanine Aminotransferase (ALT/SGPT) 19, Alkaline Phosphatase 69, Total Protein 6.7, Albumin 3.8 Assessment/Plan Assessment/Plan Admission Dx 1. Bradycardia--monitor on telemetry, continue off of coreg, will also decrease amlodopine, if continues with bradycardia will need to consider pacemaker 2. Hypertension--decrease amlodopine to 5mg po q AM, add cozaar 50mg po q PM 3. Chronic Renal Insufficiency due to Right Ureteral Stenosis with Right Hydronephrosis--S/P recent stent exchange 4. Asthma/COPD--stable 5. BERNARDO--use home CPAP 6. Debility/Weakness--PT and OT 7. Obesity Class III--bariatric surgery has been discussed with patient BROWN ORDONEZ DO May 10, 2021 19:12
[2021-05-10 20:00] VITALS: BP 152/68
[2021-05-10] MEDS: MECLIZINE 25 MG (ANTIVERT) TAB PO SCH (21:23)
[2021-05-10] MEDS: MONTELUKAST 10 MG (SINGULAIR) TAB PO SCH (21:23)
[2021-05-10] MEDS: LORATADINE (CLARITIN) 10 MG TAB PO SCH (21:24)
[2021-05-10] MEDS: LOSARTAN 50 MG (COZAAR) TAB PO SCH (21:24)
[2021-05-11 07:39] VITALS: BP 123/72
[2021-05-11] MEDS: RT--FLUTICASONE/SALMETEROL 113-14 (AIRDUO RespiCLICK) IH SCH ×2 (08:14→19:43)
--- NOTE | 2021-05-11 08:52 | Physical Therapy Daily Note ---
PT Daily Note-Current Subjective Patient in bed pre tx, agrees to PT, has minor left knee pain. Appearance Patient in bed post tx with nurse call, phone, tray, all needs met. Mental Status Patient Orientation: Person, Place, Situation Transfers SCALE: Activities may be completed with or without assistive devices. 3-Anbjewjpkl-rfqsjqd completes the activity by him/herself with no assistance from a helper. 5-Set-up or Clean-up Assistance-helper sets up or cleans up; patient completes activity. [place]mana assists only prior to or following the activity. 4-Supervision or Touching Assistance-helper provides verbal cues and/or touching/steadying and/or contact guard assistance as patient completes activity. Assistance may be provided throughout the activity or intermittently. 3-Partial/Moderate Assistance-helper does LESS THAN HALF the effort. Amana lifts, holds or supports trunk or limbs, but provides less than half the effort. 2-Substantial/Maximal Assistance-helper does MORE THAN HALF the effort. [place] lifts or holds trunk or limbs and provides more than half the effort. 9-Onavwnwny-erriba does ALL the effort. Patient does none of the effort to complete the activity. Or, the assistance of 2 or more helpers is required for the patient to complete the activity. If activity was not attempted, code reason: 7-Patient Refused. 9-Not Applicable-not attempted and the patient did not perform the activity before the current illness, exacerbation or injury. 10-Not Attempted due to Environmental Limitations-(lack of equipment, weather restraints, etc.). 88-Not Attempted due to Medical Conditions or Safety Concerns. Roll Left & Right (QC): 6 Sit to Lying (QC): 6 Lying to Sitting/Side of Bed(Q: 6 Sit to Stand (QC): 6 Chair/Cvp-ne-Ocugo Xfer(QC): 6 Gait Training Distance: 120'x2 Walk 10 feet (QC): 6 Walk 50 ft with 2 Turns(QC): 6 Gait Assistive Device: FWW 120' is about the max distance for now due to fatigue and left knee pain Stair Training Stair Training: Handrails/: 2 handrails #of Steps: 4 1 Step (curb) (QC): 4 4 Steps (QC): 4 Exercises Supine Ex: Ankle pumps, Quad Set, Glut sets, Heel Slides, Short Arc Quads, Straight leg raise, Hip abd/add Supine Reps: 20 NuStep Minutes: 15 NuStep Workload: 5 Treatments bed mobility and transfers, ambulation, stair training, LE strengthening Assessment Current Status: Fair Progress Patient has now performed stairs, gets SOB with activity and needs frequent rest breaks, O2 stays around 92% PT Short Term Goals Short Term Goals Time Frame: May 17, 2021 Roll Left & Right: 6 Sit to lyin Lying to sitting on side of be: 6 Sit to stand: 4 Chair/fiq-pu-tvrbs transfer: 4 Walk 10 feet: 4 Walk 50 feet with two turns: 4 Walk 150 feet: 4 PT Slate Handler Goals Slate Handler Goals PT Correction Goals Time Frame: May 31, 2021 Roll Left & Right (QC): 6 Sit to Lying (QC): 6 Lying-Sitting on Side/Bed(QC): 6 Sit to Stand (QC): 5 Chair/Bfd-nw-Odstd Xfer(QC): 5 Toilet Transfer (QC): 5 Car Transfer (QC): 5 Does the Patient Walk: Yes Walk 10 feet (QC): 5 Walk 50ft with 2 Turns (QC): 5 Walk 150 ft (QC): 5 Walking 10ft on Uneven Surface: 5 1 Step (curb) (QC): 4 4 Steps (QC): 4 12 Steps (QC): 88 Picking up an Object (QC): 6 Wheel 50 feet with 2 turns (QC: 9 Wheel 150 feet: 9 PT Plan Problem List Problem List: Activity Tolerance, Functional Strength, Safety, Balance, Gait, Transfer, ROM Treatment/Plan Treatment Plan: Continue Plan of Care Treatment Plan: Bed Mobility, Education, Functional Activity Lalit, Functional Strength, Group Therapy, Gait, Safety, Therapeutic Exercise, Transfers Treatment Duration: May 31, 2021 Frequency: At least 5 of 7 days/Wk (IRF) Estimated Hrs Per Day: 1.5 hours per day Patient and/or Family Agrees t: Yes Safety Risks/Education Patient Education: Gait Training, Transfer Techniques, Steps, Correct Positioning, Safety Issues Teaching Recipient: Patient Teaching Methods: Demonstration, Discussion Response to Teaching: Reinforcement Needed Time/GCodes Time In: 0800 Time Out: 0900 Total Billed Treatment Time: 60 Total Billed Treatment 1 visit EX 30' FA 30' YVONNE CUNNINGHAM PT May 11, 2021 08:52
[2021-05-11] MEDS: VITAMIN D3 125 MCG (5,000 UNITS) CAPSULE PO SCH (09:00)
[2021-05-11] MEDS: LEVOTHYROXINE 25 MCG (LEVOTHROID) TAB PO SCH (09:00)
[2021-05-11] MEDS ORDERED: APIXABAN 5 MG (ELIQUIS) TABLET PO SCH (09:00)
[2021-05-11] MEDS ORDERED: amLODIPine 5 MG (NORVASC) TAB PO SCH (09:00)
[2021-05-11] MEDS: PANTOPRAZOLE 40 MG (PROTONIX) TAB PO SCH ×2 (09:00→21:26)
[2021-05-11] MEDS: buPROPion SR 150 MG (WELLBUTRIN SR) TAB PO SCH (09:00)
[2021-05-11] MEDS: FENOFIBRATE 134 MG (LOFIBRA) CAPSULE PO SCH (09:01)
[2021-05-11] MEDS: METHENAMINE HIPP (UREX) 1 GM TABLET PO SCH ×2 (09:01→21:26)
[2021-05-11] MEDS: LEVOTHYROXINE 112 MCG (LEVOTHROID) TAB PO SCH (09:02)
[2021-05-11] MEDS: LOPERAMIDE 2 MG (IMODIUM) TABLET PO SCH ×2 (09:02→21:26)
[2021-05-11] MEDS: polyethylene glycoL POWDER 17 GM (MIRALAX) PACK PO SCH (09:03)
[2021-05-11] MEDS: HYOSCYAMINE 0.125 MG (LEVSIN) TAB PO SCH ×3 (09:03→21:26)
[2021-05-11] MEDS: DOCUSATE SODIUM 100 MG (COLACE) CAP PO SCH (09:03)
[2021-05-11] MEDS: BETAMETHASONE DIPRO (AUGMENTED) 0.05% CREAM 15 GM TOP SCH ×2 (09:04→21:33)
[2021-05-11] MEDS: SENNA W/DOCUSATE (SENOKOT S) TABLET PO SCH (09:04)
[2021-05-11] MEDS: FLUTICASONE NASAL SPRAY (FLONASE) 16 GM BTL NS SCH (09:05)
[2021-05-11] MEDS: D MANNOSE PO SCH ×2 (09:05→21:30)
[2021-05-11] MEDS: [UNRECOGNIZED DRUG - REMARK] PO SCH (09:07)
--- NOTE | 2021-05-11 09:37 | Occupational Ther Daily Note ---
OT Current Status-Daily Note Subjective Pt agreeable to OT tx. ADL-Treatment Therapy Code Descriptions/Definitions Functional Charles Measure: 0=Not Assessed/NA 4=Minimal Assistance 1=Total Assistance 5=Supervision or Setup 2=Maximal Assistance 6=Modified Charles 3=Moderate Assistance 7=Complete IndependenceSCALE: Activities may be completed with or without assistive devices. 9-Baplepwgod-zwaszqa completes the activity by him/herself with no assistance from a helper. 5-Set-up or Clean-up Assistance-helper sets up or cleans up; patient completes activity. Edison assists only prior to or following the activity. 4-Supervision or Touching Assistance-helper provides verbal cues and/or touching/steadying and/or contact guard assistance as patient completes activity. Assistance may be provided throughout the activity or intermittently. 3-Partial/Moderate Assistance-helper does LESS THAN HALF the effort. Edison lifts, holds or supports trunk or limbs, but provides less than half the effort. 2-Substantial/Maximal Assistance-helper does MORE THAN HALF the effort. Edison lifts or holds trunk or limbs and provides more than half the effort. 7-Krhjaocmg-mztvgu does ALL the effort. Patient does none of the effort to complete the activity. Or, the assistance of 2 or more helpers is required for the patient to complete the activity. If activity was not attempted, code reason: 7-Patient Refused. 9-Not Applicable-not attempted and the patient did not perform the activity before the current illness, exacerbation or injury. 10-Not Attempted due to Environmental Limitations-(lack of equipment, weather restraints, etc.). 88-Not Attempted due to Medical Conditions or Safety Concerns. Eating (QC): 6 (IND with breakfast) Oral Hygiene (QC): 6 (IND) On/Off Footwear: 6 (IND with slip on shoes.) Toileting Hygiene (QC): 6 (IND) Toilet Transfer (QC): 6 (IND) Other Treatment Pt laying in bed, transferred supine to sit EOB independently. Pt donned slip on shoes, then used FWW to perform functional mobility into bathroom. Pt completed toileting independently. Pt used FWW to perform functional mobility to therapy gym, 1 seated rest break, SBA. OT tx with focus on increasing BUE Strnegth and activity tolerance. Pt completed arm bike x15 mins, 20 Watt resistance, 1 rest break. She then placed/removed x100, 1" pegs from foam pegboard, alternating hands, 1 lb wrist cuff BUEs. Pt returned to room using FWW, SBA. Post tx, pt laying in bed, call light in reach and all needs met. Education OT Patient Education: Correct positioning, Energy conservation, Exercise program, Modified ADL techniques, Progress toward Goal/Update tx plan, Purpose of tx/functional activities Teaching Recipient: Patient Teaching Methods: Discussion Response to Teaching: Verbalize Understanding OT Short Term Goals Short Term Goals Time Frame: May 16, 2021 Oral hygiene: 5 Toileting hygiene: 5 Shower/bathe self: 5 Lower body dressin OT Retirement Goals Retirement Goals Time Frame: May 20, 2021 Eating (QC): 6 Oral Hygiene (QC): 6 Toileting Hygiene (QC): 6 Shower/Bathe Self (QC): 6 Upper Body Dressing (QC): 6 Lower Body Dressing (QC): 6 On/Off Footwear (QC): 6 Additional Goals: 1-Demonstrate ADL Tasks, 2-Verbalize Understanding, 3- ImproveStrength/Lalit 1=Demonstrate adherence to instructed precautions during ADL tasks. 2=Patient will verbalize/demonstrate understanding of assistive devices/modifications for ADL. 3=Patient will improve strength/tolerance for activity to enable patient to perform ADL's. OT Education/Plan Problem List/Assessment Assessment: Decreased Activ Tolerance, Decreased UE Strength, Impaired Funct Balance, Impaired I ADL's, Impaired Self-Care Skills Discharge Recommendations Plan/Recommendations: Continue POC Treatment Plan/Plan of Care Patient would benefit from OT for education, treatment and training to promote independence in ADL's, mobility, safety and/or upper extremity function for ADL's. Plan of Care: ADL Retraining, Functional Mobility, Group Exercise/Act as Ind, UE Funct Exercise/Act Treatment Duration: May 20, 2021 Frequency: At least 5 of 7 days/Wk (IRF) Estimated Hrs Per Day: 1.5 hours per day Rehab Potential: Fair Time/GCodes Start Time: 09:00 Stop Time: 10:00 Total Time Billed (hr/min): 60 Billed Treatment Time 1, ADL (15'), EX (15'), FA 2 (30') JACKIE MORGAN OT May 11, 2021 09:37
--- NOTE | 2021-05-11 10:40 | PM&R Progress Note ---
Subjective HPI/CC On Admission Date Seen by Provider: May 11, 2021 Time Seen by Provider: 10:45 Subjective/Events-last exam 05/11/2021: Telemetry verified AFIB and bradycardia Incontinence continues but that is chronic Discharge is planned for Sunday Eliquis was started and cardiology was consulted but then Dr. Lewis reviewed the EKG and telemetry and found no A. fib and stopped Eliquis Working on stairs 05/10/2021: Pt doing okay Creatinine of 1.5 which is stable Having some loose stools, she has an ostomy Checked meds and labs She is moving around really well better than expected Review of Systems General: Fatigue, Malaise Objective Exam Vital Signs Vital Signs Date Time Temp Pulse Resp B/P (MAP) Pulse Ox O2 Delivery O2 Flow Rate FiO2 05/12/21 01:00 72 05/11/21 21:35 NIV CPAP 05/11/21 19:53 36.2 18 115/59 (77) 94 Capillary Refill : General Appearance: No Apparent Distress, WD/WN, Chronically ill, Obese HEENT: PERRL/EOMI, Normal ENT Inspection, Pharynx Normal Neck: Full Range of Motion, Normal Inspection, Non Tender, Supple, Carotid Bruit Respiratory: Chest Non Tender, Lungs Clear, Normal Breath Sounds, No Accessory Muscle Use, No Respiratory Distress Cardiovascular: Regular Rate, Rhythm, No Edema, No Gallop, No JVD, No Murmur, Normal Peripheral Pulses Gastrointestinal: Normal Bowel Sounds, No Organomegaly, No Pulsatile Mass, Non Tender, Soft Rectal: Deferred Back: Normal Inspection, No CVA Tenderness, No Vertebral Tenderness Extremity: Normal Capillary Refill, Normal Inspection, Normal Range of Motion, Non Tender, No Calf Tenderness, No Pedal Edema Neurologic/Psychiatric: Alert, Oriented x3, cmm programmer II-XII Norm as Tested, Abnormal Gait, Depressed Affect, Motor Weakness (Generalized weakness 4/5) Skin: Normal Color, Warm/Dry Lymphatic: No Adenopathy Results/Procedures Lab Patient resulted labs reviewed. FIM Transfers Therapy Code Descriptions/Definitions Functional Temple Measure: 0=Not Assessed/NA 4=Minimal Assistance 1=Total Assistance 5=Supervision or Setup 2=Maximal Assistance 6=Modified Temple 3=Moderate Assistance 7=Complete IndependenceSCALE: Activities may be completed with or without assistive devices. 4-Vqgdjccfcm-sjqgogh completes the activity by him/herself with no assistance from a helper. 5-Set-up or Clean-up Assistance-helper sets up or cleans up; patient completes activity. Sylvester assists only prior to or following the activity. 4-Supervision or Touching Assistance-helper provides verbal cues and/or touching/steadying and/or contact guard assistance as patient completes activity. Assistance may be provided throughout the activity or intermittently. 3-Partial/Moderate Assistance-helper does LESS THAN HALF the effort. Sylvester lifts, holds or supports trunk or limbs, but provides less than half the effort. 2-Substantial/Maximal Assistance-helper does MORE THAN HALF the effort. Sylvester lifts or holds trunk or limbs and provides more than half the effort. 1-Bvipahbbq-anozpb does ALL the effort. Patient does none of the effort to complete the activity. Or, the assistance of 2 or more helpers is required for the patient to complete the activity. If activity was not attempted, code reason: 7-Patient Refused. 9-Not Applicable-not attempted and the patient did not perform the activity before the current illness, exacerbation or injury. 10-Not Attempted due to Environmental Limitations-(lack of equipment, weather restraints, etc.). 88-Not Attempted due to Medical Conditions or Safety Concerns. Roll Left to Right (QC): 6 Sit to Lying (QC): 6 Sit to Stand (QC): 6 Chair/Gfo-ar-Wthef Xfer(QC): 6 Car Transfer (QC): 4 Gait Training Does the Patient Walk?: Yes Distance: 120'x2 Walk 10 feet (QC): 6 Walk 50 ft with 2 Turns(QC): 6 Walk 150 ft (QC): 88 Walking 10ft/uneven surface-QC: 4 Gait Persons Needed: 1 Gait Assistive Device: FWW Wheelchair Training Does the Pt Use a Wheelchair?: No Wheel 50 ft with 2 turns (QC): 8 Wheel 150 ft (QC): 8 Stair Training Stair Training: Handrails/: 2 handrails #of Steps: 4 1 Step (curb) (QC): 4 4 Steps (QC): 4 12 Steps (QC): 88 Balance Picking up an Object (QC): 6 (using a installer interior assemblies) ADL-Treatment Eating (QC): 6 (IND with breakfast) Oral Hygiene (QC): 6 (IND) Shower/Bathe Self (QC): 4 (supervision, pt able to wash/dry all parts.) Upper Body Dressing (QC): 5 (set up) Lower Body Dressing (QC): 4 (SBA with pant hike.) On/Off Footwear (QC): 6 (IND with slip on shoes.) Toileting Hygiene (QC): 6 (IND) Toilet Transfer (QC): 6 (IND) Assessment/Plan Assessment and Plan Assess & Plan/Chief Complaint Assessment: Severe debility Bradycardia prior to urological procedure Ureteral stent Kidney stone Bladder incontinence COPD Obstructive sleep apnea on CPAP Diabetes Hypertension Previous diverticulosis status post resection and colostomy Plan: Aggressive therapy Home meds Monitor closely 05/10/2021: Supportive care Colostomy care 05/11/2021: Appreciate Dr. Debbie Boyer DVT prophylaxis to start (1) Debility (2) Morbid obesity (3) COPD (chronic obstructive pulmonary disease) (4) Arthritis (5) Incontinence (6) History of Clostridium difficile colitis (7) Chronic kidney disease (8) Obstructive sleep apnea on CPAP (9) Chronic renal failure Status: Acute (10) Ureteral obstruction Status: Acute GALILEO WRIGHT DO May 11, 2021 10:40
--- NOTE | 2021-05-11 10:41 | Individualized Plan of Care ---
Individualized Plan of Care Rehab Nursing IPOC Order Admission Date May 09, 2021 at 16:02 Current Orders Orders Admission Arrival Bed Request (05/09/21 15:47) Admission Order(Inpt,Obs,Sdc) (05/09/21 16:04) Vital Signs: Per Unit Policy ( 08,16,00 (05/09/21 16:04) Cj Strange (05/09/21 16:04) Sequential Compression Device .admit (05/09/21 16:04) Line Dancer-Inpt Rehab Con (05/09/21 16:04) Rehab Nursing Orders-Ipoc (05/09/21 16:04) Physical Therapy Rehab Orders (05/09/21 16:04) Occupational Therapy Rehab Ord (05/09/21 16:04) Speech Therapy Rehab Orders (05/09/21 16:04) Cbc With Automated Diff (05/10/21 06:00) Comprehensive Metabolic Panel (05/10/21 06:00) Precautions (Aru) (05/09/21 16:04) Rehab-Intensity Of Therapy (05/09/21 16:04) Initiate Admission Nursing Pro .admission (05/09/21 16:04) Alprazolam Tablet (Xanax Tablet) (05/09/21 16:15) Calcium Carbonate Chew Tablet (Antacid C (05/09/21 16:15) Diphenhydramine Tablet (Benadryl Tablet) (05/09/21 16:15) Docusate Sodium Capsule (Colace Capsule) (05/09/21 21:00) Docusate Sodium Capsule (Colace Capsule) (05/09/21 16:15) Bisacodyl Suppository (Dulcolax Supposit (05/09/21 16:15) Lactulose Oral Solution (Enulose Oral So (05/09/21 16:15) Na Phos/Na Biphos Enema (Fleet Enema Casa (05/09/21 16:15) Loperamide Tablet (Imodium Tablet) (05/09/21 16:15) Melatonin Tablet (Melatonin Tablet) (05/09/21 16:15) Polyethylene Glycol Powder Pkt (Miralax (05/09/21 21:00) Ondansetron Oral Dissolve Tab (Zofran (05/09/21 16:15) Senna S Tablet (Senokot S Tablet) (05/09/21 21:00) Therapeutic Activity Goals: .PRN (05/09/21 16:04) Nursing Communication (Order) (05/09/21 ) Naloxone Injection (Narcan Injection) (05/09/21 16:15) Acetaminophen Tablet (Tylenol Tablet) (05/09/21 16:15) Hydrocodone/Apap 5/325 Tablet (Lortab 5 (05/09/21 16:15) Initiate Admission Nursing Pro .admission (05/09/21 16:04) Isolation Central Supply Req (05/09/21 16:14) Nursing Communication (Order) (05/09/21 16:19) Follow-Up Appointment (05/09/21 16:19) General/Regular (05/09/21 Dinner) Albuterol Pre-Mix Nebs (Rt) (Proventil (05/09/21 17:45) Albuterol Pre-Mix Nebs (Rt) (Proventil (05/09/21 17:45) Amlodipine Tablet (Norvasc Tablet) (05/10/21 09:00) Estradiol Vaginal Cream (Estrace Vaginal (05/09/21 17:45) Meclizine Tablet (Antivert Tablet) (05/09/21 21:00) Methenamine Hippurate (Urex Tablets) (05/09/21 21:00) Montelukast Tablet (Singulair Tablet) (05/09/21 21:00) Oxybutynin Tablet (Ditropan Tablet) (05/09/21 17:45) Oxycodone Immediate Rel Tablet (Oxyir Ta (05/09/21 17:45) Pantoprazole Tablet (Protonix Tablet) (05/09/21 21:00) Tamsulosin Capsule (Flomax Capsule) (05/10/21 09:00) Bupropion Sr 12 Hr Tablet (Wellbutrin Sr (05/10/21 09:00) Loratadine Tablet (Claritin Tablet) (05/09/21 21:00) Cholecalciferol Capsule/Tablet (Vitamin (05/10/21 09:00) Betamethasone Dipropinate Crm (Diprolene (05/09/21 21:00) (Nf) D-Mannose (Azo D-Mannose) (05/09/21 21:00) Fenofibrate,Micronized Capsule (Lofibra (05/10/21 09:00) Fluticasone/Salmeterol 113-14 (Airduo Re (05/09/21 21:00) Hyoscyamine Sl Tablet (Levsin Sl Tablet) (05/09/21 21:00) (Nf) Ketotifen Fumarate (Alaway) (05/10/21 09:00) Levothyroxine Tablet (Synthroid Tablet) (05/10/21 09:00) Loperamide Tablet (Imodium Tablet) (05/09/21 21:00) (Nf) Mirabegron (Myrbetriq) (05/10/21 09:00) Fluticasone Nasal [place] (Flonase Nasal S (05/10/21 09:00) Phenazopyridine Tablet (Pyridium Tablet) (05/09/21 19:00) Svn Small Volume Nebulizer (05/09/21 17:36) Svn Small Volume Nebulizer (05/09/21 17:36) Levothyroxine Tablet (Synthroid Tablet) (05/10/21 09:00) Patient May Use Own Med,Single (Patient (05/09/21 19:30) Consult Family Medicine (05/09/21 21:15) Enoxaparin Injection (Lovenox Injection) (05/10/21 07:00) (Nf) D-Mannose (Azo D-Mannose) (05/10/21 09:00) Patient Visit (05/10/21 ) Pt Eval Moderate Complexity (05/10/21 ) Exercise Therap, Ea 15 Min (05/10/21 ) Gait Training, Ea 15 Min (05/10/21 ) Telemetry (05/10/21 17:00) Telemetry Nursing Assessment ( (05/10/21 17:00) Amlodipine Tablet (Norvasc Tablet) (05/11/21 09:00) Tamsulosin Capsule (Flomax Capsule) (05/11/21 17:00) Losartan Tablet (Cozaar Tablet) (05/10/21 21:00) Consult Cardiology (05/11/21 05:41) Apixaban Tablet (Eliquis Tablet) (05/11/21 09:00) Ekg Tracing (05/11/21 08:34) Patient Visit (05/11/21 ) Functional Activities, Ea 15 (05/11/21 ) Exercise Therap, Ea 15 Min (05/11/21 ) Patient Visit (05/11/21 ) Therapeutic, Group (05/11/21 ) Nursing Communication (Order) (05/11/21 15:30) Enoxaparin Injection (Lovenox Injection) (05/12/21 09:00) Rehab Nursing Orders: Ongoing Assess. of Cognitive Status, Ongoing Assess. of Function Status, Bladder Management, Bladder Scan, Bladder Training, Bowel Management, Bowel Training, Disease Management & Educaiton, DVT Prophylaxis, Fall Prevention, Fluid/Electrolyte/Nutrition Mgmt, Infection Prevention, Medication Management & Education, Management of Risks & Complications, Manage ment of Skin Intergrity, Nutrition Management, Pain Management, Patient/Family Support, Safety Management Intensity of Therapy to be met Patient to be seen: Min.3h per day/5 of 7d PT IPOC Problem List: Activity Tolerance, Functional Strength, Safety, Balance, Gait, Transfer, ROM Treatment Plan: Continue Plan of Care Bed Mobility, Education, Functional Activity Lalit, Functional Strength, Group Therapy, Gait, Safety, Therapeutic Exercise, Transfers Treatment Duration: May 31, 2021 Frequency: At least 5 of 7 days/Wk (IRF) Estimated Hrs Per Day: 1.5 hours per day OT IPOC Problems: Decreased Activ Tolerance, Decreased UE Strength, Impaired Funct Balance, Impaired I ADL's, Impaired Self-Care Skills OT Treatment, Training and Edu: Yes Plan of Care: ADL Retraining, Functional Mobility, Group Exercise/Act as Ind, UE Funct Exercise/Act Treatment Duration: May 20, 2021 Frequency: At least 5 of 7 days/Wk (IRF) Estimated Hrs Per Day: 1.[address] IPOC Speech Therapy Treatment Plan: Discontinue ST Treatment Duration: May 11, 2021 Frequency: Modified Program (IRF) Estimated Hrs Per Day: Other Line Dancer/Case Mgmt Line Dancer/Case Managemen: Discharge Planning Dietitian/Building Equipment Inspector Dietitian/Building Equipment Inspector to monitor nutritional status and make changes and/or recommendations as needed and work with speech pathology on dietary upgrades as the occur. Physician IPOC Medical Issues being managed closely and that require the 24 hour availability of a physician: Recent bradycardia and cardiac dysfunction during urological procedure will require close monitoring of telemetry and cardiology consultation Medical Issues: Bowel/Bladder Function, DVT Prophylaxis, Falls Precautions, Fluid/Electrolyte/Nutrition Balance, Infection Protection, Pain Management Brief Synthesis of Preadmission Screen, Post-Admission Evaluation, and Therapy Evaluations: PT and OT will focus on increasing ambulatory strength and stamina in addition will increase ADL independence in order to return home with Medical Prognosis: Good Anticipated Length of Stay: 6 days GALILEO WRIGHT DO May 11, 2021 10:41
--- NOTE | 2021-05-11 13:29 | Consultation-Cardiology ---
HPI-Cardiology Cardiology Consultation Date of Consultation 05/11/21 Date of Admission Time Seen by Provider: 10:45 Indication: afib HPI Patient is a 65 y/o female with history of nonobstructive CAD per LHC done approx 6-[address] Hagen in [place], HTN, COPD/BERNARDO, DM, CKD. Transfered to rehab from after undergoing uretal stenting. Has been having increasing weakness and fatigue. While at patient was found to be bradycardic and Zio patch placed for further monitoring. C/o intermittent episodes of palpitations for the past 2 months. Denies any chest pain or dyspnea. C/o occasional episode of dizziness. No syncope. Found to be in atrial fibrillation on telemetry yesterday and started on Lovenox and switched to Eliquis this morning. EKG today showing rate controlled afib. Home Medications & Allergies Allergies: Coded Allergies: Cephalosporins (Verified Allergy, Unknown, 10/20/20) Sulfa (Sulfonamide Antibiotics) (Unverified Allergy, Unknown, RASH, ) azithromycin (Verified Allergy, Unknown, 10/20/20) codeine (Verified Allergy, Unknown, 10/20/20) Home Medication List Reviewed: Yes [id number] Hx Patient Social History Marital Status: Employed/Student: retired Smoking Status: Never a Smoker 2nd Hand Smoke Exposure: No Recent Hopitalizations: No Have you traveled recently?: No Alcohol Use?: No Immunizations Up To Date Tetanus Booster (TDap): Unknown Date of Pneumonia Vaccine: Jun 10, 2019 Date of Influenza Vaccine: Jun 19, 2020 Past Medical History HTN, CKD, COPD/BERNARDO, DM Review of Systems-General Review of Systems Constitutional: see HPI, dizziness, malaise, weakness EENTM: no symptoms reported Respiratory: no symptoms reported Cardiovascular: no symptoms reported Gastrointestinal: no symptoms reported Genitourinary: decreased output Musculoskeletal: no symptoms reported Skin: no symptoms reported Psychiatric/Neurological: No Symptoms Reported All Other Systems Reviewed Negative Unless Noted: Yes ECG Impression ECG Initial ECG Impression: Atrial Fibrillation Physical Exam Physical Exam Vital Signs Vital Signs - First Documented 05/09/21 16:15 Temp 36.8 Pulse 50 Resp 20 B/P (MAP) 160/70 (100) Pulse Ox 93 O2 Delivery Room Air Capillary Refill : Height, Weight, BMI Height: 5'5.00" Weight: 289lbs. 0.8oz. [id number]; 54.49 BMI Method:Stated General Appearance: No Apparent Distress, WD/WN, Chronically ill, Obese Eyes: Bilateral Eye Normal Inspection, Bilateral Eye PERRL HEENT: PERRL/EOMI, Normal ENT Inspection, Pharynx Normal Neck: Full Range of Motion, Normal Inspection, Non Tender, Supple, Carotid Bruit Respiratory: Chest Non Tender, Lungs Clear, Normal Breath Sounds, No Accessory Muscle Use, No Respiratory Distress Cardiovascular: No Edema, No Gallop, No JVD, No Murmur, Normal Peripheral Pulses, Irregularly Irregular Gastrointestinal: Normal Bowel Sounds, No Organomegaly, No Pulsatile Mass, Non Tender, Soft Rectal: Deferred Back: Normal Inspection, No CVA Tenderness, No Vertebral Tenderness Extremity: Normal Capillary Refill, Normal Inspection, Normal Range of Motion, Non Tender, No Calf Tenderness, No Pedal Edema Neurologic/Psychiatric: Alert, Oriented x3, helpdesk administrator II-XII Norm as Tested, Abnormal Gait, Depressed Affect, Motor Weakness (Generalized weakness 4/5) Skin: Normal Color, Warm/Dry Lymphatic: No Adenopathy A/P-Cardiology Admission Diagnosis Atrial fibrillation HTN COPD/BERNARDO DM Assessment/Plan Questionable atrial fibrillation, EKG done showing SR with 1st degree AV block with APCs. Telemetry strip reviewed also showing SR with 1st degree AV block. I will d/c Eliquis at this time and continue to monitor. CAD, patient reports underwent LHC with Dr. Hagen approx 7 years ago revealing nonobstructive disease, no recent workup, will continue to monitor. HTN, controlled, continue to monitor. Bradycardia, patient reports episode of bradycardia while at . Currenty has Zio patch placed. Will conitnue to monitor telemetry. Kidney stone, ureteral stent placement done at Generalized debility/weakness, continue PT/OT COPD/BERNARDO, maintained on CPAP DM, management per medical services CKD, continue to monitor renal function Iron deficiency anemia, monitor H/H. Thank you for allowing us to participate in the management of Ms. Matson. This is Anne Carreon PA-C, as a scribe for Dr. Lewis. Patient was seen and evaluated with Anne, I reviewed the note and agree with the current scribed note. Review of the telemetry showed sinus bradycardia with first-degree AV block, occasional APCs, nonconducted. I did not see any rhythm strips for atrial fibrillation subsequently I recommend discontinuation of Eliquis Patient has a history of coronary artery disease about 7 years ago showing mild disease nonobstructive disease by Dr. Hagen Hypertension, monitor blood pressure Bradycardia. Known to have bradycardia seen at . Has been monitored and followed. Asymptomatic at this time. Diabetes mellitus, followed by primary care team ANNE CRAIG May 11, 2021 13:29 VIKRAM LEWIS MD May 11, 2021 16:09
--- NOTE | 2021-05-11 14:29 | Therapy Group Daily Note ---
Therapy Daily Group Note Patient Education Topic Other List Below (Transfers & Bed Mobility) Exercises LE Seated Exercise, UE Exercise Session Ratio (pt:therapist): 4:1 Goal of Session: Education on ARU Expectations, UE/LE Strengthing, Safety with Transfers, Use of Adaptive Equipment Goal Met for this Session: Yes Pt Benefit of Group: Contributions to Others, F/U Use of Strategies @Home, Increased Functional Safety, Increased Functional Strength, Improved Cognition, Recognition of Peers, Socialization Other/Notes Pt ambulated to PT/OT Group. Group consisted of Introductions (Name, Where From & Favorite Restaurant), Socialization, Seated UE & LE Exercises and discussion & demonstration of bed mobility including use of bed cane as well as tub transfer bench and car transfer. Pt actively listened to staff and peers during Group. Pt was able to actively participate in exercises as well as give personal uses of equipment. Pt returns to room to rest at end of Group. Start Time: 13:00 Stop Time: 14:10 Total Billed Treatment Time: 70 Total Billed Treatment 1, GRP PAULINE SANDOVAL SENIOR LIVING SALES COUNSELOR May 11, 2021 14:29
[2021-05-11] MEDS: TAMSULOSIN 0.4 MG (FLOMAX) CAP PO SCH (16:51)
[2021-05-11 19:53] VITALS: BP 115/59
[2021-05-11] MEDS: MECLIZINE 25 MG (ANTIVERT) TAB PO SCH (21:26)
[2021-05-11] MEDS: LORATADINE (CLARITIN) 10 MG TAB PO SCH (21:26)
[2021-05-11] MEDS: MONTELUKAST 10 MG (SINGULAIR) TAB PO SCH (21:26)
[2021-05-11] MEDS: LOSARTAN 50 MG (COZAAR) TAB PO SCH (21:37)
--- NOTE | 2021-05-12 05:39 | PM&R Progress Note ---
Subjective HPI/CC On Admission Date Seen by Provider: May 12, 2021 Time Seen by Provider: 12:00 Subjective/Events-last exam 05/12/2021: Patient doing much better Atrial fibrillation disproved by Dr. Lewis Discharge plan for tomorrow Eliquis stopped Back to baseline 05/11/2021: Telemetry verified AFIB and bradycardia Incontinence continues but that is chronic Discharge is planned for Sunday Eliquis was started and cardiology was consulted but then Dr. eLwis reviewed the EKG and telemetry and found no A. fib and stopped Eliquis Working on stairs 05/10/2021: Pt doing okay Creatinine of 1.5 which is stable Having some loose stools, she has an ostomy Checked meds and labs She is moving around really well better than expected Review of Systems General: Fatigue, Malaise Neurological: Weakness Objective Exam Vital Signs Vital Signs Date Time Temp Pulse Resp B/P (MAP) Pulse Ox O2 Delivery O2 Flow Rate FiO2 05/13/21 01:00 70 05/12/21 21:00 NIV CPAP 05/12/21 20:00 36.7 22 137/69 (91) 92 Capillary Refill : General Appearance: No Apparent Distress, WD/WN, Chronically ill, Obese HEENT: PERRL/EOMI, Normal ENT Inspection, Pharynx Normal Neck: Full Range of Motion, Normal Inspection, Non Tender, Supple, Carotid Bruit Respiratory: Chest Non Tender, Lungs Clear, Normal Breath Sounds, No Accessory Muscle Use, No Respiratory Distress Cardiovascular: Regular Rate, Rhythm, No Edema, No Gallop, No JVD, No Murmur, Normal Peripheral Pulses Gastrointestinal: Normal Bowel Sounds, No Organomegaly, No Pulsatile Mass, Non Tender, Soft Rectal: Deferred Back: Normal Inspection, No CVA Tenderness, No Vertebral Tenderness Extremity: Normal Capillary Refill, Normal Inspection, Normal Range of Motion, Non Tender, No Calf Tenderness, No Pedal Edema Neurologic/Psychiatric: Alert, Oriented x3, lightning protection installer II-XII Norm as Tested, Abnormal Gait, Depressed Affect, Motor Weakness (Generalized weakness 4/5) Skin: Normal Color, Warm/Dry Lymphatic: No Adenopathy Results/Procedures Lab Patient resulted labs reviewed. FIM Transfers Therapy Code Descriptions/Definitions Functional [place] Measure: 0=Not Assessed/NA 4=Minimal Assistance 1=Total Assistance 5=Supervision or Setup 2=Maximal Assistance 6=Modified [place] 3=Moderate Assistance 7=Complete IndependenceSCALE: Activities may be completed with or without assistive devices. 2-Dqghonxbsc-wrrftfq completes the activity by him/herself with no assistance from a helper. 5-Set-up or Clean-up Assistance-helper sets up or cleans up; patient completes activity. [place] assists only prior to or following the activity. 4-Supervision or Touching Assistance-helper provides verbal cues and/or touching/steadying and/or contact guard assistance as patient completes activity. Assistance may be provided throughout the activity or intermittently. 3-Partial/Moderate Assistance-helper does LESS THAN HALF the effort. [place] lifts, holds or supports trunk or limbs, but provides less than half the effort. 2-Substantial/Maximal Assistance-helper does MORE THAN HALF the effort. [place] lifts or holds trunk or limbs and provides more than half the effort. 0-Mwwzmjilk-ncpwjl does ALL the effort. Patient does none of the effort to complete the activity. Or, the assistance of 2 or more helpers is required for the patient to complete the activity. If activity was not attempted, code reason: 7-Patient Refused. 9-Not Applicable-not attempted and the patient did not perform the activity before the current illness, exacerbation or injury. 10-Not Attempted due to Environmental Limitations-(lack of equipment, weather restraints, etc.). 88-Not Attempted due to Medical Conditions or Safety Concerns. Roll Left to Right (QC): 6 Sit to Lying (QC): 6 Sit to Stand (QC): 6 Chair/Xhm-yq-Sivxq Xfer(QC): 6 Car Transfer (QC): 4 Gait Training Does the Patient Walk?: Yes Distance: 120'x2 Walk 10 feet (QC): 6 Walk 50 ft with 2 Turns(QC): 6 Walk 150 ft (QC): 88 Walking 10ft/uneven surface-QC: 4 Gait Persons Needed: 1 Gait Assistive Device: FWW Wheelchair Training Does the Pt Use a Wheelchair?: No Wheel 50 ft with 2 turns (QC): 8 Wheel 150 ft (QC): 8 Stair Training Stair Training: Handrails/: 2 handrails #of Steps: 4 1 Step (curb) (QC): 4 4 Steps (QC): 4 12 Steps (QC): 88 Balance Picking up an Object (QC): 6 (using a correctional officer chief) ADL-Treatment Eating (QC): 6 (IND with breakfast) Oral Hygiene (QC): 6 (IND) Shower/Bathe Self (QC): 4 (supervision, pt able to wash/dry all parts.) Upper Body Dressing (QC): 5 (set up) Lower Body Dressing (QC): 4 (SBA with pant hike.) On/Off Footwear (QC): 6 (IND with slip on shoes.) Toileting Hygiene (QC): 6 (IND) Toilet Transfer (QC): 6 (IND) Assessment/Plan Assessment and Plan Assess & Plan/Chief Complaint Assessment: Severe debility Bradycardia prior to urological procedure Ureteral stent Kidney stone Bladder incontinence COPD Obstructive sleep apnea on CPAP Diabetes Hypertension Previous diverticulosis status post resection and colostomy Plan: Aggressive therapy Home meds Monitor closely 05/10/2021: Supportive care Colostomy care 05/11/2021: Appreciate Dr. Debbie Boyer DVT prophylaxis to start 05/12/2021: Supportive care Discharge planned (1) Debility (2) Morbid obesity (3) COPD (chronic obstructive pulmonary disease) (4) Arthritis (5) Incontinence (6) History of Clostridium difficile colitis (7) Chronic kidney disease (8) Obstructive sleep apnea on CPAP (9) Chronic renal failure Status: Acute (10) Ureteral obstruction Status: Acute GALILEO WRIGHT DO May 12, 2021 05:39
[2021-05-12] MEDS: RT--FLUTICASONE/SALMETEROL 113-14 (AIRDUO RespiCLICK) IH SCH ×2 (06:59→19:50)
[2021-05-12 07:49] VITALS: BP 148/65
[2021-05-12] MEDS: D MANNOSE PO SCH ×2 (07:50→21:00)
[2021-05-12] MEDS: ENOXAPARIN 60 MG/0.6 ML (LOVENOX) SYR SC SCH ×2 (07:50→22:09)
[2021-05-12] MEDS: [UNRECOGNIZED DRUG - REMARK] PO SCH (07:50)
[2021-05-12] MEDS: FLUTICASONE NASAL SPRAY (FLONASE) 16 GM BTL NS SCH (07:50)
[2021-05-12] MEDS: LOSARTAN 50 MG (COZAAR) TAB PO SCH (07:52)
[2021-05-12] MEDS: METHENAMINE HIPP (UREX) 1 GM TABLET PO SCH ×2 (07:52→21:00)
[2021-05-12] MEDS: PANTOPRAZOLE 40 MG (PROTONIX) TAB PO SCH ×2 (07:52→22:10)
[2021-05-12] MEDS: buPROPion SR 150 MG (WELLBUTRIN SR) TAB PO SCH (07:52)
[2021-05-12] MEDS: LEVOTHYROXINE 25 MCG (LEVOTHROID) TAB PO SCH (07:52)
[2021-05-12] MEDS: LEVOTHYROXINE 112 MCG (LEVOTHROID) TAB PO SCH (07:52)
[2021-05-12] MEDS: HYOSCYAMINE 0.125 MG (LEVSIN) TAB PO SCH ×3 (07:52→22:09)
[2021-05-12] MEDS: TAMSULOSIN 0.4 MG (FLOMAX) CAP PO SCH (07:52)
[2021-05-12] MEDS: VITAMIN D3 125 MCG (5,000 UNITS) CAPSULE PO SCH (07:52)
[2021-05-12] MEDS: FENOFIBRATE 134 MG (LOFIBRA) CAPSULE PO SCH (07:52)
[2021-05-12] MEDS: LOPERAMIDE 2 MG (IMODIUM) TABLET PO SCH ×2 (07:52→22:09)
--- NOTE | 2021-05-12 08:31 | Cardiology Progress Note ---
Subjective Date Seen by Provider: May 12, 2021 Time Seen by Provider: 08:05 Subjective/Events-last exam Patient is sitting up in bed, no new complaints. Denies any chest pain or dy spnea. Review of Systems General: No Chills, No Night Sweats, No Fatigue, No Malaise, No Appetite, No Other HEENT: No Head Aches, No Visual Changes, No Eye Pain, No Ear Pain, No Dysphasia, No Sinus Congestion, No Post Nasal Drip, No Sore Throat, No Other Pulmonary: No Dyspnea, No Cough, No Pleuritic Chest Pain, No Other Cardiovascular: No: Chest Pain, Palpitations, Orthopnea, Paroxysmal Noc. Dyspnea, Edema, Lt Headedness, Other Objective-Cardiology Exam Last Set of Vital Signs Vital Signs 05/12/21 07:49 Temp 36.1 Pulse 81 Resp 20 B/P (MAP) 148/65 (92) Pulse Ox 92 O2 Delivery Room Air General: Alert, Oriented X3, Cooperative HEENT: Atraumatic, PERRLA Neck: Supple, No JVD, No Thyromegaly Lungs: Clear to Auscultation, Normal Air Movement Heart: Regular Rate Abdomen: Normal Bowel Sounds, Soft Extremities: No Clubbing, No Edema Skin: No Rashes, No Significant Lesion Neuro: Normal Gait, Cranial Nerves 3-12 NL Psych/Mental Status: Mental Status NL, Mood NL A/P-Cardiology Admission Diagnosis Atrial fibrillation HTN COPD/BERNARDO DM Assessment/Plan Questionable atrial fibrillation, EKG done showing SR with 1st degree AV block with APCs. Telemetry strip reviewed also showing SR with 1st degree AV block. No documented atrial fibrillation CAD, patient reports underwent LHC with Dr. Hagen approx 7 years ago revealing nonobstructive disease, no recent workup, will continue to monitor. HTN, controlled, continue to monitor. Bradycardia, patient reports episode of bradycardia while at . Currenty has Zio patch placed. Will conitnue to monitor telemetry. Kidney stone, ureteral stent placement done at Generalized debility/weakness, continue PT/OT COPD/BERNARDO, maintained on CPAP DM, management per medical services CKD, continue to monitor renal function Iron deficiency anemia, monitor H/H. Patient was seen and evaluated with Anne, examination performed, management plan was discussed, agree with the current scribed note, I made few changes to the note using Italic font Patient was seen and evaluated, feeling better No new complaint She is in sinus rhythm with first-degree AV block, frequent atrial premature contractions I recommend avoiding beta-blockers and/or calcium channel blockers at this point, continue to monitor Patient is asymptomatic. Okay for discharge and follow-up as an outpatient Supervisory-Addendum Brief Supervisory Addendum Participated in pt care: history, MDM, physical Personally performed: exam, history, MDM Care discussed with: VANNESA Results interpretation: Verified all documentation ANNE CRAIG May 12, 2021 08:31 VIKRAM ENGLISH MD May 12, 2021 09:06
[2021-05-12] MEDS: BETAMETHASONE DIPRO (AUGMENTED) 0.05% CREAM 15 GM TOP SCH (09:00)
--- NOTE | 2021-05-12 10:11 | Occupational Ther Daily Note ---
OT Current Status-Daily Note Subjective Pt in bed, agreeable to OT tx. Does not verbalize any pain. Mental Status/Objective Patient Orientation: Normal For Age Attachments: Colostomy/Ileostomy ADL-Treatment Therapy Code Descriptions/Definitions Functional [place] Measure: 0=Not Assessed/NA 4=Minimal Assistance 1=Total Assistance 5=Supervision or Setup 2=Maximal Assistance 6=Modified [place] 3=Moderate Assistance 7=Complete IndependenceSCALE: Activities may be completed with or without assistive devices. 1-Ezlliusdia-rdiawqs completes the activity by him/herself with no assistance from a helper. 5-Set-up or Clean-up Assistance-helper sets up or cleans up; patient completes activity. [place] assists only prior to or following the activity. 4-Supervision or Touching Assistance-helper provides verbal cues and/or touching/steadying and/or contact guard assistance as patient completes activity. Assistance may be provided throughout the activity or intermittently. 3-Partial/Moderate Assistance-helper does LESS THAN HALF the effort. [place] lifts, holds or supports trunk or limbs, but provides less than half the effort. 2-Substantial/Maximal Assistance-helper does MORE THAN HALF the effort. [place] lifts or holds trunk or limbs and provides more than half the effort. 0-Utuvgtccq-yzwrdq does ALL the effort. Patient does none of the effort to complete the activity. Or, the assistance of 2 or more helpers is required for the patient to complete the activity. If activity was not attempted, code reason: 7-Patient Refused. 9-Not Applicable-not attempted and the patient did not perform the activity before the current illness, exacerbation or injury. 10-Not Attempted due to Environmental Limitations-(lack of equipment, weather restraints, etc.). 88-Not Attempted due to Medical Conditions or Safety Concerns. Eating (QC): 6 (IND) Oral Hygiene (QC): 6 (IND standing at sink.) Shower/Bathe Self (QC): 5 (set up to cover heart monitor. Pt completed washing/drying independently. ) Upper Body Dressing (QC): 6 (IND) Lower Body Dressing (QC): 6 (IND) On/Off Footwear: 6 (IND slip on shoes) Toileting Hygiene (QC): 6 (IND) Toilet Transfer (QC): 6 (IND) Other Treatment [id number]: Pt in bed, used FWW around room to gather ADL supplies independently. She transferred to toilet, doffed clothes, completed toileting, then transferred to SC. OT covered pt's heart monitor prior to shower, then pt completed remainder of shower independently. She used FWW to transfer to EOB where she donned clothes independently. Pt used FWW to perform functional mobility to therapy gym. In order to increase activity tolerance and fine motor strength and coordination, pt completed heavy resistance putty task. OT provided pt with printed HEP of various putty exercises including log rolling, pinching, finger abduction/adduction, and finger flexion/extension. Pt verbalized and demo'd understanding. Pt returned to her room, transferring to bed. Post tx, pt laying in bed, call light in reach and all needs met. [id number] OT tx: Pt used FWW to perform functional mobility to therapy gym. In order to increase BUE Strength and activity tolerance, pt completed arm bike x15 mins, 20 watt resistance, 2 rest breaks required. Pt used FWW to return to her room, transferring to bed. Post tx, pt laying in bed, call light in reach and all needs met. Education OT Patient Education: Correct positioning, Energy conservation, Exercise program, Modified ADL techniques, Progress toward Goal/Update tx plan, Purpose of tx/functional activities, Rehab process Teaching Recipient: Patient Teaching Methods: Discussion Response to Teaching: Verbalize Understanding OT Short Term Goals Short Term Goals Time Frame: May 16, 2021 Oral hygiene: 5 Toileting hygiene: 5 Shower/bathe self: 5 Lower body dressin OT Aircraft Instrument Tester Goals Fpc Goals Time Frame: May 20, 2021 Eating (QC): 6 (met) Oral Hygiene (QC): 6 (met) Toileting Hygiene (QC): 6 (met) Shower/Bathe Self (QC): 6 (not met, set up) Upper Body Dressing (QC): 6 (met) Lower Body Dressing (QC): 6 (met) On/Off Footwear (QC): 6 (met) Additional Goals: 1-Demonstrate ADL Tasks, 2-Verbalize Understanding, 3- ImproveStrength/Lalit 1=Demonstrate adherence to instructed precautions during ADL tasks. 2=Patient will verbalize/demonstrate understanding of assistive devices/modifications for ADL. 3=Patient will improve strength/tolerance for activity to enable patient to perform ADL's. OT Education/Plan Problem List/Assessment Assessment: Decreased Activ Tolerance, Decreased UE Strength Discharge Recommendations Plan/Recommendations: Continue POC Treatment Plan/Plan of Care Patient would benefit from OT for education, treatment and training to promote independence in ADL's, mobility, safety and/or upper extremity function for ADL's. Plan of Care: ADL Retraining, Functional Mobility, Group Exercise/Act as Ind, UE Funct Exercise/Act Treatment Duration: May 20, 2021 Frequency: At least 5 of 7 days/Wk (IRF) Estimated Hrs Per Day: 1.5 hours per day Rehab Potential: Fair Time/GCodes Start Time: 09:30 ([id number]) Stop Time: 13:30 ([id number]) Total Time Billed (hr/min): 90 Billed Treatment Time [id number]: 1, ADL 3 (45'), FA (15') [id number] 1, EX 2 JACKIE MORGAN OT May 12, 2021 10:11
--- NOTE | 2021-05-12 10:14 | Physical Therapy Daily Note ---
PT Daily Note-Current Subjective Pt sitting at EOB upon arrival. Pt agrees to PT for QC scoring for upcoming d/c. Mental Status Patient Orientation: Person, Place, Time, Situation Transfers SCALE: Activities may be completed with or without assistive devices. 5-Dhabtmacix-utdmhky completes the activity by him/herself with no assistance from a helper. 5-Set-up or Clean-up Assistance-helper sets up or cleans up; patient completes activity. [place] assists only prior to or following the activity. 4-Supervision or Touching Assistance-helper provides verbal cues and/or touching/steadying and/or contact guard assistance as patient completes activity. Assistance may be provided throughout the activity or intermittently. 3-Partial/Moderate Assistance-helper does LESS THAN HALF the effort. [place] lifts, holds or supports trunk or limbs, but provides less than half the effort. 2-Substantial/Maximal Assistance-helper does MORE THAN HALF the effort. [place] lifts or holds trunk or limbs and provides more than half the effort. 6-Ecvklrtti-bixljy does ALL the effort. Patient does none of the effort to complete the activity. Or, the assistance of 2 or more helpers is required for the patient to complete the activity. If activity was not attempted, code reason: 7-Patient Refused. 9-Not Applicable-not attempted and the patient did not perform the activity before the current illness, exacerbation or injury. 10-Not Attempted due to Environmental Limitations-(lack of equipment, weather restraints, etc.). 88-Not Attempted due to Medical Conditions or Safety Concerns. Roll Left & Right (QC): 6 Sit to Lying (QC): 6 Lying to Sitting/Side of Bed(Q: 6 Sit to Stand (QC): 6 Chair/Gus-yd-Semex Xfer(QC): 6 Toilet Transfer (QC): 6 Car Transfer (QC): 6 Weight Bearing Full Weight Bearing Full Weight Bearing Gait Training Does the Patient Walk?: Yes Distance: 150' x2 Walk 10 feet (QC): 6 Walk 50 ft with 2 Turns(QC): 6 Walk 150 ft (QC): 6 Walking 10ft/uneven surface-QC: 6 Gait Persons Needed: 0 Gait Assistive Device: FWW VC for standing up taller and closer to FWW as she fatigues. Wheelchair Training Does the Pt Use a Wheelchair?: No Stair Training Stair Training: Handrails/: 2 handrails #of Steps: 8 1 Step (curb) (QC): 6 4 Steps (QC): 5 Stairs: Pattern: Step to VC for sequence of Up with the Good Leg & Down with the Bad Leg. Balance Picking up an Object (QC): 7 Special Test Comments Pt states doesn't last picker things from standing, would either sit to pick them up or use professional driver. Exercises Supine Ex: Ankle pumps, Quad Set, Glut sets, Heel Slides, Short Arc Quads, Straight leg raise, Hip abd/add Supine Reps: 15 Seated Therapy Exercises: Ankle pumps, Long arc quads, Hip flexion, Hip abd/add, Glut set Seated Reps: 15 Treatments Pt completed QC scoring items listed above. Pt focuses on stairs and exercises (issued written HEP for Supine & Seated Ex). Pt returns to EOB to rest with all needs met, call light in hand. Assessment Current Status: Good Progress Pt has improved to Mod I for transfers and mobility. Pt occasionally fatigues but knows limits and will rest as needed. PT Short Term Goals Short Term Goals Time Frame: May 17, 2021 Roll Left & Right: 6 Sit to lyin Lying to sitting on side of be: 6 Sit to stand: 4 Chair/szk-zw-wwhfo transfer: 4 Walk 10 feet: 4 Walk 50 feet with two turns: 4 Walk 150 feet: 4 PT [facility]ci Goals Fci Goals PT [facility] Goals Time Frame: May 31, 2021 Roll Left & Right (QC): 6 Sit to Lying (QC): 6 Lying-Sitting on Side/Bed(QC): 6 Sit to Stand (QC): 5 Chair/Iwr-iw-Szzod Xfer(QC): 5 Toilet Transfer (QC): 5 Car Transfer (QC): 5 Does the Patient Walk: Yes Walk 10 feet (QC): 5 Walk 50ft with 2 Turns (QC): 5 Walk 150 ft (QC): 5 Walking 10ft on Uneven Surface: 5 1 Step (curb) (QC): 4 4 Steps (QC): 4 12 Steps (QC): 88 Picking up an Object (QC): 6 Wheel 50 feet with 2 turns (QC: 9 Wheel 150 feet: 9 PT Plan Problem List Problem List: Activity Tolerance Treatment/Plan Treatment Plan: Continue Plan of Care Treatment Plan: Bed Mobility, Education, Functional Activity Lalit, Functional Strength, Group Therapy, Gait, Safety, Therapeutic Exercise, Transfers Treatment Duration: May 31, 2021 Frequency: At least 5 of 7 days/Wk (IRF) Estimated Hrs Per Day: 1.5 hours per day Patient and/or Family Agrees t: Yes Safety Risks/Education Patient Education: Gait Training, Steps, Issued Written HEP, Correct Positioning Teaching Recipient: Patient Teaching Methods: Discussion Response to Teaching: Verbalize Understanding Time/GCodes Time In: 800 Time Out: 900 Total Billed Treatment Time: 60 Total Billed Treatment 1, FA x2 (30m), EX (15m) & GT (15m) PAULINE SANDOVAL BOWL SANDER May 12, 2021 10:14
--- NOTE | 2021-05-12 13:41 | Physical Therapy Daily Note ---
PT Daily Note-Current Subjective Pt laying Supine in bed upon arrival. Pt agrees to PT. Pain Location: No Pain Reported Mental Status Patient Orientation: Person, Place, Time, Situation Transfers SCALE: Activities may be completed with or without assistive devices. 9-Nhvqmsszqm-duaouxt completes the activity by him/herself with no assistance from a helper. 5-Set-up or Clean-up Assistance-helper sets up or cleans up; patient completes activity. [place] assists only prior to or following the activity. 4-Supervision or Touching Assistance-helper provides verbal cues and/or touching/steadying and/or contact guard assistance as patient completes activity. Assistance may be provided throughout the activity or intermittently. 3-Partial/Moderate Assistance-helper does LESS THAN HALF the effort. [place] lifts, holds or supports trunk or limbs, but provides less than half the effort. 2-Substantial/Maximal Assistance-helper does MORE THAN HALF the effort. [place] lifts or holds trunk or limbs and provides more than half the effort. 7-Llaysgaws-pzckrc does ALL the effort. Patient does none of the effort to complete the activity. Or, the assistance of 2 or more helpers is required for the patient to complete the activity. If activity was not attempted, code reason: 7-Patient Refused. 9-Not Applicable-not attempted and the patient did not perform the activity be fore the current illness, exacerbation or injury. 10-Not Attempted due to Environmental Limitations-(lack of equipment, weather restraints, etc.). 88-Not Attempted due to Medical Conditions or Safety Concerns. Sit to Stand (QC): 6 Weight Bearing Full Weight Bearing Full Weight Bearing Gait Training Does the Patient Walk?: Yes Distance: 150' x2 Walk 10 feet (QC): 6 Walk 50 ft with 2 Turns(QC): 6 Walk 150 ft (QC): 6 Gait Persons Needed: 0 Gait Assistive Device: FWW Wheelchair Training Does the Pt Use a Wheelchair?: No Stair Training Stair Training: Handrails/: 2 handrails #of Steps: 8 1 Step (curb) (QC): 6 4 Steps (QC): 6 Stairs: Pattern: Step to Exercises NuStep Minutes: 15 NuStep Workload: 4 Treatments TF to standing and amb. in hallway. Pt completes 2 sets of stairs and uses NuStep for 15m at WL 4. Pt amb. in hallway and returns to room to rest. All needs met, call light in hand. Assessment Current Status: Good Progress Pt tolerates tx well and improves with stairs and ambulation, feels more comfortable the more she does. PT Short Term Goals Short Term Goals Time Frame: May 17, 2021 Roll Left & Right: 6 Sit to lyin Lying to sitting on side of be: 6 Sit to stand: 4 Chair/flt-cs-onihd transfer: 4 Walk 10 feet: 4 Walk 50 feet with two turns: 4 Walk 150 feet: 4 PT Nursing Home Goals Deputy Coroner Investigator Goals PT Nursing Home Goals Time Frame: May 31, 2021 Roll Left & Right (QC): 6 Sit to Lying (QC): 6 Lying-Sitting on Side/Bed(QC): 6 Sit to Stand (QC): 5 Chair/Ijd-br-Qzszp Xfer(QC): 5 Toilet Transfer (QC): 5 Car Transfer (QC): 5 Does the Patient Walk: Yes Walk 10 feet (QC): 5 Walk 50ft with 2 Turns (QC): 5 Walk 150 ft (QC): 5 Walking 10ft on Uneven Surface: 5 1 Step (curb) (QC): 4 4 Steps (QC): 4 12 Steps (QC): 88 Picking up an Object (QC): 6 Wheel 50 feet with 2 turns (QC: 9 Wheel 150 feet: 9 PT Plan Problem List Problem List: Activity Tolerance Treatment/Plan Treatment Plan: Continue Plan of Care Treatment Plan: Bed Mobility, Education, Functional Activity Lalit, Functional Strength, Group Therapy, Gait, Safety, Therapeutic Exercise, Transfers Treatment Duration: May 31, 2021 Frequency: At least 5 of 7 days/Wk (IRF) Estimated Hrs Per Day: 1.5 hours per day Patient and/or Family Agrees t: Yes Time/GCodes Time In: 1130 Time Out: 1200 Total Billed Treatment Time: 30 Total Billed Treatment 1, GT (15m) & EX (15m) PAULINE SANDOVAL CYCLING INSTRUCTOR May 12, 2021 13:41
[2021-05-12] MEDS ORDERED: CARV25TA PO (14:47)
[2021-05-12] MEDS ORDERED: AMLO-250 PO (14:47)
--- NOTE | 2021-05-12 19:45 | Progress Note ---
Subjective Date Seen by a Provider: May 11, 2021 Time Seen by a Provider: 12:45 Subjective/Events-last exam Fwup bradycardia, HTN, renal insufficiency, Class 3 obesity, weakness. Concerns about possible atrial fibrillation. Objective Exam Vital Signs Date Time Temp Pulse Resp B/P (MAP) Pulse Ox O2 Delivery O2 Flow Rate FiO2 05/12/21 19:00 80 05/12/21 13:00 90 05/12/21 09:00 Room Air 05/12/21 07:49 36.1 81 20 148/65 (92) 92 Room Air 05/12/21 07:00 72 05/12/21 06:59 93 NIV CPAP 05/12/21 01:00 72 05/11/21 21:35 NIV CPAP 05/11/21 19:53 36.2 76 18 115/59 (77) 94 NIV CPAP 05/11/21 19:43 94 NIV CPAP Capillary Refill : General Appearance: No Apparent Distress Neck: Supple Respiratory: Lungs Clear Cardiovascular: Regular Rate, Rhythm Gastrointestinal: normal bowel sounds, non tender, soft Extremity: Non Tender, No Calf Tenderness, No Pedal Edema Neurologic/Psychiatric: Alert, Oriented x3 Assessment/Plan Assessment/Plan Assess & Plan/Chief Complaint 1. Bradycardia--cardiology consulted and confirmed no A fib but does have 1st Degree Heart Block with frequent APCs, continue to hold beta blockers and amlodopine has been decreased as well 2. Hypetension--adjusted meds with amlodopine 5mg in AM and Cozaar 50mg at bedtime 3. Right Ureteral Stricture with Right Hydronephrosis and Renal Insufficiency--S/P stent replacement, flomax dose increased 4. Class III Obesity--have discussed bariatric surgery 5. Weakness--continue PT/OT Clinical Quality Measures Admission Status Admission Dx 1. Bradycardia--monitor on telemetry, continue off of coreg, will also decrease amlodopine, if continues with bradycardia will need to consider pacemaker 2. Hypertension--decrease amlodopine to 5mg po q AM, add cozaar 50mg po q PM 3. Chronic Renal Insufficiency due to Right Ureteral Stenosis with Right Hydronephrosis--S/P recent stent exchange 4. Asthma/COPD--stable 5. BERNARDO--use home CPAP 6. Debility/Weakness--PT and OT 7. Obesity Class III--bariatric surgery has been discussed with patient BROWN ORDONEZ DO May 12, 2021 19:45
[2021-05-12 20:00] VITALS: BP 137/69
[2021-05-12] MEDS: MONTELUKAST 10 MG (SINGULAIR) TAB PO SCH (22:09)
[2021-05-12] MEDS: MECLIZINE 25 MG (ANTIVERT) TAB PO SCH (22:09)
[2021-05-12] MEDS: LORATADINE (CLARITIN) 10 MG TAB PO SCH (22:10)
[2021-05-13] MEDS: BETAMETHASONE DIPRO (AUGMENTED) 0.05% CREAM 15 GM TOP SCH ×2 (01:06→10:03)
[2021-05-13] MEDS ORDERED: OXYB5TAB13 PO (05:22)
[2021-05-13] MEDS ORDERED: PHEN-826 PO (05:22)
[2021-05-13] MEDS ORDERED: TMSL.4C PO (05:22)
[2021-05-13] MEDS ORDERED: LOSA50TA63 PO (05:22)
--- NOTE | 2021-05-13 05:22 | Discharge Summary ---
Diagnosis/Chief Complaint Date of Admission May 09, 2021 at 16:02 Date of Discharge Discharge Date: May 13, 2021 Discharge Diagnosis Assessment: Severe debility Bradycardia prior to urological procedure Ureteral stent Kidney stone Bladder incontinence COPD Obstructive sleep apnea on CPAP Diabetes Hypertension Previous diverticulosis status post resection and colostomy Plan: Aggressive therapy Home meds Monitor closely 05/10/2021: Supportive care Colostomy care 05/11/2021: Appreciate Dr. Lewis Stop Eliquis Lovenox DVT prophylaxis to start 05/12/2021: Supportive care Discharge planned (1) Debility (2) Morbid obesity (3) COPD (chronic obstructive pulmonary disease) (4) Arthritis (5) Incontinence (6) History of Clostridium difficile colitis (7) Chronic kidney disease (8) Obstructive sleep apnea on CPAP (9) Chronic renal failure Status: Acute (10) Ureteral obstruction Status: Acute Discharge Summary Discharge Physical Examination Allergies: Coded Allergies: Cephalosporins (Verified Allergy, Unknown, 10/20/20) Sulfa (Sulfonamide Antibiotics) (Unverified Allergy, Unknown, RASH, 10/20/20) azithromycin (Verified Allergy, Unknown, 10/20/20) codeine (Verified Allergy, Unknown, 10/20/20) Vitals & I&Os Vital Signs Date Time Temp Pulse Resp B/P (MAP) Pulse Ox O2 Delivery O2 Flow Rate FiO2 05/13/21 15:16 36.7 80 26 142/70 90 Room Air General Appearance: Alert, Oriented X3, Cooperative Respiratory: Clear to Auscultation Cardiovascular: Regular Rate Neuro: Normal Gait, Normal Speech, Strength at 5/5 X4 Ext Psych/Mental Status: Mental Status NL Hospital Course Was the Problem List Reviewed?: Yes Hospital course: Patient had a brief hospital course she was moved from to inpatient rehab after urological procedure and debility and high risk for decompensation including the need for bradycardia monitoring. She had no issues except for questionable A. fib on telemetry Dr. Lewis was consulted he disprove that Eliquis was stopped and some medications were changed good results and she was stable for discharge. Labs (last 24 hrs) Laboratory Tests 05/10/21 05:45: White Blood Count 8.9, Red Blood Count 4.33, Hemoglobin 12.8, Hematocrit 41, Mean Corpuscular Volume 94, Mean Corpuscular Hemoglobin 30, Mean Corpuscular Hemoglobin Concent 31L, Red Cell Distribution Width 14.6H, Platelet Count 220, Mean Platelet Volume 10.1, Immature Granulocyte % (Auto) 1, Neutrophils (%) (Auto) 61, Lymphocytes (%) (Auto) 26, Monocytes (%) (Auto) 9, Eosinophils (%) (Auto) 3, Basophils (%) (Auto) 1, Neutrophils # (Auto) 5.4, Lymphocytes # (Auto) 2.3, Monocytes # (Auto) 0.8, Eosinophils # (Auto) 0.3, Basophils # (Auto) 0.1, Immature Granulocyte # (Auto) 0.1, Sodium Level 139, Potassium Level 4.3, Ch loride Level 108H, Carbon Dioxide Level 21, Anion Gap 10, Blood Urea Nitrogen 43H, Creatinine 1.54H, Estimat Glomerular Filtration Rate 34, BUN/Creatinine Ratio 28, Glucose Level 100, Calcium Level 9.8, Corrected Calcium 10.0, Total Bilirubin 0.7, Aspartate Amino Transf (AST/SGOT) 16, Alanine Aminotransferase (ALT/SGPT) 19, Alkaline Phosphatase 69, Total Protein 6.7, Albumin 3.8 Pending Labs Laboratory Tests 05/10/21 05:45: White Blood Count 8.9, Red Blood Count 4.33, Hemoglobin 12.8, Hematocrit 41, Mean Corpuscular Volume 94, Mean Corpuscular Hemoglobin 30, Mean Corpuscular Hemoglobin Concent 31, Red Cell Distribution Width 14.6, Platelet Count 220, Mean Platelet Volume 10.1, Immature Granulocyte % (Auto) 1, Neutrophils (%) (Auto) 61, Lymphocytes (%) (Auto) 26, Monocytes (%) (Auto) 9, Eosinophils (%) (Auto) 3, Basophils (%) (Auto) 1, Neutrophils # (Auto) 5.4, Lymphocytes # (Auto) 2.3, Monocytes # (Auto) 0.8, Eosinophils # (Auto) 0.3, Basophils # (Auto) 0.1, Immature Granulocyte # (Auto) 0.1, Sodium Level 139, Potassium Level 4.3, Chloride Level 108, Carbon Dioxide Level 21, Anion Gap 10, Blood Urea Nitrogen 43, Creatinine 1.54, Estimat Glomerular Filtration Rate 34, BUN/Creatinine Ratio 28, Glucose Level 100, Calcium Level 9.8, Corrected Calcium 10.0, Total Bilirubin 0.7, Aspartate Amino Transf (AST/SGOT) 16, Alanine Aminotransferase (ALT/SGPT) 19, Alkaline Phosphatase 69, Total Protein 6.7, Albumin 3.8 Discharge Home Medications: Active Scripts Active Oxybutynin Chloride 5 Mg Tablet 5 Mg PO TID PRN Phenazopyridine HCl 100 Mg Tablet 200 Mg PO TIDPC PRN Losartan Potassium 50 Mg Tablet 50 Mg PO DAILY Flomax (Tamsulosin HCl) 0.4 Mg Cap 0.8 Mg PO DAILY Reported Nasonex (Mometasone Furoate) 17 Gm Naspr 2 Sprays NSEACH DAILY Meclizine HCl 25 Mg Tablet 25 Mg PO HS Vitamin D3 (Cholecalciferol (Vitamin D3)) 125 Mcg Capsule 125 Mcg PO DAILY Cetirizine HCl 10 Mg Tablet 10 Mg PO HS Albuterol Sulfate 2.5 Mg/0.5 Ml Vial.neb 2.5 Mg INH Q6H PRN Azo D-Mannose (D-Mannose) 500 Mg Capsule 500 Mg PO BID [place] (Ketotifen Fumarate) 10 Ml Drops 1 Drops OU DAILY Hyoscyamine Sulfate 0.125 Mg Tab.subl 0.125 Mg PO TID Methenamine Hippurate 1 Gm Tablet 1 Gm PO BID Clobetasol Propionate 15 Gm Cream..g. 1 Applic TP BID Levothyroxine Sodium 137 Mcg Tablet 137 Mcg PO DAILY Estradiol 42.5 Gm Cream.appl 1 Applic VG 3 TIMES A WEEK Bupropion Xl (Bupropion HCl) 150 Mg Tab.er.24h 150 Mg PO DAILY Advair 250-50 Diskus (Fluticasone/Salmeterol) 1 Each Blst.w.dev 1 Each IH BID Myrbetriq (Mirabegron) 25 Mg Tab.er.24h 25 Mg PO DAILY Imodium A-D (Loperamide HCl) 2 Mg Tablet 4 Mg PO BID TAKES 2 (2MG) TABS Fenofibrate (Fenofibrate Nanocrystallized) 145 Mg Tablet 145 Mg PO DAILY Montelukast Sodium 10 Mg Tablet 10 Mg PO HS Proair Hfa (Albuterol Sulfate) 8.5 Gm Hfa.aer.ad 2 Puff INH Q6H PRN Pantoprazole Sodium 40 Mg Tablet.dr 40 Mg PO BID Instructions to patient/family Please see electronic discharge instructions given to patient. Diagnosis/Problems Diagnosis/Problems (1) Debility (2) Morbid obesity (3) COPD (chronic obstructive pulmonary disease) (4) Arthritis (5) Incontinence (6) History of Clostridium difficile colitis (7) Chronic kidney disease (8) Obstructive sleep apnea on CPAP (9) Chronic renal failure Status: Acute (10) Ureteral obstruction Status: Acute GALILEO WRIGHT DO May 13, 2021 05:22
[2021-05-13] MEDS: RT--FLUTICASONE/SALMETEROL 113-14 (AIRDUO RespiCLICK) IH SCH (07:28)
[2021-05-13 07:49] VITALS: BP 142/70
[2021-05-13] MEDS: HYOSCYAMINE 0.125 MG (LEVSIN) TAB PO SCH ×2 (09:55→14:05)
[2021-05-13] MEDS: buPROPion SR 150 MG (WELLBUTRIN SR) TAB PO SCH (09:55)
[2021-05-13] MEDS: LOSARTAN 50 MG (COZAAR) TAB PO SCH (09:55)
[2021-05-13] MEDS: LOPERAMIDE 2 MG (IMODIUM) TABLET PO SCH (09:55)
[2021-05-13] MEDS: ENOXAPARIN 60 MG/0.6 ML (LOVENOX) SYR SC SCH (09:55)
[2021-05-13] MEDS: LEVOTHYROXINE 112 MCG (LEVOTHROID) TAB PO SCH (09:55)
[2021-05-13] MEDS: PANTOPRAZOLE 40 MG (PROTONIX) TAB PO SCH (09:55)
[2021-05-13] MEDS: LEVOTHYROXINE 25 MCG (LEVOTHROID) TAB PO SCH (09:55)
[2021-05-13] MEDS: FENOFIBRATE 134 MG (LOFIBRA) CAPSULE PO SCH (09:55)
[2021-05-13] MEDS: VITAMIN D3 125 MCG (5,000 UNITS) CAPSULE PO SCH (09:55)
[2021-05-13] MEDS: TAMSULOSIN 0.4 MG (FLOMAX) CAP PO SCH (09:55)
[2021-05-13] MEDS: FLUTICASONE NASAL SPRAY (FLONASE) 16 GM BTL NS SCH (10:02)
[2021-05-13] MEDS: [UNRECOGNIZED DRUG - REMARK] PO SCH (10:02)
[2021-05-13] MEDS: D MANNOSE PO SCH (10:02)
[2021-05-13] MEDS: METHENAMINE HIPP (UREX) 1 GM TABLET PO SCH (11:12)
--- NOTE | 2021-05-13 11:49 | Progress Note ---
Subjective Date Seen by a Provider: May 13, 2021 Time Seen by a Provider: 11:46 Subjective/Events-last exam Fwup bradycardia with 1st degree heart block and APCs, HTN, renal insufficiency, Class 3 obesity, weakness Objective Exam Vital Signs Date Time Temp Pulse Resp B/P (MAP) Pulse Ox O2 Delivery O2 Flow Rate FiO2 05/13/21 09:10 Room Air 05/13/21 07:49 36.7 77 26 142/70 (94) 90 Room Air 05/13/21 07:28 91 Room Air 05/13/21 07:00 70 05/13/21 01:00 70 05/12/21 21:00 NIV CPAP 05/12/21 20:00 36.7 73 22 137/69 (91) 92 NIV CPAP 05/12/21 19:51 91 NIV CPAP 05/12/21 19:00 80 05/12/21 13:00 90 Capillary Refill : General Appearance: No Apparent Distress Respiratory: Lungs Clear Cardiovascular: Regular Rate, Rhythm, Systolic Murmur Gastrointestinal: normal bowel sounds, non tender, soft, other (ostomy) Extremity: Non Tender, No Calf Tenderness, No Pedal Edema Neurologic/Psychiatric: Alert, Oriented x3 Assessment/Plan Assessment/Plan Assess & Plan/Chief Complaint 1. Bradycardia with 1st Degree Heart Block and APCs--HR has improved, continue to hold beta blockers and amlodopine has been decreased as well, on a continuous heart monitor through May 16 2. Hypetension--adjusted meds with amlodopine 5mg in AM and Cozaar 50mg at bedtime 3. Right Ureteral Stricture with Right Hydronephrosis and Renal Insufficiency--S/P stent replacement, flomax dose increased 4. Class III Obesity--have discussed bariatric surgery 5. Weakness--improved, home today with outpatient therapies Clinical Quality Measures Admission Status Admission Dx 1. Bradycardia--monitor on telemetry, continue off of coreg, will also decrease amlodopine, if continues with bradycardia will need to consider pacemaker 2. Hypertension--decrease amlodopine to 5mg po q AM, add cozaar 50mg po q PM 3. Chronic Renal Insufficiency due to Right Ureteral Stenosis with Right Hydronephrosis--S/P recent stent exchange 4. Asthma/COPD--stable 5. BERNARDO--use home CPAP 6. Debility/Weakness--PT and OT 7. Obesity Class III--bariatric surgery has been discussed with patient BROWN ORDONEZ DO May 13, 2021 11:49
--- NOTE | 2021-05-13 11:51 | Therapy Team Discharge Summary ---
Therapy Discharge Summary Discharge Recommendations Date of Discharge Physical Therapy Patient came to rehab with debility. Upon evaluation patient performed bed mobility and supine <-> sit with independence, sit <-> stand and transfers CGA, car transfer CGA, ambulated 120' with a rolling walker with CGA (including 50' with at least 2 turns of 90 degrees and 10' over an uneven surface). Patient has been performing bed mobility and transfer training, balance and endurance training, functional strengthening, stair training, gait training, and education. Patient has made good progress and has met all of her terminal gauger goals except for picking up an object from the floor. Now, patient can perform bed mobility and transfers with independence, independent with car transfer, ambulates 150' with a rolling walker with independence (including 50' with at least 2 turns of 90 degrees and 10' over an uneven surface), can go up and down 4 steps using 2 handrails with SBA, but refuses to pick up attendant an object from the floor. Patient is being discharged from this facility today and will be discharged from PT at this time. Occupational Therapy Decreased Activ Tolerance, Decreased UE Strength PT Usp Goals Real Estate Sales Manager Goals PT Usp Goals Time Frame: May 31, 2021 Roll Left to Right (QC): 6 Sit to Lying (QC): 6 Lying-Sitting on Side/Bed(QC): 6 Sit to Stand (QC): 5 Chair/Ivs-lr-Idpss Xfer(QC): 5 Car Transfer (QC): 5 Does the Patient Walk: Yes Walk 10 feet (QC): 5 Walk 10ft-Uneven Surface(QC): 5 Walk 50ft with 2 Turns (QC): 5 Walk 150 ft (QC): 5 Wheel 50 feet with 2 turns (QC: 9 1 Step (curb) (QC): 4 4 Steps (QC): 4 12 Steps (QC): 88 Picking up an Object (QC): 6 OT Usp Goals Usp Goals Time Frame: May 20, 2021 Eating (FIM): 6 Eating (QC): 6 (met) Oral Hygiene (QC): 6 (met) Shower/Bathe Self (QC): 6 (not met, set up) Upper Body Dressing (QC): 6 (met) Lower Body Dressing (QC): 6 (met) On/Off Footwear (QC): 6 (met) Toileting(FIM): 6 Toileting Hygiene (QC): 6 (met) Toilet/Commode Transfer (QC): 5 Additional Goals: 1-Demonstrate ADL Tasks, 2-Verbalize Understanding, 3- ImproveStrength/Lalit 1=Demonstrate adherence to instructed precautions during ADL tasks. 2=Patient will verbalize/demonstrate understanding of assistive devices/modifications for ADL. 3=Patient will improve strength/tolerance for activity to enable patient to perform ADL's. YVONNE CUNNINGHAM PT May 13, 2021 11:51
[2021-05-13 15:16] VITALS: BP 142/70
--- NOTE | 2021-05-16 10:33 | Therapy Team Discharge Summary ---
Therapy Discharge Summary Discharge Recommendations Date of Discharge May 13, 2021 at 14:45 Occupational Therapy Pt admitted to ARU with debility. At PLOF, pt was independent with ADLs and fu nctional mobility using FWW. Upon initial evaluation, pt was independent with eating, required SBA oral care, supervision showering, set up upper body dressing, SBA lower body dressing, set up footwear and supervision toileting. OT tx focused on increasing BUE strength and activity tolerance, and increasing independence with ADLs and functional mobility. At discharge, pt was independent with eating, oral care, upper/lower body dressing, footwear and toileting, meeting LTGS. She required set up assistance with showering, making progress towards goal but not attaining. Pt discharged from facility, d/c from OT. Decreased Activ Tolerance, Decreased UE Strength PT Snf Goals Diamond Sander Goals PT Diamond Sander Goals Time Frame: May 31, 2021 Roll Left to Right (QC): 6 Sit to Lying (QC): 6 Lying-Sitting on Side/Bed(QC): 6 Sit to Stand (QC): 5 Chair/Duv-us-Kyivf Xfer(QC): 5 Car Transfer (QC): 5 Does the Patient Walk: Yes Walk 10 feet (QC): 5 Walk 10ft-Uneven Surface(QC): 5 Walk 50ft with 2 Turns (QC): 5 Walk 150 ft (QC): 5 Wheel 50 feet with 2 turns (QC: 9 1 Step (curb) (QC): 4 4 Steps (QC): 4 12 Steps (QC): 88 Picking up an Object (QC): 6 OT Diamond Sander Goals Diamond Sander Goals Time Frame: May 20, 2021 Eating (FIM): 6 Eating (QC): 6 (met) Oral Hygiene (QC): 6 (met) Shower/Bathe Self (QC): 6 (not met, set up) Upper Body Dressing (QC): 6 (met) Lower Body Dressing (QC): 6 (met) On/Off Footwear (QC): 6 (met) Toileting(FIM): 6 Toileting Hygiene (QC): 6 (met) Toilet/Commode Transfer (QC): 5 Additional Goals: 1-Demonstrate ADL Tasks, 2-Verbalize Understanding, 3- ImproveStrength/Lalit 1=Demonstrate adherence to instructed precautions during ADL tasks. 2=Patient will verbalize/demonstrate understanding of assistive devices/modifications for ADL. 3=Patient will improve strength/tolerance for activity to enable patient to perform ADL's. JACKIE MORGAN OT May 16, 2021 10:33
== END 2021-05-13 14:45 | disposition home or self-care (01) | DRG 948 ==
PROVIDERS: ADMIT Internal Medicine; ATTEND Internal Medicine
DX: R53.81 Other malaise (principal); Z68.43 Body mass index [BMI] 50.0-59.9, adult; N13.1 Hydronephrosis with ureteral stricture, not elsewhere classified; R53.1 Weakness; R00.1 Bradycardia, unspecified; I44.0 Atrioventricular block, first degree; I44.1 Atrioventricular block, second degree; I44.7 Left bundle-branch block, unspecified; R35.0 Frequency of micturition; N39.41 Urge incontinence; E03.9 Hypothyroidism, unspecified; J44.9 Chronic obstructive pulmonary disease, unspecified; G47.33 Obstructive sleep apnea (adult) (pediatric); E78.5 Hyperlipidemia, unspecified; I12.9 Hypertensive chronic kidney disease with stage 1 through stage 4 chronic kidney disease, or unspecified chronic kidney disease; E11.22 Type 2 diabetes mellitus with diabetic chronic kidney disease; N18.30 Chronic kidney disease, stage 3 unspecified; E66.01 Morbid (severe) obesity due to excess calories; J45.909 Unspecified asthma, uncomplicated; M19.91 Primary osteoarthritis, unspecified site; D50.8 Other iron deficiency anemias; N90.4 Leukoplakia of vulva; K57.90 Diverticulosis of intestine, part unspecified, without perforation or abscess without bleeding; F32.9 Major depressive disorder, single episode, unspecified; Z93.3 Colostomy status; Z88.6 Allergy status to analgesic agent; Z88.1 Allergy status to other antibiotic agents; Z88.2 Allergy status to sulfonamides; Z88.8 Allergy status to other drugs, medicaments and biological substances
CPT/HCPCS: 36415; 80053; 85025; 93005; 94640; 94760

== ENCOUNTER → 2021-09-05 | Outpatient (CLI) ==
[~2021-09-05] MED LIST changes: +ALB0.5V INH; +AMLO-250 PO; +AMLO-251 PO; +CETI10TA17 PO; +CHOL500050 PO; +D-MA500C PO; +LOSA50TA63 PO; +MECL-149 PO; +MONT-40 PO; -MONT10TA32 PO; +OXYC-473 PO; +PHEN-640 PO; +PHEN-826 PO; +PIOG1TAB23 PO; -PIOG1TAB30 PO
== END ==
LOC: LABNPT 04:58 → MERGE 04:58
PROVIDERS: ATTEND Urology
DX: Z20.822 Contact with and (suspected) exposure to COVID-19 (principal)
CPT/HCPCS: 87635

== ENCOUNTER 2022-03-08 12:57 | Outpatient (RCR) | payer MEDICARE ==
[~2022-03-08 12:57] MED LIST changes: -MMT17NA NSEACH; +MOME17SP4 NSEACH
== END 2022-03-09 | disposition home or self-care (01) ==
PROVIDERS: ATTEND Family Medicine
DX: R06.00 Dyspnea, unspecified (principal); R53.1 Weakness; W19.XXXA Unspecified fall, initial encounter

== ENCOUNTER 2022-03-31 12:46 | Outpatient (RCR) | payer MEDICARE | END 2022-04-09 | disposition home or self-care (01) | PROVIDERS: ATTEND Family Medicine | DX: R06.00 Dyspnea, unspecified (principal); R53.1 Weakness; W19.XXXA Unspecified fall, initial encounter ==

== ENCOUNTER 2022-05-08 11:04 | Outpatient (RCR) | payer MEDICARE | END 2022-05-10 | disposition home or self-care (01) | PROVIDERS: ATTEND Family Medicine | DX: R53.1 Weakness (principal); I11.9 Hypertensive heart disease without heart failure; J44.9 Chronic obstructive pulmonary disease, unspecified; W19.XXXA Unspecified fall, initial encounter ==

== ENCOUNTER → 2022-06-09 | Outpatient (RCR) | payer MEDICARE | END | disposition home or self-care (01) | PROVIDERS: ATTEND Family Medicine | DX: R53.1 Weakness (principal); I11.9 Hypertensive heart disease without heart failure; J44.9 Chronic obstructive pulmonary disease, unspecified; W19.XXXA Unspecified fall, initial encounter ==

== ENCOUNTER 2022-07-05 14:30 | Outpatient (RCR) | payer MEDICARE ==
[~2022-07-05 14:30] MED LIST changes: +ALBU8.5H6 INH; -RT-ALBUINH INH
== END 2022-07-10 | disposition home or self-care (01) ==
PROVIDERS: ATTEND Family Medicine
DX: I11.9 Hypertensive heart disease without heart failure (principal); J44.9 Chronic obstructive pulmonary disease, unspecified

== ENCOUNTER 2022-07-13 13:28 | Outpatient (RCR) | payer MEDICARE ==
[2022-08-07] MEDS ORDERED: ASCO500T17 PO (15:09)
[2022-08-07] MEDS ORDERED: CARV25TA PO (15:09)
[2022-08-07] MEDS ORDERED: HYOS-20 PO (15:09)
[2022-08-07] MEDS ORDERED: AMLO-250 PO (15:09)
[2022-08-07] MEDS ORDERED: BUPR300T98 PO (15:09)
[2022-08-07] MEDS ORDERED: TMSL.4C PO (15:09)
[2022-08-07] MEDS ORDERED: BUDE0.5A NEB (15:09)
[2022-08-09] MEDS ORDERED: CIPR-225 PO (12:54)
== END 2022-08-07 15:14 | disposition home or self-care (01) ==
PROVIDERS: ATTEND Family Medicine
DX: R53.1 Weakness (principal); R29.6 Repeated falls; R06.09 Other forms of dyspnea; I10 Essential (primary) hypertension

== ENCOUNTER 2022-08-06 20:10 | Inpatient (IN) | payer MEDICARE ==
[~2022-08-06] VITALS: Ht 160 cm; Wt 141.2 kg
--- NOTE | 2022-08-06 21:27 | Diagnostic Imaging Report ---
EXAMINATION: Chest 1 view. HISTORY: Shortness of breath. COPD. COMPARISON: 09/10/2019. FINDINGS: There is cardiomegaly with prominence of the central pulmonary vasculature. Left pectoral pacemaker is in place. Possible small left pleural effusion. No pneumothorax. IMPRESSION: Cardiomegaly with central pulmonary vascular congestion. Possible small left pleural effusion. Dictated by: Dictated on workstation # [id number]
[2022-08-06] MEDS ORDERED: RT-ALBUTEROL/IPRATROPIUM 3 ML (DUONEB) VIAL INH ONE (21:30)
[2022-08-06 21:43] LABS: BASOPHILS % (AUTO) 0 % (0-10); EOSINOPHILS % (AUTO) 0 % (0-10); HEMATOCRIT 38 % (35-52); HEMOGLOBIN 12.3 g/dL (11.5-16.0); LYMPHOCYTES # (AUTO) 0.8 10^3/uL (1.0-4.0); LYMPHOCYTES % (AUTO) 6 % (12-44); MEAN CORPUSCULAR HEMOGLOBIN 29 pg (25-34); MEAN CORPUSCULAR HGB CONC 33 g/dL (32-36); MEAN CORPUSCULAR VOLUME 89 fL (80-99); MEAN PLATELET VOLUME 9.4 fL (9.0-12.2); MONOCYTES # (AUTO) 1.4 10^3/uL (0.0-1.0); MONOCYTES % (AUTO) 11 % (0-12); NEUTROPHILS # (AUTO) 10.2 10^3/uL (1.8-7.8); NEUTROPHILS % (AUTO) 81 % (42-75); PLATELET COUNT 151 10^3/uL (130-400); WHITE BLOOD COUNT 12.6 10^3/uL (4.3-11.0)
--- NOTE | 2022-08-06 21:49 | ED Cough/URI ---
General Chief Complaint: Cough/Cold/Flu Symptoms Stated Complaint: WEAKNESS/FLU LIKE SYMPTOMS Nursing Triage Note: PT BROUGHT TO ROOM VIA [facility]; PT A&OX4; PT ADVISES THAT STARTING ON SUNDAY SHE BEGAN TO HAVE SOME INCREASING SOA WELL A FEVER AND GENERALIZED WEAKNESS; PT DENIES RECENT KNOW EXPOSURE TO FLU/COVID (JARROD CASTILLO) History of Present Illness Date Seen by Provider: Aug 06, 2022 Time Seen by Provider: 20:30 Initial Comments 67-year-old female presents for weakness, shortness of air, and flu like symptoms. No fevers. She used her albuterol inhaler this morning 1 time. She has multiple comorbidities including right ureteral stenosis with stenting, she sees a urologist at [facility] and has this change twice yearly. She reports debility related to her body habitus and morbid obesity. She uses CPAP for sleep apnea. She is a type II diabetic that she manages by diet. She had a UA approximately 2 weeks ago and was told no UTI. Timing/Duration: getting worse Severity/Quality: no cough Prior Episodes/Possible Cause: occasional episodes Associated Symptoms: muscle aches, shortness of breath (JARROD CASTILLO) Allergies and Home Medications Allergies Coded Allergies: Cephalosporins (Verified Allergy, Unknown, 10/20/20) Sulfa (Sulfonamide Antibiotics) (Unverified Allergy, Unknown, RASH, 10/20/20) azithromycin (Verified Allergy, Unknown, 10/20/20) codeine (Verified Allergy, Unknown, 10/20/20) Patient Home Medication List Home Medication List Reviewed: Yes (JARROD CASTILLO) Albuterol Sulfate (Ventolin Hfa) 8.5 Gm Hfa.aer.ad, 2 PUFF INH Q6H PRN for SHORTNESS OF BREATH, (Reported) Entered as Reported by: WALDO CHINO on 10/16/16 1402 Last Action: Reviewed Albuterol Sulfate (Albuterol Sulfate) 2.5 Mg/0.5 Ml Vial.neb, 2.5 MG INH Q6H PRN for SHORTNESS OF BREATH, (Reported) Entered as Reported by: DIAZ QUEZADA on 05/09/21 1148 Last Action: Reviewed Amlodipine Besylate (Amlodipine Besylate) 5 Mg Tablet, 5 MG PO HS, (Reported) Entered as Reported by: DIAZ QUEZADA on 08/07/221508 Last Action: Continued Ascorbic Acid (Vitamin C) 500 Mg Tablet, 500 MG PO DAILY, (Reported) Entered as Reported by: DIAZ QUEZADA on 08/07/221508 Last Action: Reviewed Budesonide (Budesonide) 0.5 Mg/2 Ml Ampul.neb, 2 ML NEB DAILY, (Reported) Entered as Reported by: DIAZ QUEZADA on 08/07/22 150 Last Action: Reviewed Bupropion HCl (Bupropion Xl) 300 Mg Tab.er.24h, 300 MG PO DAILY, (Reported) Entered as Reported by: DIAZ QUEZADA on 08/07/221508 Last Action: Reviewed Carvedilol (Carvedilol) 25 Mg Tablet, 25 MG PO BID, (Reported) Entered as Reported by: DIAZ QUEZADA on 08/07/221508 Last Action: Reviewed Cetirizine HCl (Cetirizine HCl) 10 Mg Tablet, 10 MG PO HS, (Reported) Entered as Reported by: DIAZ QUEZADA on 05/09/21 114 Last Action: Reviewed Cholecalciferol (Vitamin D3) (Vitamin D3) 125 Mcg (5000 Unit) Capsule, 125 MCG PO BID, (Reported) Entered as Reported by: DIAZ QUEZADA on 05/09/21 114 Last Action: Reviewed D-Mannose (Azo D-Mannose) 500 Mg Capsule, 500 MG PO BID, (Reported) Entered as Reported by: DIAZ QUEZADA on 05/09/21 114 Last Action: Reviewed Fenofibrate Nanocrystallized (Fenofibrate) 145 Mg Tablet, 145 MG PO HS, (Reported) Entered as Reported by: WALDO CHINO on 10/16/16 1402 Last Action: Reviewed Hyoscyamine Sulfate (Hyoscyamine Sulfate) 0.125 Mg Tablet, 0.125 MG PO QID PRN for BLADDER/COLON SPASMS, (Reported) Entered as Reported by: DIAZ QUEZADA on 08/07/221508 Last Action: Continued Levothyroxine Sodium (Levothyroxine Sodium) 137 Mcg Tablet, 137 MCG PO DAILY, (Reported) Entered as Reported by: DIAZ QUEZADA on 11/05/19 1434 Last Action: Reviewed Loperamide HCl (Imodium A-D) 2 Mg Tablet, 2 MG PO BID, (Reported) Entered as Reported by: EDDIE HODGES on 06/24/18 1224 Last Action: Reviewed Methenamine Hippurate (Methenamine Hippurate) 1 Gm Tablet, 1 GM PO BID, (Reported) Entered as Reported by: DIAZ QUEZADA on 10/20/201616 Last Action: Continued Mirabegron (Myrbetriq) 25 Mg Tab.er.24h, 25 MG PO DAILY, (Reported) Entered as Reported by: MEGHNA BUENROSTRO on 11/04/19146 Last Action: Reviewed Montelukast Sodium (Montelukast Sodium) 10 Mg Tablet, 10 MG PO HS, (Reported) Entered as Reported by: WALDO CHINO on 10/16/16 140 Last Action: Reviewed Pantoprazole Sodium (Pantoprazole Sodium) 40 Mg Tablet.dr, 40 MG PO BID, (Reported) Entered as Reported by: WALDO CHINO on 10/16/16 140 Last Action: Reviewed Tamsulosin HCl (Flomax) 0.4 Mg Cap, 0.4 MG PO HS, (Reported) Entered as Reported by: DIAZ QUEZADA on 08/07/22 1509 Last Action: Continued Discontinued Medications Bupropion HCl (Bupropion Xl) 150 Mg Tab.er.24h, 150 MG PO DAILY, (Reported) Discontinued Reason: No Longer Taking Entered as Reported by: MEGHNA BUENROSTRO on 11/04/19146 Last Action: Discontinued Clobetasol Propionate (Clobetasol Propionate) 15 Gm Cream..g., 1 APPLIC TP BID, (Reported) Discontinued Reason: No Longer Taking Entered as Reported by: DIAZ QUEZADA on 10/20/201616 Last Action: Discontinued Estradiol (Estradiol) 42.5 Gm Cream.appl, 1 APPLIC VG 3 TIMES A WEEK, (Reported) Discontinued Reason: No Longer Taking Entered as Reported by: MEGHNA BUENROSTRO on 11/04/19146 Last Action: Discontinued Fluticasone/Salmeterol (Advair 250-50 Diskus) 1 Each Blst.w.dev, 1 EACH IH BID, (Reported) Discontinued Reason: No Longer Taking Entered as Reported by: MEGHNA BUENROSTRO on 11/04/19146 Last Action: Discontinued Hyoscyamine Sulfate (Hyoscyamine Sulfate) 0.125 Mg Tab.subl, 0.125 MG PO TID, (Reported) Discontinued Reason: No Longer Taking Entered as Reported by: DIAZ QUEZADA on 10/20/201616 Last Action: Discontinued Ketotifen Fumarate (Alaway) 10 Ml Drops, 1 DROPS OU DAILY, (Reported) Discontinued Reason: No Longer Taking Entered as Reported by: DIAZ QUEZADA on 10/20/201616 Last Action: Discontinued Losartan Potassium (Losartan Potassium) 50 Mg Tablet, 50 MG PO DAILY Discontinued Reason: No Longer Taking Prescribed by: GALILEO WRIGHT on 05/13/21521 Last Action: Discontinued Meclizine HCl (Meclizine HCl) 25 Mg Tablet, 25 MG PO HS, (Reported) Discontinued Reason: No Longer Taking Entered as Reported by: DIAZ QUEZADA on 05/09/211147 Last Action: Discontinued Mometasone Furoate (Nasonex) 17 Gm Naspr, 2 SPRAYS NSEACH DAILY, (Reported) Discontinued Reason: No Longer Taking Entered as Reported by: DIAZ QUEZADA on 05/09/211147 Last Action: Discontinued Oxybutynin Chloride (Oxybutynin Chloride) 5 Mg Tablet, 5 MG PO TID PRN for FREQUENT URINATION Discontinued Reason: No Longer Taking Prescribed by: GALILEO WRIGHT on 05/13/21521 Last Action: Discontinued Phenazopyridine HCl (Phenazopyridine HCl) 100 Mg Tablet, 200 MG PO TIDPC PRN for PAIN-BREAKTHROUGH Discontinued Reason: No Longer Taking Prescribed by: GALILEO WRIGHT on 05/13/21521 Last Action: Discontinued Tamsulosin HCl (Flomax) 0.4 Mg Cap, 0.8 MG PO DAILY Discontinued Reason: No Longer Taking Prescribed by: GALILEO WRIGHT on 05/13/21521 Last Action: Discontinued Review of Systems Review of Systems Constitutional: see HPI, malaise, weakness Respiratory: see HPI, dyspnea on exertion; No phlegm; short of breath Cardiovascular: no symptoms reported, see HPI Gastrointestinal: see HPI; No abdominal pain; loss of appetite, nausea; No vomiting Genitourinary: see HPI, dysuria (JARROD CASTILLO) All Other Systems Reviewed Negative Unless Noted: Yes (JARROD CASTILLO) Past Cuztuph-Ealyjw-Fqeplt Hx Patient Social History Tobacco Use?: No Use of E-Cig and/or Vaping dev: No Substance use?: No Alcohol Use?: No Pt feels they are or have been: No (JARROD CASTILLO) Immunizations Up To Date Tetanus Booster (TDap): Unknown PED Vaccines UTD: Yes Influenza Vaccine Up-to-Date: Yes; Up-to-Date First/Initial COVID19 Vaccinat: NOVEMBER 2020 Second COVID19 Vaccination Anant: DECEMBER 2020 COVID19 Vaccine Mechanical Apprentice: OKSANA (JARROD CASTILLO) Seasonal Allergies Seasonal Allergies: Yes (JARROD CASTILLO) Past Medical History Surgery/Hospitalization HX: URETHRAL STENT & BLADDER BOTOX Surgeries: Yes Abdominal, Bowel Surgery, Section, Orthopedic, Tonsillectomy Respiratory: No Asthma, Sleep Apnea, COPD Currently Using CPAP: Yes Currently Using BIPAP: No Cardiac: No Chronic Edema/Swelling, High Cholesterol, Hypertension Neurological: No Reproductive Disorders: No Genitourinary: Yes UTI-Chronic Gastrointestinal: Yes Diverticulosis Musculoskeletal: Yes Degenerate Disk Disease, Arthritis, Chronic Back Pain Endocrine: Yes Hypothyroidsim, Diabetes, Non-Insulin dep HEENT: No Loss of Vision: Denies Hearing Impairment: Denies Cancer: No Psychosocial: Yes Depression Integumentary: No Blood Disorders: No Adverse Reaction/Blood Tranf: No (JARROD CASTILLO) Family Medical History Reviewed Nursing Family Hx (JARROD CASTILLO) Physical Exam Vital Signs - First Documented 08/06/22 08/06/22 08/06/22 20:30 20:45 21:44 Temp 37.7 Pulse 80 Resp 24 B/P (MAP) 124/75 (91) Pulse Ox 94 O2 Delivery Nasal Cannula O2 Flow Rate 1.50 (TETE HERNANDEZ MD) Capillary Refill : Less Than 3 Seconds (JARROD CASTILLO) Height: 5'5.00" Weight: 289lbs. 0.8oz. 136.966292fl; 54.49 BMI Method:Stated General Appearance: mild distress, obese HEENT: normal ENT inspection, TMs normal Neck: non-tender, full range of motion, supple, normal inspection Respiratory: chest non-tender, no respiratory distress, no accessory muscle use, decreased breath sounds Cardiovascular: normal peripheral pulses, regular rate, rhythm Gastrointestinal: normal bowel sounds, non tender, soft, distended; No rebound, No tenderness Extremities: pedal edema (2+) Neurologic/Psychiatric: no motor/sensory deficits, alert, normal mood/affect, oriented x 3 Skin: normal color, warm/dry (JONATHAN,JARROD MACHINE LEATHER TRIMMER) Progress/Results/Core Measures Suspected Sepsis SIRS Temperature: Pulse: 80 Respiratory Rate: 24 Laboratory Tests 08/06/22 21:30: White Blood Count 12.6H Blood Pressure 124 /75 Mean: 91 Laboratory Tests 08/06/22 21:30: Creatinine 1.44H, Platelet Count 151, Total Bilirubin 1.3H (JONATHAN,JARROD MACHINE LEATHER TRIMMER) Results/Orders Lab Results Laboratory Tests Test 08/06/22 20:35 08/06/22 21:30 08/06/22 21:55 Range/Units Influenza Type A (RT-PCR) Not Detected Not Detecte Influenza Type B (RT-PCR) Not Detected Not Detecte SARS-CoV-2 RNA (RT-PCR) Not Detected Not Detecte White Blood Count 12.6 H 4.3-11.0 10^3/uL Red Blood Count 4.20 3.80-5.11 10^6/uL Hemoglobin 12.3 11.5-16.0 g/dL Hematocrit 38 35-52 % Mean Corpuscular Volume 89 80-99 fL Mean Corpuscular Hemoglobin 29 25-34 pg Mean Corpuscular Hemoglobin Concent 33 32-36 g/dL Red Cell Distribution Width 14.9 H 10.0-14.5 % Platelet Count 151 130-400 10^3/uL Mean Platelet Volume 9.4 9.0-12.2 fL Immature Granulocyte % (Auto) 1 % Neutrophils (%) (Auto) 81 H 42-75 % Lymphocytes (%) (Auto) 6 L 12-44 % Monocytes (%) (Auto) 11 0-12 % Eosinophils (%) (Auto) 0 0-10 % Basophils (%) (Auto) 0 0-10 % Neutrophils # (Auto) 10.2 H 1.8-7.8 10^3/uL Lymphocytes # (Auto) 0.8 L 1.0-4.0 10^3/uL Monocytes # (Auto) 1.4 H 0.0-1.0 10^3/uL Eosinophils # (Auto) 0.0 0.0-0.3 10^3/uL Basophils # (Auto) 0.0 0.0-0.1 10^3/uL Immature Granulocyte # (Auto) 0.1 0.0-0.1 10^3/uL Neutrophils % (Manual) 84 % Lymphocytes % (Manual) 6 % Monocytes % (Manual) 10 % Blood Morphology Comment NORMAL Sodium Level 137 135-145 MMOL/L Potassium Level 4.0 3.6-5.0 MMOL/L Chloride Level 105 98-107 MMOL/L Carbon Dioxide Level 19 L 21-32 MMOL/L Anion Gap 13 5-14 MMOL/L Blood Urea Nitrogen 23 H 7-18 MG/DL Creatinine 1.44 H 0.60-1.30 MG/DL Estimat Glomerular Filtration Rate 39 BUN/Creatinine Ratio 16 Glucose Level 138 H 70-105 MG/DL Calcium Level 9.4 8.5-10.1 MG/DL Corrected Calcium 9.8 8.5-10.1 MG/DL Total Bilirubin 1.3 H 0.1-1.0 MG/DL Aspartate Amino Transf (AST/SGOT) 27 5-34 U/L Alanine Aminotransferase (ALT/SGPT) 25 0-55 U/L Alkaline Phosphatase 68 40-136 U/L C-Reactive Protein High Sensitivity 22.55 H 0.00-0.50 MG/DL B-Type Natriuretic Peptide 353.6 H <100.0 PG/ML Total Protein 6.7 6.4-8.2 GM/DL Albumin 3.5 3.2-4.5 GM/DL Urine Color DARK YELLOW Urine Clarity CLEAR Urine pH 5.5 5-9 Urine Specific [place] >=1.030 1.016-1.022 Urine Protein 2+ H NEGATIVE Urine Glucose (UA) NEGATIVE NEGATIVE Urine Ketones TRACE H NEGATIVE Urine Nitrite POSITIVE H NEGATIVE Urine Bilirubin NEGATIVE NEGATIVE Urine Urobilinogen 1.0 < = 1.0 MG/DL Urine Leukocyte Esterase 3+ H NEGATIVE Urine RBC (Auto) 3+ H NEGATIVE Urine RBC 50-100 H /HPF Urine WBC >100 H /HPF Urine Squamous Epithelial Cells 2-5 /HPF Urine Crystals NONE /LPF Urine Bacteria LARGE H /HPF Urine Casts NONE /LPF Urine Mucus LARGE H /LPF Urine Culture Indicated YES (TETE HERNANDEZ MD) Micro Results Microbiology 08/06/22 Urine Culture - Preliminary, Resulted Escherichia coli Proteus mirabilis Mixed Bacterial Maya (TETE HERNANDEZ MD) Vital Signs/I&O 08/06/22 08/06/22 08/06/22 20:30 20:45 21:44 Temp 37.7 Pulse 80 Resp 24 B/P (MAP) 124/75 (91) Pulse Ox 94 O2 Delivery Nasal Cannula Room Air O2 Flow Rate 1.50 (TETE HERNANDEZ MD) Vital Signs/I&O Capillary Refill : Less Than 3 Seconds (JARROD CASTILLO) Blood Pressure Mean: 91 Progress Note : Time: 20:30 Progress Note Patient seen and evaluated, will obtain labs, chest x-ray and continue to monitor. 2114 COVID and flu negative. Awaiting UA sample from patient. We will do DuoNeb treatment. SaO2 93 to 96% on room air. Zofran 8 mg IV for nausea. 500 ml NS per IV. 2144 UA obtained, thick mucus urine produced. 2214 UA reviewed, will start Cipro 400 mg IV. Spoke with Dr. Costa agreeable with plan to admit. 2229 SaO2 88 to 90% while patient sleeping, her will obtain her CPAP machine. O2 at 1.5 L per nasal cannula, patient maintaining sats greater than 92%. Patient agreeable with plan to admit. Nausea improved. (JARROD CASTILLO) Diagnostic Imaging Diagonstic Imaging: Xray Plain Films/CT/US/NM/MRI: chest Comments NAME: JASMIN TRAVIS [facility] REC#: [id number] PT STATUS: REG ER : 1955 PHYSICIAN: JARROD CASTILLO ADMIT DATE: 08/06/22/ER Signed Date of Exam:08/06/22 CHEST 1 VIEW, AP/PA ONLY EXAMINATION: Chest 1 view. HISTORY: Shortness of breath. COPD. COMPARISON: 09/10/2019. FINDINGS: There is cardiomegaly with prominence of the central pulmonary vasculature. Left pectoral pacemaker is in place. Possible small left pleural effusion. No pneumothorax. IMPRESSION: Cardiomegaly with central pulmonary vascular congestion. Possible small left pleural effusion. Dictated by: Dictated on workstation # [id number] Dict: 08/06/222123 Trans: 08/06/222132 [facility] [id number] Interpreted by: NONI GALARZA DO Electronically signed by: NONI GALARZA DO 08/06/222132 (JARROD CASTILLO) Departure Impression Primary Impression: Morbid obesity Additional Impressions: Debility Nausea UTI (urinary tract infection) Qualified Codes: N30.01 - Acute cystitis with hematuria Renal insufficiency Type 2 diabetes mellitus Qualified Codes: E11.9 - Type 2 diabetes mellitus without complications Disposition: ADMITTED INPATIENT Condition: Stable Admissions Decision to Admit/Date: Aug 06, 2022 Time/Decision to Admit Time: 22:00 (JARROD CASTILLO) Departure-Patient Inst. Referrals: BROWN ORDONEZ DO (PCP/Family) Primary Care Physician PHYSICIAN ATTESTATION NOTE: I was present in the ER while PRESSFITTER / PA saw the patient, but I was not involved in the care, exam, or management of the patient. (TETE HERNANDEZ MD) Copy Copies To 1: BROWN ORDONEZ AMY ARNP Aug 06, 2022 21:49 TETE HERNANDEZ MD Aug 09, 2022 06:47
[2022-08-06 21:58] LABS: LYMPHOCYTES % (MANUAL) 6 %; MONOCYTES % (MANUAL) 10 %; NEUTROPHILS % (MANUAL) 84 %; RBC MORPH NORMAL
[2022-08-06 22:05] LABS: BILIRUBIN,URINE NEGATIVE (NEGATIVE); CLARITY,URINE CLEAR; COLOR,URINE DARK YELLOW; GLUCOSE, URINE (UA) NEGATIVE (NEGATIVE); KETONES,URINE TRACE (NEGATIVE); LEUKOCYTE ESTERASE ,URINE 3+ (NEGATIVE); NITRITE,URINE POSITIVE (NEGATIVE); PH,URINE 5.5 (5-9); PROTEIN,URINE 2+ (NEGATIVE)
[2022-08-06 22:08] LABS: ALBUMIN 3.5 GM/DL (3.2-4.5); BILIRUBIN,TOTAL 1.3 MG/DL (0.1-1.0); CALCIUM 9.4 MG/DL (8.5-10.1); CREATININE SERUM 1.44 MG/DL (0.60-1.30); TOTAL PROTEIN 6.7 GM/DL (6.4-8.2)
[2022-08-06 22:14] LABS: BACTERIA,URINE LARGE /HPF; RBC,URINE 50-100 /HPF; WBC,URINE >100 /HPF
[2022-08-06] MEDS ORDERED: ONDANSETRON 4 MG/2 ML (SDV) Z0FRAN IVP STA (22:17)
[2022-08-06] MEDS ORDERED: NS IV 500 ML 500 ML IV ONE (22:30)
[2022-08-06] MEDS ORDERED: CIPROFLOXACIN IV 400MG/200ML 200 ML IV ONE (22:30)
[2022-08-06 23:39] VITALS: BP 106/68
[2022-08-06] MEDS ORDERED: NS IV 1000 ML 1,000 ML ONE (23:44)
[2022-08-06] MEDS: NS IV 1000 ML 1,000 ML IV SCH (23:47)
[2022-08-07] MEDS ORDERED: ONDANSETRON 4 MG/2 ML (SDV) Z0FRAN IV PRN (00:45)
[2022-08-07 00:59] VITALS: BP 106/68
[2022-08-07] MEDS ORDERED: RT-ALBUTEROL/IPRATROPIUM 3 ML (DUONEB) VIAL INH PRN (01:15)
[2022-08-07] MEDS: RT-ALBUTEROL/IPRATROPIUM 3 ML (DUONEB) VIAL INH SCH ×4 (02:13→22:29)
[2022-08-07 03:22] VITALS: BP 116/68
[2022-08-07 05:54] LABS: BASOPHILS % (AUTO) 0 % (0-10); EOSINOPHILS % (AUTO) 0 % (0-10); HEMATOCRIT 36 % (35-52); HEMOGLOBIN 11.6 g/dL (11.5-16.0); LYMPHOCYTES # (AUTO) 1.1 10^3/uL (1.0-4.0); LYMPHOCYTES % (AUTO) 10 % (12-44); MEAN CORPUSCULAR HEMOGLOBIN 29 pg (25-34); MEAN CORPUSCULAR HGB CONC 32 g/dL (32-36); MEAN CORPUSCULAR VOLUME 90 fL (80-99); MEAN PLATELET VOLUME 9.8 fL (9.0-12.2); MONOCYTES % (AUTO) 9 % (0-12); NEUTROPHILS # (AUTO) 8.5 10^3/uL (1.8-7.8); NEUTROPHILS % (AUTO) 79 % (42-75); PLATELET COUNT 152 10^3/uL (130-400); WHITE BLOOD COUNT 10.7 10^3/uL (4.3-11.0)
[2022-08-07 06:19] LABS: CALCIUM 8.8 MG/DL (8.5-10.1); CREATININE SERUM 1.34 MG/DL (0.60-1.30); POTASSIUM 3.8 MMOL/L (3.6-5.0)
[2022-08-07 08:00] VITALS: BP 108/70
[2022-08-07] MEDS: ACETAMINOPHEN 325 MG TABLET PO PRN ×2 (08:04→17:11)
[2022-08-07] MEDS: CIPROFLOXACIN 400 MG/D5W 200 ML (PRE-MIX) IV SCH ×2 (08:04→20:44)
[2022-08-07] MEDS ORDERED: FUROSEMIDE 40 MG/4 ML INJ (LASIX) IVP ONE (08:45)
[2022-08-07] MEDS ORDERED: KCL 20 MEQ TAB (K-DUR) PO ONE (08:45)
[2022-08-07 12:01] VITALS: BP 118/70
--- NOTE | 2022-08-07 12:47 | History & Physical ---
History of Present Illness History of Present Illness Reason for visit/HPI This is a 67 year old female with a history of recurrent UTIs as well as asthma/COPD who presented to the emergency room with worsening shortness of breath. She was found to have an acute UTI with acute URI. She has a history of resistant UTI bacteria as well as numerous drug allergies so she will be admitted and starte on IV antibiotics as well as oxygen, nebulizer treatments and her home CPAP. Date of Admission Aug 06, 2022 at 22:10 Date Seen by a Provider: Aug 07, 2022 Time Seen by a Provider: 08:35 I consulted on this patient on 08/07/22 12:41 Attending Physician Brown Araujo DO Admitting Physician Admitting Physician: Yuly Costa MD Attending Physician: Brown Araujo DO Consult Allergies and Home Medications Allergies Coded Allergies: Cephalosporins (Verified Allergy, Unknown, 10/20/20) Sulfa (Sulfonamide Antibiotics) (Unverified Allergy, Unknown, RASH, 10/20/20) azithromycin (Verified Allergy, Unknown, 10/20/20) codeine (Verified Allergy, Unknown, 10/20/20) Patient Home Medication List Home Medication List Reviewed: Yes Albuterol Sulfate (Ventolin Hfa) 8.5 Gm Hfa.aer.ad, 2 PUFF INH Q6H PRN for SHORTNESS OF BREATH, (Reported) Entered as Reported by: WALDO CHINO on 10/16/16 1402 Albuterol Sulfate (Albuterol Sulfate) 2.5 Mg/0.5 Ml Vial.neb, 2.5 MG INH Q6H PRN for SHORTNESS OF BREATH, (Reported) Entered as Reported by: DIAZ QUEZADA on 05/09/21 1148 Bupropion HCl (Bupropion Xl) 150 Mg Tab.er.24h, 150 MG PO DAILY, (Reported) Entered as Reported by: MEGHNA BUENROSTRO on 11/04/19 0147 Cetirizine HCl (Cetirizine HCl) 10 Mg Tablet, 10 MG PO HS, (Reported) Entered as Reported by: DIAZ QUEZADA on 05/09/21 1148 Cholecalciferol (Vitamin D3) (Vitamin D3) 125 Mcg Capsule, 125 MCG PO DAILY, (Reported) Entered as Reported by: DIAZ QUEZADA on 05/09/21 1148 Clobetasol Propionate (Clobetasol Propionate) 15 Gm Cream..g., 1 APPLIC TP BID, (Reported) Entered as Reported by: DIAZ QUEZADA on 10/20/20 1617 D-Mannose (Azo D-Mannose) 500 Mg Capsule, 500 MG PO BID, (Reported) Entered as Reported by: DIAZ QUEZADA on 05/09/21 1148 Estradiol (Estradiol) 42.5 Gm Cream.appl, 1 APPLIC VG 3 TIMES A WEEK, (Reported) Entered as Reported by: MEGHNA BUENROSTRO on 11/04/19 0147 Fenofibrate Nanocrystallized (Fenofibrate) 145 Mg Tablet, 145 MG PO DAILY, (Reported) Entered as Reported by: WALDO CHINO on 10/16/16 1402 Fluticasone/Salmeterol (Advair 250-50 Diskus) 1 Each Blst.w.dev, 1 EACH IH BID, (Reported) Entered as Reported by: MEGHNA BUENROSTRO on 11/04/19 014 Hyoscyamine Sulfate (Hyoscyamine Sulfate) 0.125 Mg Tab.subl, 0.125 MG PO TID, (Reported) Entered as Reported by: DIAZ QUEZADA on 10/20/20 1617 Ketotifen Fumarate (Alaway) 10 Ml Drops, 1 DROPS OU DAILY, (Reported) Entered as Reported by: DIAZ QUEZADA on 10/20/20 1617 Levothyroxine Sodium (Levothyroxine Sodium) 137 Mcg Tablet, 137 MCG PO DAILY, (Reported) Entered as Reported by: DIAZ QUEZADA on 11/05/19 1434 Loperamide HCl (Imodium A-D) 2 Mg Tablet, 4 MG PO BID, (Reported) Entered as Reported by: EDDIE HODGES on 06/24/18 1224 Losartan Potassium (Losartan Potassium) 50 Mg Tablet, 50 MG PO DAILY Prescribed by: GALILEO WRIGHT on 05/13/21 0522 Meclizine HCl (Meclizine HCl) 25 Mg Tablet, 25 MG PO HS, (Reported) Entered as Reported by: DIAZ QUEZADA on 05/09/21 1148 Methenamine Hippurate (Methenamine Hippurate) 1 Gm Tablet, 1 GM PO BID, (Reported) Entered as Reported by: DIAZ QUEZADA on 10/20/20 1617 Mirabegron (Myrbetriq) 25 Mg Tab.er.24h, 25 MG PO DAILY, (Reported) Entered as Reported by: MEGHNA BUENROSTRO on 11/04/19 0147 Mometasone Furoate (Nasonex) 17 Gm Naspr, 2 SPRAYS NSEACH DAILY, (Reported) Entered as Reported by: DIAZ QUEZADA on 05/09/21 1148 Montelukast Sodium (Montelukast Sodium) 10 Mg Tablet, 10 MG PO HS, (Reported) Entered as Reported by: WALDO CHINO on 10/16/16 1402 Oxybutynin Chloride (Oxybutynin Chloride) 5 Mg Tablet, 5 MG PO TID PRN for FREQUENT URINATION Prescribed by: GALILEO WRIGHT on 05/13/21521 Pantoprazole Sodium (Pantoprazole Sodium) 40 Mg Tablet.dr, 40 MG PO BID, (Reported) Entered as Reported by: WALDO CHINO on 10/16/16 140 Phenazopyridine HCl (Phenazopyridine HCl) 100 Mg Tablet, 200 MG PO TIDPC PRN for PAIN-BREAKTHROUGH Prescribed by: GALILEO WRIGHT on 05/13/21521 Tamsulosin HCl (Flomax) 0.4 Mg Cap, 0.8 MG PO DAILY Prescribed by: GALILEO WRIGHT on 05/13/21521 Past Hthgmip-Nrmflw-Qzjznf Hx Patient Social History Tobacco Use?: No Use of E-Cig and/or Vaping dev: No Substance use?: No Alcohol Use?: No Pt feels they are or have been: No Immunizations Up To Date Date of Influenza Vaccine: Jul 03, 2022 First/Initial COVID19 Vaccinat: NOVEMBER 2020 Second COVID19 Vaccination Anant: DECEMBER 2020 Tetanus Booster (TDap): Unknown PED Vaccines UTD: Yes Date of Pneumonia Vaccine: Jun 10, 2019 Seasonal Allergies Seasonal Allergies: Yes Current Status Advance Directives: No Communicates: Verbally Primary Language: Namibian Preferred Spoken Language: [place]ian Is interpretation needed?: No Implanted or Applied Medical D: CPAP, Pacemaker, Stents Past Medical History Surgeries: Abdominal, Bowel Surgery, Section, Orthopedic, Tonsillectomy Asthma, Sleep Apnea, COPD Currently Using CPAP: Yes Currently Using BIPAP: No Chronic Edema/Swelling, High Cholesterol, Hypertension UTI-Chronic Diverticulosis Degenerate Disk Disease, Arthritis, Chronic Back Pain Hypothyroidsim, Diabetes, Non-Insulin dep Loss of Vision: Denies Hearing Impairment: Denies Depression Blood Disorders: No Adverse Reaction/Blood Tranf: No Family Medical History Reviewed Nursing Family Hx Review of Systems Constitutional: weakness EENTM: nose congestion Respiratory: dyspnea on exertion, short of breath Cardiovascular: No no symptoms reported, No see HPI, No chest pain, No edema, No Hx of Intervention, No palpitations, No syncope, No vascular heart diseas, No other Gastrointestinal: No RUQ, No LUQ, No RLQ, No LLQ, No no symptoms reported, No see HPI, No abdominal pain, No constipation, No diarrhea, No dysphagia, No hematemesis, No heartburn, No jaundice, No loss of appetite, No melena, No nausea, No vomiting, No other Genitourinary: frequency Musculoskeletal: back pain Skin: No no symptoms reported, No see HPI, No change in color, No change in hair/nails, No dryness, No hx of skin cancer, No lesions, No lumps, No pruritus, No rash, No other Psychiatric/Neurological: Weakness Physical Exam Vital Signs Vital Signs - First Documented 08/06/22 08/06/22 08/06/22 20:30 20:45 21:44 Temp 37.7 Pulse 80 Resp 24 B/P (MAP) 124/75 (91) Pulse Ox 94 O2 Delivery Nasal Cannula O2 Flow Rate 1.50 Capillary Refill : Less Than 3 Seconds Height, Weight, BMI Height: 5'5.00" Weight: 289lbs. 0.8oz. [id number]; 55.15 BMI Method:Stated General Appearance: No Apparent Distress Neck: Supple Respiratory: Lungs Clear Cardiovascular: Regular Rate, Rhythm, Systolic Murmur, Gallop/S4 Gastrointestinal: Normal Bowel Sounds, Non Tender, Soft Rectal: Deferred Back: No CVA Tenderness Extremity: Non Tender, No Calf Tenderness, No Pedal Edema Neurologic/Psychiatric: Alert, Oriented x3 Skin: Warm/Dry Assessment/Plan Assessment and Plan 1. Acute UTI with history of recurrent UTIs--admit and start IV cipro, culture urine 2. Acute Dyspnea--Asthma/COPD and Pulmonary Vascular Congestion on CXR--continue SVNS with duoneb q6hrs and q2hrs prn, give IV lasix now 3. Hypertension--resume home meds 4. BERNARDO--using home CPAP 5. Acute on Chronic Renal Insufficiency--monitor BUN/Cr with treatment of UTI and diuresis Admission Diagnosis Admission Status: Inpatient Order (span 2 midnights) Reason for Inpatient Admission: Will need at least 48hrs of IV abx BROWN ARAUJO DO Aug 07, 2022 12:47
[2022-08-07] MEDS ORDERED: PATIENT MAY USE OWN MEDS, ALL MC SCH (13:15)
[2022-08-07] MEDS ORDERED: HYOS-20 PO (15:09)
[2022-08-07] MEDS ORDERED: TMSL.4C PO (15:09)
[2022-08-07] MEDS ORDERED: BUPR300T98 PO (15:09)
[2022-08-07] MEDS ORDERED: ASCO500T17 PO (15:09)
[2022-08-07] MEDS ORDERED: BUDE0.5A NEB (15:09)
[2022-08-07] MEDS ORDERED: CARV25TA PO (15:09)
[2022-08-07] MEDS ORDERED: AMLO-250 PO (15:09)
[2022-08-07 15:53] VITALS: BP 153/75
[2022-08-07 20:25] VITALS: BP 104/67
[2022-08-07] MEDS: NS IV 1000 ML 1,000 ML IV SCH (20:44)
[2022-08-07] MEDS: MONTELUKAST 10 MG (SINGULAIR) TAB PO SCH (20:44)
[2022-08-07] MEDS ORDERED: ADVAIR HFA 115/21 MCG INHALER 8 GM IH SCH (21:00)
[2022-08-07] MEDS: RT--FLUTICASONE/SALMETEROL 113-14 (AIRDUO RespiCLICK) IH SCH (22:29)
[2022-08-08] VITALS (8 sets, daily range): BP systolic 95–142; BP diastolic 50–74
[2022-08-08] MEDS: ACETAMINOPHEN 325 MG TABLET PO PRN (01:05)
[2022-08-08] MEDS: RT-ALBUTEROL/IPRATROPIUM 3 ML (DUONEB) VIAL INH SCH ×4 (04:13→22:08)
[2022-08-08] MEDS: LEVOTHYROXINE 112 MCG (LEVOTHROID) TAB PO SCH (06:10)
[2022-08-08] MEDS: LEVOTHYROXINE 25 MCG (LEVOTHROID) TAB PO SCH (06:10)
[2022-08-08 06:36] LABS: HEMATOCRIT 33 % (35-52); HEMOGLOBIN 10.6 g/dL (11.5-16.0); MEAN CORPUSCULAR HEMOGLOBIN 29 pg (25-34); MEAN CORPUSCULAR HGB CONC 32 g/dL (32-36); MEAN CORPUSCULAR VOLUME 90 fL (80-99); MEAN PLATELET VOLUME 10.1 fL (9.0-12.2); PLATELET COUNT 148 10^3/uL (130-400); WHITE BLOOD COUNT 7.8 10^3/uL (4.3-11.0)
[2022-08-08 06:53] LABS: CALCIUM 8.9 MG/DL (8.5-10.1); CREATININE SERUM 1.24 MG/DL (0.60-1.30); POTASSIUM 3.7 MMOL/L (3.6-5.0)
[2022-08-08] MEDS: RT--FLUTICASONE/SALMETEROL 113-14 (AIRDUO RespiCLICK) IH SCH ×2 (07:55→22:07)
[2022-08-08] MEDS ORDERED: BUPROPRION 300 MG PO SCH (09:00)
[2022-08-08] MEDS: PANTOPRAZOLE 40 MG (PROTONIX) TAB PO SCH (10:13)
[2022-08-08] MEDS: CIPROFLOXACIN 400 MG/D5W 200 ML (PRE-MIX) IV SCH ×2 (10:13→20:07)
[2022-08-08] MEDS: buPROPion SR 150 MG (WELLBUTRIN SR) TAB PO SCH ×2 (10:13→20:07)
[2022-08-08] MEDS ORDERED: KCL 20 MEQ TAB (K-DUR) PO NR (12:45)
[2022-08-08] MEDS ORDERED: ENOXAPARIN 40 MG/0.4 ML (LOVENOX) SYR SC SCH (12:45)
[2022-08-08] MEDS ORDERED: FUROSEMIDE 40 MG (LASIX) TAB PO NR (12:45)
[2022-08-08] MEDS ORDERED: HYOSCYAMINE 0.125 MG (LEVSIN) TAB PO PRN (12:45)
--- NOTE | 2022-08-08 12:49 | Progress Note ---
Subjective Date Seen by a Provider: Aug 08, 2022 Time Seen by a Provider: 12:45 Subjective/Events-last exam Fwup acute UTI, acute dyspnea, COPD/Asthma, pulmonary vascular congestion, acute on chronic renal insufficiency, HTN. Not as dyspneic since diuresed with lasix. Objective Exam Vital Signs Date Time Temp Pulse Resp B/P (MAP) Pulse Ox O2 Delivery O2 Flow Rate FiO2 08/08/22 11:35 36.7 69 20 142/69 (93) 94 Room Air 08/08/22 10:14 70 122/70 (87) 08/08/22 08:00 91 NIV CPAP 08/08/22 07:55 97 Room Air 08/08/22 07:42 36.8 59 18 121/61 (81) 93 NIV CPAP 08/08/22 03:54 36.9 70 16 130/72 (91) 91 NIV CPAP 08/08/22 00:21 37.7 72 16 139/74 (95) 90 NIV CPAP 08/07/22 22:29 94 Room Air 08/07/22 20:43 91 NIV CPAP 08/07/22 20:25 38.0 75 16 104/67 (79) 95 NIV CPAP 08/07/22 15:53 37.7 72 20 153/75 (101) 95 NIV CPAP 08/07/22 14:10 93 Room Air I & O 08/08/22 07:00 Intake Total 1930 ml Output Total 1900 ml Balance 30 ml Capillary Refill : Less Than 3 Seconds General Appearance: No Apparent Distress Neck: Supple Respiratory: Lungs Clear Cardiovascular: Regular Rate, Rhythm Gastrointestinal: normal bowel sounds, non tender, soft Extremity: Non Tender, No Calf Tenderness, No Pedal Edema Neurologic/Psychiatric: Alert, Oriented x3 Results Lab Laboratory Tests 08/08/22 06:22: White Blood Count 7.8, Red Blood Count 3.63L, Hemoglobin 10.6L, Hematocrit 33L, Mean Corpuscular Volume 90, Mean Corpuscular Hemoglobin 29, Mean Corpuscular Hemoglobin Concent 32, Red Cell Distribution Width 14.6H, Platelet Count 148, Mean Platelet Volume 10.1, Sodium Level 138, Potassium Level 3.7, Chloride Level 105, Carbon Dioxide Level 22, Anion Gap 11, Blood Urea Nitrogen 26H, Creatinine 1.24, Estimat Glomerular Filtration Rate 47, BUN/Creatinine Ratio 21, Glucose L evel 91, Calcium Level 8.9 Microbiology 08/06/22 Urine Culture - Preliminary, Resulted Escherichia coli Proteus species Mixed Bacterial Maya Assessment/Plan Assessment/Plan Assess & Plan/Chief Complaint 1. Acute UTI--growing out E. coli and proteus species--sensitive to Cipro 2. Acute Dyspnea--COPD/Asthma/Pulmonary Vascular Congestion--continue SVNs with duoneb, start IS, up to chair, give oral lasix with potassium today 3. Acute on Chornic Renal Insufficiency--BUN/CR improving 4. Hypertension--on coreg, restart amlodopine Clinical Quality Measures Admission Status Admission Dx 1. Acute UTI with history of recurrent UTIs--admit and start IV cipro, culture urine 2. Acute Dyspnea--Asthma/COPD and Pulmonary Vascular Congestion on CXR--co ntinue SVNS with duoneb q6hrs and q2hrs prn, give IV lasix now 3. Hypertension--resume home meds 4. BERNARDO--using home CPAP 5. Acute on Chronic Renal Insufficiency--monitor BUN/Cr with treatment of UTI and diuresis BROWN ORDONEZ DO Aug 08, 2022 12:49
[2022-08-08] MEDS: ENOXAPARIN 60 MG/0.6 ML (LOVENOX) SYR SC SCH ×2 (13:09→23:46)
[2022-08-08] MEDS: NS IV 1000 ML 1,000 ML IV SCH (16:40)
[2022-08-08] MEDS: MONTELUKAST 10 MG (SINGULAIR) TAB PO SCH (20:07)
[2022-08-08] MEDS: METHENAMINE HIPP (UREX) 1 GM TABLET PO SCH (20:07)
[2022-08-08] MEDS ORDERED: TAMSULOSIN 0.4 MG (FLOMAX) CAP PO SCH (21:00)
[2022-08-08] MEDS ORDERED: amLODIPine 5 MG (NORVASC) TAB PO SCH (21:00)
[2022-08-09] MEDS: RT-ALBUTEROL/IPRATROPIUM 3 ML (DUONEB) VIAL INH SCH ×2 (03:14→10:13)
[2022-08-09 03:40] VITALS: BP 130/83
[2022-08-09] MEDS: LEVOTHYROXINE 25 MCG (LEVOTHROID) TAB PO SCH (05:58)
[2022-08-09] MEDS: LEVOTHYROXINE 112 MCG (LEVOTHROID) TAB PO SCH (05:58)
[2022-08-09 07:01] LABS: CALCIUM 8.9 MG/DL (8.5-10.1); CREATININE SERUM 1.1 MG/DL (0.60-1.30); POTASSIUM 3.8 MMOL/L (3.6-5.0)
[2022-08-09] MEDS: CIPROFLOXACIN 400 MG/D5W 200 ML (PRE-MIX) IV SCH (08:19)
[2022-08-09] MEDS: METHENAMINE HIPP (UREX) 1 GM TABLET PO SCH (08:19)
[2022-08-09] MEDS: buPROPion SR 150 MG (WELLBUTRIN SR) TAB PO SCH (08:19)
[2022-08-09] MEDS: PANTOPRAZOLE 40 MG (PROTONIX) TAB PO SCH (08:19)
[2022-08-09 08:48] VITALS: BP 116/77
[2022-08-09] MEDS: RT--FLUTICASONE/SALMETEROL 113-14 (AIRDUO RespiCLICK) IH SCH (10:13)
[2022-08-09 12:27] VITALS: BP 120/79
[2022-08-09] MEDS ORDERED: CIPR-225 PO (12:54)
[2022-08-09] MEDS: NS IV 1000 ML 1,000 ML IV SCH (13:00)
[2022-08-09] MEDS: ENOXAPARIN 60 MG/0.6 ML (LOVENOX) SYR SC SCH (13:24)
[2022-08-09 13:58] VITALS: BP 120/79
== END 2022-08-09 13:58 | disposition home or self-care (01) | DRG 690 ==
LOC: EDUNIT# 20:10 → ER 20:12 → 4TH 22:10 → OBSVTOIN 08-07 12:47
PROVIDERS: ADMIT Family Medicine; ATTEND Family Medicine
PROC: 5A09357 Assistance with Respiratory Ventilation, Less than 24 Consecutive Hours, Continuous Positive Airway Pressure (ICD-10-PCS; principal; 2022-08-07)
DX: N39.0 Urinary tract infection, site not specified (principal); Q62.10 Congenital occlusion of ureter, unspecified; Z68.43 Body mass index [BMI] 50.0-59.9, adult; J06.9 Acute upper respiratory infection, unspecified; E66.01 Morbid (severe) obesity due to excess calories; G47.33 Obstructive sleep apnea (adult) (pediatric); J44.9 Chronic obstructive pulmonary disease, unspecified; E78.00 Pure hypercholesterolemia, unspecified; I12.9 Hypertensive chronic kidney disease with stage 1 through stage 4 chronic kidney disease, or unspecified chronic kidney disease; Z20.822 Contact with and (suspected) exposure to COVID-19; E11.22 Type 2 diabetes mellitus with diabetic chronic kidney disease; N18.9 Chronic kidney disease, unspecified; E03.9 Hypothyroidism, unspecified; F32.A Depression, unspecified; K57.90 Diverticulosis of intestine, part unspecified, without perforation or abscess without bleeding; B96.20 Unspecified Escherichia coli [E. coli] as the cause of diseases classified elsewhere; B96.4 Proteus (mirabilis) (morganii) as the cause of diseases classified elsewhere; Z95.5 Presence of coronary angioplasty implant and graft; Z95.0 Presence of cardiac pacemaker; Z88.1 Allergy status to other antibiotic agents; Z88.5 Allergy status to narcotic agent; Z88.2 Allergy status to sulfonamides
CPT/HCPCS: 36415; 71045; 80048; 80053; 81000; 83880; 85007; 85025; 85027; 86141; 87077; 87088; 87186; 87636; 94640; 94760; G0378

== ENCOUNTER → 2022-08-10 | Outpatient (CLI) | payer MEDICARE ==
[~2022-08-10] MED LIST changes: +ASCO500T17 PO; +BUDE0.5A NEB; +BUPR300T98 PO; +CIPR-225 PO; +HYOS-20 PO
--- NOTE | 2022-08-10 16:33 | Diagnostic Imaging Report ---
INDICATION: Dyspnea PA and lateral chest obtained at 3:12 PM. Heart is mildly enlarged. There is central vascular congestion. There is no focal infiltrate or pneumothorax or pleural fluid. Dual-lumen pacemaker is in place. IMPRESSION: Cardiomegaly and central vascular congestion. No focal infiltrate or pleural fluid. Dictated by: Dictated on workstation # [id number]
== END ==
LOC: RAD 14:52
PROVIDERS: ATTEND Nurse Practitioner Family
DX: I51.7 Cardiomegaly (principal)
CPT/HCPCS: 71046

== ENCOUNTER → 2022-12-06 | Outpatient (CLI) | payer MEDICARE | LOC: CARD 12:58 | DX: I44.2 Atrioventricular block, complete (principal); R00.2 Palpitations; I10 Essential (primary) hypertension; Z95.0 Presence of cardiac pacemaker; I51.7 Cardiomegaly | CPT/HCPCS: 93306 ==

== ENCOUNTER → 2023-01-18 | Outpatient (CLI) | payer MEDICARE ==
--- NOTE | 2023-01-19 09:13 | Diagnostic Imaging Report ---
Indication: Routine screening. No prior mammograms are available for comparison. 2-D and 3-D bilateral screening mammography was performed with CAD. CAD is utilized. The current study was also evaluated with a Computer Aided Detection (CAD) system. Both breasts are primarily involutional. No mass or malignant-appearing microcalcifications are seen. A battery pack overlies the left axilla. Right axilla is unremarkable. IMPRESSION: BI-RADS Category 1 No mammographic features suspicious for malignancy are identified. ACR BI-RADS Category 1: Negative. Result letter will be mailed to the patient. Note: At least 10% of breast cancer is not imaged by mammography. Dictated by: Dictated on workstation # [id number]
== END ==
LOC: RAD 14:47
PROVIDERS: ATTEND Family Medicine
DX: Z12.31 Encounter for screening mammogram for malignant neoplasm of breast (principal)
CPT/HCPCS: 77063; 77067

== ENCOUNTER → 2023-06-11 | Outpatient (CLI) | payer MEDICARE ==
[~2023-06-11] MED LIST changes: +ACET-2267 PO; +AMOX1TAB12 PO; +CYAN-41 PO; -MECL-149 PO; +MECL-291 PO; +NYST60PO TP
== END ==
LOC: WOUNDCARE 13:04
PROVIDERS: ATTEND Family Medicine
DX: E11.622 Type 2 diabetes mellitus with other skin ulcer (principal); L98.492 Non-pressure chronic ulcer of skin of other sites with fat layer exposed; L24.B1 Irritant contact dermatitis related to digestive stoma or fistula; L92.8 Other granulomatous disorders of the skin and subcutaneous tissue; E66.01 Morbid (severe) obesity due to excess calories; K43.2 Incisional hernia without obstruction or gangrene; K94.09 Other complications of colostomy; E11.22 Type 2 diabetes mellitus with diabetic chronic kidney disease; N18.30 Chronic kidney disease, stage 3 unspecified; Z68.43 Body mass index [BMI] 50.0-59.9, adult
CPT/HCPCS: 11042; 87070; 87077; 87186; 87205; A6021; A6234; G0463

== ENCOUNTER → 2023-06-18 | Outpatient (CLI) | payer MEDICARE ==
[~2023-06-18] MED LIST changes: -ACET-2267 PO; -AMOX1TAB12 PO; -CYAN-41 PO; -NYST60PO TP
== END ==
LOC: WOUNDCARE 12:24
PROVIDERS: ATTEND Family Medicine
DX: L98.492 Non-pressure chronic ulcer of skin of other sites with fat layer exposed (principal); L24.B1 Irritant contact dermatitis related to digestive stoma or fistula; E11.622 Type 2 diabetes mellitus with other skin ulcer; N18.30 Chronic kidney disease, stage 3 unspecified; L92.8 Other granulomatous disorders of the skin and subcutaneous tissue; E66.01 Morbid (severe) obesity due to excess calories; K43.2 Incisional hernia without obstruction or gangrene; K94.09 Other complications of colostomy; Z68.43 Body mass index [BMI] 50.0-59.9, adult
CPT/HCPCS: 11042; A6021; A6234; G0463

== ENCOUNTER → 2023-06-25 | Outpatient (CLI) | payer MEDICARE | LOC: WOUNDCARE 12:19 | PROVIDERS: ATTEND Family Medicine | DX: L98.492 Non-pressure chronic ulcer of skin of other sites with fat layer exposed (principal); L24.B1 Irritant contact dermatitis related to digestive stoma or fistula; L92.8 Other granulomatous disorders of the skin and subcutaneous tissue; E66.01 Morbid (severe) obesity due to excess calories; K43.2 Incisional hernia without obstruction or gangrene; K94.09 Other complications of colostomy; E11.622 Type 2 diabetes mellitus with other skin ulcer; E11.22 Type 2 diabetes mellitus with diabetic chronic kidney disease; N18.30 Chronic kidney disease, stage 3 unspecified | CPT/HCPCS: 11042; A6234; G0463 ==

== ENCOUNTER 2023-06-29 23:43 | Inpatient (IN) | payer MEDICARE ==
[~2023-06-29] VITALS: Ht 150 cm; Wt 138.9 kg
[2023-06-29] MEDS ORDERED: ACETAMINOPHEN 500 MG TABLET PO STA (23:49)
[2023-06-29] MEDS ORDERED: IBUPROFEN 800 MG TABLET PO STA (23:49)
[2023-06-30] VITALS (14 sets, daily range): BP systolic 90–151; BP diastolic 50–93
[2023-06-30] MEDS ORDERED: PIPERACILLIN/Tazobactam 4.5 GM in NS (IVPB) 100 ML 100 ML IV ONE ×2
[2023-06-30] MEDS ORDERED: LACTATED RINGERS 1,000 ML 1,000 ML IV ONE
[2023-06-30] MEDS ORDERED: ONDANSETRON INJECTION 4 MG/2 ML (SDV) IVP ONE
[2023-06-30] MEDS ORDERED: LIDOCAINE UROJET 2% GEL 10 ML PKG TOP ONE
[2023-06-30 00:09] LABS: BASOPHILS % (AUTO) 0 % (0-10); EOSINOPHILS % (AUTO) 0 % (0-10); HEMATOCRIT 42 % (35-52); HEMOGLOBIN 13.4 g/dL (11.5-16.0); LYMPHOCYTES # (AUTO) 0.8 10^3/uL (1.0-4.0); LYMPHOCYTES % (AUTO) 8 % (12-44); MEAN CORPUSCULAR HEMOGLOBIN 29 pg (25-34); MEAN CORPUSCULAR HGB CONC 32 g/dL (32-36); MEAN CORPUSCULAR VOLUME 89 fL (80-99); MEAN PLATELET VOLUME 9.5 fL (9.0-12.2); MONOCYTES # (AUTO) 0.7 10^3/uL (0.0-1.0); MONOCYTES % (AUTO) 7 % (0-12); NEUTROPHILS # (AUTO) 8.9 10^3/uL (1.8-7.8); NEUTROPHILS % (AUTO) 84 % (42-75); PLATELET COUNT 206 10^3/uL (130-400); WHITE BLOOD COUNT 10.6 10^3/uL (4.3-11.0)
[2023-06-30 00:20] LABS: ALBUMIN 3.8 GM/DL (3.2-4.5); POTASSIUM 4.4 MMOL/L (3.6-5.0)
[2023-06-30 00:22] LABS: CALCIUM 9.7 MG/DL (8.5-10.1)
[2023-06-30 00:23] LABS: TOTAL PROTEIN 7.4 GM/DL (6.4-8.2)
[2023-06-30 00:24] LABS: BILIRUBIN,TOTAL 1.1 MG/DL (0.1-1.0)
[2023-06-30 00:26] LABS: CREATININE SERUM 1.46 MG/DL (0.60-1.30)
[2023-06-30 00:29] LABS: MAGNESIUM 1.7 MG/DL (1.6-2.4)
--- NOTE | 2023-06-30 00:38 | ED General ---
General Chief Complaint: General Problems/Pain Stated Complaint: FEVER,WEAK Source of Information: Patient, EMS History of Present Illness Date Seen by Provider: Jun 30, 2023 Allergies and Home Medications Allergies Coded Allergies: Cephalosporins (Verified Allergy, Unknown, 10/20/20) Sulfa (Sulfonamide Antibiotics) (Unverified Allergy, Unknown, RASH, 10/20/20) azithromycin (Verified Allergy, Unknown, 10/20/20) codeine (Verified Allergy, Unknown, 10/20/20) Patient Home Medication List Albuterol Sulfate (Ventolin Hfa) 8.5 Gm Hfa.aer.ad, 2 PUFF INH Q6H PRN for SHORTNESS OF BREATH, (Reported) Entered as Reported by: WALDO CHINO on 10/16/16 1402 Albuterol Sulfate (Albuterol Sulfate) 2.5 Mg/0.5 Ml Vial.neb, 2.5 MG INH Q6H PRN for SHORTNESS OF BREATH, (Reported) Entered as Reported by: DIAZ QUEZADA on 05/09/21 1148 Amlodipine Besylate (Amlodipine Besylate) 5 Mg Tablet, 5 MG PO HS, (Reported) Entered as Reported by: DIAZ QUEZADA on 08/07/22 1509 Ascorbic Acid (Vitamin C) 500 Mg Tablet, 500 MG PO DAILY, (Reported) Entered as Reported by: DIAZ QUEZADA on 08/07/22 1509 Budesonide (Budesonide) 0.5 Mg/2 Ml Ampul.neb, 2 ML NEB DAILY, (Reported) Entered as Reported by: DIAZ QUEZADA on 08/07/22 1509 Bupropion HCl (Bupropion Xl) 300 Mg Tab.er.24h, 300 MG PO DAILY, (Reported) Entered as Reported by: DIAZ QUEZADA on 08/07/22 1509 Carvedilol (Carvedilol) 25 Mg Tablet, 25 MG PO BID, (Reported) Entered as Reported by: DIAZ QUEZADA on 08/07/22 1509 Cetirizine HCl (Cetirizine HCl) 10 Mg Tablet, 10 MG PO HS, (Reported) Entered as Reported by: DIAZ QUEZADA on 05/09/21 1148 Cholecalciferol (Vitamin D3) (Vitamin D3) 125 Mcg (5000 Unit) Capsule, 125 MCG PO BID, (Reported) Entered as Reported by: DIAZ QUEZADA on 05/09/21 1148 Ciprofloxacin HCl (Cipro) 500 Mg Tablet, 500 MG PO BID Prescribed by: BROWN ORDONEZ on 08/09/22 1254 D-Mannose (Azo D-Mannose) 500 Mg Capsule, 500 MG PO BID, (Reported) Entered as Reported by: DIAZ QUEZADA on 05/09/21 1148 Fenofibrate Nanocrystallized (Fenofibrate) 145 Mg Tablet, 145 MG PO HS, (Reported) Entered as Reported by: WALDO CHINO on 10/16/16 1402 Hyoscyamine Sulfate (Hyoscyamine Sulfate) 0.125 Mg Tablet, 0.125 MG PO QID PRN for BLADDER/COLON SPASMS, (Reported) Entered as Reported by: DIAZ QUEZADA on 08/07/22 1509 Levothyroxine Sodium (Levothyroxine Sodium) 137 Mcg Tablet, 137 MCG PO DAILY, (Reported) Entered as Reported by: DIAZ QUEZADA on 11/05/19 1434 Loperamide HCl (Imodium A-D) 2 Mg Tablet, 2 MG PO BID, (Reported) Entered as Reported by: EDDIE HODGES on 06/24/18 1224 Methenamine Hippurate (Methenamine Hippurate) 1 Gm Tablet, 1 GM PO BID, (Reported) Entered as Reported by: DIAZ QUEZADA on 10/20/20 1617 Mirabegron (Myrbetriq) 25 Mg Tab.er.24h, 25 MG PO DAILY, (Reported) Entered as Reported by: MEGHNA BUENROSTRO on 11/04/19 0147 Montelukast Sodium (Montelukast Sodium) 10 Mg Tablet, 10 MG PO HS, (Reported) Entered as Reported by: WALDO CHINO on 10/16/16 1402 Nitrofurantoin Monohyd/M-Cryst (Macrobid 100 mg Capsule) 100 Mg Capsule, 100 MG PO BID Prescribed by: Waldo Kingston on 06/08/23 1423 Pantoprazole Sodium (Pantoprazole Sodium) 40 Mg Tablet.dr, 40 MG PO BID, (Reported) Entered as Reported by: WALDO CHINO on 10/16/16 1402 Tamsulosin HCl (Flomax) 0.4 Mg Cap, 0.4 MG PO HS, (Reported) Entered as Reported by: DIAZ QUEZADA on 08/07/22 1509 Past Ufpsgbw-Acslsq-Rgfibx Hx Immunizations Up To Date Tetanus Booster (TDap): Unknown PED Vaccines UTD: Yes First/Initial COVID19 Vaccinat: NOVEMBER 2020 Second COVID19 Vaccination Anant: DECEMBER 2020 Seasonal Allergies Seasonal Allergies: Yes Past Medical History Surgery/Hospitalization HX: URETHRAL STENT & BLADDER BOTOX Surgeries: Yes Abdominal, Bowel Surgery, Section, Orthopedic, Tonsillectomy Respiratory: No Asthma, Sleep Apnea, COPD Currently Using CPAP: Yes Currently Using BIPAP: No Cardiac: No Chronic Edema/Swelling, High Cholesterol, Hypertension Neurological: No Reproductive Disorders: No Genitourinary: Yes UTI-Chronic Gastrointestinal: Yes Diverticulosis Musculoskeletal: Yes Degenerate Disk Disease, Arthritis, Chronic Back Pain Endocrine: Yes Hypothyroidsim, Diabetes, Non-Insulin dep HEENT: No Loss of Vision: Denies Hearing Impairment: Denies Cancer: No Psychosocial: Yes Depression Integumentary: No Blood Disorders: No Adverse Reaction/Blood Tranf: No Physical Exam Vital Signs Vital Signs - First Documented 06/29/23 23:43 Temp 38.5 Pulse 88 Resp 26 B/P (MAP) 142/105 (117) Pulse Ox 93 Capillary Refill : Height, Weight, BMI Height: 5'5.00" Weight: 289lbs. 0.8oz. 136.402040ts; 53.00 BMI Method:Stated Focused Exam Sepsis Stage: Sepsis (SIRS) Possible Source: Other (RESPIRATORY AND URINARY TRACT) Lactate Level 06/30/23 00:00: Lactic Acid Level 1.05 Time of Focused Exam: 00:45 Respiratory: Normal Breath Sounds, No Accessory Muscle Use, No Respiratory Distress Cardiovascular: Regular Rate, Rhythm, No Murmur Capillary Refill: Less Than 3 Seconds Skin: normal color, warm/dry Lactic Acid Level Laboratory Tests Test 06/30/23 00:00 Lactic Acid Level 1.05 MMOL/L (0.50-2.00) Within 3hrs of presentation: Admin fluids, Admin ABX, Blood cultures prior to ABX's, Focus exam, Lactate level Progress/Results/Core Measures Suspected Sepsis SIRS Temperature: Pulse: Respiratory Rate: Laboratory Tests 06/30/23 00:00: White Blood Count 10.6 Blood Pressure / Mean: 06/30/23 00:00: Lactic Acid Level 1.05 Laboratory Tests 06/30/23 00:00: Creatinine 1.46H, INR Comment 1.1, Platelet Count 206, Total Bilirubin 1.1H Results/Orders Lab Results Laboratory Tests Test 06/30/23 00:00 06/30/23 00:10 Range/Units White Blood Count 10.6 4.3-11.0 10^3/uL Red Blood Count 4.67 3.80-5.11 10^6/uL Hemoglobin 13.4 11.5-16.0 g/dL Hematocrit 42 35-52 % Mean Corpuscular Volume 89 80-99 fL Mean Corpuscular Hemoglobin 29 25-34 pg Mean Corpuscular Hemoglobin Concent 32 32-36 g/dL Red Cell Distribution Width 16.7 H 10.0-14.5 % Platelet Count 206 130-400 10^3/uL Mean Platelet Volume 9.5 9.0-12.2 fL Immature Granulocyte % (Auto) 1 % Neutrophils (%) (Auto) 84 H 42-75 % Lymphocytes (%) (Auto) 8 L 12-44 % Monocytes (%) (Auto) 7 0-12 % Eosinophils (%) (Auto) 0 0-10 % Basophils (%) (Auto) 0 0-10 % Neutrophils # (Auto) 8.9 H 1.8-7.8 10^3/uL Lymphocytes # (Auto) 0.8 L 1.0-4.0 10^3/uL Monocytes # (Auto) 0.7 0.0-1.0 10^3/uL Eosinophils # (Auto) 0.0 0.0-0.3 10^3/uL Basophils # (Auto) 0.0 0.0-0.1 10^3/uL Immature Granulocyte # (Auto) 0.1 0.0-0.1 10^3/uL Neutrophils % (Manual) 86 % Lymphocytes % (Manual) 6 % Monocytes % (Manual) 4 % Band Neutrophils 4 % Anisocytosis SLIGHT Erythrocyte Sedimentation Rate 65 H 0-30 MM/HR Prothrombin Time 14.5 12.2-14.7 SEC INR Comment 1.1 0.8-1.4 Activated Partial Thromboplast Time 33 24-35 SEC Sodium Level 135 135-145 MMOL/L Potassium Level 4.4 3.6-5.0 MMOL/L Chloride Level 103 98-107 MMOL/L Carbon Dioxide Level 18 L 21-32 MMOL/L Anion Gap 14 5-14 MMOL/L Blood Urea Nitrogen 18 7-18 MG/DL Creatinine 1.46 H 0.60-1.30 MG/DL Estimat Glomerular Filtration Rate 38 BUN/Creatinine Ratio 12 Glucose Level 115 H 70-105 MG/DL Lactic Acid Level 1.05 0.50-2.00 MMOL/L Calcium Level 9.7 8.5-10.1 MG/DL Corrected Calcium 9.9 8.5-10.1 MG/DL Magnesium Level 1.7 1.6-2.4 MG/DL Total Bilirubin 1.1 H 0.1-1.0 MG/DL Aspartate Amino Transf (AST/SGOT) 21 5-34 U/L Alanine Aminotransferase (ALT/SGPT) 13 0-55 U/L Alkaline Phosphatase 76 40-136 U/L C-Reactive Protein High Sensitivity 17.90 H 0.00-0.50 MG/DL Total Protein 7.4 6.4-8.2 GM/DL Albumin 3.8 3.2-4.5 GM/DL Amylase Level 33 25-125 U/L Lipase 4 L 8-78 U/L Influenza Type A (RT-PCR) Not Detected Not Detecte Influenza Type B (RT-PCR) Not Detected Not Detecte SARS-CoV-2 RNA (RT-PCR) Detected H Not Detecte Urine Color YELLOW Urine Clarity CLOUDY Urine pH 7.0 5-9 Urine Specific [place] 1.020 1.016-1.022 Urine Protein 2+ H NEGATIVE Urine Glucose (UA) NEGATIVE NEGATIVE Urine Ketones NEGATIVE NEGATIVE Urine Nitrite NEGATIVE NEGATIVE Urine Bilirubin NEGATIVE NEGATIVE Urine Urobilinogen 1.0 < = 1.0 MG/DL Urine Leukocyte Esterase 3+ H NEGATIVE Urine RBC (Auto) 1+ H NEGATIVE Urine RBC 5-10 H /HPF Urine WBC TNTC H /HPF Urine Squamous Epithelial Cells 2-5 /HPF Urine Crystals NONE /LPF Urine Bacteria LARGE H /HPF Urine Casts NONE /LPF Urine Mucus NEGATIVE /LPF Urine Culture Indicated CULTURE PENDING My Orders Orders - IMANI CARBALLO DO Ed Iv/Invasive Line Start (06/29/23 23:49) Ekg Tracing (06/29/23 23:49) Catheter(Urinary) Insert & Ass 03,15 (06/29/23 23:49) Monitor-Rhythm Ecg Trace Only (06/29/23:49) Amylase (06/29/23:49) Cbc And Automated Diff (06/29/23) Comprehensive Metabolic Panel (06/29/23) Hs C Reactive Protein (06/29/23:) Lactic Acid Analyzer (06/29/23) Lipase (06/29/23:) Magnesium (06/29/23) Protime With Inr (06/29/23) Partial Thromboplastin Time (06/29/23:) Ua Culture If Indicated (06/29/23:) Blood Culture (06/29/23) Erythrocyte Sedimentation Rate (06/29/23:) Ed Iv/Invasive Line Start (06/29/23:49) Lactated Ringers 1,000 Ml (Lactated Ring (06/30/23 00:00) Ondansetron Injection (Ondansetron Inj (06/30/23 00:00) Acetaminophen Tablet (Acetaminophen Ta (06/29/23:49) Ibuprofen Tablet (Ibuprofen Tablet) (06/29/23:49) Lidocaine 2% (Urojet) (Lidocaine 2% (Uro (06/30/23 00:00) Covid 19 Inhouse Test (06/29/23:) Urine Culture (06/29/23:49) Ed Iv/Invasive Line Start (06/29/23:49) Ed Iv/Invasive Line Start (06/29/23:49) Vital Signs Adult Sepsis Patie Q15M (06/29/23:49) O2 (06/29/23:49) Remove Rings In Anticipation O (06/29/23:49) Influenza A And B By Pcr (06/29/23:49) Piperacillin/Tazobactam (Piperacillin/Ta (06/30/23 00:00) Chest 1 View, Ap/Pa Only (06/30/23 00:01) Manual Differential (06/30/23 00:00) Medications Given in ED Current Medications Medications Dose Ordered Sig/Floyd Route Start Time Stop Time Status Last Admin Dose Admin Lactated Ringer's 1,000 ml @ 0 mls/hr Q0M ONCE IV 06/30/23 00:00 06/30/23 00:01 DC 06/30/23 00:19 999 MLS/HR Ondansetron HCl 8 mg ONCE ONCE IVP 06/30/23 00:00 06/30/23 00:01 DC 06/30/23 00:20 8 MG Vital Signs/I&O 06/29/23 06/30/23 23:43 00:19 Temp 38.5 38.5 Pulse 88 Resp 26 B/P (MAP) 142/105 (117) Pulse Ox 93 Capillary Refill : Departure Communication (Admissions) [id number]--SPOKE WITH DR. WRIGHT, ACCEPTS PT FOR ADMIT Impression Primary Impression: COVID-19 virus infection Additional Impressions: Generalized weakness Morbid obesity UTI (urinary tract infection) Type 2 diabetes mellitus COPD (chronic obstructive pulmonary disease) Departure-Patient Inst. Referrals: BROWN ORDONEZ DO (PCP/Family) Primary Care Physician IMANI CARBALLO DO Jun 30, 2023 00:38
[2023-06-30 00:40] LABS: BACTERIA,URINE LARGE /HPF; BILIRUBIN,URINE NEGATIVE (NEGATIVE); CLARITY,URINE CLOUDY; COLOR,URINE YELLOW; GLUCOSE, URINE (UA) NEGATIVE (NEGATIVE); KETONES,URINE NEGATIVE (NEGATIVE); LEUKOCYTE ESTERASE ,URINE 3+ (NEGATIVE); NITRITE,URINE NEGATIVE (NEGATIVE); PROTEIN,URINE 2+ (NEGATIVE); WBC,URINE TNTC /HPF
[2023-06-30 00:43] LABS: INR 1.1 (0.8-1.4); PROTHROMBIN TIME PATIENT 14.5 SEC (12.2-14.7)
[2023-06-30 00:54] LABS: ANISOCYTOSIS SLIGHT; BAND NEUTROPHILS 4 %; LYMPHOCYTES % (MANUAL) 6 %; MONOCYTES % (MANUAL) 4 %; NEUTROPHILS % (MANUAL) 86 %
[2023-06-30 00:55] LABS: ERYTHROCYTE SEDIMENTATION RATE 65 MM/HR (0-30)
[2023-06-30] MEDS ORDERED: NS IV 1000 ML 1,000 ML ONE (02:51)
[2023-06-30] MEDS: RT-ALBUTEROL HFA 8.5 GM INHALER IH SCH ×4 (02:55→20:55)
[2023-06-30] MEDS ORDERED: NS IV 1000 ML 1,000 ML IV SCH (03:00)
[2023-06-30] MEDS ORDERED: IBUPROFEN 800 MG TABLET PO PRN (03:00)
[2023-06-30] MEDS ORDERED: NOREPINEPHRINE 8 MG/250 ML 250 ML IV SCH (03:00)
[2023-06-30] MEDS ORDERED: EPINEPHrine 1 MG INJECTION 4 MG in NS (IVPB) 250 ML 248 ML IV SCH (03:00)
[2023-06-30] MEDS ORDERED: VASOPRESSIN INJECTION 20 UNIT in NS (IVPB) 100 ML 100 ML IV SCH (03:00)
[2023-06-30] MEDS ORDERED: fentaNYL INJECTION 100 MCG/2 ML VIAL IV PRN (03:00)
[2023-06-30 04:44] LABS: BASOPHILS % (AUTO) 0 % (0-10); EOSINOPHILS % (AUTO) 0 % (0-10); HEMATOCRIT 34 % (35-52); HEMOGLOBIN 11.1 g/dL (11.5-16.0); LYMPHOCYTES # (AUTO) 0.8 10^3/uL (1.0-4.0); LYMPHOCYTES % (AUTO) 9 % (12-44); MEAN CORPUSCULAR HEMOGLOBIN 29 pg (25-34); MEAN CORPUSCULAR HGB CONC 33 g/dL (32-36); MEAN CORPUSCULAR VOLUME 89 fL (80-99); MEAN PLATELET VOLUME 9.2 fL (9.0-12.2); MONOCYTES # (AUTO) 0.6 10^3/uL (0.0-1.0); MONOCYTES % (AUTO) 7 % (0-12); NEUTROPHILS % (AUTO) 83 % (42-75); PLATELET COUNT 161 10^3/uL (130-400); WHITE BLOOD COUNT 8.5 10^3/uL (4.3-11.0)
[2023-06-30 04:54] LABS: ALBUMIN 3.1 GM/DL (3.2-4.5)
[2023-06-30 04:55] LABS: CALCIUM 8.8 MG/DL (8.5-10.1)
[2023-06-30 04:56] LABS: TOTAL PROTEIN 5.8 GM/DL (6.4-8.2)
[2023-06-30 05:00] LABS: CREATININE SERUM 1.46 MG/DL (0.60-1.30)
[2023-06-30 05:03] LABS: MAGNESIUM 1.6 MG/DL (1.6-2.4)
[2023-06-30] MEDS: POTASSIUM CL 10MEQ/50ML IVPB 50 ML IV SCH (05:26)
[2023-06-30] MEDS: MAGNESIUM 1 GM/100 ML IVPB 100 ML IV SCH ×5 (05:26→09:17)
[2023-06-30] MEDS: POTASSIUM CHLORIDE 20 MEQ TABLET PO SCH (05:26)
[2023-06-30] MEDS ORDERED: MAGNESIUM 1 GM/100 ML IVPB 400 ML IV ONE (05:29)
[2023-06-30] MEDS ORDERED: NS IV 500 ML 500 ML IV PRN (05:30)
[2023-06-30] MEDS: PIPERACILLIN/Tazobactam 4.5 GM in NS (IVPB) 100 ML 100 ML IV SCH ×3 (05:39→20:31)
[2023-06-30] MEDS ORDERED: inSUlin ASPART 1 UNIT/0.01 ML (PER UNIT) SC SCH (06:00)
--- NOTE | 2023-06-30 07:34 | Diagnostic Imaging Report ---
INDICATION: Fever. Comparison is made with prior exam of 08/06/2022. FINDINGS: There is cardiomegaly. The lungs are clear. No pleural effusion or pneumothorax. Mediastinum is unremarkable. Pacemaker overlies the left hemithorax. IMPRESSION: No acute cardiopulmonary abnormality. Cardiomegaly. Dictated by: Dictated on workstation # [id number]
[2023-06-30] MEDS ORDERED: NIRMATRELVIR/RITONAVIR (PAXLOVID) TABLET PO SCH ×2 (09:00)
[2023-06-30] MEDS: NIRMATRELVIR/RITONAVIR (PAXLOVID) TABLET PO SCH ×2 (09:11→20:28)
--- NOTE | 2023-06-30 09:24 | Tele-ICU Consult ---
Progress Note video rounds completed 68 y/o female admitted with fever and lethargy Tested positive for COVID Has had two doses of Covid vaccine CXR: clear Pulse: 61 Low voltage NSR BP: 144/79 Lactate: 1.05 IMP: covid PNA PLAN: paxlovid started Zosyn started I am remotely monitoring this patient from another state. I am unable to do the bedside exam, and history/physical and pertinent information is taken from other notes in the computer and bedside staff. . Focused Exam Lactate Level 06/30/23 00:00: Lactic Acid Level 1.05 Height, Weight, BMI Height: 5'5.00" Weight: 289lbs. 0.8oz. [id number]; 61.06 BMI Method:Stated Time of Focused Exam: 00:45 Labs Laboratory Tests 06/30/23 00:00 06/30/23 04:37 Results Results/Procedures Lab Laboratory Tests 06/30/23 00:00 06/30/23 04:37 Results Results/Procedures Labs Laboratory Tests 06/30/23 00:00 06/30/23 04:37 Patient resulted labs reviewed. Results Labs Labs Laboratory Tests 06/30/23 00:00: White Blood Count 10.6, Red Blood Count 4.67, Hemoglobin 13.4, Hematocrit 42, Mean Corpuscular Volume 89, Mean Corpuscular Hemoglobin 29, Mean Corpuscular Hemoglobin Concent 32, Red Cell Distribution Width 16.7H, Platelet Count 206, Mean Platelet Volume 9.5, Immature Granulocyte % (Auto) 1, Neutrophils (%) (Auto) 84H, Lymphocytes (%) (Auto) 8L, Monocytes (%) (Auto) 7, Eosinophils (%) (Auto) 0, Basophils (%) (Auto) 0, Neutrophils # (Auto) 8.9H, Lymphocytes # (Auto) 0.8L, Monocytes # (Auto) 0.7, Eosinophils # (Auto) 0.0, Basophils # (Auto) 0.0, Immature Granulocyte # (Auto) 0.1, Neutrophils % (Manual) 86, Lymphocytes % (Manual) 6, Monocytes % (Manual) 4, Band Neutrophils 4, A nisocytosis SLIGHT, Erythrocyte Sedimentation Rate 65H, Prothrombin Time 14.5, INR Comment 1.1, Activated Partial Thromboplast Time 33, Sodium Level 135, Potassium Level 4.4, Chloride Level 103, Carbon Dioxide Level 18L, Anion Gap 14, Blood Urea Nitrogen 18, Creatinine 1.46H, Estimat Glomerular Filtration Rate 38, BUN/Creatinine Ratio 12, Glucose Level 115H, Lactic Acid Level 1.05, Calcium Level 9.7, Corrected Calcium 9.9, Magnesium Level 1.7, Total Bilirubin 1.1H, Aspartate Amino Transf (AST/SGOT) 21, Alanine Aminotransferase (ALT/SGPT) 13, Alkaline Phosphatase 76, C-Reactive Protein High Sensitivity 17.90H, Total Protein 7.4, Albumin 3.8, Amylase Level 33, Lipase 4L, Influenza Type A (RT-PCR) Not Detected, Influenza Type B (RT-PCR) Not Detected, SARS-CoV-2 RNA (RT-PCR) DetectedH 06/30/23 00:10: Urine Color YELLOW, Urine Clarity CLOUDY, Urine pH 7.0, Urine Specific [place] 1.020, Urine Protein 2+H, Urine Glucose (UA) NEGATIVE, Urine Ketones NEGATIVE, Urine Nitrite NEGATIVE, Urine Bilirubin NEGATIVE, Urine Urobilinogen 1.0, Urine Leukocyte Esterase 3+H, Urine RBC (Auto) 1+H, Urine RBC 5-10H, Urine WBC TNTCH, Urine Squamous Epithelial Cells 2-5, Urine Crystals NONE, Urine Bacteria LARGEH, Urine Casts NONE, Urine Mucus NEGATIVE, Urine Culture Indicated CULTURE PENDING 06/30/23 04:37: White Blood Count 8.5, Red Blood Count 3.84, Hemoglobin 11.1L, Hematocrit 34L, Mean Corpuscular Volume 89, Mean Corpuscular Hemoglobin 29, Mean Corpuscular Hemoglobin Concent 33, Red Cell Distribution Width 16.5H, Platelet Count 161, Mean Platelet Volume 9.2, Immature Granulocyte % (Auto) 1, Neutrophils (%) (Auto) 83H, Lymphocytes (%) (Auto) 9L, Monocytes (%) (Auto) 7, Eosinophils (%) (Auto) 0, Basophils (%) (Auto) 0, Neutrophils # (Auto) 7.0, Lymphocytes # (Auto) 0.8L, Monocytes # (Auto) 0.6, Eosinophils # (Auto) 0.0, Basophils # (Auto) 0.0, Immature Granulocyte # (Auto) 0.1, Sodium Level 136, Potassium Level 4.0, Chloride Level 105, Carbon Dioxide Level 19L, Anion Gap 12, Blood Urea Nitrogen 19H, Creatinine 1.46H, Estimat Glomerular Filtration Rate 38, BUN/Creatinine Ratio 13, Glucose Level 112H, Calcium Level 8.8, Corrected Calcium 9.5, Magnesium Level 1.6, Total Bilirubin 1.0, Aspartate Amino Transf (AST/SGOT) 15, Alanine Aminotransferase (ALT/SGPT) 10, Alkaline Phosphatase 58, Total Protein 5.8L, Albumin 3.1L, Phosphorus Level 4.0 JOSSELINE TAM MD Jun 30, 2023 09:24
--- NOTE | 2023-06-30 10:16 | History & Physical ---
History of Present Illness HPI/Chief Complaint CC: COVID with cough and UTI HPI: This is a 68yoWF who presented to the ER with cough and "not feeling well." she was worked up and it revealed she had COVID but negative chest x-ray and only a cough but a severe UTI in need of close monitoring in case respiratory failure worsened due to obstructive sleep apnea on CPAP. Patient was given Paxlovid since her symptoms started justWho presented to the ER and she appears to be high risk for decompensation from COVID due to BMI of 61 and sleep apnea. Source: patient Exam Limitations: no limitations Date Seen 06/30/23 Time Seen by a Provider: 11:00 Attending Physician Belkis Araujo DO PCP Admitting Physician: Chen Welch DO Attending Physician: Chen Welch DO Referring Physician Date of Admission Jun 30, 2023 at 01:28 Home Medications & Allergies Home Medications Reviewed patient Home Medication Reconciliation performed by pharmacy medication reconciliations safe technician and/or nursing. Patients Allergies have been reviewed. Allergies Allergies Coded Allergies Cephalosporins (Verified Allergy, Unknown, 10/20/20) Sulfa (Sulfonamide Antibiotics) (Unverified Allergy, Unknown, RASH, 10/20/20) azithromycin (Verified Allergy, Unknown, 10/20/20) codeine (Verified Allergy, Unknown, 10/20/20) Past Owefzot-Jkzerf-Vatkoy Hx Past Med/Social Hx: Reviewed Nursing Past Med/Soc Hx, Reviewed and Corrections made Patient Social History Marrital Status: single Employed/Student: retired Alcohol Use: Denies Use Smoking Status: Never a Smoker 2nd Hand Smoke Exposure: No Recent Hopitalizations: No Immunizations Up To Date Tetanus Booster (TDap): Unknown Pediatric: Yes Date of Pneumonia Vaccine: Jun 10, 2019 Date of Influenza Vaccine: Jul 03, 2022 Seasonal Allergies Seasonal Allergies: Yes Past Medical History Surgeries: Abdominal, Bowel Surgery, Section, Orthopedic, Tonsillectomy Respiratory: Sleep Apnea Currently Using CPAP: Yes Currently Using BIPAP: No Cardiac: Chronic Edema/Swelling, High Cholesterol, Hypertension Reproductive: No Genitourinary: UTI-Chronic Gastrointestinal: Diverticulosis Musculoskeletal: Degenerate Disk Disease, Arthritis, Chronic Back Pain Endocrine: Hypothyroidsim, Diabetes, Non-Insulin dep Loss of Vision: Denies Hearing Impairment: Denies Psychosocial: Depression History of Blood Disorders: No Adverse Reaction to Blood Julio: No Review of Systems Constitutional: see HPI, dizziness, malaise, weakness Respiratory: cough, dyspnea on exertion Genitourinary: decreased output Physical Exam Physical Exam Vital Signs Vital Signs - First Documented 06/29/23 06/30/23 06/30/23 23:43 00:50 08:58 Temp 38.5 Pulse 88 Resp 26 B/P (MAP) 142/105 (117) Pulse Ox 93 O2 Delivery Nasal Cannula O2 Flow Rate 2.00 FiO2 21 Capillary Refill : Less Than 3 Seconds Height, Weight, BMI Height: 5'5.00" Weight: 289lbs. 0.8oz. 136.686187vl; 61.06 BMI Method:Stated General Appearance: No Apparent Distress, WD/WN, Chronically ill, Obese, Other (Fatigued) Respiratory: Normal Breath Sounds, No Accessory Muscle Use, No Respiratory Distress, Decreased Breath Sounds Cardiovascular: Regular Rate, Rhythm, No Murmur Neurologic/Psychiatric: Alert, Oriented x3, Depressed Affect Results Results/Procedures Labs Laboratory Tests 06/30/23 00:00 06/30/23 04:37 Patient resulted labs reviewed. Assessment/Plan Admission Diagnosis Assessment: Acute hypoxic respiratory failure COVID infection BERNARDO on CPAP Elevated BMI of 61 Diabetes Hypertension Chronic kidney disease Plan: Paxlovid Move to fourth floor Home meds Oxygen Antibiotics Admission Status: Inpatient Order (span 2 midnights) Reason for Inpatient Admission: COVID with resp failure CHEN WELCH DO Jun 30, 2023 10:16
[2023-06-30] MEDS: ACETAMINOPHEN 500 MG TABLET PO PRN ×2 (11:16→17:34)
[2023-06-30] MEDS ORDERED: diphenhydrAMINE INJ 50 MG/ML VIAL IVP PRN (20:15)
[2023-06-30] MEDS ORDERED: CALCIUM CARBONATE 500 MG CHEW TABLET PO PRN (20:15)
[2023-06-30] MEDS ORDERED: ACETAMINOPHEN 325 MG TABLET PO PRN (20:15)
[2023-06-30] MEDS ORDERED: oxyCODONE IMMEDIATE RELEASE 5 MG TABLET PO PRN (20:15)
[2023-06-30] MEDS ORDERED: ONDANSETRON 4 MG ORAL DISSOLVE TABLET PO PRN (20:15)
[2023-06-30] MEDS ORDERED: morphine INJ 4 MG/ML 1 ML (VIAL/SYRINGE) IV PRN (20:15)
[2023-06-30] MEDS ORDERED: BISACODYL 10 MG SUPPOSITORY PR PRN (20:15)
[2023-06-30] MEDS ORDERED: diphenhydrAMINE 25 MG TABLET PO PRN (20:15)
[2023-06-30] MEDS ORDERED: MELATONIN 3 MG TABLET PO PRN (20:15)
[2023-06-30] MEDS ORDERED: LACTULOSE SYRUP 10GM/15ML 30ML UDC PO PRN (20:15)
[2023-06-30] MEDS ORDERED: ONDANSETRON INJECTION 4 MG/2 ML (SDV) IV PRN (20:15)
[2023-06-30] MEDS ORDERED: ANTACID SUSPENSION 30 ML UDC PO PRN (20:15)
[2023-06-30] MEDS ORDERED: MILK OF MAGNESIA 400 MG/5 ML 30 ML UDC PO PRN (20:15)
[2023-06-30] MEDS: ONDANSETRON INJECTION 4 MG/2 ML (SDV) IV PRN (20:26)
[2023-06-30] MEDS: SENNOSIDES 8.6 MG TABLET PO SCH (21:01)
[2023-06-30] MEDS: DOCUSATE SODIUM 100 MG CAPSULE PO SCH (21:01)
[2023-07-01] MEDS: RT-ALBUTEROL HFA 8.5 GM INHALER IH SCH ×4 (02:18→21:48)
[2023-07-01 04:00] VITALS: BP 132/79
[2023-07-01] MEDS: PIPERACILLIN/Tazobactam 4.5 GM in NS (IVPB) 100 ML 100 ML IV SCH ×3 (05:58→21:10)
[2023-07-01] MEDS: ONDANSETRON INJECTION 4 MG/2 ML (SDV) IV PRN ×2 (06:05→10:44)
[2023-07-01 06:10] LABS: BASOPHILS % (AUTO) 1 % (0-10); EOSINOPHILS % (AUTO) 0 % (0-10); HEMATOCRIT 36 % (35-52); HEMOGLOBIN 11.7 g/dL (11.5-16.0); LYMPHOCYTES # (AUTO) 1.2 10^3/uL (1.0-4.0); LYMPHOCYTES % (AUTO) 17 % (12-44); MEAN CORPUSCULAR HEMOGLOBIN 29 pg (25-34); MEAN CORPUSCULAR HGB CONC 33 g/dL (32-36); MEAN CORPUSCULAR VOLUME 88 fL (80-99); MEAN PLATELET VOLUME 9.7 fL (9.0-12.2); MONOCYTES # (AUTO) 0.6 10^3/uL (0.0-1.0); MONOCYTES % (AUTO) 8 % (0-12); NEUTROPHILS # (AUTO) 5.1 10^3/uL (1.8-7.8); NEUTROPHILS % (AUTO) 73 % (42-75); PLATELET COUNT 169 10^3/uL (130-400)
[2023-07-01 06:20] LABS: ALBUMIN 3.3 GM/DL (3.2-4.5); POTASSIUM 3.9 MMOL/L (3.6-5.0)
--- NOTE | 2023-07-01 06:20 | Progress Note ---
Subjective Date Seen by a Provider: Jul 01, 2023 Time Seen by a Provider: 09:00 Subjective/Events-last exam Patient doing a lot better Less short of breath Oxygen bleeding into CPAP has been helpful Urinary spasms will require discontinuation of Lay Eating and drinking about the same changed back to clear liquids due to nausea Review of Systems General: Fatigue, Malaise Pulmonary: Dyspnea, Cough Focused Exam Lactate Level 06/30/23 00:00: Lactic Acid Level 1.05 Time of Focused Exam: 00:45 Objective Exam Last Set of Vital Signs Vital Signs Date Time Temp Pulse Resp B/P (MAP) Pulse Ox O2 Delivery O2 Flow Rate FiO2 07/01/23 04:00 36.8 90 20 132/79 (96) 96 NIV CPAP 2.00 06/30/23 20:55 21 Capillary Refill : Less Than 3 Seconds I&O Intake and Output 07/01/23 00:00 Intake Total 2600 ml Output Total 2875 ml Balance -275 ml Intake Oral 1500 ml IV Total 1100 ml Output Urine Total 2875 ml # Bowel Movements 1 Daily Weight Change No General: Alert, Oriented X3, Cooperative, No Acute Distress Lungs: Clear to Auscultation, Normal Air Movement Heart: Regular Rate, Normal S1, Normal S2, No Murmurs Psych/Mental Status: Mental Status NL, Mood NL Results Lab Laboratory Tests 07/01/23 05:52: White Blood Count 7.0, Red Blood Count 4.05, Hemoglobin 11.7, Hematocrit 36, Mean Corpuscular Volume 88, Mean Corpuscular Hemoglobin 29, Mean Corpuscular Hemoglobin Concent 33, Red Cell Distribution Width 16.3H, Platelet Count 169, Mean Platelet Volume 9.7, Immature Granulocyte % (Auto) 1, Neutrophils (%) (Auto) 73, Lymphocytes (%) (Auto) 17, Monocytes (%) (Auto) 8, Eosinophils (%) (Auto) 0, Basophils (%) (Auto) 1, Neutrophils # (Auto) 5.1, Lymphocytes # (Auto) 1.2, Monocytes # (Auto) 0.6, Eosinophils # (Auto) 0.0, Basophils # (Auto) 0.0, Immature Granulocyte # (Auto) 0.1, Albumin 3.3 Microbiology 06/30/23 Urine Culture - Preliminary, Resulted Probable E.coli 06/30/23 Blood Culture - Preliminary, Resulted Assessment/Plan Assessment/Plan Assess & Plan/Chief Complaint Assessment: Acute hypoxic respiratory failure COVID infection BERNARDO on CPAP Elevated BMI of 61 Diabetes Hypertension Chronic kidney disease Plan: Paxlowalter Discontinue catheter Home meds Oxygen Antibiotics GALILEO WRIGHT DO Jul 01, 2023 06:20
[2023-07-01 06:21] LABS: CALCIUM 8.9 MG/DL (8.5-10.1)
[2023-07-01 06:22] LABS: TOTAL PROTEIN 6.3 GM/DL (6.4-8.2)
[2023-07-01 06:24] LABS: BILIRUBIN,TOTAL 0.5 MG/DL (0.1-1.0)
[2023-07-01] MEDS: POTASSIUM CL 10MEQ/50ML IVPB 50 ML IV SCH (06:25)
[2023-07-01 06:26] LABS: CREATININE SERUM 1.39 MG/DL (0.60-1.30)
[2023-07-01] MEDS: POTASSIUM CHLORIDE 20 MEQ TABLET PO SCH (06:26)
[2023-07-01] MEDS: MAGNESIUM 1 GM/100 ML IVPB 100 ML IV SCH (06:33)
[2023-07-01 07:47] VITALS: BP 121/70
[2023-07-01] MEDS: NIRMATRELVIR/RITONAVIR (PAXLOVID) TABLET PO SCH ×2 (07:56→21:09)
[2023-07-01] MEDS: DOCUSATE SODIUM 100 MG CAPSULE PO SCH ×2 (07:58→21:10)
[2023-07-01] MEDS: SENNOSIDES 8.6 MG TABLET PO SCH ×2 (07:59→21:10)
[2023-07-01] MEDS ORDERED: POTASSIUM CHLORIDE 20 MEQ TABLET PO ONE (09:00)
[2023-07-01 11:48] VITALS: BP 135/72
[2023-07-01] MEDS ORDERED: NYST60PO TP ×2 (14:10)
[2023-07-01] MEDS ORDERED: HYOS-20 PO ×2 (14:15)
[2023-07-01 15:59] VITALS: BP 119/63
[2023-07-01 20:09] VITALS: BP 130/80
[2023-07-01 23:41] VITALS: BP 132/72
[2023-07-02] MEDS: RT-ALBUTEROL HFA 8.5 GM INHALER IH SCH ×4 (02:49→21:31)
[2023-07-02 04:28] VITALS: BP 131/73
[2023-07-02 05:47] LABS: BASOPHILS % (AUTO) 1 % (0-10); EOSINOPHILS # (AUTO) 0.2 10^3/uL (0.0-0.3); EOSINOPHILS % (AUTO) 3 % (0-10); HEMATOCRIT 37 % (35-52); LYMPHOCYTES # (AUTO) 1.4 10^3/uL (1.0-4.0); LYMPHOCYTES % (AUTO) 22 % (12-44); MEAN CORPUSCULAR HEMOGLOBIN 29 pg (25-34); MEAN CORPUSCULAR HGB CONC 32 g/dL (32-36); MEAN CORPUSCULAR VOLUME 90 fL (80-99); MEAN PLATELET VOLUME 9.7 fL (9.0-12.2); MONOCYTES # (AUTO) 0.6 10^3/uL (0.0-1.0); MONOCYTES % (AUTO) 10 % (0-12); NEUTROPHILS # (AUTO) 3.9 10^3/uL (1.8-7.8); NEUTROPHILS % (AUTO) 64 % (42-75); PLATELET COUNT 154 10^3/uL (130-400); WHITE BLOOD COUNT 6.2 10^3/uL (4.3-11.0)
[2023-07-02 05:55] LABS: ALBUMIN 3.2 GM/DL (3.2-4.5)
[2023-07-02 05:56] LABS: POTASSIUM 3.6 MMOL/L (3.6-5.0)
[2023-07-02 05:57] LABS: CALCIUM 8.9 MG/DL (8.5-10.1)
[2023-07-02 05:58] LABS: TOTAL PROTEIN 6.1 GM/DL (6.4-8.2)
[2023-07-02 06:00] LABS: BILIRUBIN,TOTAL 0.4 MG/DL (0.1-1.0)
[2023-07-02] MEDS: POTASSIUM CL 10MEQ/50ML IVPB 50 ML IV SCH (06:01)
[2023-07-02 06:02] LABS: CREATININE SERUM 1.49 MG/DL (0.60-1.30)
[2023-07-02] MEDS: POTASSIUM CHLORIDE 20 MEQ TABLET PO SCH (06:02)
[2023-07-02 06:04] LABS: MAGNESIUM 1.8 MG/DL (1.6-2.4)
[2023-07-02] MEDS: PIPERACILLIN/Tazobactam 4.5 GM in NS (IVPB) 100 ML 100 ML IV SCH ×3 (06:17→21:03)
[2023-07-02] MEDS: MAGNESIUM 1 GM/100 ML IVPB 100 ML IV SCH ×3 (06:22→10:40)
[2023-07-02 08:02] VITALS: BP 148/72
[2023-07-02] MEDS: DOCUSATE SODIUM 100 MG CAPSULE PO SCH ×2 (08:27→21:03)
[2023-07-02] MEDS: SENNOSIDES 8.6 MG TABLET PO SCH ×2 (08:27→21:03)
[2023-07-02] MEDS: NIRMATRELVIR/RITONAVIR (PAXLOVID) TABLET PO SCH ×2 (08:37→21:04)
[2023-07-02] MEDS ORDERED: POTASSIUM CHLORIDE 20 MEQ TABLET PO ONE (09:00)
--- NOTE | 2023-07-02 11:13 | Progress Note ---
KIMI WEN 07/02/23 1113: Subjective Date Seen by a Provider: Jul 02, 2023 Time Seen by a Provider: 09:42 Subjective/Events-last exam CC: COVID-19, UTI HPI: Zhane, 68F, notes that she feels much improved. She says that over the past few days she has not been able to sleep, but over night she was able to get some rest. This has resulted in her feeling much better. She currently has no concerns with her breathing and feels okay. She denies any pain. She notes no discomfort with urination and has no change in frequency. Additionally, she notes some return of appetite. No other concerns. Review of Systems General: Fatigue, Appetite (returning) HEENT: No Head Aches Pulmonary: Dyspnea, Cough Cardiovascular: No: Chest Pain, Palpitations Gastrointestinal: No: Nausea, Vomiting, Abdominal Pain Genitourinary: No Dysuria, No Frequency Neurological: No: Weakness Focused Exam Lactate Level 06/30/23 00:00: Lactic Acid Level 1.05 Time of Focused Exam: 00:45 Objective Exam Last Set of Vital Signs Vital Signs Date Time Temp Pulse Resp B/P (MAP) Pulse Ox O2 Delivery O2 Flow Rate FiO2 07/02/23 08:02 35.9 70 16 148/72 (97) 97 NIV CPAP 1.50 06/30/23 20:55 21 Capillary Refill : Less Than 3 Seconds I&O Intake and Output 07/02/23 00:00 Intake Total 2480 ml Output Total 3902 ml Balance -1422 ml Intake Oral 2480 ml Output Urine Total 3900 ml Stool Total 2 ml # Bowel Movements 1 General: Alert, Oriented X3, Cooperative, No Acute Distress HEENT: EOMI, Mucous Memb Moist/[place] Neck: Supple Lungs: Clear to Auscultation, Normal Air Movement Heart: Regular Rate, Normal S1, Normal S2 Extremities: No Cyanosis, Normal Pulses Skin: Other (wound care consult abdomen ) Neuro: Normal Speech Results Lab Laboratory Tests 07/02/23 05:34: White Blood Count 6.2, Red Blood Count 4.17, Hemoglobin 12.0, Hematocrit 37, Mean Corpuscular Volume 90, Mean Corpuscular Hemoglobin 29, Mean Corpuscular Hemoglobin Concent 32, Red Cell Distribution Width 16.5H, Platelet Count 154, Mean Platelet Volume 9.7, Immature Granulocyte % (Auto) 1, Neutrophils (%) (Auto) 64, Lymphocytes (%) (Auto) 22, Monocytes (%) (Auto) 10, Eosinophils (%) (Auto) 3, Basophils (%) (Auto) 1, Neutrophils # (Auto) 3.9, Lymphocytes # (Auto) 1.4, Monocytes # (Auto) 0.6, Eosinophils # (Auto) 0.2, Basophils # (Auto) 0.0, Immature Granulocyte # (Auto) 0.1, Sodium Level 138, Potassium Level 3.6, Chloride Level 106, Carbon Dioxide Level 22, Anion Gap 10, Blood Urea Nitrogen 15, Creatinine 1.49H, Estimat Glomerular Filtration Rate 38, BUN/Creatinine Ratio 10, Glucose Level 154H, Calcium Level 8.9, Corrected Calcium 9.5, Magnesium Level 1.8, Total Bilirubin 0.4, Aspartate Amino Transf (AST/SGOT) 16, Alanine Aminotransferase (ALT/SGPT) 15, Alkaline Phosphatase 69, Total Protein 6.1L, Albumin 3.2 Microbiology 06/30/23 MRSA Screen - Final, Complete MRSA not isolated 06/30/23 Urine Culture - Preliminary, Resulted Escherichia coli Proteus mirabilis 06/30/23 Blood Culture - Preliminary, Resulted Probable Coag Negative Staph See Comments Assessment/Plan Assessment/Plan Assess & Plan/Chief Complaint 07/02/2023: A/P -Acute on Chronic Hypoxic Respiratory Failure * O2 support * RT * PT/OT to ambulate -COVID-19 * Paxlovid * Support care * Ambulate -UTI * Zosyn * Up to urinate, purewick when resting * Repeat UA -BERNARDO * CPAP when sleeping -Abdominal Wound * Wound care consulted -DVT Prophylaxis * Heparin CHEN WRIGHT DO 07/03/23 0513: Subjective Subjective/Events-last exam Improved overall Wound care will be consulted since she had an appt at 1230 anyway at wound care Objective Exam General: Alert, Oriented X3, Cooperative, No Acute Distress Assessment/Plan Assessment/Plan Assess & Plan/Chief Complaint Much improved PT OT Supervisory-Addendum Brief Verification & Attestation Participated in pt care: history, MDM, physical Personally performed: exam, history, MDM, supervision of care Care discussed with: Medical Student Procedures: n/a Results interpretation: Verified all documentation Verification and Attestation of Medical Student E/M Service A medical student performed and documented this service in my presence. I reviewed and verified all information documented by the medical student and made modifications to such information, when appropriate. I personally performed the physical exam and medical decision making. Chen Wright, Jul 03, 2023,05:12 KIMI WEN Jul 02, 2023 11:13 CHEN WRIGHT DO Jul 03, 2023 05:13
--- NOTE | 2023-07-02 11:27 | Wound Care Assessment ---
JOSSELINE GOLDMAN 07/02/23 1127: Wound Care Assessment Date Seen by Provider: Jul 02, 2023 Time Seen by Provider: 10:50 Chief Complaint LLQ abdominal wound HPI Our patient is a very pleasant 68 yo F who was admitted to the hospital with a UTI as well as a covid infection. She has a past history of well-controlled type II diabetes as well as a wound in her lower left abdominal quadrant secondary to contact dermatitis and colostomy-related hernia causing increased pressure at the wound site. This particular wound has been present since early May. She last changed her dressing last night after a bout of diarrhea related to her current infection and notes that her wound is still open but has been improving in size. Due to her recent dressing change we did not visualize the wound at the time of the interview and examination. Last wound assessment was on 06/25. Past Medical History: Admits Diabetes Type II, Admits Heart Disease Smoking Status: Never a Smoker Recreational Drug Use: No Alcohol Use: Denies Use Review of Systems Pulmonary: Dyspnea, Cough Gastrointestinal: Diarrhea Neurological: Weakness; No: Change in speech, Confusion Exam Vital Signs Date Time Temp Pulse Resp B/P (MAP) Pulse Ox O2 Delivery O2 Flow Rate FiO2 07/02/23 08:02 35.9 70 16 148/72 (97) 97 NIV CPAP 1.50 06/30/23 20:55 21 Capillary Refill : Less Than 3 Seconds General Appearance: WD/WN, no apparent distress, obese HEENT: PERRL/EOMI, normal ENT inspection Gastrointestinal: hernia (At colostomy site) Neurologic/Psychiatric: alert, normal mood/affect, oriented x 3 Skin: normal color, warm/dry Skin Problem Location: torso Last wound assessment occurred on 06/25. At that time the LLQ abdominal wound measured 1.4 x 0.7 x 0.1 cm with no tunneling or undermining noted. Stage III with an exposed layer of subcutaneous fat. Exudate was large and serosang uineous. Wound margins are intact and flat. Hypergranulation noted that was large and pink. No necrotic tissue or slough. The wound was not directly visualized during today's exam due to the recency of dressing change and excellent wound healing prior to this point. Results Laboratory Tests 07/02/23 05:34: White Blood Count 6.2, Red Blood Count 4.17, Hemoglobin 12.0, Hematocrit 37, Mean Corpuscular Volume 90, Mean Corpuscular Hemoglobin 29, Mean Corpuscular Hemoglobin Concent 32, Red Cell Distribution Width 16.5H, Platelet Count 154, Mean Platelet Volume 9.7, Immature Granulocyte % (Auto) 1, Neutrophils (%) (Auto) 64, Lymphocytes (%) (Auto) 22, Monocytes (%) (Auto) 10, Eosinophils (%) (Auto) 3, Basophils (%) (Auto) 1, Neutrophils # (Auto) 3.9, Lymphocytes # (Auto) 1.4, Monocytes # (Auto) 0.6, Eosinophils # (Auto) 0.2, Basophils # (Auto) 0.0, Immature Granulocyte # (Auto) 0.1, Sodium Level 138, Potassium Level 3.6, Chloride Level 106, Carbon Dioxide Level 22, Anion Gap 10, Blood Urea Nitrogen 15, Creatinine 1.49H, Estimat Glomerular Filtration Rate 38, BUN/Creatinine Ratio 10, Glucose Level 154H, Calcium Level 8.9, Corrected Calcium 9.5, Magnesium Level 1.8, Total Bilirubin 0.4, Aspartate Amino Transf (AST/SGOT) 16, Alanine Aminotransferase (ALT/SGPT) 15, Alkaline Phosphatase 69, Total Protein 6.1L, Albumin 3.2 Microbiology 06/30/23 MRSA Screen - Final, Complete MRSA not isolated 06/30/23 Urine Culture - Preliminary, Resulted Escherichia coli Proteus mirabilis 06/30/23 Blood Culture - Preliminary, Resulted Probable Coag Negative Staph See Comments Assessment/Plan/Dx LLQ abdominal wound -Likely secondary to contact dermatitis as well as pressure from the colostomy-site hernia -Dressing was last changed by the patient on the evening of 07/01 -She is well-versed on the changing of her own dressings -Dress wound with collagen and replicare over the top every 3 days or PRN due to infection-induced diarrhea -Apply stoma powder to the jen-wound during dressing changes -Continue to follow outpatient on discharge from the hospital LAKEISHA MTZ MD 07/02/23 1311: Wound Care Assessment Date Seen by Provider: Jul 02, 2023 Time Seen by Provider: 13:03 Chief Complaint Abdominal wound HPI This pleasant 68 year old female is well known to my outpatient practice. She was admitted with weakness, COVID and UTI. She has been under my care for a moisture associated dermatitis near her stoma site. She has been improving weekly. Her wound healing is complicated by DM2 (well controlled), morbid obesity (BMI 52.9), CKD stage 3, and non-strangulated hernia at stoma site. We h heena been treating conservatively with with debridements, silver nitrate and collagen dressings. Her dressings are usually changed q3d but she has had diarrhea with her COVID and antibiotics and is changing more frequently (last change last night). Past Medical History: Admits Diabetes Type II (A1C 5.1 (03-05-)) Ostomy status, COPD, CKD stage 3 Review of Systems General: Other (Obesity) Pulmonary: Dyspnea Neurological: Weakness Exam General Appearance: no apparent distress, obese HEENT: other (normal hearing) Neck: full range of motion Cardiovascular: no edema Respiratory: no respiratory distress, no accessory muscle use, other (on oxygen) Gastrointestinal: other (ostomy status) Extremities: normal inspection, no pedal edema Neurologic/Psychiatric: alert, normal mood/affect, oriented x 3 Skin: normal color, warm/dry Wound assessment (from last office visit on 06-25-23): 1.4x0.7x0.1cm. The Epithelialization is medium. There is no tunneling or undermining. Drainage is large and serosanguinous. Granulation is large and pink with hypergranulation. Necrotic is none. Margins are flat. Assessment/Plan/Dx Assessment: 1. Non-pressure ulcer near stoma site with fat exposed 2. MASD 3. Non-strangulated hernia (stoma site) 4. Morbid obesity 5. DM2 (well controlled) 6. CKD stage 3 7. 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 Cleanse wound with Vashe with dressing changes. Stoma powder to periwound. Collagen to wound bed. Replicare or duoderm atop collagen. Ostomy bag atop dressing. Change q3d and prn. F/U with me in office upon discharge 2. See above 3. See above 4. Dietary changes have been discussed in past. Weight loss recommended 5. No changes currently 6. Defer to primary team 7. Defer to primary team JOSSELINE GOLDMAN Jul 02, 2023 11:27 LAKEISHA MTZ MD Jul 02, 2023 13:11
[2023-07-02] MEDS ORDERED: HYPOCHLOROUS ACID/NaCl WOUND SOLN 250 ML IR SCH (11:30)
[2023-07-02 12:46] VITALS: BP 148/72
--- NOTE | 2023-07-02 13:21 | Occupational Therapy Eval ---
OT Evaluation-General/PLF Medical Diagnosis Admission Date Jun 30, 2023 at 01:28 Medical Diagnosis: COVID Onset Date: Jun 30, 2023 Therapy Diagnosis Therapy Diagnosis: SOA Height/Weight Height (Feet): 5 Height (Inches): 5.00 Weight (Pounds): 289 Weight (Ounces): 0.8 Precautions Precautions/Isolations: Contact Isolation, Droplet Isolation Weight Bear Status Weight Bearing Restriction: Full Weight Bearing Referral Referral Reason: Self Care, Evaluation/Treatment Medical History Pertinent Medical History: Arthritis, COPD, DM, HTN Additional Medical History [id number] who presented to the ER with cough and "not feeling well." she was worked up and it revealed she had COVID but negative chest x-ray and only a cough but a severe UTI in need of close monitoring in case respiratory failure worsened due to obstructive sleep apnea on CPAP. Patient was given Paxlovid since her symptoms started justWho presented to the ER and she appears to be high risk for decompensation from COVID due to BMI of 61 and sleep apnea. Social History Home: Multilevel Current Living Status: Other Family Entry Into Home: Stairs With Railing Steps Inside Home: 7 ADL-Prior Level of Function SCALE: Activities may be completed with or without assistive devices. 1-Exzteobfmw-ydeqnyw completes the activity by him/herself with no assistance from a helper. 5-Set-up or Clean-up Assistance-helper sets up or cleans up; patient completes activity. [place] assists only prior to or following the activity. 4-Supervision or Touching Assistance-helper provides verbal cues and/or touching/steadying and/or contact guard assistance as patient completes activity. Assistance may be provided throughout the activity or intermittently. 3-Partial/Moderate Assistance-helper does LESS THAN HALF the effort. [place] lifts, holds or supports trunk or limbs, but provides less than half the effort. 2-Substantial/Maximal Assistance-helper does MORE THAN HALF the effort. [place] lifts or holds trunk or limbs and provides more than half the effort. 6-Xzcsrsvlx-ryewsy does ALL the effort. Patient does none of the effort to complete the activity. Or, the assistance of 2 or more helpers is required for the patient to complete the activity. If activity was not attempted, code reason: 7-Patient Refused. 9-Not Applicable-not attempted and the patient did not perform the activity before the current illness, exacerbation or injury. 10-Not Attempted due to Environmental Limitations-(lack of equipment, weather restraints, etc.). 88-Not Attempted due to Medical Conditions or Safety Concerns. Self Care: Independent Functional Cognition: Independent Drive Self: No (VISOIN RELATED, SPOUSE DRIVES) OT Current Status Subjective AGREES TO OT Mental Status/Objective Patient Orientation: Person, Place, Time, Situation Current Upper Extremity ROM SOFT TISSUE LIMITS CLOSE APPROXIMATION OF JOINTS Upper Extremity Coordination WFLS Upper Extremity Strength 4/5 ADL-Treatment Eating (QC): 6 Oral Hygiene (QC): 5 Shower/Bathe Self (QC): 7 Upper Body Dressing (QC): 5 Lower Body Dressing (QC): 5 (PULL UP BRIEF) On/Off Footwear (QC): 5 Toileting Hygiene (QC): 5 (USING PUR WIK AT NIGHT AT NURSE RECOMMENDATION, PATIENT REPORTS WEAR DIAPER AT HOME) Education OT Patient Education: Correct positioning, Energy conservation, Exercise p rogram, Progress toward Goal/Update tx plan, Purpose of tx/functional activities, Reviewed precautions, Rehab process, Safety issues, Transfer techniques Teaching Recipient: Patient Teaching Methods: Demonstration, Discussion Response to Teaching: Verbalize Understanding, Return Demonstration OT Long-Term Goals Long-Term Goals 1=Demonstrate adherence to instructed precautions during ADL tasks. 2=Patient will verbalize/demonstrate understanding of assistive devices/modifications for ADL. 3=Patient will improve strength/tolerance for activity to enable patient to perform ADL's. OT Education/Plan Problem List/Assessment Assessment: No Skilled OT Needs ID'd SOA AND LOW ENDURANCE, PATIENT REPORT CLOSE TO BASELINE Discharge Recommendations Plan/Recommendations: Discontinue OT Treatment Plan/Plan of Care Patient would benefit from OT for education, treatment and training to promote independence in ADL's, mobility, safety and/or upper extremity function for ADL's. Plan of Care: OTHER (EVAL ONLY) Treatment Duration: Jul 02, 2023 Frequency: 1 time per week Estimated Hrs Per Day: .25 hour per day Agreement: Yes Rehab Potential: Good PATIENT WANTS TO GO HOME, FEELS LIKE IV IS INFILTRATED, RN TO ADDRESS Time Start Time: 11:00 Stop Time: 11:18 DATE: Jul 02, 2023 Total Time Billed (hr/min): 18 Billed Treatment Time EVM 18 MIN ASHTYN CORTEZ OT Jul 02, 2023 13:21
--- NOTE | 2023-07-02 13:48 | Physical Therapy Evaluation ---
PT Evaluation-General Medical Diagnosis Admission Date Jun 30, 2023 at 01:28 Medical Diagnosis: COVID/UTI/DM/N&V Onset Date: Jun 30, 2023 Therapy Diagnosis Therapy Diagnosis: debility Height/Weight Height (Feet): 5 Height (Inches): 5.00 Weight (Pounds): 289 Weight (Ounces): 0.8 Precautions Precautions/Isolations: Contact Isolation, Droplet Isolation Referral Physician: Yuri Reason for Referral: Evaluation/Treatment Medical History Pertinent Medical History: Arthritis, COPD, DM, HTN, Hypothroidism Current History EMS secondary to fever and weakness Reviewed History: Yes Social History Home: [facility] Current Living Status: Other Family Entry Into Home: Stairs With Railing PT Steps Inside Home: 7 Prior Prior Level of Function SCALE: Activities may be completed with or without assistive devices. 1-Vhmagpqpex-xonghpr completes the activity by him/herself with no assistance from a helper. 5-Set-up or Clean-up Assistance-helper sets up or cleans up; patient completes activity. [place] assists only prior to or following the activity. 4-Supervision or Touching Assistance-helper provides verbal cues and/or touchi ng/steadying and/or contact guard assistance as patient completes activity. Assistance may be provided throughout the activity or intermittently. 3-Partial/Moderate Assistance-helper does LESS THAN HALF the effort. [place] lifts, holds or supports trunk or limbs, but provides less than half the effort. 2-Substantial/Maximal Assistance-helper does MORE THAN HALF the effort. [place] lifts or holds trunk or limbs and provides more than half the effort. 2-Vklpfmlav-jveggh does ALL the effort. Patient does none of the effort to complete the activity. Or, the assistance of 2 or more helpers is required for the patient to complete the activity. If activity was not attempted, code reason: 7-Patient Refused. 9-Not Applicable-not attempted and the patient did not perform the activity before the current illness, exacerbation or injury. 10-Not Attempted due to Environmental Limitations-(lack of equipment, weather restraints, etc.). 88-Not Attempted due to Medical Conditions or Safety Concerns. Bed Mobility: 6 Transfers (B,C,W/C): 6 Gait: 6 Stairs: 6 Indoor Mobility (Ambulation): Independent Stairs: Independent Prior Devices Use: Walker (PRN) PT Evaluation-Current Subjective Patient agrees to PT. Objective Patient Orientation: Normal For Age ROM/Strength ROM Lower Extremities bilateral LE WFL Strength Lower Extremities 4/5 grossly bilateral LE all planes Integumentary/Posture Posture WFL Neuromuscular (Tone, Coordination, Reflexes) grossly intact Sensory Vision: Functional Hearing: Functional Transfers Sit to Lying (QC): 6 Lying to Sitting/Side of Bed(Q: 6 Sit to Stand (QC): 6 Toilet Transfer (QC): 6 Gait Mode of Locomotion: Walk Anticipated Mode of Locomotion: Walk Walk 10 feet (QC): 6 Walk 50 ft with 2 Turns(QC): 6 Walk 150 ft (QC): 6 Distance: 150' in room Gait Assistive Device: FWW Comments/Gait Description safe and functional with no deviation Balance Sitting Static: Normal Sitting Dynamic: Normal Standing Static: Normal Standing Dynamic: Normal Assessment/Needs Patient is currently in independent PLOF with all gross motor skills and does not require skilled PT intervention at this time. Rehab Potential: Fair PT Plan Treatment/Plan Treatment Plan: Discontinue PT Treatment Duration: Jul 02, 2023 Frequency: 1 time per week Estimated Hrs Per Day: .25 hour per day Patient and/or Family Agrees t: Yes Time Time In: 1325 Time Out: 1336 DATE: Jul 02, 2023 Total Billed Treatment Time: 11 Total Billed Treatment 1 visit [facility] 11 min PORTIA BENAVIDES PT Jul 02, 2023 13:48
[2023-07-02] MEDS ORDERED: AMOX1TAB12 PO ×2 (15:09)
[2023-07-02] MEDS ORDERED: ACET-2267 PO ×2 (15:19)
[2023-07-02] MEDS ORDERED: CYAN-41 PO ×2 (15:21)
[2023-07-02 16:59] VITALS: BP 150/81
[2023-07-02 19:41] VITALS: BP 127/72
[2023-07-02] MEDS: MICONAZOLE 2% POWDER 90 GM TOP SCH (21:07)
[2023-07-03] VITALS: BP 129/64
[2023-07-03 04:00] VITALS: BP 135/76
[2023-07-03] MEDS: RT-ALBUTEROL HFA 8.5 GM INHALER IH SCH ×2 (04:08→09:25)
[2023-07-03] MEDS: PIPERACILLIN/Tazobactam 4.5 GM in NS (IVPB) 100 ML 100 ML IV SCH (05:24)
[2023-07-03 05:41] LABS: BASOPHILS % (AUTO) 1 % (0-10); EOSINOPHILS # (AUTO) 0.3 10^3/uL (0.0-0.3); EOSINOPHILS % (AUTO) 5 % (0-10); HEMATOCRIT 36 % (35-52); HEMOGLOBIN 11.5 g/dL (11.5-16.0); LYMPHOCYTES % (AUTO) 30 % (12-44); MEAN CORPUSCULAR HEMOGLOBIN 28 pg (25-34); MEAN CORPUSCULAR HGB CONC 32 g/dL (32-36); MEAN CORPUSCULAR VOLUME 89 fL (80-99); MEAN PLATELET VOLUME 9.7 fL (9.0-12.2); MONOCYTES # (AUTO) 0.6 10^3/uL (0.0-1.0); MONOCYTES % (AUTO) 9 % (0-12); NEUTROPHILS # (AUTO) 3.7 10^3/uL (1.8-7.8); NEUTROPHILS % (AUTO) 55 % (42-75); PLATELET COUNT 181 10^3/uL (130-400); WHITE BLOOD COUNT 6.7 10^3/uL (4.3-11.0)
[2023-07-03 05:56] LABS: ALBUMIN 3.2 GM/DL (3.2-4.5); POTASSIUM 4.2 MMOL/L (3.6-5.0)
[2023-07-03 05:59] LABS: TOTAL PROTEIN 6.4 GM/DL (6.4-8.2)
[2023-07-03 06:00] LABS: BILIRUBIN,TOTAL 0.3 MG/DL (0.1-1.0)
[2023-07-03 06:02] LABS: CREATININE SERUM 1.19 MG/DL (0.60-1.30)
[2023-07-03 06:05] LABS: MAGNESIUM 1.9 MG/DL (1.6-2.4)
[2023-07-03] MEDS: POTASSIUM CHLORIDE 20 MEQ TABLET PO SCH (06:10)
[2023-07-03] MEDS: POTASSIUM CL 10MEQ/50ML IVPB 50 ML IV SCH (06:10)
[2023-07-03] MEDS: MAGNESIUM 1 GM/100 ML IVPB 100 ML IV SCH (07:29)
[2023-07-03 08:00] VITALS: BP 114/58
[2023-07-03] MEDS: MICONAZOLE 2% POWDER 90 GM TOP SCH (09:25)
[2023-07-03] MEDS: DOCUSATE SODIUM 100 MG CAPSULE PO SCH (09:25)
[2023-07-03] MEDS: SENNOSIDES 8.6 MG TABLET PO SCH (09:25)
[2023-07-03] MEDS: NIRMATRELVIR/RITONAVIR (PAXLOVID) TABLET PO SCH (09:25)
--- NOTE | 2023-07-03 09:40 | Progress Note ---
KIMI WEN 07/03/23 0940: Subjective Date Seen by a Provider: Jul 03, 2023 Time Seen by a Provider: 08:10 Subjective/Events-last exam CC: COVID-19, UTI HPI: Zhane, 68F, notes that she feels the same as yesterday. She has no change in her respiratory status. She also notes that she does not have any pain or current issues. Her biggest worry is her UTI since she has had recurrent infections over the past year that have not subsided. Additionally, her grand- daughter is getting this weekend so she wants to be able to attend this. She notes that the wound consult was good and that they gave her some supplies to use. She has no other concerns. Course: Zhane is a 68-year-old female that presented to the ED on 06/30 due to not feeling well and malaise. She was tested for COVID which came back positive. Her CXR showed no manifestations of infection, but given patients BMI and comorbidities, she was admitted for treatment with paxlovid and close monitoring. Additionally, Zhane was found to have a severe UTI that would require IV treatment. Zhane was placed on the 4th floor MED/SURG unit where she has received care for COVID and her UTI. Over her course, she has shown im provement. Zhane's lungs have continued to be clear on auscultation and she has had no concerns about her respiratory status. Additionally, she has shown improvement in her UTI. A de paz catheter was placed and subsequently removed the following day due to improvement. Zhane endorses resolution of her UTI symptoms, but notes that this has been a recurrent issue in the past. On 07/02 the sensitivities for her UTI came back and treatment was tailored to cover the cultured E.Coli and Proteus. Zhane has no current issues upon discharge. She should have a close follow-up with Dr. Araujo to continue care. Continue medications per discharge. She will go home on oral ABX. No other concerns. Review of Systems General: No Fatigue, No Malaise HEENT: No Head Aches, No Ear Pain Pulmonary: No Cough, No Pleuritic Chest Pain Cardiovascular: No: Chest Pain, Palpitations Gastrointestinal: No: Nausea, Diarrhea Genitourinary: No Dysuria, No Frequency Musculoskeletal: No: hand pain Neurological: No: Weakness, Numbness Focused Exam Time of Focused Exam: 00:45 Objective Exam Last Set of Vital Signs Vital Signs Date Time Temp Pulse Resp B/P (MAP) Pulse Ox O2 Delivery O2 Flow Rate FiO2 07/03/23 08:00 36.3 87 16 114/58 (76) 95 NIV CPAP 07/03/23 04:08 2.00 06/30/23 20:55 21 Capillary Refill : Less Than 3 Seconds I&O Intake and Output 07/03/23 00:00 Intake Total 2520 ml Output Total 1600 ml Balance 920 ml Intake Oral 1620 ml IV Total 900 ml Output Urine Total 1600 ml # Voids 4 # Bowel Movements 1 General: Alert, Oriented X3, Cooperative, No Acute Distress HEENT: Mucous Memb Moist/[place] Neck: Supple Lungs: Clear to Auscultation, Normal Air Movement Heart: Regular Rate, Normal S1, Normal S2 Abdomen: Normal Bowel Sounds, No Tenderness, Other (colostomy bag in place ) Extremities: No Edema Skin: Other (inflammation near colostomy bag, wound consult performed, pt notes it is better ) Neuro: Normal Speech, Normal Tone, Sensation Intact Results Lab Laboratory Tests 07/03/23 05:35: White Blood Count 6.7, Red Blood Count 4.06, Hemoglobin 11.5, Hematocrit 36, Mean Corpuscular Volume 89, Mean Corpuscular Hemoglobin 28, Mean Corpuscular Hemoglobin Concent 32, Red Cell Distribution Width 16.4H, Platelet Count 181, Mean Platelet Volume 9.7, Immature Granulocyte % (Auto) 1, Neutrophils (%) (Auto) 55, Lymphocytes (%) (Auto) 30, Monocytes (%) (Auto) 9, Eosinophils (%) (Auto) 5, Basophils (%) (Auto) 1, Neutrophils # (Auto) 3.7, Lymphocytes # (Auto) 2.0, Monocytes # (Auto) 0.6, Eosinophils # (Auto) 0.3, Basophils # (Auto) 0.0, Immature Granulocyte # (Auto) 0.1, Sodium Level 140, Potassium Level 4.2, Chloride Level 108H, Carbon Dioxide Level 23, Anion Gap 9, Blood Urea Nitrogen 13, Creatinine 1.19, Estimat Glomerular Filtration Rate 49, BUN/Creatinine Ratio 11, Glucose Level 86, Calcium Level 9.0, Corrected Calcium 9.6, Magnesium Level 1.9, Total Bilirubin 0.3, Aspartate Amino Transf (AST/SGOT) 16, Alanine Aminotransferase (ALT/SGPT) 16, Alkaline Phosphatase 71, Total Protein 6.4, Albumin 3.2 Microbiology 06/30/23 MRSA Screen - Final, Complete MRSA not isolated 06/30/23 Urine Culture - Final, Complete Escherichia coli Proteus mirabilis 06/30/23 Blood Culture - Preliminary, Resulted Staph, Coag Neg (ESTHETICIAN) See Comments Assessment/Plan Assessment/Plan Assess & Plan/Chief Complaint 07/03/2023: A/P -Acute on Chronic Hypoxic Respiratory Failure * O2 support * RT * PT/OT to ambulate -COVID-19 * Paxlovid * Support care * Ambulate -UTI * D/C zosyn, start gentamycin * Up to urinate, purewick when resting * sensitivities report back, culture has e.coli and proteus -BERNARDO * CPAP when sleeping -Abdominal Wound * Wound care performed * pt has supplies and prefers to manage -DVT Prophylaxis * Heparin CHEN WRIGHT DO 07/04/23 0431: Supervisory-Addendum Brief Verification & Attestation Participated in pt care: history, MDM, physical Personally performed: exam, history, MDM, supervision of care Care discussed with: Medical Student Procedures: n/a Results interpretation: Verified all documentation Verification and Attestation of Medical Student E/M Service A medical student performed and documented this service in my presence. I reviewed and verified all information documented by the medical student and made modifications to such information, when appropriate. I personally performed the physical exam and medical decision making. Chen Wright Jul 04, 2023,04:31 KIMI WEN Jul 03, 2023 09:40 CHEN WRIGHT DO Jul 04, 2023 04:31
[2023-07-03 11:40] VITALS: BP 131/73
[2023-07-03] MEDS ORDERED: METH1TAB21 PO ×2 (11:56)
--- NOTE | 2023-07-03 11:56 | Discharge Summary ---
Diagnosis/Chief Complaint Date of Admission Jun 30, 2023 at 01:28 Date of Discharge Discharge Date: Jul 03, 2023 Discharge Diagnosis A/P -Acute on Chronic Hypoxic Respiratory Failure * O2 support * RT * PT/OT to ambulate -COVID-19 * Paxlovid * Support care * Ambulate -UTI * Zosyn * Up to urinate, purewick when resting * Repeat UA -BERNARDO * CPAP when sleeping -Abdominal Wound * Wound care consulted -DVT Prophylaxis * Heparin Discharge Summary Discharge Physical Examination Allergies: Coded Allergies: Cephalosporins (Verified Allergy, Unknown, 10/20/20) Sulfa (Sulfonamide Antibiotics) (Unverified Allergy, Unknown, RASH, 10/20/20) azithromycin (Verified Allergy, Unknown, 10/20/20) codeine (Verified Allergy, Unknown, 10/20/20) Vitals & I&Os Vital Signs Date Time Temp Pulse Resp B/P (MAP) Pulse Ox O2 Delivery O2 Flow Rate FiO2 07/03/23 13:23 36.3 70 18 131/73 94 NIV CPAP 2.00 06/30/23 20:55 21 General Appearance: Alert, Oriented X3, Cooperative Respiratory: Clear to Auscultation Cardiovascular: Regular Rate Psych/Mental Status: Mental Status NL Hospital Course Was the Problem List Reviewed?: Yes Course: Zhane is a 68-year-old female that presented to the ED on 06/30 due to not feeling well and malaise. She was tested for COVID which came back positive. Her CXR showed no manifestations of infection, but given patients BMI and comorbidities, she was admitted for treatment with paxlovid and close monitoring. Additionally, Zhane was found to have a severe UTI that would require IV treatment. Zhane was placed on the 4th floor MED/SURG unit where she has received care for COVID and her UTI. Over her course, she has shown improvement. Zhane's lungs have continued to be clear on auscultation and she has had no concerns about her respiratory status. Additionally, she has shown improvement in her UTI. A de paz catheter was placed and subsequently removed the following day due to improvement. Zhane endorses resolution of her UTI symptoms, but notes that this has been a recurrent issue in the past. On 07/02 the sensitivities for her UTI came back and treatment was tailored to cover the c ultured E.Coli and Proteus. Zhane has no current issues upon discharge. She should have a close follow-up with Dr. Araujo to continue care. Continue medications per discharge. She will go home on oral ABX. No other concerns. Labs (last 24 hrs) Laboratory Tests 06/30/23 00:00: White Blood Count 10.6, Red Blood Count 4.67, Hemoglobin 13.4, Hematocrit 42, Mean Corpuscular Volume 89, Mean Corpuscular Hemoglobin 29, Mean Corpuscular Hemoglobin Concent 32, Red Cell Distribution Width 16.7H, Platelet Count 206, Mean Platelet Volume 9.5, Immature Granulocyte % (Auto) 1, Neutrophils (%) (Auto) 84H, Lymphocytes (%) (Auto) 8L, Monocytes (%) (Auto) 7, Eosinophils (%) (Auto) 0, Basophils (%) (Auto) 0, Neutrophils # (Auto) 8.9H, Lymphocytes # (Auto) 0.8L, Monocytes # (Auto) 0.7, Eosinophils # (Auto) 0.0, Basophils # (Auto) 0.0, Immature Granulocyte # (Auto) 0.1, Neutrophils % (Manual) 86, Lymphocytes % (Manual) 6, Monocytes % (Manual) 4, Band Neutrophils 4, Anisocytosis SLIGHT, Erythrocyte Sedimentation Rate 65H, Prothrombin Time 14.5, INR Comment 1.1, Activated Partial Thromboplast Time 33, Sodium Level 135, Potassium Level 4.4, Chloride Level 103, Carbon Dioxide Level 18L, Anion Gap 14, Blood Urea Nitrogen 18, Creatinine 1.46H, Estimat Glomerular Filtration Rate 38, BUN/Creatinine Ratio 12, Glucose Level 115H, Lactic Acid Level 1.05, Calcium Level 9.7, Corrected Calcium 9.9, Magnesium Level 1.7, Total Bilirubin 1.1H, As partate Amino Transf (AST/SGOT) 21, Alanine Aminotransferase (ALT/SGPT) 13, Alkaline Phosphatase 76, C-Reactive Protein High Sensitivity 17.90H, Total Protein 7.4, Albumin 3.8, Amylase Level 33, Lipase 4L, Influenza Type A (RT-PCR) Not Detected, Influenza Type B (RT-PCR) Not Detected, SARS-CoV-2 RNA (RT-PCR) DetectedH 06/30/23 00:10: Urine Color YELLOW, Urine Clarity CLOUDY, Urine pH 7.0, Urine Specific [place] 1.020, Urine Protein 2+H, Urine Glucose (UA) NEGATIVE, Urine Ketones NEGATIVE, Urine Nitrite NEGATIVE, Urine Bilirubin NEGATIVE, Urine Urobilinogen 1.0, Urine Leukocyte Esterase 3+H, Urine RBC (Auto) 1+H, Urine RBC 5-10H, Urine WBC TNTCH, Urine Squamous Epithelial Cells 2-5, Urine Crystals NONE, Urine Bacteria LARGEH, Urine Casts NONE, Urine Mucus NEGATIVE, Urine Culture Indicated CULTURE PENDING 06/30/23 04:37: White Blood Count 8.5, Red Blood Count 3.84, Hemoglobin 11.1L, Hematocrit 34L, Mean Corpuscular Volume 89, Mean Corpuscular Hemoglobin 29, Mean Corpuscular Hemoglobin Concent 33, Red Cell Distribution Width 16.5H, Platelet Count 161, Mean Platelet Volume 9.2, Immature Granulocyte % (Auto) 1, Neutrophils (%) (Auto) 83H, Lymphocytes (%) (Auto) 9L, Monocytes (%) (Auto) 7, Eosinophils (%) (Auto) 0, Basophils (%) (Auto) 0, Neutrophils # (Auto) 7.0, Lymphocytes # (Auto) 0.8L, Monocytes # (Auto) 0.6, Eosinophils # (Auto) 0.0, Basophils # (Auto) 0.0, Immature Granulocyte # (Auto) 0.1, Sodium Level 136, Potassium Level 4.0, Chloride Level 105, Carbon Dioxide Level 19L, Anion Gap 12, Blood Urea Nitrogen 19H, Creatinine 1.46H, Estimat Glomerular Filtration Rate 38, BUN/Creatinine Ratio 13, Glucose Level 112H, Calcium Level 8.8, Corrected Calcium 9.5, Magnesium Level 1.6, Total Bilirubin 1.0, Aspartate Amino Transf (AST/SGOT) 15, Alanine Aminotransferase (ALT/SGPT) 10, Alkaline Phosphatase 58, Total Protein 5.8L, Albumin 3.1L, Phosphorus Level 4.0 07/01/23 05:52: White Blood Count 7.0, Red Blood Count 4.05, Hemoglobin 11.7, Hematocrit 36, Mean Corpuscular Volume 88, Mean Corpuscular Hemoglobin 29, Mean Corpuscular Hemoglobin Concent 33, Red Cell Distribution Width 16.3H, Platelet Count 169, Mean Platelet Volume 9.7, Immature Granulocyte % (Auto) 1, Neutrophils (%) (Auto) 73, Lymphocytes (%) (Auto) 17, Monocytes (%) (Auto) 8, Eosinophils (%) (Auto) 0, Basophils (%) (Auto) 1, Neutrophils # (Auto) 5.1, Lymphocytes # (Auto) 1.2, Monocytes # (Auto) 0.6, Eosinophils # (Auto) 0.0, Basophils # (Auto) 0.0, Immature Granulocyte # (Auto) 0.1, Sodium Level 135, Potassium Level 3.9, Chloride Level 104, Carbon Dioxide Level 21, Anion Gap 10, Blood Urea Nitrogen 14, Creatinine 1.39H, Estimat Glomerular Filtration Rate 41, BUN/Creatinine Ratio 10, Glucose Level 94, Calcium Level 8.9, Corrected Calcium 9.5, Magnesium Level 2.0, Total Bilirubin 0.5, Aspartate Amino Transf (AST/SGOT) 24, Alanine Aminotransferase (ALT/SGPT) 18, Alkaline Phosphatase 68, Total Protein 6.3L, Albumin 3.3 07/02/23 05:34: White Blood Count 6.2, Red Blood Count 4.17, Hemoglobin 12.0, Hematocrit 37, Mean Corpuscular Volume 90, Mean Corpuscular Hemoglobin 29, Mean Corpuscular Hemoglobin Concent 32, Red Cell Distribution Width 16.5H, Platelet Count 154, Mean Platelet Volume 9.7, Immature Granulocyte % (Auto) 1, Neutrophils (%) (Auto ) 64, Lymphocytes (%) (Auto) 22, Monocytes (%) (Auto) 10, Eosinophils (%) (Auto) 3, Basophils (%) (Auto) 1, Neutrophils # (Auto) 3.9, Lymphocytes # (Auto) 1.4, Monocytes # (Auto) 0.6, Eosinophils # (Auto) 0.2, Basophils # (Auto) 0.0, Immature Granulocyte # (Auto) 0.1, Sodium Level 138, Potassium Level 3.6, Chloride Level 106, Carbon Dioxide Level 22, Anion Gap 10, Blood Urea Nitrogen 15, Creatinine 1.49H, Estimat Glomerular Filtration Rate 38, BUN/Creatinine Ratio 10, Glucose Level 154H, Calcium Level 8.9, Corrected Calcium 9.5, Magnesium Level 1.8, Total Bilirubin 0.4, Aspartate Amino Transf (AST/SGOT) 16, Alanine Aminotransferase (ALT/SGPT) 15, Alkaline Phosphatase 69, Total Protein 6.1L, Albumin 3.2 07/03/23 05:35: White Blood Count 6.7, Red Blood Count 4.06, Hemoglobin 11.5, Hematocrit 36, Mean Corpuscular Volume 89, Mean Corpuscular Hemoglobin 28, Mean Corpuscular Hemoglobin Concent 32, Red Cell Distribution Width 16.4H, Platelet Count 181, Mean Platelet Volume 9.7, Immature Granulocyte % (Auto) 1, Neutrophils (%) (Auto) 55, Lymphocytes (%) (Auto) 30, Monocytes (%) (Auto) 9, Eosinophils (%) (Auto) 5, Basophils (%) (Auto) 1, Neutrophils # (Auto) 3.7, Lymphocytes # (Auto) 2.0, Monocytes # (Auto) 0.6, Eosinophils # (Auto) 0.3, Basophils # (Auto) 0.0, Immature Granulocyte # (Auto) 0.1, Sodium Level 140, Potassium Level 4.2, Chloride Level 108H, Carbon Dioxide Level 23, Anion Gap 9, Blood Urea Nitrogen 13, Creatinine 1.19, Estimat Glomerular Filtration Rate 49, BUN/Creatinine Ratio 11, Glucose Level 86, Calcium Level 9.0, Corrected Calcium 9.6, Magnesium Level 1.9, Total Bilirubin 0.3, Aspartate Amino Transf (AST/SGOT) 16, Alanine Aminot ransferase (ALT/SGPT) 16, Alkaline Phosphatase 71, Total Protein 6.4, Albumin 3.2 Microbiology 06/30/23 MRSA Screen - Final, Complete MRSA not isolated 06/30/23 Urine Culture - Final, Complete Escherichia coli Proteus mirabilis 06/30/23 Blood Culture - Preliminary, Resulted Staph, Coag Neg ([facility]) See Comments Pending Labs Microbiology Date/Time Source Procedure Growth Status 06/30/23 01:51 Nasal MRSA Screen - Final MRSA not isolated Complete 06/30/23 00:10 Urine [place] Cath Urine Culture - Final Escherichia coli Proteus mirabilis Complete 06/30/23 00:00 Peripheral Lt Ac Blood Culture - Preliminary Staph, Coag Neg ([facility]AC[facility]ASHIER) See Comments Resulted 06/29/23 00:37 Peripheral Rt Hand Blood Culture - Preliminary Resulted Laboratory Tests 06/30/23 00:00: White Blood Count 10.6, Red Blood Count 4.67, Hemoglobin 13.4, Hematocrit 42, Mean Corpuscular Volume 89, Mean Corpuscular Hemoglobin 29, Mean Corpuscular Hemoglobin Concent 32, Red Cell Distribution Width 16.7, Platelet Count 206, Mean Platelet Volume 9.5, Immature Granulocyte % (Auto) 1, Neutrophils (%) (Auto) 84, Lymphocytes (%) (Auto) 8, Monocytes (%) (Auto) 7, Eosinophils (%) (Auto) 0, Basophils (%) (Auto) 0, Neutrophils # (Auto) 8.9, Lymphocytes # (Auto) 0.8, Monocytes # (Auto) 0.7, Eosinophils # (Auto) 0.0, Basophils # (Auto) 0.0, Immature Granulocyte # (Auto) 0.1, Neutrophils % (Manual) 86, Lymphocytes % (Man ual) 6, Monocytes % (Manual) 4, Band Neutrophils 4, Anisocytosis SLIGHT, Erythrocyte Sedimentation Rate 65, Prothrombin Time 14.5, INR Comment 1.1, Activated Partial Thromboplast Time 33, Sodium Level 135, Potassium Level 4.4, Chloride Level 103, Carbon Dioxide Level 18, Anion Gap 14, Blood Urea Nitrogen 18, Creatinine 1.46, Estimat Glomerular Filtration Rate 38, BUN/Creatinine Ratio 12, Glucose Level 115, Lactic Acid Level 1.05, Calcium Level 9.7, Corrected Calcium 9.9, Magnesium Level 1.7, Total Bilirubin 1.1, Aspartate Amino Transf (AST/SGOT) 21, Alanine Aminotransferase (ALT/SGPT) 13, Alkaline Phosphatase 76, C-Reactive Protein High Sensitivity 17.90, Total Protein 7.4, Albumin 3.8, Amylase Level 33, Lipase 4, Influenza Type A (RT-PCR) Not Detected, Influenza Type B (RT-PCR) Not Detected, SARS-CoV-2 RNA (RT-PCR) Detected 06/30/23 00:10: Urine Color YELLOW, Urine Clarity CLOUDY, Urine pH 7.0, Urine Specific [place] 1.020, Urine Protein 2+, Urine Glucose (UA) NEGATIVE, Urine Ketones NEGATIVE, Urine Nitrite NEGATIVE, Urine Bilirubin NEGATIVE, Urine Urobilinogen 1.0, Urine Leukocyte Esterase 3+, Urine RBC (Auto) 1+, Urine RBC 5-10, Urine WBC TNTC, Urine Squamous Epithelial Cells 2-5, Urine Crystals NONE, Urine Bacteria LARGE, Urine Casts NONE, Urine Mucus NEGATIVE, Urine Culture Indicated CULTURE PENDING 06/30/23 04:37: White Blood Count 8.5, Red Blood Count 3.84, Hemoglobin 11.1, Hematocrit 34, Mean Corpuscular Volume 89, Mean Corpuscular Hemoglobin 29, Mean Corpuscular Hemoglobin Concent 33, Red Cell Distribution Width 16.5, Platelet Count 161, Mean Platelet Volume 9.2, Immature Granulocyte % (Auto) 1, Neutrophils (%) (Auto) 83, Lymphocytes (%) (Auto) 9, Monocytes (%) (Auto) 7, Eosinophils (%) (Auto) 0, Basophils (%) (Auto) 0, Neutrophils # (Auto) 7.0, Lymphocytes # (Auto) 0.8, Monocytes # (Auto) 0.6, Eosinophils # (Auto) 0.0, Basophils # (Auto) 0.0, Immature Granulocyte # (Auto) 0.1, Sodium Level 136, Potassium Level 4.0, Chloride Level 105, Carbon Dioxide Level 19, Anion Gap 12, Blood Urea Nitrogen 19, Creatinine 1.46, Estimat Glomerular Filtration Rate 38, BUN/Creatinine Ratio 13, Glucose Level 112, Calcium Level 8.8, Corrected Calcium 9.5, Magnesium Level 1.6, Total Bilirubin 1.0, Aspartate Amino Transf (AST/SGOT) 15, Alanine Aminotransferase (ALT/SGPT) 10, Alkaline Phosphatase 58, Total Protein 5.8, Albumin 3.1, Phosphorus Level 4.0 07/01/23 05:52: White Blood Count 7.0, Red Blood Count 4.05, Hemoglobin 11.7, Hematocrit 36, Mean Corpuscular Volume 88, Mean Corpuscular Hemoglobin 29, Mean Corpuscular Hemoglobin Concent 33, Red Cell Distribution Width 16.3, Platelet Count 169, Mean Platelet Volume 9.7, Immature Granulocyte % (Auto) 1, Neutrophils (%) (Auto) 73, Lymphocytes (%) (Auto) 17, Monocytes (%) (Auto) 8, Eosinophils (%) (Auto) 0, Basophils (%) (Auto) 1, Neutrophils # (Auto) 5.1, Lymphocytes # (Auto) 1.2, Monocytes # (Auto) 0.6, Eosinophils # (Auto) 0.0, Basophils # (Auto) 0.0, Immature Granulocyte # (Auto) 0.1, Sodium Level 135, Potassium Level 3.9, Chloride Level 104, Carbon Dioxide Level 21, Anion Gap 10, Blood Urea Nitrogen 14, Creatinine 1.39, Estimat Glomerular Filtration Rate 41, BUN/Creatinine Ratio 10, Glucose Level 94, Calcium Level 8.9, Corrected Calcium 9.5, Magnesium Level 2.0, Total Bilirubin 0.5, Aspartate Amino Transf (AST/SGOT) 24, Alanine Aminotransferase (ALT/SGPT) 18, Alkaline Phosphatase 68, Total Protein 6.3, Albumin 3.3 07/02/23 05:34: White Blood Count 6.2, Red Blood Count 4.17, Hemoglobin 12.0, Hematocrit 37, Mean Corpuscular Volume 90, Mean Corpuscular Hemoglobin 29, Mean Corpuscular Hemoglobin Concent 32, Red Cell Distribution Width 16.5, Platelet Count 154, Mean Platelet Volume 9.7, Immature Granulocyte % (Auto) 1, Neutrophils (%) (Auto) 64, Lymphocytes (%) (Auto) 22, Monocytes (%) (Auto) 10, Eosinophils (%) (Auto) 3, Basophils (%) (Auto) 1, Neutrophils # (Auto) 3.9, Lymphocytes # (Auto) 1.4, Monocytes # (Auto) 0.6, Eosinophils # (Auto) 0.2, Basophils # (Auto) 0.0, Immature Granulocyte # (Auto) 0.1, Sodium Level 138, Potassium Level 3.6, Chloride Level 106, Carbon Dioxide Level 22, Anion Gap 10, Blood Urea Nitrogen 15, Creatinine 1.49, Estimat Glomerular Filtration Rate 38, BUN/Creatinine Ratio 10, Glucose Level 154, Calcium Level 8.9, Corrected Calcium 9.5, Magnesium Level 1.8, Total Bilirubin 0.4, Aspartate Amino Transf (AST/SGOT) 16, Alanine Aminotransferase (ALT/SGPT) 15, Alkaline Phosphatase 69, Total Protein 6.1, Albumin 3.2 07/03/23 05:35: White Blood Count 6.7, Red Blood Count 4.06, Hemoglobin 11.5, Hematocrit 36, Mean Corpuscular Volume 89, Mean Corpuscular Hemoglobin 28, Mean Corpuscular Hemoglobin Concent 32, Red Cell Distribution Width 16.4, Platelet Count 181, Mean Platelet Volume 9.7, Immature Granulocyte % (Auto) 1, Neutrophils (%) (Auto) 55, Lymphocytes (%) (Auto) 30, Monocytes (%) (Auto) 9, Eosinophils (%) (Auto) 5, Basophils (%) (Auto) 1, Neutrophils # (Auto) 3.7, Lymphocytes # (Auto) 2.0, Monocytes # (Auto) 0.6, Eosinophils # (Auto) 0.3, Basophils # (Auto) 0.0, Immature Granulocyte # (Auto) 0.1, Sodium Level 140, Potassium Level 4.2, Chloride Level 108, Carbon Dioxide Level 23, Anion Gap 9, Blood Urea Nitrogen 13, Creatinine 1.19, Estimat Glomerular Filtration Rate 49, BUN/Creatinine Ratio 11, Glucose Level 86, Calcium Level 9.0, Corrected Calcium 9.6, Magnesium Level 1.9, Total Bilirubin 0.3, Aspartate Amino Transf (AST/SGOT) 16, Alanine Aminotransferase (ALT/SGPT) 16, Alkaline Phosphatase 71, Total Protein 6.4, Albumin 3.2 Discharge Home Medications: Active Scripts Active Methenamine Hippurate 1 Gram Tablet 1 Gm PO BID 7 Days hold while on augmentin Reported Vitamin B-12 (Cyanocobalamin (Vitamin B-12)) 1,000 Mcg Tablet 1,000 Mcg PO DAILY Tylenol Extra Strength (Acetaminophen) 500 Mg Tablet 1,000 Mg PO Q8H PRN TAKES 2 (500MG) TABS Amox Tr-K Clv 875-125 mg Tab (Amoxicillin/Potassium Clav) 875 Mg-125 Mg Tablet 1 Ea PO BID FILLED 06-29-2023 #28/14 DY SUPPLY, THE PATIENT SAID THAT SHE NEVER STARTED THIS MEDICATION. Hyoscyamine Sulfate 0.125 Mg Tablet 0.125 Mg PO QID PRN Nystop (Nystatin) 100,000 Unit/Gram Powder 60 Gm TP QID PRN Vitamin C (Ascorbic Acid) 500 Mg Tablet 500 Mg PO DAILY Carvedilol 25 Mg Tablet 25 Mg PO BID Amlodipine Besylate 5 Mg Tablet 5 Mg PO HS Bupropion Xl (Bupropion HCl) 300 Mg Tab.er.24h 300 Mg PO DAILY Budesonide 0.5 Mg/2 Ml Ampul.neb 2 Ml NEB DAILY Vitamin D3 (Cholecalciferol (Vitamin D3)) 125 Mcg (5000 Unit) Capsule 125 Mcg PO BID Cetirizine HCl 10 Mg Tablet 10 Mg PO HS Albuterol Sulfate 2.5 Mg/0.5 Ml Vial.neb 2.5 Mg INH Q6H PRN Azo D-Mannose (D-Mannose) 500 Mg Capsule 500 Mg PO BID Levothyroxine Sodium 137 Mcg Tablet 137 Mcg PO ARAGON,,WED,TH,FRI,SAT Myrbetriq (Mirabegron) 25 Mg Tab.er.24h 25 Mg PO HS Imodium A-D (Loperamide HCl) 2 Mg Tablet 2 Mg PO BID Fenofibrate (Fenofibrate Nanocrystallized) 145 Mg Tablet 145 Mg PO MON, WED, FRI @ HS Montelukast Sodium 10 Mg Tablet 10 Mg PO HS Ventolin Hfa (Albuterol Sulfate) 8.5 Gm Hfa.aer.ad 2 Puff INH Q6H PRN Pantoprazole Sodium 40 Mg Tablet.dr 40 Mg PO BID Instructions to patient/family Please see electronic discharge instructions given to patient. GALILEO WRIGHT DO Jul 03, 2023 11:56
[2023-07-03 13:23] VITALS: BP 131/73
== END 2023-07-03 13:26 | disposition home or self-care (01) | DRG 177 ==
LOC: EDUNIT# 23:43 → ER 23:44 → ICU 06-30 01:28 → 4TH 06-30 11:44
PROVIDERS: ADMIT Internal Medicine; ATTEND Internal Medicine
PROC: 5A09357 Assistance with Respiratory Ventilation, Less than 24 Consecutive Hours, Continuous Positive Airway Pressure (ICD-10-PCS; principal; 2023-06-30)
DX: U07.1 COVID-19 (principal); J96.21 Acute and chronic respiratory failure with hypoxia; N39.0 Urinary tract infection, site not specified; Z68.44 Body mass index [BMI] 60.0-69.9, adult; L98.492 Non-pressure chronic ulcer of skin of other sites with fat layer exposed; K43.5 Parastomal hernia without obstruction or gangrene; J44.9 Chronic obstructive pulmonary disease, unspecified; G47.33 Obstructive sleep apnea (adult) (pediatric); I12.9 Hypertensive chronic kidney disease with stage 1 through stage 4 chronic kidney disease, or unspecified chronic kidney disease; E11.22 Type 2 diabetes mellitus with diabetic chronic kidney disease; N18.30 Chronic kidney disease, stage 3 unspecified; E78.00 Pure hypercholesterolemia, unspecified; E03.9 Hypothyroidism, unspecified; E66.01 Morbid (severe) obesity due to excess calories; Z79.899 Other long term (current) drug therapy; Z88.1 Allergy status to other antibiotic agents; Z88.5 Allergy status to narcotic agent; Z88.2 Allergy status to sulfonamides
CPT/HCPCS: 36410; 36415; 51702; 71045; 76937; 80053; 81000; 82150; 83605; 83690; 83735; 84100; 85007; 85025; 85027; 85610; 85652; 85730; 86141; 87040; 87077; 87081; 87088; 87186; 87636; 93005; 93041; 94640; 94760; 96361; 96365; 96375

== ENCOUNTER → 2023-07-09 | Outpatient (CLI) | payer MEDICARE ==
[~2023-07-09] MED LIST changes: +ACET-2267 PO; +AMOX1TAB12 PO; +CYAN-41 PO; +NYST60PO TP
== END ==
LOC: WOUNDCARE 12:22
PROVIDERS: ATTEND Family Medicine
DX: L98.492 Non-pressure chronic ulcer of skin of other sites with fat layer exposed (principal); L24.B1 Irritant contact dermatitis related to digestive stoma or fistula; L92.8 Other granulomatous disorders of the skin and subcutaneous tissue; K43.2 Incisional hernia without obstruction or gangrene; K94.09 Other complications of colostomy; E11.622 Type 2 diabetes mellitus with other skin ulcer; N18.30 Chronic kidney disease, stage 3 unspecified; E66.01 Morbid (severe) obesity due to excess calories; Z68.43 Body mass index [BMI] 50.0-59.9, adult
CPT/HCPCS: 11042; A6234; G0463

== ENCOUNTER → 2023-07-16 | Outpatient (CLI) | payer MEDICARE ==
[~2023-07-16] MED LIST changes: -OXYB5TAB13 PO; +OXYB5TAB14 PO
== END ==
LOC: WOUNDCARE 12:21
PROVIDERS: ATTEND Family Medicine
DX: L98.492 Non-pressure chronic ulcer of skin of other sites with fat layer exposed (principal); L24.B1 Irritant contact dermatitis related to digestive stoma or fistula; L92.8 Other granulomatous disorders of the skin and subcutaneous tissue; E66.01 Morbid (severe) obesity due to excess calories; Z68.43 Body mass index [BMI] 50.0-59.9, adult; K43.2 Incisional hernia without obstruction or gangrene; E11.622 Type 2 diabetes mellitus with other skin ulcer; E11.22 Type 2 diabetes mellitus with diabetic chronic kidney disease; N18.30 Chronic kidney disease, stage 3 unspecified; K94.09 Other complications of colostomy
CPT/HCPCS: A6234; G0463; 99212